=== PATIENT | male | born 1945 | race Caucasian/White ===

== ENCOUNTER 2020-10-26 10:30 | Outpatient (REF) | payer MEDICARE, SELFPAY ==
[2020-10-26 15:50] LABS: Estimated Average Glucose 134 mg/dL; Hemoglobin A1c % 6.3 %
== END 2020-10-26 10:31 | disposition home or self-care (01) ==
LOC: HO.MANLR 10:30
PROVIDERS: PCP Internal Medicine; Visit Provider Internal Medicine
DX: E11.9 Type 2 diabetes mellitus without complications (principal)
CPT/HCPCS: 36415; 83036

== ENCOUNTER 2021-02-28 09:23 | Outpatient (REF) | payer MEDICARE, SELFPAY ==
[2021-02-28 12:13] LABS: Estimated Average Glucose 143 mg/dL; Hemoglobin A1c % 6.6 %
== END 2021-02-28 09:24 | disposition home or self-care (01) ==
LOC: HO.MANLDS 09:23
PROVIDERS: PCP Internal Medicine; Visit Provider Internal Medicine
DX: E11.9 Type 2 diabetes mellitus without complications (principal)
CPT/HCPCS: 36415; 83036

== ENCOUNTER 2021-05-01 10:52 | Outpatient (REF) | payer MEDICARE, SELFPAY ==
[2021-05-01 13:11] LABS: Estimated Average Glucose 117 mg/dL; Hemoglobin A1c % 5.7 %
== END 2021-05-01 10:53 | disposition home or self-care (01) ==
LOC: HO.MANLDS 10:52
PROVIDERS: PCP Internal Medicine; Visit Provider Internal Medicine
DX: E11.9 Type 2 diabetes mellitus without complications (principal)
CPT/HCPCS: 36415; 83036

== ENCOUNTER 2021-09-19 10:37 | Outpatient (REF) | payer MEDICARE, SELFPAY ==
[2021-09-19 14:16] LABS: Estimated Average Glucose 134 mg/dL; Hemoglobin A1c % 6.3 %
[2021-09-19 14:34] LABS: Alanine Aminotransferase 20 U/L (0-40); Albumin Level 4.3 g/dL (3.5-5.0); Alkaline Phosphatase 92 U/L (39-117); Anion Gap 15 (12-20); Aspartate Amino Transferase 20 U/L (5-37); Bilirubin Total 0.6 mg/dL (0.0-1.0); Blood Urea Nitrogen 23 mg/dL (9-16); Calcium 10.1 mg/dL (8.4-10.2); Carbon Dioxide 25 mmol/L (22-29); Chloride 106 mmol/L (96-108); Cholesterol 172 mg/dL; Estimated Glomerular Filt Rate 57; Glucose Fasting 139 mg/dL (60-99); HDL Cholesterol 59 mg/dL; LDL Cholesterol Calculated 90 mg/dl; Potassium 5.1 mmol/L (3.3-5.1); Sodium 141 mmol/L (135-145); Total Protein 7.2 g/dL (6.5-8.0); Triglycerides 115 mg/dL
== END 2021-09-19 10:38 | disposition home or self-care (01) ==
LOC: HO.MANLDS 10:37
PROVIDERS: PCP Internal Medicine; Visit Provider Internal Medicine
DX: E11.9 Type 2 diabetes mellitus without complications (principal)
CPT/HCPCS: 36415; 80053; 80061; 83036

== ENCOUNTER 2021-09-20 09:03 | Outpatient (REF) | payer MEDICARE, SELFPAY ==
[2021-09-20 11:33] LABS: Creatinine Urine 167.37 mg/dL; Microalbum/Creatinine Ratio Ur 3.5 ug/mg cr
== END 2021-09-20 09:04 | disposition home or self-care (01) ==
LOC: HO.MANLNP 09:03
PROVIDERS: PCP Internal Medicine; Visit Provider Internal Medicine
DX: E11.9 Type 2 diabetes mellitus without complications (principal)
CPT/HCPCS: 82043

== ENCOUNTER 2022-04-16 10:22 | Outpatient (REF) | payer MEDICARE, SELFPAY ==
[2022-04-16 13:39] LABS: Estimated Average Glucose 143 mg/dL; Hemoglobin A1c % 6.6 %
[2022-04-16 14:09] LABS: Alanine Aminotransferase 20 U/L (0-40); Albumin Level 4.4 g/dL (3.5-5.0); Alkaline Phosphatase 92 U/L (39-117); Anion Gap 16 (12-20); Aspartate Amino Transferase 17 U/L (5-37); Bilirubin Total 0.7 mg/dL (0.0-1.0); Blood Urea Nitrogen 19 mg/dL (9-16); Calcium 9.7 mg/dL (8.4-10.2); Carbon Dioxide 26 mmol/L (22-29); Chloride 105 mmol/L (96-108); Cholesterol 153 mg/dL; Estimated Glomerular Filt Rate 50; Glucose Random 127 mg/dL (60-115); HDL Cholesterol 50 mg/dL; LDL Cholesterol Calculated 72 mg/dl; Potassium 5.2 mmol/L (3.3-5.1); Sodium 142 mmol/L (135-145); Total Protein 6.9 g/dL (6.5-8.0); Triglycerides 155 mg/dL
== END 2022-04-16 10:23 | disposition home or self-care (01) ==
LOC: HO.MANLDS 10:22
PROVIDERS: Visit Provider Internal Medicine
DX: E11.9 Type 2 diabetes mellitus without complications (principal)
CPT/HCPCS: 36415; 80053; 80061; 83036

== ENCOUNTER 2022-10-29 10:32 | Outpatient (REF) | payer MEDICARE, SELFPAY ==
[2022-10-29 14:41] LABS: Estimated Average Glucose 140 mg/dL; Hemoglobin A1c % 6.5 %
[2022-10-29 15:13] LABS: Alanine Aminotransferase 19 U/L (0-40); Albumin Level 4.2 g/dL (3.5-5.0); Alkaline Phosphatase 84 U/L (39-117); Anion Gap 15 (12-20); Aspartate Amino Transferase 19 U/L (5-37); Bilirubin Total 0.9 mg/dL (0.0-1.0); Blood Urea Nitrogen 15 mg/dL (9-16); Calcium 9.3 mg/dL (8.4-10.2); Carbon Dioxide 26 mmol/L (22-29); Chloride 107 mmol/L (96-108); Cholesterol 140 mg/dL; Estimated Glomerular Filt Rate > 60; Glucose Fasting 103 mg/dL (60-99); HDL Cholesterol 46 mg/dL; LDL Cholesterol Calculated 67 mg/dl; Potassium 4.3 mmol/L (3.3-5.1); Sodium 144 mmol/L (135-145); Total Protein 6.6 g/dL (6.5-8.0); Triglycerides 136 mg/dL
== END 2022-10-29 10:33 | disposition home or self-care (01) ==
LOC: HO.MANLDS 10:32
PROVIDERS: Visit Provider Internal Medicine
DX: E11.9 Type 2 diabetes mellitus without complications (principal)
CPT/HCPCS: 36415; 80053; 80061; 83036

== ENCOUNTER 2023-04-08 09:25 | Outpatient (REF) | payer MEDICARE, SELFPAY ==
[2023-04-08 14:48] LABS: Alanine Aminotransferase 17 U/L (0-40); Albumin Level 4.3 g/dL (3.5-5.0); Alkaline Phosphatase 93 U/L (39-117); Anion Gap 14 (12-20); Aspartate Amino Transferase 17 U/L (5-37); Bilirubin Total 0.7 mg/dL (0.0-1.0); Blood Urea Nitrogen 24 mg/dL (9-16); Carbon Dioxide 27 mmol/L (22-29); Chloride 107 mmol/L (96-108); Cholesterol 163 mg/dL; Estimated Glomerular Filt Rate > 60; Glucose Random 99 mg/dL (60-115); HDL Cholesterol 55 mg/dL; LDL Cholesterol Calculated 88 mg/dl; Potassium 4.6 mmol/L (3.3-5.1); Sodium 143 mmol/L (135-145); Triglycerides 103 mg/dL
[2023-04-08 15:10] LABS: Estimated Average Glucose 137 mg/dL; Hemoglobin A1c % 6.4 %
== END 2023-04-08 09:26 | disposition home or self-care (01) ==
LOC: HO.MANLDS 09:25
PROVIDERS: Visit Provider Internal Medicine
DX: E11.9 Type 2 diabetes mellitus without complications (principal)
CPT/HCPCS: 36415; 80053; 80061; 83036

== ENCOUNTER 2023-07-19 11:05 | Outpatient (REF) | payer MEDICARE, SELFPAY ==
[2023-07-19 14:14] LABS: Alanine Aminotransferase 18 U/L (0-40); Albumin Level 4.5 g/dL (3.5-5.0); Alkaline Phosphatase 107 U/L (39-117); Anion Gap 15 (12-20); Aspartate Amino Transferase 19 U/L (5-37); Bilirubin Total 0.9 mg/dL (0.0-1.0); Blood Urea Nitrogen 22 mg/dL (9-16); Calcium 10.3 mg/dL (8.4-10.2); Carbon Dioxide 22 mmol/L (22-29); Chloride 107 mmol/L (96-108); Cholesterol 177 mg/dL (<200); Estimated Glomerular Filt Rate > 60; Glucose Random 123 mg/dL (60-115); HDL Cholesterol 55 mg/dL (>40); LDL Cholesterol Calculated 89 mg/dL (<100); Potassium 4.1 mmol/L (3.3-5.1); Sodium 140 mmol/L (135-145); Total Protein 7.5 g/dL (6.5-8.0); Triglycerides 165 mg/dL (<150)
[2023-07-19 16:13] LABS: Estimated Average Glucose 151 mg/dL; Hemoglobin A1c % 6.9 % (<6.0)
== END 2023-07-19 11:06 | disposition home or self-care (01) ==
LOC: HO.MANLDS 11:05
PROVIDERS: Visit Provider Internal Medicine
DX: E11.9 Type 2 diabetes mellitus without complications (principal); I10 Essential (primary) hypertension
CPT/HCPCS: 36415; 80053; 80061; 83036

== ENCOUNTER 2023-12-03 14:04 | Outpatient (REF) | payer MEDICARE, SELFPAY ==
[2023-12-03 18:25] LABS: Alanine Aminotransferase 23 U/L (0-40); Albumin Level 4.5 g/dL (3.5-5.0); Alkaline Phosphatase 85 U/L (39-117); Anion Gap 16 (12-20); Aspartate Amino Transferase 24 U/L (5-37); Bilirubin Total 0.8 mg/dL (0.0-1.0); Blood Urea Nitrogen 18 mg/dL (9-16); Calcium 10.2 mg/dL (8.4-10.2); Carbon Dioxide 24 mmol/L (22-29); Chloride 104 mmol/L (96-108); Estimated Glomerular Filt Rate > 60; Glucose Random 85 mg/dL (60-115); Potassium 3.9 mmol/L (3.3-5.1); Sodium 140 mmol/L (135-145); Total Protein 7.6 g/dL (6.5-8.0)
[2023-12-04 05:42] LABS: Estimated Average Glucose 131 mg/dL; Hemoglobin A1c % 6.2 % (<6.0)
== END 2023-12-03 14:05 | disposition home or self-care (01) ==
LOC: HO.MANLDS 14:04
PROVIDERS: Visit Provider Internal Medicine
DX: E11.9 Type 2 diabetes mellitus without complications (principal); I10 Essential (primary) hypertension
CPT/HCPCS: 36415; 80053; 83036

== ENCOUNTER 2024-05-26 11:20 | Outpatient (REF) | payer MEDICARE, SELFPAY ==
[2024-05-26 14:09] LABS: Alanine Aminotransferase 20 U/L (0-40); Albumin Level 4.5 g/dL (3.5-5.0); Alkaline Phosphatase 81 U/L (39-117); Anion Gap 11 (12-20); Aspartate Amino Transferase 17 U/L (5-37); Bilirubin Total 0.7 mg/dL (0.0-1.0); Blood Urea Nitrogen 29 mg/dL (9-16); Calcium 10.1 mg/dL (8.4-10.2); Carbon Dioxide 28 mmol/L (22-29); Chloride 107 mmol/L (96-108); Estimated Glomerular Filt Rate 52; Glucose Random 95 mg/dL (60-115); Potassium 4.1 mmol/L (3.3-5.1); Sodium 142 mmol/L (135-145); Total Protein 7.4 g/dL (6.5-8.0)
[2024-05-26 16:05] LABS: Estimated Average Glucose 140 mg/dL; Hemoglobin A1c % 6.5 % (<6.0); Total Hemoglobin (HGBA1C) 3612.3304 umol/L
== END 2024-05-26 11:21 | disposition home or self-care (01) ==
LOC: HO.MANLDS 11:20
PROVIDERS: Visit Provider Internal Medicine
DX: E11.9 Type 2 diabetes mellitus without complications (principal); I10 Essential (primary) hypertension
CPT/HCPCS: 36415; 80053; 83036

== ENCOUNTER 2024-10-07 14:21 | Outpatient (REF) | payer MEDICARE, SELFPAY ==
--- OUTSIDE RECORDS SUMMARY | 2024-10-07 15:33 | XMS_ITS | Clinical Summary ---
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 Name Role Phone Unavailable Primary Care Provider Unavailabl e Social History Tobacco Use Types Packs/Day Years Used Date Smoking Tobacco: Never Assessed Sex and Gender Information Value Date Recorded Sex Assigned at Not on file Gender Identity Not on file Sexual Orientation Not on file Plan of Treatment Health Maintenance Due Date Last Done Comments DTaP/Tdap/Td Vaccines (1 - Tdap) 02/09/1963 Pneumococcal Vaccines 50+ (1 of 1 - PCV) 02/09/1994 Zoster (Shingles) Vaccine (1 of 2) 02/09/1994 RSV Vaccine 60 years and old er and Patients (1 - 1-dose 75+ series) 02/09/2019 COVID-19 Vaccine (2023-2 5 season) 2024 Hepatitis B Vaccines Aged Out No long er eligible based on patient's age to complete this topic
--- OUTSIDE RECORDS SUMMARY | 2024-10-07 15:33 | XMS_ITS | Continuity of Care Document ---
Author Organization [facility], [facility] Address [address] [place] [address] [place] [address] Assessment Encounter Date Assessment Date Assessment LastModified by Organization Details LastModified Time 10/07/2024 10/07/2024 [address] [place] [id number] (FASHION COORDINATOR) MDM MODERATE MUST MEET 2 OUT OF 3 ELEMENTS: PROBLEMS, DATA OR RISK ELEMENT 1: PROBLEMS ADDRESSED 1 OR MORE CHRONIC ILLNESS WITH EXACERBATION OR 2 OR MORE STABLE CHRONIC ILLNESSES OR 1 UNDIAGNOSED NEW PROBLEM OR 1 ACUTE ILLNESS W/SYMPTOMS OR 1 ACUTE COMPLICATED INJURY ELEMENT 2: DATA MUST MEET 1 OF 3 CATEGORIES CATEGORY 1: REVIEW OF PRIOR EXTERNAL NOTES, REVIEW OF RESULTS, ORDERING OF EACH TEST, ASSESSMENT REQUIRING INDEPENDENT HISTORIAN OR CATEGORY 2: INDEPENDENT INTERPRETATION OF TESTS BY ANOTHER PHYSICIAN OR SPECIALIST OR CATEGORY 3: DISCUSSION OF MGT OR TEST INTERPRETATION W/EXTERNAL PHYSICIAN OR SPECIALIST ELEMENT 3: RISK RISK OF COMPLICATIONS AND/OR MORBIDITY OR MORTALITY OF PATIENT MANAGEMENT PROVIDER MUST THOROUGHLY DOCUMENT EACH ELEMENT THAT IS COVERED The patient had a recent fall Patient presented for follow up of: today. Studies ordered as below. Discussed plan with patient, who expressed understanding. Follow up as noted below. Denies instability, weakness, abnormal gait, or difficulties with movement. The patient wears correct, supportive shoes and is not otherwise severely visually impaired. The patient is full weight bearing and if using the assistance of a cane or walker feels supported and stable with the use of such devices. All medical conditions have been taken into account that may pose a risk for the patient for falls. Home michelle, carpets and/or rugs do not pose a challenge for the patient. The patient has been educated about the use of vitamin D supplementation for bone health and prevention of hypotensive episodes that may increase risk for fall. All question and concerns were answered to the patient's satisfaction. Not available 10/07/2024 14:07:03 Plan of Treatment Reminders Order Date Submit Date Provider Last Modified By Organization Details Last Modified Time Details Appointments FOLLOW UP 15 2024 01:45P M DR HENDERSON Not available Not available Not available Lab iron + TIBC + ferritin , serum 2024 025 [facility], [address] [place] [address], [place], [address], 10/07/2024 14:11:05 Referral None recorded . Procedures None recorded . Surgeries None recorded . Imaging None recorded . Medication Orders None recorded . Patient TargetsNo targets recorded. Patient Instructions Encounter Date Encounter Id Patient Instructions Last Modified By Organization Details Last Modified Time 10/07/2024 [id number] learning about type 2 diabetes Not available 10/07/2024 14:09:48 type 2 diabetes: care instructions Not available 10/07/2024 14:09:48 high blood pressure: care instructions Not available 10/07/2024 14:09:48 learning about high blood pressure Not available 10/07/2024 14:09:48 high cholesterol : care instructions Not available 10/07/2024 14:09:48 Reason for Referral None Reported. Problems Name Problem SNOMED Code Status Onset Date Resolution Date Notes Provider Name and Address Organization Details Recorded Time Type 2 diabetes mellitus 39595899 Active 2017 Hannah cardenas [facility] Internal [facility] 8 11:44:42 Essential hypertens ion 51502244 Active 2017 Hannah cardenas [facility] Internal [facility] 8 11:44:48 Hemochrom atosis 807596077 Active [address] [facility] 8 11:44:59 Hemangiom a of liver 39957908 Active [address] [facility] 8 11:45:22 Iron deficienc y anemia 77754228 Active [address] [facility] 8 11:45:29 Osteoarth ritis of knee 153871089 Active 2017 bilat knee Isidro Henderson, DO [address] [place] [address], [phone], [facility] 9 11:38:33 Gout 72327371 [facility] 11:46:54 Hyperlipi demia 24885990 Active [facility] 8 11:46:58 Near syncope 262043081 Active 2021 Isidro Henderson DO [address] [place] [address], [phone], [facility] 2 15:23:54 Contusion of rib 233757733 Active 2022 Isidro Henderson DO [address] [place] [address], [address], [facility] 3 13:46:27 Osteoarth ritis of left knee joint 901506535723 109 Active 2023 Isidro Henderson DO [address] [place] [address], [address], [facility] 4 15:04:28 Problem Notes None recorded. Procedures Surgical History Date Name Laterality Status Provider Name and Address Organization Details Recorded Time 024 Corticosteroid Injection completed Najma Ayala [facility] 05/22/2024 15:02:57 021 Corticosteroid Injection completed Isidro Henderson DO [address] [place] [address], [address], [facility] 01/23/2021 16:19:13 021 Corticosteroid Injection completed Isidro Henderson DO [address] [place] [address], [phone], [facility] 01/03/2021 16:13:57 019 Corticosteroid Injection completed Isidro Henderson DO [address] [place] [address], [address], [facility] Internal [facility] 05/08/2019 14:50:48 019 Corticosteroid Injection completed Isidro Henderson DO [address] [place], [address], [facility] Internal [facility] 04/06/2019 11:39:50 018 Corticosteroid Injection completed Isidro Henderson DO [address] [place], [address], [facility] Internal [facility] 07/21/2018 16:05:22 018 Corticosteroid Injection completed Isidro Henderson DO [address] [place] [address], [address], [facility] Internal [facility] 04/30/2018 12:44:06 018 Corticosteroid Injection completed Isidro Henderson DO [address] [place] [address], [address], [facility] 04/18/2018 14:33:50 015 Colonoscopy completed Hannah [facility] 12/02/2019 10:17:00 Imaging Results None recorded. Procedure Notes None recorded. Medical Equipment None Reported. Allergies Allergen ID Allergen Name Allergen Category Reaction Reaction Severity Criticality Documentation Date Start Date Code Code System Note Provider Name and Address Organization Details Recorded Time 401 Product containin g angiotens in-conver ting enzyme inhibitor (product) medicatio n cough Not available Not available 11/06/2017 07287 009 SNOMED Hannah Monreal [facility] 8 11:43:42 402 colchicin e medicatio n rash Not available Not available 11/06/2017 2683 RxNorm [facility] 8 11:44:37 Medications Name Sig Start Date Stop Date Status Note LastModified by Organization Details LastModified Time amoxicillin 500 mg capsule TAKE 1 CAPSULE BY MOUTH EVERY 8 HOURS UNTIL FINISHED 11/05 completed Not Available Not Available Not Available atorvastati n 80 mg tablet Take 1 tablet every day by oral route. active Not Available Not Available No t Available lisinopril 20 mg tablet Take 1 tablet every day by oral route. active Not Available Not Available No t Available glipizide 10 mg tablet Take 1 tablet twice a day by oral route. active Not Available Not Available No t Available atenolol 25 mg tablet Take 1 tablet every day by oral route. active Not Available Not Available No t Available aspirin 81 mg tablet,lenny yed release Take 1 tablet every day by oral route. active Not Available Not Available No t Available ketorolac 0.5 % eye drops INSTILL 1 DROP IN RIGHT EYE THREE TIMES A DAY FOR 3 WEEKS FOLLOWING SURGERY RIGHT EYE active Not Available Not Available No t Available prednisolon e acetate 1 % eye drops,suspe nsion INSTILL 1 DROP IN RIGHT EYE THREE TIMES A DAY FOR 3 WEEKS FOLLOWING SUREGRY RIGHT EYE active Not Available Not Available No t Available diltiazem CD 300 mg capsule,ext ended release 24 hr Take 1 capsule every day by oral route. active Not Available Not Available No t Available metformin 1,000 mg tablet Take 1 tablet twice a day by oral route. active Not Available Not Available No t Available omeprazole 20 mg capsule,del ayed release Take 1 capsule every day by oral route. active Not Available Not Available No t Available allopurinol 300 mg tablet Take 1 tablet every day by oral route. active Not Available Not Available No t Available levofloxaci n 500 mg tablet TAKE 1 TABLET BY MOUTH EVERY DAY FOR 2 DAYS. TAKE ON 04/02 AND 04/03 completed Not Available Not Available Not Available pioglitazon e 30 mg tablet Take 1 tablet every day by oral route. active Not Available Not Available No t Available oxycodone 5 mg tablet TAKE 1 TABLET (5 MG TOTAL) BY MOUTH EVERY 6 (SIX) HOURS NEEDED FOR MODERATE PAIN. 11/02 completed Not Available Not Available Not Available Vitamin B1 (Thiamine) 100 mg tablet Take 2 tablets every day by oral route in the morning. active Not Available Not Available No t Available oxycodone 05/16 completed Not Available Not Available Not Available rivaroxaban 20 mg tablet Take 1 tablet every day by oral route. 06/16 completed Not Available Not Available Not Available Vitals Date Recorded Body height Body mass index (BMI) Body weight Heart rate Oxygen saturation Oxygen saturation in Arterial blood by Pulse oximetry Systolic blood pressure Diastolic blood pressure Provider Name and Address Organization Details Last Updated DateTime 5 170.18 cm 37.7 kg/m2 359697. 76 g 70 /min 99 % 99 % 130 mm[Hg] 80 mm[Hg] [facility] 5 13:51:10 Social History Question Answer Notes LastModified by Organizat ion Details LastModified Time Tobacco Smoking Status Former Smoker Not Available [facility] 07/05/2020 03:36:24 What Was The Date Of Your Most Recent Tobacco Screening? 10/07/2024 Information not available 10/07/2024 Do You Or Have You Ever Used Any Other Forms Of Tobacco Or Nicotine? No [email or web address] Information not available 04/15/2023 Sex: Unknown Functional Status None recorded. Mental Status None recorded. Family History Nothing Reported. Medical History No medical history recorded. Immunizations Vaccine Type Date Status Note Provider Nam e and Address Organization Details Recorded Time COVID-19, mRNA, LNP-S, PF, 100 mcg/0.5mL dose or 50 mcg/0.25mL dose 1 completed Isidro Henderson DO [address] [place] [address], [address], [facility] 01/05/2022 14:48:34 COVID-19, mRNA, LNP-S, PF, 100 mcg/0.5mL dose or 50 mcg/0.25mL dose 2 completed Isidro Henderson DO [address] [place] [address], [address], [facility] 01/05/2022 14:48:42 Influenza, split virus, quadrivalent, preservative 8 [facility]/16[facility]2018 14:43:50 [facility]oster live 8 [facility] 06/16/2018 14:44:08 Tdap 2 completed Isidro Henderson DO [address] [place] [address], [address], [facility] 04/20/2022 11:29:04 influenza, unspecified formulation 2 [facility] 07/23/2022 12:03:42 SARS-COV-2 (COVID-19) vaccine, UNSPECIFIED 3 completed [facility] 04/15/2023 14:56:37 SARS-COV-2 (COVID-19) vaccine, UNSPECIFIED 4 [facility] 03/18/2024 11:04:51 Influenza, split virus, quadrivalent, preservative 0 completed Isidro Henderson [address], [address], [facility] Internal [facility] 05/16/2020 16:13:32 COVID-19, mRNA, LNP-S, PF, 100 mcg/0.5mL dose or 50 mcg/0.25mL dose 1 completed Isidro Henderson DO [address] [place] [address], [address], [facility] Internal [facility] 11/02/2020 11:44:38 COVID-19, mRNA, LNP-S, PF, 100 mcg/0.5mL dose or 50 mcg/0.25mL dose 1 completed Isidro Henderson DO [address] [place] [address], [address], [facility] 11/02/2020 11:44:46 Past Encounters Encounter ID Performer Location Encounter Start Date Encounter Closed Date Diagnosis/Indication Diagnosis SNOMED-CT Code Diagnosis ICD10 Code Diagnosis Note [id number] Isidro Henderson [facility] [address] [facility],[place] [address] 10/07/2024 13:43:19 10/07/2024 14:24:49 Essential hypertension 53165329 I10 noted to have stable bp and we will see him again in 3 mo and recheck Hemochromatosis 94576263 6 E83.119 prior level of ferritin is 35 cbc is good iron level good lab is pending cbc nl needs iron level done as well as ferritin Hyperlipidemia 61269348 E78.5 LDL is excellent at 96 on prior lab Type 2 kristal betes mellitus 05904681 E11.9 a1c is now 6.7 was 6.2 was 6.9 and was 6.4 and was 6.5 was 6.6microal b is sl pos very minimalno current complicati onslevel has gone up a bit due to winter and inactivity Health Concerns Section Related Observation LastModified by Organization Detai ls LastModified Time None Recorded Concern Status LastModified by Organization Details LastModified Time None Recorded Payers Encounter Date Sequence Insurance Name Policy Number Policy Lopez Covered Member ID Lopez Member ID Guarantor Name 10/07/2024 1 [facility] (MEDICARE REPLACEMENT/A DVANTAGE - PPO) [id number] Uziel Briceño [id number] Uziel Briceño Notes Date Note Type Note Provider Name a nd Address Organization Details Recorded Time 5 text/html Care Management - DiabetesReported bypatient.Self Care:seeing eye doctor yearly for dilated eye exam; checking feet regularly; normal range of home blood sugars (in the low 100s); no side effects from medications Associated Symptoms:symptoms are usually well controlled; no fatigue; no dizziness; no excessive sweating; no headaches; no confusion; no increased thirst; no increased appetite; no increased urination; no blurred vision; no numbness of feet; no calluses on feet fell at home several days ago states injured his right knee had to crawl into the housestates that knee cap was very sore [facility] just had a DM foot eval too Isidro Henderson, DO [address], [place], [address], [facility] 10/07/2024 14:16:04
--- OUTSIDE RECORDS SUMMARY | 2024-10-07 15:33 | XMS_ITS | Encounter Summary ---
Author Name [facility] Organization [facility] Address [address] [place] [id number] Care Team Providers Care Dross Puller Name Role Phone ARTI BOB Primary Care Provider Unavail able Insurance Providers: All historical and current Section Date Range: From patient's date of to the date document was created. This section includes the names of all active insurance providers for the patient. Insurance Provider Type of Coverage Plan Name Start of Policy Coverage End of Policy Coverage Group Number Member ID Insurance Provider's Telephone Number Policy Lopez's Name Patient's Relationship to Policy Lopez MEDICARE (WNR) MEDICARE (M) PART A Feb 09, 2009 PART A [id number] BELKIS NEGRON PATIENT MEDICARE (WNR) MEDICARE (M) PART A Feb 09, 2009 PART A [id number] [phone] BELKIS NEGRON PATIENT MEDICARE (WNR) MEDICARE (M) PART B Feb 09, 2009 PART B [id number] BELKIS NEGRON PATIENT MEDICARE (WNR) MEDICARE (M) PART B Jan 31, 2009 PART B [id number] [phone] BELKIS NEGRON PATIENT MEDICARE (WNR) MEDICARE (M) PART A Jan 31, 2009 PART A [id number] BELKIS NEGRON PATIENT MEDICARE (WNR) MEDICARE (M) PART B Jan 31, 2009 PART B [id number] BELKIS NEGRON PATIENT [facility] (WNR) MEDICARE ADVANTAGE [facility] (WNR) Sep 02, 2021 [id number] [phone] BELKIS NEGRON PATIENT [facility] (WNR) MEDICARE ADVANTAGE [facility] (WNR) Sep 02, 2021 [id number] [phone] BELKIS NEGRON PATIENT [facility] (WNR) MEDICARE ADVANTAGE [facility] (WNR) Sep 02, 2021 [id number] BELKIS NEGRON PATIENT Selected Encounter This section includes the information on record at [place] for the Encounter. Date/Time Encounter Type Encounter Description Reason Pro vider Source Oct 07, 2024 11:30 AM Outpatient Encounter PODIATRY IHE Encounter Template Text not used by [place] Plan of Treatment: Future Appointments (+ 6 months) and Future Tests (+/- 45 days) The Plan of Treatment section includes future care activities for the patient [facility] This section includes future appointments and future orders which are active, pending or scheduled. Future Appointments This section includes appointments that were scheduled to occur 6 months from the date of the Encounter, up to a maximum of 20 appointments. The data comes from all [place] treatment facilities. Appointment Date/Time Appointment Type Appointme nt Facility Name Feb 25, 2025 11:30 AM [facility]ULATORY - [facility]INE [facility] Mar 01, 2025 11:00 AM AMBULATORY - MEDICINE [facility] Social History: Smoking Status (Most current) and Tobacco Use (All prior to encounter date) This section includes the most current, and the historical, smoking and tobacco- related health factors from the [place] facility where the Encounter took place. Current Smoking Status This section includes the most current smoking, or tobacco-related health factor, from the [place] facility where the Encounter took place. Date/Time Current Smoking Status Kiley kruse Sep 04, 2024 11:00 AM AR-TOBACCO NEVER U SED CIGARETTES [facility] Tobacco Use History This section includes a history of the smoking, or tobacco-related health factors, that were collected on or before the date of the Encounter. The data comes from the [place] facility where the Encounter took place. Date/Time Smoking Status/Tobac co Use Comment Facility Sep 04, 2024 11:00 AM VA-TOBACCO NEVER USED OTHER TYPE [facility] Sep 04, 2024 11:00 AM VA-TOBACCO SCREEN FOLLOW-UP [facility] Sep 04, 2024 11:00 AM VA-TOBACCO USE ADVICE [facility] Sep 04, 2024 11:00 AM VA-TOBACCO USE PALLIATIVE SENIOR NP NO [facility] Sep 04, 2024 11:00 AM VA-TOBACCO USE MED NO [facility] Jun 04, 2023 01:30 PM VA-TOBACCO FORMER USER [facility] [place] [facility] Jun 04, 2023 01:30 PM VA-TOBACCO QUIT 15 YRS OR MORE [facility] Jun 15, 2022 09:15 AM VA-TOBACCO FORMER USER [facility] [place] Jun 15, 2022 09:15 AM VA-TOBACCO QUIT 15 YRS OR MORE [facility] Jun 30, 2021 09:30 AM VA-TOBACCO FORMER USER [facility] [place] [facility] Jun 30, 2021 09:30 AM VA-TOBACCO QUIT 15 YRS OR MORE [facility] [place] Jun 03, 2020 08:30 AM VA-TOBACCO FORMER USER [facility] [place] Jun 03, 2020 08:30 AM VA-TOBACCO QUIT 15 YRS OR MORE [facility] [place] [facility] Feb 23, 2020 09:01 AM VA-TOBACCO FORMER USER [facility] [place] [facility] Feb 23, 2020 09:01 AM VA-TOBACCO QUIT 15 YRS OR MORE [facility] [place] [facility] Oct 28, 2018 01:39 PM VA-TOBACCO FORMER USER [facility] [place] [facility] Oct 28, 2018 01:39 PM VA-TOBACCO QUIT 15 YRS OR MORE [facility] [place] [facility] Jul 10, 2017 10:40 AM QUIT TOBACCO USE > 7 YEARS AGO [facility] [place] [facility] Feb 13, 2016 10:21 AM QUIT TOBACCO USE > 7 YEARS AGO . [facility] Jun 08, 2005 10:50 AM HISTORY OF SMOKING quit in 1973 [facility] Apr 10, 2004 10:43 AM HISTORY OF SMOKING [facility] Dec 04, 2002 11:12 AM HISTORY OF SMOKING [facility] January 09, 2002 10:01 AM QUIT TOBACCO USE > 7 YEARS AGO [facility] Sep 11, 2001 10:41 AM HISTORY OF SMOKING see note this date [facility] Sep 11, 2001 10:41 AM NON-TOBACCO USER see previous note [facility] Advance Directives: All historical and current Section Date Range: From patient's date of to the date document was created. This section includes ALL of a patient's completed or amended [place] Advance and Rescinded Directives. The entries below indicate that a directive exists for the patient, but an actual copy is not included with this document. The data comes from all [place] facilities. Date Advance Directives Provider Source Aug 27, 2012 ADVANCE DIRECTIVE JESS ANDRADE [facility]
--- OUTSIDE RECORDS SUMMARY | 2024-10-07 15:34 | XMS_ITS | Encounter Summary ---
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 Name Role Phone ARTI BOB Primary Care [...] PART A Feb 09, 2009 PART A [id number] [phone] BELKIS NEGRON PATIENT MEDICARE (WNR) MEDICARE (M) PART A Feb 09, 2009 PART A [id number] BELKIS NEGRON PATIENT MEDICARE (WNR) MEDICARE (M) PART B Feb 09, 2009 PART B [id number] [phone] BELKIS NEGRON PATIENT MEDICARE (WNR) MEDICARE (M) PART B Jan 31, 2009 PART B [id number] BELKIS NEGRON PATIENT MEDICARE (WNR) MEDICARE (M) PART A Jan 31, 2009 PART A [id number] BELKIS NEGRON PATIENT MEDICARE (WNR) MEDICARE (M) PART B Jan 31, 2009 PART B [id number] BELKIS NEGRON PATIENT [facility] (WNR) MEDICARE ADVANTAGE [facility] (WNR) Sep 02, 2021 [id number] BELKIS NEGRON PATIENT [facility] (WNR) MEDICARE ADVANTAGE [facility] (WNR) Sep 02, 2021 [id number] BELKIS NEGRON PATIENT [facility] (WNR) MEDICARE [facility] (WNR) Sep 02, 2021 [id number] BELKIS NEGRON PATIENT Selected Encounter This section includes the information on record at [place] for the Encounter. Date/Time Encounter Type Encounter Description Reason Provider Source Feb 26, 2024 11:00 AM OFFICE O/P EST LOW 20 MIN ENDOCRINOLOGY ICD-10-CM 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c multinodular goiter PAZ WEBER Tiny Encounter Template Text not used by [place] Assessments - Encounter Diagnoses This section includes the primary and secondary diagnoses documented for the Encounter. Date/Time Primary/Secondary Diagnosis Diagnosis Name Provider Source Feb 26, 2024 12:35 PM PRIMARY Nontoxic multinodular goiter PAZ WEBER [facility] [place] [facility] Plan of Treatment: Future Appointments (+ 6 months) and Future Tests (+/- 45 days) The Plan of Treatment section includes future care activities for the patient from all [place] treatmentfacilities. This section includes future appointments and future orders which are active, pending or scheduled. Future Appointments This section includes appointments that were scheduled to occur 6 months from the date of the Encounter, up to a maximum of 20 appointments. The data comes from all [place] treatment facilities. Appointment Date/Time Appointment Type Appointme nt Facility Name Mar 03, 2024 01:30 PM AMBULATORY - MEDICINE [place] [facility] [place] [facility] Apr 30, 2024 01:30 PM AMBULATORY [place] MEDICINE [place] [facility] [place] [facility] May 05, 2024 01:00 PM [facility] [place] [facility] Active, Pending, and Scheduled Orders This section includes a listing of several types of active, pending, and scheduled orders, including clinic medications orders, diagnostic test orders, procedure orders and consult orders; where the start date of the order is 45 days before the date of the Encounter or 45 days after the date of theEncounter. The data comes from all [place] treatment facilities. Test Date/Time Test Type Test Details Facility Name Feb 27, 2024 12:00 AM Laboratory - Chemi stry Order BASIC METABOLIC PANEL (non-fasting) BLOOD (SST-SERUM) [facility] Feb 27, 2024 12:00 AM Laboratory - Chemi stry Order IRON & TIBC PANEL BLOOD (SST-SERUM) [facility] Feb 27, 2024 12:00 AM Laboratory - Chemi stry Order FERRITIN BLOOD (SST-SERUM) [facility] Feb 27, 2024 12:00 AM Laboratory - Chemi stry Order CBC BLOOD (LAV-BLOOD) [facility] Lab Results: +/- 30 days of the encounter This section includes the Chemistry and Hematology Lab Results on record with [place] for the patient. Radiology Reports and Pathology Reports are provided separately, in subsequent sections. Lab Results This section contains the Chemistry/Hematology Results that were resulted 30 days before or 30 daysafter the date of the Encounter. Date/Time Source Result Type Result - Unit Interpretation Reference Range Comment Feb 20, 2024 08:43 AM [facility] BASIC METABOLIC PANEL (fasting) Specimen Type: SERUM No comment entered. Ordering Provider: LORENZO BOB Report Released Date/Time: Sep 10, 2023 02:57 PM Reporting Lab: [address] [address] Performing Lab: [address] [address] UREA NITROGEN 17 mg/dL 7-25 GLUCOSE 162 mg/dL H 65-100 SODIUM 140 mmol/L 135-145 POTASSIUM 4.3 mmol/L 3.5-5.0 CHLORIDE 104 mmol/L 100-110 CO2 23 meq/L 20-30 CREATININE, Serum 1.30 mg/dL 0.50-1.40 eGFR(CKD-EPI 2020) 56 mL/min L >60 Feb 20, 2024 08:43 AM [facility] LIVER FUNCTION Specimen Type: SERUM No comment entered. Ordering Provider: LORENZO BOB Report Released Date/Time: Sep 10, 2023 02:57 PM Reporting Lab: [facility] [address] [facility] [address] Performing Lab: [address] [address] PROTEIN,TOTAL 6.7 g/dL 6.0-8.3 ALBUMIN 3.9 g/dL 3.5-5.0 ALKALINE PHOSPHATASE 84 U/L 40-150 AST 16 U/L 5-34 ALT 17 U/L BILIRUBIN, TOTAL 0.8 mg/dL 0.2-1.2 Feb 20, 2024 08:43 AM [facility] IRON & TIBC PANEL Specimen Type: SERUM No comment entered. Ordering Provider: LORENZO BOB Report Released Date/Time: Sep 10, 2023 02:57 PM Reporting Lab: [address] [address] Performing Lab: [address] [address] TIBC 399 ug/dL 204-475 IRON 120 ug/dL 40-160 Transferrin Saturation 30.1 20.0-50.0 Feb 20, 2024 08:43 AM [facility] LIPID PANEL FASTING Specimen Type: SERUM No comment entered. Ordering Provider: LORENZO BOB Report Released Date/Time: Sep 10, 2023 02:57 PM Reporting Lab: [address] [address] Performing Lab: [address] [address] CHOLESTEROL 143 mg/dL TRIGLYCERIDE 142 mg/dL 0-150 LDL calculated 64 mg/dL 0-129 CHOL/HDL 2.8 HDL CHOLESTEROL 51 mg/dL 40-60 Feb 20, 2024 08:43 AM [facility] FERRITIN Specimen Type: SERUM No comment entered. Ordering Provider: LORENZO BOB Report Released Date/Time: Sep 10, 2023 02:57 PM Reporting [facility]: [facility] [address] [facility] [address] Performing [facility]: [facility] [address] [facility] [address] FERRITIN 55 ng/mL 20-300 Feb 20, 2024 08:43 AM [facility] CBC AND DIFF (AUTO) Specimen Type: BLOOD No comment entered. Ordering Provider: LORENZO BOB Report Released Date/Time: Sep 10, 2023 02:57 PM Reporting Lab: [facility] [address] [facility] [address] Performing Lab: [facility] [address] [facility] [address] WBC 5.93 10*3/uL 4.50-11.00 RBC 3.98 10*6/uL L 4.23-5.66 HGB 13.1 g/dL 12.8-17 HCT 38.4 L 39.2-50.4 MCV 96.5 fL 82-99 MCHC 34.1 g/dL 30.8-35.1 PLT 311 10*3/uL 140-360 RDW-CV 13.3 12.0-16.0 MONO, ABS 0.53 10*3/uL 0.30-1.10 MCH 32.9 pg H 26.2-32.6 NEUT % 61.4 43.7-75.8 LYMPH % 25.5 14.0-42.3 MONO % 8.9 5.1-13.7 EOS % 3.4 0.4-6.8 BASO % 0.5 0.1-2.0 NEUT, ABS 3.64 10*3/uL 2.20-7.60 LYMPH, ABS 1.51 10*3/uL 1.00-3.20 EOS, ABS 0.20 10*3/uL 0.03-0.44 BASO, ABS 0.03 10*3/uL 0.01-0.13 IMMATURE GRAN % 0.3 0.0-0.7 IMMATURE GRAN, ABS 0.02 10*3/uL 0.00-0.06 NRBC % 0.0 0.0-0.0 NRBC, ABS 0.00 10*3/uL 0.00-0.00 Vital Signs: All taken on the encounter date This section contains inpatient and outpatient Vital Signs collected on the date of the Encounter. Date/Time Temperature Pulse Blood Pressure Respiratory Rate SP02 Pain Height Weight Body Mass Index Source Feb 26, 2024 12:03 PM 97.4 76 124/76 18 95 0 245.4 39 [place] [facility] [place] [facility] Social History: Smoking Status (Most current) and Tobacco Use (All prior to encounter date) This section includes the most current, and the historical, smoking and tobacco- related health factors from the [place] facility where the Encounter took place. Current Smoking Status This section includes the most current smoking, or tobacco-related health factor, from the [place] facility where the Encounter took place. Date/Time Current Smoking Status Comment [facility] Jun 04, 2023 01:30 PM VA-TOBACCO FORMER USER [facility] Tobacco Use History This section includes a history of the smoking, or tobacco-related health factors, that were collected on or before the date of the Encounter. The data comes from the [place] facility where the Encounter took place. Date/Time Smoking Status/Tobac co Use Comment Facility Jun 04, 2023 01:30 PM VA-TOBACCO QUIT 15 YRS OR MORE [facility] [place] [facility] Jun 15, 2022 09:15 AM VA-TOBACCO FORMER USER [facility] [place] [facility] Jun 15, 2022 09:15 AM VA-TOBACCO QUIT 15 YRS OR MORE [facility] [place] [facility] Jun 30, 2021 09:30 AM VA-TOBACCO FORMER USER [facility] [place] [facility] Jun 30, 2021 09:30 AM VA-TOBACCO QUIT 15 YRS OR MORE [facility] [place] [facility] Jun 03, 2020 08:30 AM VA-TOBACCO FORMER USER [facility] [place] [facility] Jun 03, 2020 08:30 AM VA-TOBACCO QUIT 15 YRS OR MORE [facility] [place] [facility] Feb 23, 2020 09:01 AM VA-TOBACCO FORMER USER [facility] [place] [facility] Feb 23, 2020 09:01 AM VA-TOBACCO QUIT 15 YRS OR MORE [facility] [place] [facility] Oct 28, 2018 01:39 PM VA-TOBACCO FORMER USER [facility] Oct 28, 2018 01:39 PM VA-TOBACCO QUIT 15 YRS OR MORE [facility] Jul 10, 2017 10:40 AM QUIT TOBACCO USE > 7 YEARS AGO [facility] Feb 13, 2016 10:21 AM QUIT TOBACCO USE > 7 YEARS AGO . [facility] Jun 08, 2005 10:50 AM HISTORY OF SMOKING quit in 1972 [facility] Apr 10, 2004 10:43 AM HISTORY OF SMOKING [facility] Dec 04, 2002 11:12 AM HISTORY OF SMOKING [facility] January 09, 2002 10:01 AM QUIT TOBACCO USE > 7 YEARS AGO [facility] Sep 11, 2001 10:41 AM HISTORY OF SMOKING see note this date [facility] Sep 11, 2001 10:41 AM NON-TOBACCO USER see previous note [facility] Advance Directives: All historical and current Section Date Range: From patient's date of to the date document was created. This section includes ALL of a patient's completed or amended [place] Advance and Rescinded Directives. The entries below indicate that a directive exists for the patient, but an actual copy is not included with this document. The data comes from all [place] facilities. Date Advance Directives Provider Source Aug 27, 2012 ADVANCE DIRECTIVE JESS ANDRADE [facility] Radiology Reports: +/- 30 days of the encounter Radiology Reports For cases when an order for radiology services may have been completed prior to the date of the Encounter, the report list includes the Radiology Reports that were completed up to 30 days before dateof the Encounter. For cases when an order for radiology services may have been completed after the date of the Encounter, the report list also includes the Radiology Reports that were completed up to30 days after date of the Encounter. The data comes from all [place] treatment facilities. Date/Time Radiology Report Provider Source Feb 20, 2024 09:51 AM ULTRASOUND NECK (THYROID,HEAD,SOFT TISSUE): ELSA NEGRON [id number] [phone] M Exm Date: FEB 20, 2024@09:51 Req Phys: PAZ WEBER Loc: NHM/ENDOCRINE (Req'g Loc) Img Loc: ULTRASOUND Service: Unknown [facility] , (Case [id number] COMPLETE) ULTRASOUND NECK (THYROID,HEAD,SOF(US Detailed) CPT:10302 Reason for Study: follow multinodular goiter Clinical History: Report Status: Verified Date Reported: FEB 26, 2024 Date Verified: FEB 26, 2024 Carbonizer Tester E-Sig: Report: ULTRASOUND NECK (THYROID,HEAD,SOFT TISSUE) Clinical History: follow multinodular goiter Comparison: Thyroid ultrasound January 31, 2023 Technique: Ultrasound imaging of the thyroid. A total of 23 images are available for review. Findings: Overall thyroid size: Within normal limits. Right thyroid: Homogeneous echotexture. Right thyroid lobe size: 3.4 x 1.6 x 1.9 cm. Discrete right thyroid nodules: Isoechoic solid nodule in the midpole measuring 3 x 3 x 3 mm. Hypoechoic solid nodule at the mid pole measuring 4 x 3 x 3 mm Left thyroid lobe: Heterogeneous echotexture. Left thyroid lobe size: 3.5 x 2.2 x 2.5 cm Discrete left thyroid nodules: Part solid, part cystic isoechoic nodule at the mid pole measuring 3.0 x 1.9 x 1.9 cm (CC x AP x ML) , wider than tall, previously measuring 2.3 x 1.6 x 1.9 cm Isthmus: Unremarkable. Impression: Mild interval increase in size of wider than tall part solid part cystic nodule, isoechoic solid component, in the left thyroid lobe (TIRADS-2). By TIRADS criteria, this is compatible with benign nodule. READING PHYSICIAN: Elsa Monreal MD -[id number] 02/26/2024 9:00 CDT [facility] National Teleradiology Program [phone] (For Medical Practitioner Use Only) Attention Patients / Veterans: If you have questions or concerns about these test results, please contact your ordering provider or primary care team. Primary Diagnostic Code: NO ALERT REQUIRED Primary Interpreting Staff: RADIOLOGY,OUTSIDE SERVICE, Staff Physician / RADIOLOGY,OUTSIDE SERVICE [facility] Encounter Notes: All associated encounter notes This section contains the clinical notes associated to the Encounter. Date/Time Encounter Note(s) Provider Source Feb 23, 2024 04:18 PM PHYSICIAN NOTE: LOCAL TITLE: MD NOTE STANDARD TITLE: PHYSICIAN NOTE DATE OF NOTE: FEB 23, 2024@16:18 ENTRY DATE: FEB 23, 2024@16:18:06 AUTHOR: PAZ WEBER COSIGNER: URGENCY: STATUS: COMPLETED CC: nontoxic multinodular goiter HPI: Doing well. 01/2023 FNA L thyroid nodule. Adequate for interpretaion. Benign findings. Not noting change in the area of the thyroid. No dysphagia or hoarseness. All recent endocrine results were reviewed with the patient. FEB 26, 2024 ULTRASOUND NECK (THYROID,HEAD,SOFT TISSUE) Clinical History: follow multinodular goiter Comparison: Thyroid ultrasound January 31, 2023 Overall thyroid size: Within normal limits. Right thyroid: Homogeneous echotexture. Right thyroid lobe size: 3.4 x 1.6 x 1.9 cm. Discrete right thyroid nodules: Isoechoic solid nodule in the midpole measuring 3 x 3 x 3 mm. Hypoechoic solid nodule at the mid pole measuring 4 x 3 x 3 mm Left thyroid lobe: Heterogeneous echotexture. Left thyroid lobe size: 3.5 x 2.2 x 2.5 cm Discrete left thyroid nodules: Part solid, part cystic isoechoic nodule at the mid pole measuring 3.0 x 1.9 x 1.9 cm (CC x AP x ML) , wider than tall, previously measuring 2.3 x 1.6 x 1.9 cm Isthmus: Unremarkable. Impression: Mild interval increase in size of wider than tall part solid part cystic nodule, isoechoic solid component, in the left thyroid lobe (TIRADS-2). By TIRADS criteria, this is compatible with benign nodule. Active problems - Computerized Problem List is the source for the followin. Non-toxic multinodular goiter 2. History of cholecystectomy 3. Acute deep vein thrombosis of lower limb 4. Long-term current use of anticoagulant 5. Osteoporosis 6. Diabetic nephropathy 7. Diverticulosis 8. Erosive esophagitis 9. Lumbar Radiculopathy 10. Flexible Colonoscopy Proximal to Splenic Flexure 11. Hypertriglyceridemia * 12. Hereditary Hemochromatosis 13. Gout * 14. Cataract, Unspecified 15. Obesity * 16. Benign hypertension (SNOMED CT [id number]) Active Outpatient Medications (including Supplies): Active Outpatient Medications Status ========= 1) ACCU-CHEK GUIDE (GLUCOSE) TEST STRIP USE 1 STRIP TO ACTIVE TEST BLOOD SUGARS TWICE A DAY TWO TIMES A WEEK TO BE USED WITH NEW ACCU-CHEK GUIDE ME METER 2) ALLOPURINOL 300MG TAB TAKE ONE TABLET BY MOUTH EVERY ACTIVE DAY FOR GOUT 3) ATENOLOL 25MG TAB TAKE ONE TABLET BY MOUTH ONCE DAILY ACTIVE FOR BLOOD PRESSURE/HEART 4) ATORVASTATIN CALCIUM 80MG TAB TAKE ONE TABLET BY ACTIVE MOUTH ONCE DAILY FOR CHOLESTEROL IN PLACE OF ROSUVASTATIN. 5) GLIPIZIDE 10MG TAB TAKE ONE TABLET BY MOUTH TWICE ACTIVE DAILY FOR DIABETES 6) LISINOPRIL 20MG TAB TAKE ONE TABLET BY MOUTH DAILY TO ACTIVE CONTROL BLOOD PRESSURE 7) METFORMIN HCL 1000MG TAB TAKE ONE TABLET BY MOUTH ACTIVE TWICE DAILY FOR DIABETES 8) OMEPRAZOLE 20MG EC CAP TAKE ONE CAPSULE BY MOUTH ACTIVE EVERY MORNING 30 MINUTES BEFORE BREAKFAST 9) PIOGLITAZONE HCL 30MG TAB TAKE ONE TABLET BY MOUTH ACTIVE DAILY Active Non-VA Medications Status ========= 1) Non-VA ASPIRIN 81MG EC TAB 81MG BY MOUTH ACTIVE 2) Non-VA OTHER CAP/TAB COD LIVER OIL BY MOUTH ONCE ACTIVE DAILY 11 Total Medications SHx: Lives alone ROS: No cough or fever PE:affect pleasant appropriate speaking easily in full sentences no tremor Phonates EEE well Thyroid irregular mobile no LN A/P: Active problems - Computerized Problem List is the source for the followin. Non-toxic multinodular goiter repeat u/s two years U/S and exam one year Follow up one year Medication Reconciliation: Outpatient: Has the patient been taking medications as documented in the EMLR? YES: The patient has been taking medications as documented in the EMLR. Essential Medication List for Review used to complete this medication reconciliation. INCLUDED IN THIS LIST: Alphabetical list of active outpatient prescriptions dispensed from this VA (local) and dispensed from another VA or DoD facility (remote) as well as inpatient orders (local, pending and active), local clinic medications, locally documented non-VA medications, and local prescriptions that have or been discontinued in the past 90 days. - All changes in medications, including all non-VA/Herbal/OTC medications were entered into CPRS. - If there were any medications the patient should no longer take, they were discontinued. - The patient/caregiver was instructed to update this list, discard old lists, and take this list to the next appointment, whether with a VA or non-VA provider. JLV Link Data on this list may not be complete. Please check JLV. Allergies/ADRs (Tool #5) FACILITY ALLERGY/ADR -------- [facility] NO KNOWN ALLERGIES [facility] [place] [facility] No Known Allergies Med [facility] INCLUDED IN THIS LIST: Alphabetical list of active outpatient prescriptions dispensed from this VA (local) and dispensed from another VA or DoD facility (remote) as well as inpatient orders (local pending and active), local clinic medications, locally documented non-VA medications, and local prescriptions that have or been discontinued in the past 90 days. Non-VA Meds Last Documented On: Jun 30, 2021 NOTE The display of VA prescriptions dispensed from another VA or DoD facility (remote) is limited to active outpatient prescription entries matched to National Drug File at the originating site and may not include some items such as investigational drugs, compounds, etc. NOT INCLUDED IN THIS LIST: Medications self-entered by the patient into personal health records (i.e. [employer]) are NOT included in this list. Non-VA medications documented outside this VA, remote inpatient orders (regardless of status) and remote clinic medications are NOT included in this list. The patient and provider must always discuss medications the patient is taking, regardless of where the medication was dispensed or obtained. -------- OUTPT ALLOPURINOL 300MG TAB (Status = Active) TAKE ONE TABLET BY MOUTH EVERY DAY FOR GOUT Rx# [id number] Last Released: 12/19/23 Qty/Days Supply: Rx Expiration Date: 09/10/24 Refills Remainin Non-VA ASPIRIN 81MG EC TAB TAKE ONE TABLET BY MOUTH Patient wants to buy from Non-VA pharmacy. OUTPT ATENOLOL 25MG TAB (Status = Discontinued) TAKE ONE TABLET BY MOUTH ONCE DAILY FOR BLOOD PRESSURE/HEART Rx# [id number] Last Released: 11/07/23 Qty/Days Supply: Rx Expiration Date: 02/20/24 Refills Remainin Indication: FOR HIGH BLOOD PRESSURE OUTPT ATENOLOL 25MG TAB (Status = Active) TAKE ONE TABLET BY MOUTH ONCE DAILY FOR BLOOD PRESSURE/HEART Rx# [id number] Last Released: 02/13/24 Qty/Days Supply: Rx Expiration Date: 02/11/25 Refills Remainin Indication: FOR HIGH BLOOD PRESSURE OUTPT ATORVASTATIN CALCIUM 80MG TAB (Status = Active) TAKE ONE TABLET BY MOUTH ONCE DAILY FOR CHOLESTEROL IN PLACE OF ROSUVASTATIN. Rx# [id number] Last Released: 02/18/24 Qty/Days Supply: Rx Expiration Date: 06/03/24 Refills Remainin OUTPT CARBOXYMETHYLCELLULOSE NA 0.5% OPH SOLN (Status = ) INSTILL 1 DROP INTO EACH EYE FOUR TIMES A DAY FOR DRY EYE Rx# [id number] Last Released: 08/30/23 Qty/Days Supply: Rx Expiration Date: 02/16/24 Refills Remainin Indication: FOR DRY EYE OUTPT DILTIAZEM (EQV-TIAZAC) 360MG 24HR CAP (Status = Discontinued) TAKE ONE CAPSULE BY MOUTH EVERY DAY FOR BLOOD PRESSURE Rx# [id number] Last Released: 11/21/23 Qty/Days Supply: Rx Expiration Date: 02/20/24 Refills Remainin OUTPT GLIPIZIDE 10MG TAB (Status = Active) TAKE ONE TABLET BY MOUTH TWICE DAILY FOR DIABETES Rx# [id number] Last Released: 01/16/24 Qty/Days Supply: 180 Rx Expiration Date: 06/04/24 Refills Remainin OUTPT LISINOPRIL 20MG TAB (Status = Active) TAKE ONE TABLET BY MOUTH DAILY TO CONTROL BLOOD PRESSURE Rx# [id number] Last Released: 01/16/24 Qty/Days Supply: Rx Expiration Date: 09/10/24 Refills Remainin OUTPT METFORMIN HCL 1000MG TAB (Status = Active) TAKE ONE TABLET BY MOUTH TWICE DAILY FOR DIABETES Rx# [id number] Last Released: 01/16/24 Qty/Days Supply: 180 Rx Expiration Date: 09/10/24 Refills Remainin OUTPT OMEPRAZOLE 20MG EC CAP (Status = Active) TAKE ONE CAPSULE BY MOUTH EVERY MORNING 30 MINUTES BEFORE BREAKFAST Rx# [id number] Last Released: 02/18/24 Qty/Days Supply: Rx Expiration Date: 06/04/24 Refills Remainin Non-VA OTHER CAP/TAB TAKE COD LIVER OIL BY MOUTH ONCE DAILY OUTPT PIOGLITAZONE HCL 30MG TAB (Status = Active) TAKE ONE TABLET BY MOUTH DAILY Rx# [id number] Last Released: 12/05/23 Qty/Days Supply: Rx Expiration Date: 06/04/24 Refills Remainin OUTPT THIAMINE 100MG TAB (Status = ) TAKE ONE TABLET BY MOUTH ONCE DAILY FOR VITAMIN SUPPLEMENTATION Rx# [id number] Last Released: 01/16/24 Qty/Days Supply: Rx Expiration Date: 02/20/24 Refills Remainin -------- SUPPLIES -------- OUTPT ACCU-CHEK GUIDE (GLUCOSE) TEST STRIP (Status = Active) USE 1 STRIP TO TEST BLOOD SUGARS TWICE A DAY TWO TIMES A WEEK TO BE USED WITH NEW ACCU-CHEK GUIDE ME METER Rx# [id number] Last Released: 01/28/24 Qty/Days Supply: 50/180 Rx Expiration Date: 05/17/24 Refills Remainin OUTPT LANCET,SOFTCLIX (Status = ) USE 1 LANCET DIRECTED TWICE A DAY TWO TIMES A WEEK TO TEST BLOOD SUGAR Rx# [id number] Last Released: 05/14/23 Qty/Days Supply: 100/90 Rx Expiration Date: 02/20/24 Refills Remainin (Optional) [facility] Documentation: What matters the most to you? What motivates you to be healthy? (MAP) Response: love for his dog /patrick/ PAZ WEBER MD STAFF PHYSICIAN Signed: 02/26/2024 12:35 PAZ WEBER [facility] [place] [facility]
--- OUTSIDE RECORDS SUMMARY | 2024-10-07 15:34 | XMS_ITS | Data Portability ---
Author Organization [facility], Home Service Address [address] [place] [address] Assessment Encounter Date Assessment Date Assessment LastModified by Organization Details LastModified Time 05/22/2024 05/22/2024 .m [email or web address] Not available 05/04 15:03:16 07/01/2024 07/01/2024 Patient presente d to office today for their Medicare Annual Wellness Visit. Education was provided on healthy nutrition, including a diet rich in fruits and vegetables, minimizing simple carbohydrates, salt, and saturated fats. Encouraged regular cardiovascular exercise such as walking at least 30 minutes daily, 5 times per week. Emphasized preventive health measures and educated pt on fall prevention and community-based lifestyle interventions to help reduce health risks and promote healthy living. 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) MDM MODERATE MUST MEET 2 OUT OF [...] Not available Not available Not available Lab lipid panel, blood 2023 [facility], [address] [place] [address], [id number], 07/01/2024 11:53:46 hemoglob in, gastroin testinal , stool 2023 [facility], [address] [place] [address], [address], 07/01/2024 11:53:46 CBC w/ auto diff 2023 [facility], [address] [place] [address], [id number], 07/01/2024 11:53:46 CMP, serum or plasma 2023 024 [facility], [address] [place] [address], [address], 07/01/2024 11:53:46 iron + TIBC + ferritin , serum 2024 025 [facility], [address] [place] [address], [address], 10/07/2024 14:11:05 Referral None recorded . Procedures None recorded . Surgeries None recorded . Imaging None recorded . Medication Orders None recorded . Patient TargetsNo targets recorded. Patient Instructions Encounter Date Encounter Id Patient Instructions Last Modified By Organization Details Last Modified Time 12/06/2023 [id number] high blood pressure: care instructions Not available 12/06/2023 11:42:00 03/18/2024 [id number] Peripheral Arterial Disease (PAD): Care Instructions Not available 03/18/2024 11:32:36 learning about type 2 diabetes Not available 03/18/2024 11:32:36 type 2 diabetes: care instructions Not available 03/18/2024 11:32:36 high blood pressure: care instructions Not available 03/18/2024 11:32:36 learning about high blood pressure Not available 03/18/2024 11:32:36 07/01/2024 [id number] learning about type 2 diabetes Not available 07/01/2024 11:51:56 type 2 diabetes: care instructions Not available 07/01/2024 11:51:56 high blood pressure: care instructions Not available 07/01/2024 11:51:56 learning about high blood pressure Not available 07/01/2024 11:51:56 advance care planning: care instructions Not available 07/01/2024 11:51:56 Discussed and explained advance directives such as standard forms to the {{patient caregiv er patient and caregiver}}. Face to face discussion lasted for a duration of ___ minutes. Not available 06/19/2024 12:13:27 10/07/2024 [id number] learning about type 2 diabetes Not available 10/07/2024 14:09:48 type 2 diabetes: care instructions Not available 10/07/2024 14:09:48 high blood pressure: care instructions Not available 10/07/2024 14:09:48 learning about high blood pressure Not available 10/07/2024 14:09:48 high cholesterol : care instructions Not available 10/07/2024 14:09:48 Reason for Referral None Reported. Results Created Date Observation Date Name Description Value Unit Range Abnormal Flag Note LastModifiedBy Organization Detail LastModifiedTime 03/18/20 24 02/20/2024 US, head + neck, soft tissu e No observ ation record ed. BARCODE Not Available 2023 12:01:26 Result Notes Documentation Provider Name and Address Organization Details Recorded Time Hba1c (hemoglobin A1c), Blood : A1C, CMP Rasta Ng ronald [facility] 05/27/2024 14:34:27 Problems Name Problem SNOMED Code Status Onset Date Resolution Date Notes Provider Name and Address Organization Details Recorded Time Type 2 diabetes mellitus 36141623 Active 2017 Hannah cardenas [facility] 8 11:44:42 Essential hypertens ion 32883874 Active 2017 Hannah cardenas [facility] 8 11:44:48 Hemochrom atosis 990165244 Active 2017 Hannah cardenas [facility] 8 11:44:59 Hemangiom a of liver 87179180 Active 2017 Hannah cardenas [facility] 8 11:45:22 Iron deficienc y anemia 59928447 Active 2017 Hannah cardenas [facility] 8 11:45:29 Osteoarth ritis of knee 680924112 Active 2017 bilat knee Isidro Henderson, DO [address] [place] [address], [phone], [facility] 9 11:38:33 Gout 69988557 Active 2017 Hannah cardenas [facility] 8 11:46:54 Hyperlipi demia 82072406 Active 2017 Hannah cardenas [facility] 8 11:46:58 Near syncope 700186730 Active 2021 Isidro Henderson, DO [address] [place] [address], [address], [facility] 2 15:23:54 Contusion of rib 339740200 Active 2022 Isidro Henderson DO [address] [place] [address], [address], [facility] 3 13:46:27 Osteoarth ritis of left knee joint 391322509686 109 Active 2023 Isidro Henderson DO [address] [place] [address], [address], [facility] 4 15:04:28 Problem Notes None recorded. Procedures Surgical History Date Name Laterality Status Provider Name and Address Organization Details Recorded Time 024 Corticosteroid Injection completed Najma Ayala [facility] 05/22/2024 15:02:57 021 Corticosteroid Injection completed Isidro Henderson DO [address] [place] [address], [address], [facility] 01/23/2021 16:19:13 021 Corticosteroid Injection completed Isidro Henderson DO [address] [place] [address], [address], [facility] 01/03/2021 16:13:57 019 Corticosteroid Injection completed Isidro Henderson DO [address] [place] [address], [address], [facility] 05/08/2019 14:50:48 019 Corticosteroid Injection completed Isidro Henderson DO [address] [place] [address], [address], [facility] 04/06/2019 11:39:50 018 Corticosteroid Injection completed Isidro Henderson DO [address] [place] [address], [phone], [facility] 07/21/2018 16:05:22 018 Corticosteroid Injection completed Isidro Henderson DO [address] [place] [address], [address], [facility] 04/30/2018 12:44:06 018 Corticosteroid Injection completed Isidro Henderson DO [address] [place], [place] [address], [place], [address], [place] [facility] 04/18/2018 14:33:50 015 Colonoscopy completed Hannah Monreal [facility] 12/02/2019 10:17:00 Imaging Results Imaging Date Name Status LastModified by Organiz ation Details LastModified Time 02/20/2024 US, head + neck, soft tissue completed BARCODE Information not available 03/18/2024 12:01:26 Procedure Notes None recorded. Medical Equipment None Reported. Allergies Allergen ID Allergen Name Allergen Category Reaction Reaction Severity Criticality Documentation Date Start Date Code Code System Note Provider Name and Address Organization Details Recorded Time 401 Product containin g angiotens in-conver ting enzyme inhibitor (product) medicatio n cough Not available Not available 11/06/2017 77162 009 SNOMED Hannah Monreal ronald [facility] 8 11:43:42 402 colchicin e medicatio n rash Not available Not available 11/06/2017 2683 RxNorm Hannah Monreal ronald [facility] 8 11:44:37 Medications Name Sig Start Date [...] and Address Organization Details Last Updated DateTime 4 170.18 cm 39.5 kg/m2 056591. 28 g 77 /min 97 % 97 % 140 mm[Hg] 80 mm[Hg] [facility] 4 11:17:25 Date Recorded Body height Body mass index (BMI) Body weight Heart rate Oxygen saturation Oxygen saturation in Arterial blood by Pulse oximetry Systolic blood pressure Diastolic blood pressure Provider Name and Address Organization Details Last Updated DateTime 4 170.18 cm 39 kg/m2 745866. 5 g 81 /min 98 % 98 % 140 mm[Hg] 82 mm[Hg] [facility] 4 11:03:09 Date Recorded Body height Body mass index (BMI) Body weight Heart rate Oxygen saturation Oxygen saturation in Arterial blood by Pulse oximetry Systolic blood pressure Diastolic blood pressure Provider Name and Address Organization Details Last Updated DateTime 4 170.18 cm 37.9 kg/m2 212116. 35 g 86 /min 97 % 97 % 138 mm[Hg] 86 mm[Hg] Rasta Ng [facility] 4 11:05:47 Date Recorded Body height Body mass index (BMI) Body weight Heart rate Oxygen saturation Oxygen saturation in Arterial blood by Pulse oximetry Systolic blood pressure Diastolic blood pressure Provider Name and Address Organization Details Last Updated DateTime 5 170.18 cm 37.7 kg/m2 797799. 76 g 70 /min 99 % 99 % 130 mm[Hg] 80 mm[Hg] Rasta Ng [facility] 5 13:51:10 Social History Question Answer Notes LastModified by Organizat ion Details LastModified Time Tobacco Smoking Status Former Smoker Not Available [facility] 07/05/2020 03:36:24 What Was The Date Of Your Most Recent Tobacco Screening? 10/07/2024 Information not available 10/07/2024 Do You Or Have You Ever Used Any Other Forms Of Tobacco Or Nicotine? No [email or web address] Information not available 04/15/2023 Sex: Unknown Functional Status None recorded. Mental Status None recorded. Family History Nothing Reported. Medical History No medical history recorded. Immunizations Vaccine Type Date Status Note Provider Nam e and Address Organization Details Recorded Time COVID-19, mRNA, LNP-S, PF, 100 mcg/0.5mL dose or 50 mcg/0.25mL dose 1 completed Isidro Henderson DO [address] [place] [address], [address], [facility] 01/05/2022 14:48:34 COVID-19, mRNA, LNP-S, PF, 100 mcg/0.5mL dose or 50 mcg/0.25mL dose 2 completed Isidro Henderson DO [address] [place] [address], [address], [facility] 01/05/2022 14:48:42 Influenza, split virus, quadrivalent, preservative 8 completed Hannah cardenas, [facility] 06/16/2018 14:43:50 zoster live 8 completed Hannah cardenas, [facility] 06/16/2018 14:44:08 Tdap 2 completed Isidro Henderson DO [address] [place] [address], [address], [facility] 04/20/2022 11:29:04 influenza, unspecified formulation [facility] 12:03:42 SARS-COV-2 (COVID-19) vaccine, UNSPECIFIED 3 [facility] 04[facility]15[facility]23 14:56:37 SARS-COV-2 (COVID-19) vaccine, UNSPECIFIED 4 [facility] 03/18/2024 11:04:51 Influenza, split virus, quadrivalent, preservative 0 completed Isidro Henderson DO [address] [place] [address], [address], [facility] 05/16/2020 16:13:32 COVID-19, mRNA, LNP-S, PF, 100 mcg/0.5mL dose or 50 mcg/0.25mL dose 1 completed Isidro Henderson DO [address] [place] [address], [address], [facility] 11/02/2020 11:44:38 COVID-19, mRNA, LNP-S, PF, 100 mcg/0.5mL dose or 50 mcg/0.25mL dose 1 completed Isidro Henderson DO [address] [place] [address], [address], [facility] 11/02/2020 11:44:46 Past Encounters Encounter ID Performer Location Encounter Start Date Encounter Closed Date Diagnosis/Indication Diagnosis SNOMED-CT Code Diagnosis ICD10 Code Diagnosis Note [id number] Isidro Henderson DO [facility] [address] [place] [address] 01/22/2018 10:46:48 01/22/2018 12:02:38 Type 2 diabetes mellitus 58325244 E11.9 a1c is good and will be following with [facility] no current complicati ons Iron defic iency anemia 75018285 D50.9 will have followup lab with [facility] and then will have colonoscoi py dr marcelo to decide if xarelto is culprit of low iron Essential hypertension 64864018 I10 doing great no change in meds [id number] Isidro Henderson [facility] [address] [facility] [address] [address] 04/18/2018 13:57:19 04/18/2018 14:57:18 Osteoarthritis of knee 677184097 M17.0 cortisone inj well tolerated [id number] Isidro Henderson [facility] [address] [facility],[place] [address] 04/30/2018 12:04:14 04/30/2018 15:58:16 Osteoarthritis of knee 932591816 M17.0 cortisone inj well tolerated [id number] Isidro Henderson [facility] [address] [facility],[place] [address] 06/16/2018 14:17:42 06/16/2018 15:33:04 Type 2 diabetes mellitus 94897487 E11.9 a1c is good and will be following with [facility] no current complicati ons 7.0 is still stable up from 6.9 Essential hypertension 83543088 I10 doing great no change in meds Osteoarthr itis of knee 339755459 M17.0 cortisone inj did ok but took a long time [id number] Isidro Henderson [facility] [address] [facility] [address] [address] 07/21/2018 15:26:00 07/21/2018 16:09:19 Osteoarthritis of knee 206686379 M17.0 cortisone inj did ok but took a long time repeat but if this does not help will have to refer [id number] Isidro Henderson [facility] [address] [facility] [address] [address] 10/01/2018 14:18:33 10/03/2018 08:52:47 Essential hypertension 59246003 I10 doing great no change in meds Type 2 kristal betes mellitus 25771881 E11.9 a1c is good and will be following with [facility] no current complicati ons 7.0 is still stable Osteoarthr itis of knee 714883333 M17.0 cortisone inj did ok but took a long time repeat but if this does not help will have to refer Hyperlipidemia 40560626 E78.5 LDL is excellent at 96 Hemochromatosis 36622897 6 E83.119 ferritin is 35 [id number] Isidro Henderson [facility] [address] [facility] [address] [address] 12/26/2018 10:34:23 12/26/2018 12:00:07 Type 2 diabetes mellitus 42940386 E11.9 a1c is good and will be following with [facility] no current complicati ons 6.6 is still stable Essential hypertension 25385990 I10 no change in meds right now as he is quite distraught and we will ss him again in a couple mo and recheck [id number] Isidro Henderson [facility] [address] [facility] [address] [address] 04/06/2019 10:49:50 04/06/2019 11:46:29 Osteoarthritis of knee 807942481 M17.0 cortisone inj did ok but took a long time to right knee repeat but if this does not help [place] have [place] refer [id number] Isidro Henderson [facility] [address] [facility] [address] [address] 05/08/2019 14:08:59 05/08/2019 14:57:01 Osteoarthritis of knee 461834812 M17.0 cortisone inj to left knee well toerated [id number] Isidro Henderson [facility] [address] [facility] [address] [address] 08/10/2019 11:08:08 08/10/2019 11:31:08 Type 2 diabetes mellitus 20501598 E11.9 a1c is fair and will be following with [facility] no current complicati ons 8.0 is the a1c and is going to have to do better with less treating will not adjust the meds Essential hypertension 42194769 I10 noted to have stable bp and we will see him again in a couple mo and recheck [id number] Isidro Henderson [facility] [address] [facility],[place] [address] 09/09/2019 11:57:12 09/09/2019 12:13:28 Type 2 diabetes mellitus 70711724 E11.[address] now and will be following with [facility] no current complicati ons 6.4 is the a1c and is doing better with less eating will not adjust the meds Essential hypertension 44545132 I10 noted to have stable bp and we will see him again in a couple mo and recheck [id number] Isidro Henderson [facility] [address] [facility],[place] [address] 12/02/2019 09:10:17 12/02/2019 13:36:51 Essential hypertension 48463394 I10 noted to have stable bp and we will see him again in a couple mo and recheck Type 2 kristal betes mellitus 17100860 E11.9 a1c is better now and will be following with [facility] no current complicati ons 6.4 is the a1c just like last time and is doing better with less eating will not adjust the meds Iron defic iency anemia 09879813 D50.[address] marcelo for a colonoscop y to check for source of bleed Osteoarthr itis of knee 996205843 M17.0 cortisone inj to left knee seemed to have helped [id number] Isidro Henderson [facility] [address] [facility],[place] [address] 03/07/2020 11:33:53 03/07/2020 12:19:53 Essential hypertension 74444853 I10 noted to have stable bp and we will see him again in 3 mo and recheck Hemochromatosis 03154849 6 E83.119 ferritin is 35 cbc is good iron level good Type 2 kristal betes mellitus 54218860 E11.9 a1c is better now and will be following with [facility] no current complicati ons 6.4 is the a1c just like last time and is doing better with less eating will not adjust the meds History of polyp of colon 361641809 Z86.010 doesn t want to get colonoscop y even though he has had polyps in th e past told it would be important but he is not happy about it we will try dna test [id number] JOSSELYN FAGAN [facility] [address] [facility] [address] [address] 04/08/2020 14:50:22 04/08/2020 15:47:07 Essential hypertension 77250305 I10 well controlled today on medication Type 2 kristal betes mellitus 88388463 E11.9 sugar has been good per patient Bacteremia caused by Gram-negative bacteria 2503748109 08 A41.50 treated and has abx on discharge Acute cholecystitis 6527 5009 K81.0 resolved had gallbladde r removed Dyspnea at rest 88802286 7 R06.00 SENT TO THE ER FROM OFFICE FOR CONCERN OF PE Atypical chest pain 1025 96337 R07.89 has been having since after surgery, gotten worse per patient [id number] Isidro Henderson DO [facility] [address] [facility] [address] [address] 05/16/2020 14:35:18 05/16/2020 15:22:43 Sepsis caused by Gram negative bacteria 083094364 A41.50 has survived and done well relates that he is still very tired History of cholecystectomy 831806581 Z90.49 and is healing well will be done with vna Administra tion of influenza vaccine 39283749 Z23 [id number] Isidro Henderson DO [facility] [address] [facility] [address] [address] 06/29/2020 11:22:38 06/29/2020 11:54:40 Type 2 diabetes mellitus 58821007 E11.9 a1c is better now and is a little too good at 5.5 no current complicati ons 6.4 is the last time and is doing better with less eating will need to watch his sugar to make sure he doesnt go to low Essential hypertension 28716838 I10 noted to have stable bp and we will see him again in 3 mo and recheck [id number] Isidro Henderson [facility] [address] [facility], [place] [address] 11/02/2020 11:26:25 11/02/2020 13:47:14 Essential hypertension 10335156 I10 noted to have stable bp and we will see him again in 3 mo and recheck Type 2 kristal betes mellitus 52372237 E11.9 a1c is better now and is a little too good at 6.3 which is good he was 5.5 no current complicati ons 6.4 is the last time and is doing better with less eating will need to watch his sugar to make sure he doesnt go to low Iron defic iency anemia 93332448 D50.[address] marcelo for a colonoscop y to check for source of bleed we will rechk lab Osteoarthr itis of knee 044292129 M17.0 cortisone inj to left knee seemed to have helped in the past lately he s ok but we will plan another inj when hes ready [id number] Isidro Henderson [facility] [address] [facility], [place] [address] 01/03/2021 15:29:43 01/03/2021 16:15:42 Osteoarthritis of knee 699149163 M17.0 cortisone inj to left knee seemed to have helped in the past lately he s ok but we will plan another inj when hes ready [id number] Isidro Henderson [facility] [address] [facility], [address] [facility] [place] [address] 01/23/2021 15:55:04 01/23/2021 16:47:42 Osteoarthritis of right knee joint 1596118578 48611 M17.11 jordon inj well tolerated [id number] Isidro Henderson [facility] [address] [facility], [place] [address] 03/01/2021 10:57:56 03/01/2021 11:29:35 Essential hypertension 16891794 I10 noted to have stable bp and we will see him again in 3 mo and recheck Type 2 kristal betes mellitus 79259736 E11.9 a1c is better at 6.6 was 6.7 in december and was at 6.3 which is good he was 5.5 no current complicati ons [id number] Isdiro Henderson [facility] [address] [facility],[place] [address] 06/02/2021 08:28:12 06/02/2021 14:00:45 Type 2 diabetes mellitus 48785354 E11.9 a1c is awesome at 5.7!!!!!!! !!!! better at 6.6 was 6.7 in december and was at 6.3 which is good he was 5.5 no current complicati onsdoing fantastic Osteoarthr itis of knee 212136075 M17.0 cortisone inj to left knee seemed to have helped in the past lately he s ok but we will plan another inj when he's ready Iron defic iency anemia 14469557 D50.[address] marcelo for a colonoscop y to check for source of bleed we will rechk lab Essential hypertension 67504225 I10 noted to have stable bp and we will see him again in 3 mo and recheck [id number] Isidro Henderson [facility] [address] [facility],[address] [place] [address] 09/20/2021 08:10:48 09/22/2021 11:38:30 Essential hypertension 91829970 I10 noted to have stable bp and we will see him again in 3 mo and recheck Type 2 kristal betes mellitus 73980645 E11.9 a1c is pending and in past was awesome at 5.7!!!!!!! !!!! better at 6.6 was 6.7 in december and was at 6.3 which is good he was 5.5his home readings are avg 115 for 90 daysno current complicati onsdoing fantastic Hemochromatosis 19702346 6 E83.119 prior level of ferritin is 35 cbc is good iron level good lab is pending Hyperlipidemia 19371948 E78.5 LDL is excellent at 96 on prior lab Iron defic iency anemia 54757857 D50.[address] marcelo for a colonoscop y to check for source of bleed we will rechk lab is now pending [id number] Isidro Henderson [facility] [address] [facility] [address],[place] [address] 01/05/2022 14:22:54 01/05/2022 15:45:55 Type 2 diabetes mellitus 79460688 E11.9 a1c is pending and in past was up to 6.4 he was at 5.7!!!!!!! !!!! better at 6.6 was 6.7 in december and was at 6.3 which is good he was 5.5his home readings are avg 115 for 90 daysno current complicati onsdoing fantastic Essential hypertension 55349098 I10 noted to have stable bp and we will see him again in 3 mo and recheck Active or passive immunization 504953665 Z23 [facility] to update Near syncope [id number] R 55 no full syncope we will get a monitor done to double check [id number] Isidro Henderson DO [facility] [address] [facility],[place] [address] 04/20/2022 11:24:02 04/20/2022 11:52:51 Essential hypertension [id number] I10 noted to have stable bp and we will see him again in 3 mo and recheck Iron defic iency anemia [id number] D50.9 currently stable Type 2 kristal betes mellitus 99211427 E11.9 a1c is pending and in past was up to6.6 and beforewas 6.4 he was at 5.7!!!!!!! !!!! better at 6.6 was 6.7 in december and was at 6.3 which is good he was 5.5his home readings are avg 115 for 90 daysno current complicati onsdoing fantastic Near syncope [id number] R 55 no full syncope we will get a monitor is normal [id number] Isidro Henderson DO [facility] [address] [facility] [address],[place] [address] 07/23/2022 11:54:50 07/23/2022 12:49:21 Type 2 diabetes mellitus 59269940 E11.9 a1c is 6.6 and beforewas 6.6his home readings are avg 115 for 90 daysno current complicati onsdoing fantastic Hyperlipidemia 12038464 E78.5 LDL is excellent at 96 on prior lab Essential hypertension 40601805 I10 noted to have stable bp and we will see him again in 3 mo and recheck [id number] Isidro Henderson [facility] [address] [facility] [address],[place] [address] 11/05/2022 11:26:32 11/05/2022 15:11:44 Type 2 diabetes mellitus 98585824 E11.9 a1c is now 6.5 was 6.6 and beforewas 6.6his home readings are avg 110 for 90 daysno current complicati onsdoing fantastic carefyul with diet and salt intake Essential hypertension 61549692 I10 noted to have stable bp and we will see him again in 3 mo and recheck Advance care planning 71 0304733 Z71.89 done [id number] Isidro Henderson [facility] [address] [facility] [address],[place] [address] 04/15/2023 14:42:18 04/15/2023 15:23:23 Essential hypertension 10152210 I10 noted to have stable bp and we will see him again in 3 mo and recheck Type 2 kristal betes mellitus 72821225 E11.9 a1c is now 6.4 and was 6.5 was 6.6his home readings are avg 110 for 90 daysno current complicati onsdoing fantastic careful with diet and salt intake [id number] Isidro Henderson [facility] [address] [facility] [address],[place] [address] 07/29/2023 13:27:23 07/29/2023 14:41:04 Essential hypertension 88233284 I10 noted to have stable bp and we will see him again in 3 mo and recheck Hyperlipidemia 26621515 E78.5 LDL is excellent at 96 on prior lab Type 2 kristal betes mellitus 41033768 E11.9 a1c is now 6.9 and was 6.4 and was 6.5 was 6.6his home readings are avg 120 for 90 daysno current complicati onsdoing fantastic careful with diet and salt intake Contusion of rib 7433054 06 S20.20XD doing much better lungs clear minimal palp pain no evid rib fx [id number] Isidro Henderson [facility] [address] [facility],[address] [address] [place] [facility] [place] [address] 12/06/2023 11:11:40 12/06/2023 11:52:07 Essential hypertension 25918488 I10 noted to have stable bp and we will see him again in 3 mo and recheck Hemochromatosis 49976038 6 E83.119 prior level of ferritin is 35 cbc is good iron level good lab is pending Hyperlipidemia 26532050 E78.5 LDL is excellent at 96 on prior lab Type 2 kristal betes mellitus 66543288 E11.9 a1c is now 6.2 qas 6.9 and was 6.4 and was 6.5 was 6.6 no current complicati onsdoing fantastic careful with diet and salt intake [id number] Isidor Henderson [facility] [address] [facility],[address] [place] [facility] [address] 03/18/2024 10:56:57 03/18/2024 12:01:25 Depression screening 967225650 Z13.31 neg 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 a1c is now 6.2 was 6.9 and was 6.4 and was 6.5 was 6.6microal b is negno current complicati onsdoing fantastic careful with diet and salt intake Essential hypertension 05574241 I10 noted to have stable bp and we will see him again in 3 mo and recheck Peripheral vascular disease 395915107 I73.9 [id number] Isidro Henderson [facility] [address] [facility] [address] [place] [address] 05/22/2024 14:41:46 05/22/2024 15:50:09 Osteoarthritis of left knee joint [id number] 65292 M17.12 jordon well tolerated [id number] Isidro Henderson [facility] [address] [facility] [address] 07/01/2024 10:56:32 07/01/2024 15:01:39 Adult health examination 743667384 Z00.01 stable despite his recent fallno major issues Screening for cardiovascular system disease 710746148 Z13.6 Screening for malignant neoplasm of colon 850708322 Z12.11 Contusion of rib 2989621 06 S20.20XD doing much better lungs clear minimal palp pain no evid rib fx Essential hypertension 06539576 I10 noted to have stable bp and we will see him again in 3 mo and recheck Type 2 kristal betes mellitus 82864839 E11.9 a1c is now 6.2 was 6.9 and was 6.4 and was 6.5 was 6.6microal b is negno current complicati onsdoing fantastic careful with diet and salt intake [id number] Isidro Henderson, [facility] [address] [facility],[place] [address] 10/07/2024 13:43:19 10/07/2024 14:24:49 Essential hypertension 16417226 I10 noted to have stable bp and we will see him again in 3 mo and recheck Hemochromatosis 21110824 6 E83.119 prior level of ferritin is 35 cbc is good iron level good lab is pending cbc nl needs iron level done as well as ferritin Hyperlipidemia 30027000 E78.5 LDL is excellent at 96 on prior lab Type 2 kristal betes mellitus 31166003 E11.9 a1c is now 6.7 was 6.2 was 6.9 and was 6.4 and was 6.5 was 6.6microal b is sl pos very minimalno current complicati onslevel has gone up a bit due to winter and inactivity Health Concerns Section Related Observation LastModified by Organization Detai ls LastModified Time None Recorded Concern Status LastModified by Organization Details LastModified Time None Recorded Advance Directives Directive None Recorded Payers Encounter Date Sequence Insurance Name Policy Number Policy Lopez Covered Member ID Lopez Member ID Guarantor Name 12/06/2023 1 [facility] (MEDICARE REPLACEMENT/A DVANTAGE - PPO) [id number] Uziel Briceño [id number] Uziel Briceño 03/18/2024 1 [facility] (MEDICARE REPLACEMENT/A DVANTAGE - PPO) [id number] Uziel Mullen Navarro [id number] Uziel Briceño 05/22/2024 1 [facility] (MEDICARE REPLACEMENT/A DVANTAGE - PPO) [id number] Uziel Paz Briceño [id number] Uziel Mullen Navarro 07/01/2024 1 [facility] (MEDICARE REPLACEMENT/A DVANTAGE - PPO) [id number] Uziel Briceño [id number] Uziel Briceño 10/07/2024 1 [facility] (MEDICARE REPLACEMENT/A DVANTAGE - PPO) [id number] Uziel Briceño [id number] Uziel Briceño Notes Date Note Type Note Provider Name a nd Address Organization Details Recorded Time 4 text/html here for leeanne nd is doing ok overallhas had a vna eval see [email or web address] is 6.2 Isidro Henderson DO [address] [place] [address], [phone], [facility] 12/06/2023 11:42:17 4 text/html here for rechk and is feeling well a1c 6,7 and is doing well with the VALDL is 63 denies any pain other than his arthritisno cp no sobsleep is fair had an US with multi nod goiter and neg bxnext US in 2 years Isidro Henderson DO [address] [place] [address], [place], [address], [facility] 03/18/2024 11:33:09 4 text/html her fo his jordon inj to lwft knee has been very sore and uncomfortable Isidro Henderson DO [address] [place] [address], [phone], [facility] 05/22/2024 15:05:19 4 text/html Medicare Annual Wellness VisitReported bypatient.Diet and Nutrition:healthy diet Fracture Risk:no history of fractures; no recent explained fracture; no sudden unexplained fractures; no previous musculoskeletal injuries Physical Activity:exercises on a regular basis; recent increase in physical activity; good physical condition Depression Risk:never feels sad, empty, or tearful; no loss of interest in activities; no significant changes in weight; no sleep disturbances or insomnia; no agitation; no loss of energy; no feelings of worthlessness or guilt; no thoughts of suicide; no history of depression; no history of mood disorders Orientation:no disorientation to time; no disorientation to date; no disorientation to place Concentration and Memory:no decreased concentrating ability; no memory lapses or loss; does not forget words Speech/Motor difficulties:no speech difficulties; no difficulty expressing formulated concepts; no difficulty with fine manipulative tasks; no difficulty writing/copying; no slowed reaction time; does not knock things over when trying to pick them up Hearing:no loss of hearing Vision:no vision problems Activities of Daily Living:able to bathe with limited or no assistance; able to contol urination and bowels; able to dress with limited or no assistance; able to feed self with limited or no assistance; able to get out of chair or bed with limited or no assistance; able to groom with limited or no assistance; able to toilet with limited or no assistance Instrumental Activities of Daily Living:able to do house work with limited or no assistance; able to grocery shop with limited or no assistance; able to manage medications with limited or no assistance; able to manage money with limited or no assistance; able to prepare meals with limited or no assistance; able to use the phone with limited or no assistance Falls Risk Assessment:no frequent falls while walking; no fall in the past year; no fall since last visit; no dizziness/vertigo Home Safety:no unsafe michelle hazzards; no unsafe stairs; no unsafe gas appliances; working smoke/CO detectors; wears protective head gear for biking/high velocity; use of seatbelts; practicing 'safer sex'; no vision or hearing loss while driving; no fire arms; has hand bars in the bathroom/shower; good lighting in the home had fallen at home injured the right ribs and had a bloody nosebreathing is good no l=cp Isidro Henderson, DO [address] [facility], [place], [address], [facility] 07/01/2024 11:54:40 5 text/html Care Management - DiabetesReported bypatient.Self [...] was very sore better todayreviewed lab from [place] a1c [place] 6.7seeing [place] drs just had a DM foot eval too Isidro Henderson, DO [address] [facility], [place], [address], [facility] 10/07/2024 14:16:04
--- OUTSIDE RECORDS SUMMARY | 2024-10-07 15:34 | XMS_ITS | Encounter Summary ---
Author Name [facility] [place] [facility] [place] Address [address] [place] [address] Care Team Providers Care Pigment Pusher Name Role Phone ARTI TAPIA Primary Care Provider Unavail able Insurance Providers: [...] PART A Feb 09, 2009 PART A [id number] [phone] BELKIS NEGRON PATIENT MEDICARE (WNR) MEDICARE (M) PART A Feb 09, 2009 PART A [id number] BELKIS NEGRON PATIENT MEDICARE (WNR) MEDICARE (M) PART B Feb 09, 2009 PART B [id number] 58A BELKIS NEGRON PATIENT MEDICARE (WNR) MEDICARE (M) PART B Jan 31, 2009 PART B [id number] BELKIS NEGRON PATIENT MEDICARE (WNR) MEDICARE (M) PART A Jan 31, 2009 PART A [id number] [phone] BELKIS NEGRON PATIENT MEDICARE (WNR) MEDICARE (M) PART B Jan 31, 2009 PART B [id number] BELKIS NEGRON PATIENT [facility] (WNR) MEDICARE ADVANTAGE [facility] (WNR) Sep 02, 2021 [id number] BELKIS NEGRON PATIENT [facility] (WNR) MEDICARE ADVANTAGE [facility] (WNR) Sep 02, 2021 [id number] BELKIS NEGRON PATIENT [facility] (WNR) MEDICARE ADVANTAGE [facility] (WNR) Sep 02, 2021 [id number] BELKIS NEGRON PATIENT Selected Encounter This section includes the information on record at [place] for the Encounter. Date/Time Encounter Type Encounter Description Reason Provider Source Mar 03, 2024 01:30 PM OFFICE O/P EST LOW 20 MIN PRIMARY CARE/MEDICINE ICD-10-CM I11.9 Hypertensive heart disease without heart failure LORENZO TAPIA [facility] Encounter Template Text not used by [place] Assessments - Encounter Diagnoses This section includes the primary and secondary diagnoses documented for the Encounter. Date/Time Primary/Secondary Diagnosis Diagnosis Name Provider Source Mar 03, 2024 01:49 PM PRIMARY Hypertensive heart disease without heart failure LORENZO TAPIA [facility] Mar 03, 2024 01:49 PM SECONDARY Age-related osteoporosis w/o current pathological fracture LORENZO TAPIA [facility] Mar 03, 2024 01:49 PM SECONDARY Encounter for immunization MADELYN GRIJALVA [facility] Plan of Treatment: Future Appointments (+ 6 months) and Future Tests (+/- 45 days) The Plan of Treatment section includes future care activities [facility] the [facility] [place] [facility] This section includes future appointments and future orders which are active, pending or scheduled. Future Appointments This section includes appointments that were scheduled to occur 6 months from the date of the Encounter, up to a maximum of 20 appointments. The data comes from all [place] treatment facilities. Appointment Date/Time Appointment Type Appointme nt Facility Name Apr 30, 2024 01:30 PM [facility] May 05, 2024 01:00 PM AMBULATORY - MEDICINE [facility] Active, Pending, and Scheduled Orders This section includes a listing of several types of active, pending, and scheduled orders, including clinic medications orders, diagnostic test orders, procedure orders and consult orders; where the start date of the order is 45 days before the date of the Encounter or 45 days after the date of theEncounter. The data comes from all [place] treatment facilities. Test Date/Time Test Type Test Details Facility Name Feb 27, 2024 12:00 AM Laboratory - Chemi stry Order BASIC METABOLIC PANEL (non-fasting) BLOOD (SST-SERUM) [facility] Feb 27, 2024 12:00 AM Laboratory - Chemi stry Order CBC BLOOD (LAV-BLOOD) [facility] Feb 27, 2024 12:00 AM Laboratory - Chemi stry Order FERRITIN BLOOD (SST-SERUM) [facility] Feb 27, 2024 12:00 AM Laboratory - Chemi stry Order IRON & TIBC PANEL BLOOD (SST-SERUM) [facility] Lab Results: +/- 30 days of the encounter This section includes the Chemistry and Hematology Lab Results on record with [place] for the patient. Radiology Reports and Pathology Reports are provided separately, in subsequent sections. Lab Results This section contains the Chemistry/Hematology Results that were resulted 30 days before or 30 daysafter the date of the Encounter. Date/Time Source Result Type Result - Unit Interpretation Reference Range Comment Feb 20, 2024 08:43 AM [facility] BASIC METABOLIC PANEL (fasting) Specimen Type: SERUM No comment entered. Ordering Provider: LORENZO TAPIA Report Released Date/Time: Sep 10, 2023 02:57 PM Reporting Lab: [address] [address] Performing Lab: [address] [address] UREA NITROGEN 17 mg/dL 7-25 GLUCOSE 162 mg/dL H 65-100 SODIUM 140 mmol/L 135-145 POTASSIUM 4.3 mmol/L 3.5-5.0 CHLORIDE 104 mmol/L 100-110 CO2 23 meq/L 20-30 CREATININE, Serum 1.30 mg/dL 0.50-1.40 eGFR(CKD-EPI 2020) 56 mL/min L >60 Feb 20, 2024 08:43 AM [facility] LIVER FUNCTION Specimen Type: SERUM No comment entered. Ordering Provider: LORENZO TAPIA Report Released Date/Time: Sep 10, 2023 02:57 PM Reporting Lab: [address] [address] Performing Lab: [address] [address] PROTEIN,TOTAL 6.7 g/dL 6.0-8.3 ALBUMIN 3.9 g/dL 3.5-5.0 ALKALINE PHOSPHATASE 84 U/L 40-150 AST 16 U/L 5-34 ALT 17 U/L BILIRUBIN, TOTAL 0.8 mg/dL 0.2-1.2 Feb 20, 2024 08:43 AM [facility] LIPID PANEL FASTING Specimen Type: SERUM No comment entered. Ordering Provider: LORENZO TAPIA Report Released Date/Time: Sep 10, 2023 02:57 PM Reporting Lab: [address] [address] Performing Lab: [address] [address] CHOLESTEROL 143 mg/dL TRIGLYCERIDE 142 mg/dL 0-150 LDL calculated 64 mg/dL 0-129 CHOL/HDL 2.8 HDL CHOLESTEROL 51 mg/dL 40-60 Feb 20, 2024 08:43 AM [facility] IRON & TIBC PANEL Specimen Type: SERUM No comment entered. Ordering Provider: LORENZO TAPIA Report Released Date/Time: Sep 10, 2023 02:57 PM Reporting Lab: [facility] [address] [facility] [address] Performing Lab: [address] [address] TIBC 399 ug/dL 204-475 IRON 120 ug/dL 40-160 Transferrin Saturation 30.1 20.0-50.0 Feb 20, 2024 08:43 AM [facility] FERRITIN Specimen Type: SERUM No comment entered. Ordering Provider: LORENZO TAPIA Report Released Date/Time: Sep 10, 2023 02:57 PM Reporting Lab: [facility] [address] [facility] [address] Performing Lab: [address] [address] FERRITIN 55 ng/mL 20-300 Feb 20, 2024 08:43 AM [facility] CBC AND DIFF (AUTO) Specimen Type: BLOOD No comment entered. Ordering Provider: LORENZO TAPIA Report Released Date/Time: Sep 10, 2023 02:57 PM Reporting Lab: [address] [address] Performing Lab: [address] [address] WBC 5.93 10*3/uL 4.50-11.00 RBC 3.98 10*6/uL [...] Pain Height Weight Body Mass Index Source Mar 03, 2024 01:20 PM 97.4 70 120/66 16 97 3 246 39 [place] [facility] [place] [facility] Immunizations: All administered on the encounter date This section contains immunizations associated to the Encounter. Immunization Series Date Issued Reaction Comments COVID-19 (MODERNA), MRNA, LN P-S, PF, 50 MCG/0.5 ML (AGES 12+ YEARS) 1 Mar 03, 2024 Social History: Smoking Status (Most current) and Tobacco Use (All prior to encounter date) This section includes the most current, and the historical, smoking and tobacco- related health factors from the [place] facility where the Encounter took place. Current Smoking Status This section includes the most current smoking, or tobacco-related health factor, from the [place] facility where the Encounter took place. Date/Time Current Smoking Status Comment [facility] Jun 04, 2023 01:30 PM VA-TOBACCO FORMER USER [place] [facility] [place] [facility] Tobacco Use History This section includes a history of the smoking, or tobacco-related health factors, that were collected on or before the date of the Encounter. The data comes from the [place] facility where the Encounter took place. Date/Time Smoking Status/Tobac co Use Comment Facility Jun 04, 2023 01:30 PM VA-TOBACCO QUIT 15 YRS OR MORE [place] [facility] [place] [facility] Jun 15, 2022 09:15 AM VA-TOBACCO FORMER USER [place] [facility] [place] [facility] Jun 15, 2022 09:15 AM VA-TOBACCO QUIT 15 YRS OR MORE [place] [facility] [place] [facility] Jun 30, 2021 09:30 AM VA-TOBACCO FORMER USER [place] [facility] [place] [facility] Jun 30, 2021 09:30 AM VA-TOBACCO QUIT 15 YRS OR MORE [place] [facility] [place] [facility] Jun 03, 2020 08:30 AM VA-TOBACCO FORMER USER [place] [facility] [place] [facility] Jun 03, 2020 08:30 AM VA-TOBACCO QUIT 15 YRS OR MORE [place] [facility] [place] [facility] Feb 23, 2020 09:01 AM VA-TOBACCO FORMER USER [place] [facility] [place] [facility] Feb 23, 2020 09:01 AM VA-TOBACCO QUIT 15 YRS OR MORE [place] [facility] [place] [facility] Oct 28, 2018 01:39 PM VA-TOBACCO FORMER USER [place] [facility] [place] [facility] Oct 28, 2018 01:39 PM VA-TOBACCO QUIT 15 YRS OR MORE [place] [facility] [place] [facility] Jul 10, 2017 10:40 AM QUIT TOBACCO USE > 7 YEARS AGO [place] [facility] [place] [facility] Feb 13, 2016 10:21 AM QUIT TOBACCO USE > 7 YEARS AGO . [place] [facility] [place] [facility] Jun 08, 2005 10:50 AM HISTORY OF SMOKING quit in 1973 [place] [facility] [place] [facility] Apr 10, 2004 10:43 AM HISTORY OF SMOKING [place] [facility] [place] [facility] Dec 04, 2002 11:12 AM HISTORY OF SMOKING [place] [facility] [place] [facility] January 09, 2002 10:01 AM QUIT TOBACCO USE > 7 YEARS AGO [place] [facility] [place] [facility] Sep 11, 2001 10:41 AM HISTORY OF SMOKING see note this date [place] [facility] [place] [facility] Sep 11, 2001 10:41 AM NON-TOBACCO USER see [facility] Advance Directives: All historical and current Section Date Range: From patient's date of to the date document was created. This section includes ALL of a patient's completed or amended [place] Advance and Rescinded Directives. The entries below indicate that a directive exists for the patient, but an actual copy is not included with this document. The data comes from all [place] facilities. Date Advance Directives Provider Source Aug 27, 2012 ADVANCE DIRECTIVE JESS ANDRADE [place] [facility] Radiology Reports: +/- 30 days of the [...] the Encounter. The data comes from all [place] treatment facilities. Date/Time Radiology Report Provider Source Feb 20, 2024 09:51 AM ULTRASOUND NECK (THYROID,HEAD,SOFT TISSUE): ELSA NEGRON [id number] -[id number] M Exm Date: FEB 20, 2024@09:51 Req Phys: PAZ WEBER Loc: [facility]/ENDOCRINE (Req'g Loc) Img Loc: ULTRASOUND Service: Unknown [place] [facility] , (Case [id number] COMPLETE) ULTRASOUND NECK (THYROID,HEAD,SOF(US Detailed) CPT:15515 Reason for Study: follow multinodular goiter Clinical History: Report Status: Verified Date Reported: FEB 26, 2024 Date Verified: FEB 26, 2024 Pest Control Worker Helper E-Sig: Report: ULTRASOUND NECK (THYROID,HEAD,SOFT TISSUE) Clinical [...] benign nodule. READING PHYSICIAN: Elsa Monreal MD -[id number] 02/26/2024 9:00 CDT [facility] National Teleradiology Program [phone] (For Medical Practitioner Use Only) Attention Patients / Veterans: If you have questions or concerns about these test results, please contact your ordering provider or primary care team. Primary Diagnostic Code: NO ALERT REQUIRED Primary Interpreting Staff: RADIOLOGY,OUTSIDE SERVICE, Staff Physician / RADIOLOGY,OUTSIDE SERVICE [place] [facility] [place] [facility] Encounter Notes: All associated encounter notes This section contains the clinical notes associated to the Encounter. Date/Time Encounter Note(s) Provider Source Mar 03, 2024 01:46 PM PHYSICIAN HAIRSPRING STUDDER NOTE: LOCAL TITLE: PA NOTE STANDARD TITLE: PHYSICIAN HAIRSPRING STUDDER NOTE DATE OF NOTE: MAR 03, 2024@13:46 ENTRY DATE: MAR 03, 2024@13:46:38 AUTHOR: ARTI TAPIA COSIGNER: URGENCY: STATUS: COMPLETED CC/HPI/A/P: 79 year old MALE here in follow-up for; htn, diltiazem renewed, BP at goal on 3 agents. obesity, declines. Shows me pix of his dog rebel whom he loves. Review of systems: Patient reports no changes from [facility], in meds or any admissions. Active problems - Computerized Problem List is the source for the followin. Non-toxic multinodular goiter 2. History of cholecystectomy 3. Acute deep vein thrombosis of lower limb 4. Long-term current use of anticoagulant 5. Osteoporosis 6. Diabetic nephropathy 7. Diverticulosis 8. Erosive esophagitis 9. Lumbar Radiculopathy 10. Flexible Colonoscopy Proximal to Splenic Flexure Normal [facility] colonoscopy, , 5 yr follow up He declined colonoscopy 06/2011 for 5 year follow up, 2016 11. Hypertriglyceridemia * 12. Hereditary Hemochromatosis Phlebotomy q4m at [facility] via DR Mirza. 13. Gout * 14. Cataract, Unspecified 15. Obesity * 16. Benign hypertension (SNOMED CT [id number]) SERVICE CONNECTED % - NONE [facility] and Non VA meds were reconciled with the patient who left with a corrected copy. See medication page for details. Active and Recently Outpatient Medications (excluding Supplies): Active Outpatient Medications Status 1) ACCU-CHEK GUIDE (GLUCOSE) TEST STRIP USE [...] TAKE ONE TABLET BY MOUTH ACTIVE DAILY Pending Outpatient Medications Status 1) DILTIAZEM (EQV-TIAZAC) 360MG 24HR CAP TAKE ONE PENDING CAPSULE BY MOUTH ONCE DAILY Inactive Outpatient Medications Status 1) CARBOXYMETHYLCELLULOSE NA 0.5% OPH SOLN INSTILL 1 DROP INTO EACH EYE FOUR TIMES A DAY FOR DRY EYE 2) THIAMINE 100MG TAB TAKE ONE TABLET BY MOUTH ONCE DAILY FOR VITAMIN SUPPLEMENTATION Active Non-VA Medications Status 1) Non-VA ASPIRIN 81MG EC TAB 81MG BY MOUTH ACTIVE 2) Non-VA OTHER CAP/TAB COD LIVER OIL BY MOUTH ONCE ACTIVE DAILY 14 Total Medications 97.4 F [36.3 C] (03/03/2024 13:20) 70 (03/03/2024 13:20) 16 (03/03/2024 13:20) 120/66 (03/03/2024 13:20) 3 (03/03/2024 13:20) 67 in [170.2 cm] (02/20/2023 11:14) 246 lb [111.58 kg] (03/03/2024 13:20) BMI: 38.6 Neuro: Alert and oriented times three, grossly nonfocal, nasolabial folds intact. Recent labs reviewed with patient today:yes RHS Screen: RHS Screen Environmental Check Upon inquiry, the individual reports that the environment is safe to proceed. Informed Consent to Screen and Document The individual consents to proceed with screening. The individual consents to documentation of responses. PRIMARY SCREEN: In the past 12 months, how often did a current or former intimate partner (e.g., boyfriend, girlfriend, , , sexual partner): 1. Scream or curse at you Never 2. Insult or talk down to you Never 3. Threaten you with harm Never 4. Physically hurt you Never 5. Force or pressure you to have sexual contact against your will, or when you were unable to say no Never ?? The HITS tool (items 1-4 above) is [place] copyright protected by Pipo Lopez MD, and the user has full rights to use it throughout the [place] system. PRIMARY SCREEN RESULT: The Primary Screen is NEGATIVE. The individual answered never to all forms of IPV above (i.e., answered never to all 5 items) The individual accepts education and/or resources: Other: EDUCATION: Other: /es/ Arti Tapia PA-C STAFF PHYSICIAN HAIRSPRING STUDDER Signed: 03/03/2024 13:49 ARTI TAPIA [place] [facility] Mar 03, 2024 01:21 PM PREVENTIVE MEDICINE NURSING NOTE: LOCAL TITLE: CLINICAL REMINDERS/NURSING STANDARD TITLE: PREVENTIVE MEDICINE NURSING NOTE DATE OF NOTE: MAR 03, 2024@13:21 ENTRY DATE: MAR 03, 2024@13:21:42 AUTHOR: KIERSTEN GRIJALVA EXP COSIGNER: URGENCY: STATUS: COMPLETED Suicide Screen: C-SSRS Screening [place] Suicide Severity Rating Scale (C-SSRS) screener 1. Over the past month, have you wished you were or wished you could go to sleep and not wake up? No 2. Over the past month, have you had any actual thoughts of killing yourself? No 3. Over the past month, have you been thinking about how you might do this? Response not required due to responses to other questions. 4. Over the past month, have you had these thoughts and had some intention of acting on them? Response not required due to responses to other questions. 5. Over the past month, have you started to work out or worked out the details of how to kill yourself? Response not required due to responses to other questions. 6. If yes, at any time in the past month did you intend to carry out this plan? Response not required due to responses to other questions. 7. In your lifetime, have you ever done anything, started to do anything, or prepared to do anything to end your life (for example, collected pills, obtained a gun, gave away valuables, went to the roof but didn't jump)? No 8. If YES, was this within the past 3 months? Response not required due to responses to other questions. Depression Screening: Perform PHQ-2 A PHQ-2 screen was performed. The score was 0 which is a negative screen for depression. Over the past two weeks, how often have you been bothered by the following problems? 1. Little interest or pleasure in doing things Not at all 2. Feeling down, depressed, or hopeless Not at all Falls & Incontinence Screen: Falls Screen: During the past 12 months, did the patient report any falls? 4. No falls within the past year. Incontinence Screen: During the past 12 months, has the patient has any characteristics of incontinence (ability, voiding, leakage, etc.)? No incontinence. Alcohol Use Screen (AUDIT-C): Alcohol Screen: SCREEN FOR ALCOHOL (AUDIT-C) An alcohol screening test (AUDIT-C) was negative (score=1). 1. How often did you have a drink containing alcohol in the past year? Consider a drink to be a 12 ounce can or bottle of regular beer, 8 ounces of malt liquor, a 5 ounce glass of table wine, or a 1.5 ounce shot of liquor (like scotch, gin, or vodka). Monthly or less 2. How many drinks containing alcohol did you have on a typical day when you were drinking in the past year? One or two drinks 3. How often did you have six or more drinks on one occasion in the past year? 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 Lot: [id number] Exp Date: Jul 05, 2024 [facility]: [phone] Admin Route/Site: INTRAMUSCULAR/LEFT DELTOID Dosage: 0.5mL Vaccine Information Statement(s): COVID-19 MRNA VACCINE (12+ YRS) VACCINE VIS Jun 20, 2023 (CZECH) Order By: Policy Administered By: Kiersten Grijalva Vaccine administered without complications. /patrick/ KIERSTEN GRIJALVA LPN Signed: 03/03/2024 13:30 LUISA GRIJALVA [place] [facility]
--- OUTSIDE RECORDS SUMMARY | 2024-10-07 15:34 | XMS_ITS | Continuity of Care Document ---
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 It does not include entries that were removed or entered in error. Problem Status Onset Date Problem Type Date of Resolution Comments Source History of cholecystectomy Active 020 Condition [facility] Acute deep vein thrombosis of lower limb Active Condition [facility] Athero, Lizeth Art Extr W/Dave Active Condition [facility] Benign hypertension (SNOMED CT [id number]) Active Condition [facility] Cataract, Unspecified Active Condition [facility] Diabetic nephropathy Active Condition [facility] Diverticulosis Active Condition [facility] Erosive esophagitis Active Condition [facility] Flexible Colonoscopy Proximal to Splenic Flexure Active Condition Mar 08, 2010 Entered By: IVETTE BROWN MD Comment: Normal community colonoscopy, , 5 yr follow upJun 27, 2011 Entered By: IVETTE BROWN MD Comment: He declined colonoscopy 06/2011 for 5 year follow up, 2016 [facility] Gout * (ICD-9-CM 274.9) Active Condition [facility] Hereditary Hemochromatosis Active Condition January 15, 2012 Entered By: LORENZO BOB Comment: Phlebotomy q4m at [facility] via DR Mirza. [facility] Hypertriglyceridemia * (ICD-9-CM 272.1) Active Condition [facility] Long-term current use of anticoagulant Active Condition [facility] Lumbar Radiculopathy (ICD-9-CM 724.4) Active Condition [facility] Non-toxic multinodular goiter Active Condition [facility] Obesity * (ICD-9-CM 278.00) Active Condition [facility] Osteoporosis Active Condition [facility] Diagnosis: ICD-10-CM I11.9 Hypertensive heart disease without heart failure Active Diagnosis [facility] Diagnosis: ICD-10-CM E11.9 Type 2 diabetes mellitus without complications Active Diagnosis [facility] Diagnosis: ICD-10-CM 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c multinodular goiter Active Diagnosis [facility] Diagnosis: ICD-10-CM E11.8 Type 2 diabetes mellitus with unspecified complications Active Diagnosis [facility] Diagnosis: ICD-10-CM Z46.0 Encounter for fit/adjst of spectacles and contact lenses Active Diagnosis [facility] Diagnosis: ICD-10-CM H40.013 Open angle with borderline findings, low risk, bilateral Active Diagnosis [facility] Diagnosis: ICD-10-CM M81.0 Age-related osteoporosis w/o current pathological fracture Active Diagnosis [facility] Diagnosis: ICD-10-CM 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 Medication Details Route Status Patient Instructions Prescription Expires Prescription Number Last Dispense Date Ordering Provider Order Date Order Qty Source ALLOPURINOL 300MG TAB TAKE ONE TABLET BY MOUTH EVERY DAY FOR GOUT ORAL ACTIVE 09/05/2025 [id number] ARTI BOB 2024 90 [facility] ALLOPURINOL 300MG TAB TAKE ONE TABLET BY MOUTH EVERY DAY FOR GOUT ORAL DISCONT INUED 09/10/2024 [id number] ARTI BOB 2023 90 [facility] ASPIRIN 81MG TAB,EC TAKE ONE TABLET BY MOUTH ORAL ACTIVE AYANNA PICHARDO NNE O 2005 [facility] ATENOLOL 25MG TAB TAKE ONE TABLET BY MOUTH ONCE DAILY FOR BLOOD PRESSURE /HEART ORAL SUSPEND ED 09/05/2025 [id number] 5 ARTI BOB 2024 90 [facility] ATENOLOL 25MG TAB TAKE ONE TABLET BY MOUTH ONCE DAILY FOR BLOOD PRESSURE /HEART ORAL DISCONT INUED 02/11/2025 [id number] ARTI BOB 2023 90 [facility] ATENOLOL 25MG TAB TAKE ONE TABLET BY MOUTH ONCE DAILY FOR BLOOD PRESSURE /HEART ORAL DISCONT INUED 02/20/2024 [id number] ARTI BOB 2022 90 [facility] ATORVASTATI N CA 80MG TAB TAKE ONE TABLET BY MOUTH ONCE DAILY FOR CHOLESTE ROL IN PLACE OF [place] ATIN. ORAL ACTIVE 09/05/2025 [id number] 5 ARTI BOB 2024 90 [facility] ATORVASTATI N CA 80MG TAB TAKE ONE TABLET BY MOUTH ONCE DAILY FOR CHOLESTE ROL IN PLACE OF [place] ATIN. ORAL DISCONT INUED 06/03/2024 [id number] ARTI BOB 2022 90 [facility] CARBOXYMETH YLCELLULOSE NA 0.5% SOLN,OPH INSTILL 1 DROP INTO EACH EYE FOUR TIMES A DAY FOR DRY EYE OPHTHA LMIC 02/16/2024 [id number] WHITLOCK,LAC EY J 2022 45 [facility] DILTIAZEM (EQV-TIAZAC AB4) 360MG 24HR CAP TAKE ONE CAPSULE BY MOUTH ONCE DAILY FOR HIGH BLOOD PRESSURE ORAL ACTIVE 09/05/2025 [id number] LISBETHARTI Margarita 2024 90 [facility] DILTIAZEM (EQV-TIAZAC AB4) 360MG 24HR CAP TAKE ONE CAPSULE BY MOUTH ONCE DAILY FOR HIGH BLOOD PRESSURE ORAL DISCONT INUED 03/04/2025 [id number] LISBETHARTI Margarita 2023 90 [facility] DILTIAZEM (EQV-TIAZAC AB4) 360MG 24HR CAP TAKE ONE CAPSULE BY MOUTH EVERY DAY FOR BLOOD PRESSURE ORAL DISCONT INUED BY PROVIDE R 02/20/2024 [id number] 4 LISBETHARTI Margarita 2022 90 [facility] GLIPIZIDE 10MG TAB TAKE ONE TABLET BY MOUTH TWICE DAILY FOR DIABETES ORAL ACTIVE 09/05/2025 [id number] LISBETHARTI Margarita 2024 180 [facility] GLIPIZIDE 10MG TAB TAKE ONE TABLET BY MOUTH TWICE DAILY FOR DIABETES ORAL DISCONT INUED 06/04/2024 [id number] ISABELLESHELBIE ARTI Margarita 2022 180 [facility] KETOROLAC TROMETHAMIN E 0.5% SOLN,OPH INSTILL 1 DROP INTO THE RIGHT EYE THREE TIMES A DAY FOR 3 WEEKS FOLLOWIN G SURGERY OPHTHA LMIC DISCONT INUED BY PROVIDE R 07/16/2024 [id number] SONNY URENA R 2022 5 [facility] KETOROLAC TROMETHAMIN E 0.5% SOLN,OPH INSTILL 1 DROP INTO THE AFFECTED EYE(S) THREE TIMES A DAY FOR 3 WEEKS FOLLOWIN G SURGERY OPHTHA LMIC DISCONT INUED 05/22/2024 [id number] CHRISTOPHER CHRISTIANSON R 2022 5 [facility] LISINOPRIL 20MG TAB TAKE ONE TABLET BY MOUTH DAILY TO CONTROL BLOOD PRESSURE ORAL ACTIVE 09/05/2025 [id number] ARTI BOB 2024 90 [facility] LISINOPRIL 20MG TAB TAKE ONE TABLET BY MOUTH DAILY TO CONTROL BLOOD PRESSURE ORAL DISCONT INUED 09/10/2024 [id number] ARTI BOB 2023 90 [facility] LISINOPRIL 20MG TAB TAKE ONE TABLET BY MOUTH DAILY TO CONTROL BLOOD PRESSURE ORAL DISCONT INUED 08/25/2023 [id number] 3 ARTI BOB 2022 90 [facility] METFORMIN HCL 1000MG TAB TAKE ONE TABLET BY MOUTH TWICE DAILY FOR DIABETES ORAL SUSPEND ED 09/05/2025 [id number] 5 ARTI BOB 2024 180 [facility] METFORMIN HCL 1000MG TAB TAKE ONE TABLET BY MOUTH TWICE DAILY FOR DIABETES ORAL DISCONT INUED 09/10/2024 [id number] ARTI BOB 2023 180 [facility] OMEPRAZOLE 20MG CAP,EC TAKE ONE CAPSULE BY MOUTH EVERY MORNING 30 MINUTES BEFORE BREAKFAS T ORAL SUSPEND ED 09/03/2025 [id number] ARTI BOB 2024 90 [facility] OMEPRAZOLE 20MG CAP,EC TAKE ONE CAPSULE BY MOUTH EVERY MORNING 30 MINUTES BEFORE BREAKFAS T ORAL DISCONT INUED 06/04/2024 [id number] ARTI BOB 2022 90 [facility] OTHER CAP/TAB TAKE COD LIVER OIL BY MOUTH ONCE DAILY ORAL ACTIVE ARTI BOB 2020 [facility] PIOGLITAZON E HCL 30MG TAB TAKE ONE TABLET BY MOUTH DAILY ORAL ACTIVE 09/05/2025 [id number] 5 ARTI BOB 2024 90 [facility] PIOGLITAZON E HCL 30MG TAB TAKE ONE TABLET BY MOUTH DAILY ORAL DISCONT INUED 06/04/2024 [id number] ARTI BOB 2022 90 [facility] PREDNISOLON E ACETATE 1% SUSP,OPH INSTILL 1 DROP INTO EACH EYE THREE TIMES A DAY FOR 2 ADDITION AL WEEKS OPHTHA LMIC 08/15/2023 [id number] SONNY URENA 2022 10 [facility] THIAMINE 100MG TAB TAKE ONE TABLET BY MOUTH ONCE DAILY FOR VITAMIN SUPPLEME NTATION ORAL ACTIVE 05/01/2025 [id number] 4 ARTI BOB 2023 100 [facility] THIAMINE 100MG TAB TAKE ONE TABLET BY MOUTH ONCE DAILY FOR VITAMIN SUPPLEME NTATION ORAL DISCONT INUED 02/20/2024 [id number] 4 ARTI BOB 2022 100 [facility] Immunizations Combined list of available immunizations from the Department of Defense and Veterans Affairs facilities. Immunization Series Date Given Administered By Site Reaction Lot Number CVX Code Drug Channeler Status Comments Source COVID-19 (MODERNA), MRNA, LNP-S, PF, 50 MCG/0.5 ML (AGES 12+ YEARS) 1 2024 MADELYN GRIJALVA E LEFT DELTO ID [id number] 312 complet ed [facility] INFLUENZA, HIGH-DOSE, TRIVALENT, PF 2024 MADELYN GRIJALVA E LEFT DELTO ID [id number] 135 complet ed [facility] COVID-19 (MODERNA), MRNA, LNP-S, PF, 50 MCG/0.5 ML (AGES 12+ YEARS) 1 2023 MADELYN GRIJALVA E LEFT DELTO ID [id number] 312 complet ed [facility] COVID-19 (MODERNA), MRNA, LNP-S, PF, 50 MCG/0.5 ML (AGES 12+ YEARS) 1 2023 MADELYN GRIJALVA E RIGHT DELTO ID [id number] 312 complet ed [facility] INFLUENZA, HIGH-DOSE, QUADRIVALENT 2022 VALENTINEMADELYN LUIS CARLOS E RIGHT DELTO ID [id number] 197 complet ed [facility] COVID-19 (MODERNA), MRNA, LNP-S, BIVALENT, PF, 50 MCG/0.5 ML OR 25MCG/0.25 ML DOSE 2022 FATEMEH OLVERA LEFT DELTO ID [id number] 229 complet ed [facility] COVID-19 (MODERNA), MRNA, LNP-S, BIVALENT BOOSTER, PF, 50 MCG/0.5 ML OR 25MCG/0.25 ML DOSE 1 2021 229 complet ed MOD; [id number]; 3 [facility] INFLUENZA VACCINE, QUADRIVALENT, ADJUVANTED 2021 205 complet ed [facility] TD (ADULT), 5 LF TETANUS TOXOID, PRESERVATIVE FREE, ADSORBED 2021 113 complet ed [facility] COVID-19 (MODERNA), MRNA, LNP-S, PF, 100 MCG/0.5ML DOSE OR 50 MCG/0.25ML DOSE 3 2021 207 complet ed MOD; [id number]; 2 [facility] COVID-19 (MODERNA), MRNA, LNP-S, PF, 100 MCG OR 50 MCG DOSE 3 2020 207 complet ed [facility] INFLUENZA VACCINE, QUADRIVALENT, ADJUVANTED 2020 205 complet ed [facility] COVID-19 (MODERNA), MRNA, LNP-S, PF, 100 MCG/0.5 ML DOSE 2 2020 207 complet ed MOD; [id number]; 1 [facility] COVID-19 (MODERNA), MRNA, LNP-S, PF, 100 MCG/0.5 ML DOSE 1 2020 207 complet ed MOD; [id number]; 1 [facility] HEP B, ADULT 3 2019 43 complet ed [facility] INFLUENZA, UNSPECIFIED FORMULATION 2019 88 complet ed [facility] HEP A-HEP B 2 2019 NONE 104 complet ed #2 [facility] HEP A-HEP B 1 2018 NONE 104 complet ed tolerated well [facility] INFLUENZA, INJECTABLE, QUADRIVALENT, PRESERVATIVE FREE 2018 150 complet ed Site: Right Deltoid [facility] INFLUENZA, SEASONAL, INJECTABLE 2017 141 complet ed Site: Left Deltoid [facility] ZOSTER RECOMBINANT 2 2017 187 complet ed [facility] ZOSTER RECOMBINANT 1 2017 187 complet ed [facility] INFLUENZA, SEASONAL, INJECTABLE 2016 141 complet ed Site: Left Deltoid [facility] FLU,3 YRS (HISTORICAL) 2016 88 complet ed DUN[facility] FLU,3 YRS (HISTORICAL) 2015 88 complet ed Site: Right Deltoid [facility] FLU,3 YRS (HISTORICAL) 2014 88 complet ed Site: Left Deltoid [facility] PNEUMOCOCCAL CONJUGATE PCV 13 2014 133 complet ed [facility] FLU,3 YRS (HISTORICAL) 2013 88 complet ed Site: Left Deltoid [facility] FLU,3 YRS (HISTORICAL) 2012 88 complet ed Site: Left Deltoid [facility] ZOSTER LIVE 2012 121 complet ed [facility] DTAP, UNSPECIFIED FORMULATION 2011 107 complet ed Site: Right Deltoid [facility] FLU,3 YRS (HISTORICAL) 2011 88 complet ed Site: Left Deltoid [facility] FLU,3 YRS (HISTORICAL) 2010 88 complet ed stated [facility] FLU,3 YRS (HISTORICAL) 2010 88 complet ed Site: Left Deltoid [facility] NOVEL INFLUENZA-H1N 1-09, ALL FORMULATIONS 2009 128 complet ed [employer] [facility] PNEUMOCOCCAL, UNSPECIFIED FORMULATION 2009 109 complet ed [facility] FLU,3 YRS (HISTORICAL) 2008 88 complet ed Site: Right Deltoid [facility] FLU,3 YRS (HISTORICAL) 2007 88 complet ed Site: Left Deltoid [facility] FLU,3 YRS (HISTORICAL) 2006 88 complet ed Site: Left Deltoid [facility] FLU,3 YRS (HISTORICAL) 2005 88 complet ed [facility] FLU,3 YRS (HISTORICAL) 2004 JACQUELIN CERDA 88 complet ed [facility] TD(ADULT) UNSPECIFIED FORMULATION 2004 JACQUELIN CERDA 139 complet ed [facility] FLU,3 YRS (HISTORICAL) 2004 YANG GRANGER 88 complet ed [facility] FLU,3 YRS (HISTORICAL) 2002 VINI VARNER 88 complet ed [facility] FLU,3 YRS (HISTORICAL) 2001 MINDI ALMARAZ T 88 complet ed [facility] PNEUMOCOCCAL, UNSPECIFIED FORMULATION 2001 LISA KIMBLE 109 complet ed [facility] Results Combined list of recent chemistry, hematology and other laboratory results from Department of Defense and Veterans Affairs, ranging from 15 months to all on record, depending upon the facility. Order Name Results Value Reference Range Date Interpretation Specimen Comments Source BASIC METABOLIC PANEL (fasting) UREA NITROGEN [MASS/VOLUM E] IN SERUM OR PLASMA 17 mg/dL 7 - 25 08/31 Specimen Type: SERUM No comment entered. Ordering Provider: Lalo BOB Report Released Date/Time: Aug 31, 2024 09:40 AM Reporting Lab: [facility] [place] [facility] [address] [facility] [address] Performing Lab: [facility] [place] [address] [address] [place] [facility] [place] [facility] BASIC METABOLIC PANEL (fasting) GLUCOSE [MASS/VOLUM E] IN SERUM OR PLASMA 164 mg/dL 65 - 100 08/31 H Specimen Type: SERUM No comment entered. Ordering Provider: Lalo BOB Report Released Date/Time: Aug 31, 2024 09:40 AM Reporting Lab: [facility] [place] [facility] [address] [facility] [address] Performing Lab: [place] [facility] [place] [facility] [address] [facility] [address] [place] [facility] [place] [facility] BASIC METABOLIC PANEL (fasting) SODIUM [MOLES/VOLU ME] IN SERUM OR PLASMA 139 mmol/L 135 - 145 08/31 Specimen Type: SERUM No comment entered. Ordering Provider: Lalo BOB Report Released Date/Time: Aug 31, 2024 09:40 AM Reporting Lab: [facility] [place] [facility] [address] [facility] [address] Performing Lab: [place] [facility] [place] [address] [address] [place] [facility] [place] [facility] BASIC METABOLIC PANEL (fasting) POTASSIUM [MOLES/VOLU ME] IN SERUM OR PLASMA 3.9 mmol/L 3.5 - 5.0 08/31 Specimen Type: SERUM No comment entered. Ordering Provider: Lalo BOB Report Released Date/Time: Aug 31, 2024 09:40 AM Reporting [facility] [address] Performing Lab: [facility] [address] [address] [facility] BASIC METABOLIC PANEL (fasting) CHLORIDE [MOLES/VOLU ME] IN SERUM OR PLASMA 105 mmol/L 100 - 110 08/31 Specimen Type: SERUM No comment entered. Ordering Provider: Lalo BOB Report Released Date/Time: Aug 31, 2024 09:40 AM Reporting Lab: [facility] [address] Performing Lab: [facility] [address] [address] [facility] BASIC METABOLIC PANEL (fasting) CARBON DIOXIDE, TOTAL [MOLES/VOLU ME] IN SERUM OR PLASMA 23 meq/L - 08/31 Specimen Type: SERUM No comment entered. Ordering Provider: Lalo BOB Report Released Date/Time: Aug 31, 2024 09:40 AM Reporting Lab: [facility] [address] [address] Performing Lab: [facility] [address] [address] [facility] BASIC METABOLIC PANEL (fasting) CREATININE [MASS/VOLUM E] IN SERUM OR PLASMA 1.06 mg/dL 0.50 - 1.40 08/31 Specimen Type: SERUM No comment entered. Ordering Provider: Lalo BOB Report Released Date/Time: Aug 31, 2024 09:40 AM Reporting Lab: [facility] [place] [place] [address] Performing Lab: [place] [facility] [place] [facility] [address] [address] [facility] [place] [facility] BASIC METABOLIC PANEL (fasting) GLOMERULAR FILTRATION RATE/1.73 SQ M.PREDICTED [VOLUME RATE/AREA] IN SERUM, PLASMA OR BLOOD BY CREATININE- BASED FORMULA (CKD-EPI 2020) 71 mL/min 60 08/31 Specimen Type: SERUM No comment entered. Ordering Provider: Lalo BOB Report Released Date/Time: Aug 31, 2024 09:40 AM Reporting Lab: [place] [facility] [place] [address] [address] Performing Lab: [place] [facility] [place] [address] [address] [place] [facility] [place] [facility] CBC AND DIFF (AUTO) LEUKOCYTES [#/VOLUME] IN BLOOD BY AUTOMATED COUNT 5.38 10*3/u L 4.50 - 11.00 08/31 Specimen Type: BLOOD No comment entered. Ordering Provider: Lalo BOB Report Released Date/Time: Aug 31, 2024 09:40 AM Reporting Lab: [place] [facility] [place] [address] [address] Performing Lab: [place] [facility] [place] [address] [address] [facility] [place] [facility] CBC AND DIFF (AUTO) ERYTHROCYTE S [#/VOLUME] IN BLOOD BY AUTOMATED COUNT 4.09 10*6/u L 4.23 - 5.66 08/31 L Specimen Type: BLOOD No comment entered. Ordering Provider: Lalo BOB Report Released Date/Time: Aug 31, 2024 09:40 AM Reporting Lab: [facility] [place] [address] [address] Performing Lab: [facility] [place] [address] [address] [place] [facility] [place] [facility] CBC AND DIFF (AUTO) HEMOGLOBIN [MASS/VOLUM E] IN BLOOD 13.0 g/dL 12.8 - 17 08/31 Specimen Type: BLOOD No comment entered. Ordering Provider: Lalo BOB Report Released Date/Time: Aug 31, 2024 09:40 AM Reporting Lab: [facility] [place] [facility] [address] [address] Performing Lab: [place] [facility] [place] [facility] [address] [address] [place] [facility] [place] [facility] CBC AND DIFF (AUTO) HEMATOCRIT [VOLUME FRACTION] OF BLOOD BY AUTOMATED COUNT 38.3 39.2 - 50.4 08/31 L Specimen Type: BLOOD No comment entered. Ordering Provider: Lalo BOB Report Released Date/Time: Aug 31, 2024 09:40 AM Reporting Lab: [place] [facility] [place] [address] [address] Performing Lab: [place] [facility] [place] [address] [address] [place] [facility] [place] [facility] CBC AND DIFF (AUTO) MCV [ENTITIC VOLUME] BY AUTOMATED COUNT 93.6 fL 82 - 99 08/31 Specimen Type: BLOOD No comment entered. Ordering Provider: Lalo BOB Report Released Date/Time: Aug 31, 2024 09:40 AM Reporting Lab: [place] [facility] [place] [address] [address] Performing Lab: [place] [facility] [place] [address] [address] [place] [facility] [place] [facility] CBC AND DIFF (AUTO) MCHC [MASS/VOLUM E] BY AUTOMATED COUNT 33.9 g/dL 30.8 - 35.1 08/31 Specimen Type: BLOOD No comment entered. Ordering Provider: Lalo BOB Report Released Date/Time: Aug 31, 2024 09:40 AM Reporting Lab: [place] [facility] [place] [address] [address] Performing Lab: [facility] [place] [facility] [address] [address] [place] [facility] [place] [facility] CBC AND DIFF (AUTO) PLATELETS [#/VOLUME] IN BLOOD BY AUTOMATED COUNT 328 10*3/u L 140 - 360 08/31 Specimen Type: BLOOD No comment entered. Ordering Provider: Lalo BOB Report Released Date/Time: Aug 31, 2024 09:40 AM Reporting Lab: [place] [facility] [place] [facility] [address] [address] Performing Lab: [place] [facility] [place] [facility] [address] [address] [facility] [place] [facility] CBC AND DIFF (AUTO) ERYTHROCYTE DISTRIBUTIO N WIDTH [RATIO] BY AUTOMATED COUNT 13.8 12.0 - 16.0 08/31 Specimen Type: BLOOD No comment entered. Ordering Provider: aLlo BOB Report Released Date/Time: Aug 31, 2024 09:40 AM Reporting Lab: [place] [facility] [place] [facility] [address] [address] Performing Lab: [place] [facility] [place] [facility] [address] [address] [facility] [place] [facility] CBC AND DIFF (AUTO) MONOCYTES [#/VOLUME] IN BLOOD BY AUTOMATED COUNT 0.45 10*3/u L 0.30 - 1.10 08/31 Specimen Type: BLOOD No comment entered. Ordering Provider: Lalo BOB Report Released Date/Time: Aug 31, 2024 09:40 AM Reporting Lab: [facility] [place] [facility] [address] [address] Performing Lab: [place] [facility] [place] [address] [address] [place] [facility] [place] [facility] CBC AND DIFF (AUTO) MCH [ENTITIC MASS] BY AUTOMATED COUNT 31.8 pg 26.2 - 32.6 08/31 Specimen Type: BLOOD No comment entered. Ordering Provider: Lalo BOB Report Released Date/Time: Aug 31, 2024 09:40 AM Reporting Lab: [facility] [place] [facility] [address] [address] Performing Lab: [facility] [place] [facility] [address] [address] [facility] [place] [facility] CBC AND DIFF (AUTO) NEUTROPHILS /100 LEUKOCYTES IN BLOOD BY AUTOMATED COUNT 67.7 43.7 - 75.8 08/31 Specimen Type: BLOOD No comment entered. Ordering Provider: Lalo BOB Report Released Date/Time: Aug 31, 2024 09:40 AM Reporting Lab: [facility] [place] [facility] [address] [facility] [address] Performing Lab: [facility] [place] [facility] [address] [facility] [address] [facility] [place] [facility] CBC AND DIFF (AUTO) LYMPHOCYTES /100 LEUKOCYTES IN BLOOD BY AUTOMATED COUNT 19.0 14.0 - 42.3 08/31 Specimen Type: BLOOD No comment entered. Ordering Provider: Lalo BOB Report Released Date/Time: Aug 31, 2024 09:40 AM Reporting Lab: [facility] [place] [facility] [address] [facility] [address] Performing Lab: [facility] [place] [facility] [address] [facility] [address] [facility] [place] [facility] CBC AND DIFF (AUTO) MONOCYTES/1 00 LEUKOCYTES IN BLOOD BY AUTOMATED COUNT 8.4 5.1 - 13.7 08/31 Specimen Type: BLOOD No comment entered. Ordering Provider: Lalo BOB Report Released Date/Time: Aug 31, 2024 09:40 AM Reporting Lab: [facility] [place] [facility] [address] [address] Performing Lab: [facility] [address] [facility] [address] [facility] CBC AND DIFF (AUTO) EOSINOPHILS /100 LEUKOCYTES IN BLOOD BY AUTOMATED COUNT 3.9 0.4 - 6.8 08/31 Specimen Type: BLOOD No comment entered. Ordering Provider: Lalo BOB Report Released Date/Time: Aug 31, 2024 09:40 AM Reporting Lab: [facility] [address] [facility] [address] Performing Lab: [facility] [address] [facility] [address] [facility] CBC AND DIFF (AUTO) BASOPHILS/1 00 LEUKOCYTES IN BLOOD BY AUTOMATED COUNT 0.6 0.1 - 2.0 08/31 Specimen Type: BLOOD No comment entered. Ordering Provider: Lalo BOB Report Released Date/Time: Aug 31, 2024 09:40 AM Reporting Lab: [facility] [address] [facility] [address] Performing Lab: [facility] [place] [facility] [address] [facility] [address] [facility] CBC AND DIFF (AUTO) NEUTROPHILS [#/VOLUME] IN BLOOD BY AUTOMATED COUNT 3.65 10*3/u L 2.20 - 7.60 08/31 Specimen Type: BLOOD No comment entered. Ordering Provider: Lalo BOB Report Released Date/Time: Aug 31, 2024 09:40 AM Reporting Lab: [facility] [facility] [address] [facility] [address] Performing Lab: [facility] [place] [facility] [address] [facility] [address] [facility] CBC AND DIFF (AUTO) LYMPHOCYTES [#/VOLUME] IN BLOOD BY AUTOMATED COUNT 1.02 10*3/u L 1.00 - 3.20 08/31 Specimen Type: BLOOD No comment entered. Ordering Provider: Lalo BOB Report Released Date/Time: Aug 31, 2024 09:40 AM Reporting Lab: [facility] [place] [facility] [address] [facility] [address] Performing Lab: [facility] [place] [facility] [address] [facility] [address] [place] [facility] [place] [facility] CBC AND DIFF (AUTO) EOSINOPHILS [#/VOLUME] IN BLOOD BY AUTOMATED COUNT 0.21 10*3/u L 0.03 - 0.44 08/31 Specimen Type: BLOOD No comment entered. Ordering Provider: Lalo BOB Report Released Date/Time: Aug 31, 2024 09:40 AM Reporting Lab: [facility] [place] [facility] [address] [facility] [address] Performing Lab: [facility] [place] [facility] [address] [facility] [address] [place] [facility] [place] [facility] CBC AND DIFF (AUTO) BASOPHILS [#/VOLUME] IN BLOOD BY AUTOMATED COUNT 0.03 10*3/u L 0.01 - 0.13 08/31 Specimen Type: BLOOD No comment entered. Ordering Provider: Lalo BOB Report Released Date/Time: Aug 31, 2024 09:40 AM Reporting Lab: [facility] [place] [facility] [address] [facility] [address] Performing Lab: [facility] [place] [address] [address] [place] [facility] [place] [facility] CBC AND DIFF (AUTO) IMMATURE GRANULOCYTE S/100 LEUKOCYTES IN BLOOD BY AUTOMATED COUNT 0.4 0.0 - 0.7 08/31 Specimen Type: BLOOD No comment entered. Ordering Provider: Lalo BOB Report Released Date/Time: Aug 31, 2024 09:40 AM Reporting Lab: [facility] [place] [facility] [address] [facility] [address] Performing Lab: [facility] [address] [address] [facility] CBC AND DIFF (AUTO) IMMATURE GRANULOCYTE S [#/VOLUME] IN BLOOD 0.02 10*3/u L 0.00 - 0.06 08/31 Specimen Type: BLOOD No comment entered. Ordering Provider: VANWAGNER,W ILLIAM F Report Released Date/Time: Aug 31, 2024 09:40 AM Reporting [facility]: [facility] [address] [address] Performing Lab: [facility] [address] [facility] CBC AND DIFF (AUTO) NRBC % 0.0 0.0 - 0.0 08/31 Specimen Type: BLOOD No comment entered. Ordering Provider: Lalo BOB Report Released Date/Time: Aug 31, 2024 09:40 AM Reporting Lab: [facility] [address] [address] Performing Lab: [facility] [address] [address] [place], [place] [address] [facility] CBC AND DIFF (AUTO) NRBC, ABS 0.00 10*3/u L 0.00 - 0.00 08/31 Specimen Type: BLOOD No comment entered. Ordering Provider: Lalo BOB Report Released Date/Time: Aug 31, 2024 09:40 AM Reporting Lab: [facility] [address] [address] Performing Lab: [facility] [address] [address] [facility] HEMOGLOBI N A1C PANEL HEMOGLOBIN A1C/HEMOGLO BIN.TOTAL IN BLOOD BY HPLC 6.7 4.0 - 5.6 08/31 H Specimen Type: BLOOD Comment: Values obtained from A1C measurement s can vary. For atypical A1C assays, a reported value of 7.0 could actually be between 6.72 and 7.28 if measured by a reference method. A reported value of 9.0 could actually be between 8.73 and 9.27. Ref: http://www. ngsp.org/[place] Pdata.asp Ordering Provider: Lalo BOB Report Released Date/Time: Aug 31, 2024 09:40 AM Reporting Lab: [address] [place] [address] Performing Lab: [facility] [place] [facility] [address] [facility] [address] [facility] LIPID PANEL FASTING CHOLESTEROL [MASS/VOLUM E] IN SERUM OR PLASMA 167 mg/dL 08/31 Specimen Type: SERUM No comment entered. Ordering Provider: Lalo BOB Report Released Date/Time: Aug 31, 2024 09:40 AM Reporting Lab: [facility] [place] [facility] [address] [facility] [address] Performing Lab: [facility] [place] [facility] [address] [facility] [address] [facility] LIPID PANEL FASTING TRIGLYCERID E [MASS/VOLUM E] IN SERUM OR PLASMA 127 mg/dL 0 - 150 08/31 Specimen Type: SERUM No comment entered. Ordering Provider: Lalo BOB Report Released Date/Time: Aug 31, 2024 09:40 AM Reporting Lab: [facility] [place] [facility] [address] [facility] [address] Performing Lab: [facility] [place] [facility] [address] [facility] [address] [facility] [facility] LIPID PANEL FASTING CHOLESTEROL IN LDL [MASS/VOLUM E] IN SERUM OR PLASMA BY CALCULATION 85 mg/dL 0 - 129 08/31 Specimen Type: SERUM No comment entered. Ordering Provider: Lalo BOB Report Released Date/Time: Aug 31, 2024 09:40 AM Reporting Lab: [facility] [place] [facility] [address] [facility] [address] Performing Lab: [facility] [place] [facility] [address] [facility] [address] [facility] [place] [facility] LIPID PANEL FASTING CHOLESTEROL .TOTAL/CHOL ESTEROL IN HDL [MASS RATIO] IN SERUM OR PLASMA 2.9 08/31 Specimen Type: SERUM No comment entered. Ordering Provider: Lalo BOB Report Released Date/Time: Aug 31, 2024 09:40 AM Reporting Lab: [facility] [address] [facility] [address] Performing Lab: [facility] [place] [facility] [address] [facility] [address] [facility] [place] LIPID PANEL FASTING CHOLESTEROL IN HDL [MASS/VOLUM E] IN SERUM OR PLASMA 57 mg/dL 40 - 60 08/31 Specimen Type: SERUM No comment entered. Ordering Provider: Lalo BOB Report Released Date/Time: Aug 31, 2024 09:40 AM Reporting Lab: [facility] [place] [facility] [address] [facility] [address] Performing Lab: [facility] [place] [facility] [address] [facility] [address] [facility] MICROALBU MIN CREATININ E RATIO PANEL MICROALBUMI N/CREATININ E [MASS RATIO] IN URINE 12.3 mg/g 0 - 29.9 08/31 Specimen Type: URINE No comment entered. Ordering Provider: Lalo BOB Report Released Date/Time: Aug 31, 2024 09:40 AM Reporting Lab: [facility] [place] [facility] [address] [facility] [address] Performing Lab: [facility] [place] [facility] [address] [facility] [address] [facility] [place] [facility] MICROALBU MIN CREATININ E RATIO PANEL MICROALBUMI N [MASS/VOLUM E] IN URINE 1.3 mg/dL 08/31 Specimen Type: URINE No comment entered. Ordering Provider: Lalo BOB Report Released Date/Time: Aug 31, 2024 09:40 AM Reporting Lab: [facility] [place] [facility] [address] [facility] [address] Performing Lab: [facility] [address] [facility] [address] [facility] [place] [facility] MICROALBU MIN CREATININ E RATIO PANEL CREATININE [MASS/VOLUM E] IN URINE 105.65 mg/dL 08/31 Specimen Type: URINE No comment entered. Ordering Provider: Lalo BOB Report Released Date/Time: Aug 31, 2024 09:40 AM Reporting Lab: [place] [facility] [place] [facility] [address] [facility] [address] Performing Lab: [place] [facility] [address] [facility] [address] [place] [facility] BASIC METABOLIC PANEL (fasting) UREA NITROGEN [MASS/VOLUM E] IN SERUM OR PLASMA 17 mg/dL 7 - 25 02/19 Specimen Type: SERUM No comment entered. Ordering Provider: Lalo BOB Report Released Date/Time: Sep 10, 2023 02:57 PM Reporting Lab: [place] [facility] [address] [facility] [address] Performing Lab: [place] [facility] [facility] [facility] [address] [facility] BASIC METABOLIC PANEL (fasting) GLUCOSE [MASS/VOLUM E] IN SERUM OR PLASMA 162 mg/dL 65 - 100 02/19 H Specimen Type: SERUM No comment entered. Ordering Provider: Lalo BOB Report Released Date/Time: Sep 10, 2023 02:57 PM Reporting Lab: [place] [facility] [address] [facility] [address] Performing Lab: [place] [facility] [address] [facility] [address] [facility] BASIC METABOLIC PANEL (fasting) SODIUM [MOLES/VOLU ME] IN SERUM OR PLASMA 140 mmol/L 135 - 145 02/19 Specimen Type: SERUM No comment entered. Ordering Provider: Lalo BOB Report Released Date/Time: Sep 10, 2023 02:57 PM Reporting Lab: [place] [facility] [address] [facility] [address] Performing Lab: [place] [facility] [facility] [facility] [address] [facility] BASIC METABOLIC PANEL (fasting) POTASSIUM [MOLES/VOLU ME] IN SERUM OR PLASMA 4.3 mmol/L 3.5 - 5.0 02/19 Specimen Type: SERUM No comment entered. Ordering Provider: Lalo BOB Report Released Date/Time: Sep 10, 2023 02:57 PM Reporting Lab: [facility] [address] [facility] [address] Performing Lab: [facility] [address] [facility] [address] [facility] BASIC METABOLIC PANEL (fasting) CHLORIDE [MOLES/VOLU ME] IN SERUM OR PLASMA 104 mmol/L 100 - 110 02/19 Specimen Type: SERUM No comment entered. Ordering Provider: Lalo BOB Report Released Date/Time: Sep 10, 2023 02:57 PM Reporting Lab: [facility] [address] [facility] [address] Performing Lab: [facility] [address] [facility]ITALTRN [facility] BASIC METABOLIC PANEL (fasting) CARBON DIOXIDE, TOTAL [MOLES/VOLU ME] IN SERUM OR PLASMA 23 meq/L 20 - 30 02/19 Specimen Type: SERUM No comment entered. Ordering Provider: Lalo OBB Report Released Date/Time: Sep 10, 2023 02:57 PM Reporting Lab: [facility] [place] [facility] [address] [facility] [address] Performing Lab: [facility] [address] [facility]N [facility] BASIC METABOLIC PANEL (fasting) CREATININE [MASS/VOLUM E] IN SERUM OR PLASMA 1.30 mg/dL 0.50 - 1.40 02/19 Specimen Type: SERUM No comment entered. Ordering Provider: Lalo BOB Report Released Date/Time: Sep 10, 2023 02:57 PM Reporting Lab: [facility] [place] [facility] [address] [facility] [address] Performing Lab: [facility] [place] [facility] [address] [facility] [address] [facility] [place] [facility] BASIC METABOLIC PANEL (fasting) GLOMERULAR FILTRATION RATE/1.73 SQ M.PREDICTED [VOLUME RATE/AREA] IN SERUM, PLASMA OR BLOOD BY CREATININE- BASED FORMULA (CKD-EPI 2020) 56 mL/min 60 02/19 L Specimen Type: SERUM No comment entered. Ordering Provider: Lalo BOB Report Released Date/Time: Sep 10, 2023 02:57 PM Reporting Lab: [facility] [place] [facility] [address] [facility] [address] Performing Lab: [place] [facility] [place] [facility] [address] [facility] [address] [facility] [place] [facility] FERRITIN FERRITIN [MASS/VOLUM E] IN SERUM OR PLASMA 55 ng/mL 20 - 300 02/19 Specimen Type: SERUM No comment entered. Ordering Provider: Lalo BOB Report Released Date/Time: Sep 10, 2023 02:57 PM Reporting Lab: [place] [facility] [place] [facility] [address] [facility] [address] Performing Lab: [facility] [place] [facility] [address] [facility] [address] [facility] [place] [facility] IRON & TIBC PANEL IRON BINDING CAPACITY [MASS/VOLUM E] IN SERUM OR PLASMA 399 ug/dL 204 - 475 02/19 Specimen Type: SERUM No comment entered. Ordering Provider: Lalo BOB Report Released Date/Time: Sep 10, 2023 02:57 PM Reporting Lab: [facility] [place] [facility] [address] [facility] [address] Performing Lab: [facility] [place] [facility] [address] [facility] [address] [facility] [place] [facility] IRON & TIBC PANEL IRON [MASS/VOLUM E] IN SERUM OR PLASMA 120 ug/dL 40 - 160 02/19 Specimen Type: SERUM No comment entered. Ordering Provider: Lalo BOB Report Released Date/Time: Sep 10, 2023 02:57 PM Reporting Lab: [place] [facility] [place] [facility] [address] [facility] [address] Performing Lab: [place] [facility] [place] [facility] [address] [facility] [address] [place] [facility] [place] [facility] IRON & TIBC PANEL IRON/IRON BINDING CAPACITY.TO ANGELA [MASS RATIO] IN SERUM OR PLASMA 30.1 20.0 - 50.0 02/19 Specimen Type: SERUM No comment entered. Ordering Provider: Lalo BOB Report Released Date/Time: Sep 10, 2023 02:57 PM Reporting Lab: [facility] [place] [address] [address] Performing Lab: [facility] [place] [address] [address] [facility] [place] [facility] LIPID PANEL FASTING CHOLESTEROL [MASS/VOLUM E] IN SERUM OR PLASMA 143 mg/dL 02/19 Specimen Type: SERUM No comment entered. Ordering Provider: Lalo BOB Report Released Date/Time: Sep 10, 2023 02:57 PM Reporting Lab: [facility] [place] [facility] [address] [facility] [address] Performing Lab: [place] [facility] [facility] [facility] [address] [facility] [address] [facility] [place] [facility] LIPID PANEL FASTING TRIGLYCERID E [MASS/VOLUM E] IN SERUM OR PLASMA 142 mg/dL 0 - 150 02/19 Specimen Type: SERUM No comment entered. Ordering Provider: Lalo BOB Report Released Date/Time: Sep 10, 2023 02:57 PM Reporting Lab: [facility] [place] [facility] [address] [facility] [address] Performing Lab: [facility] [place] [facility] [address] [facility] [address] [facility] [place] [facility] LIPID PANEL FASTING CHOLESTEROL IN LDL [MASS/VOLUM E] IN SERUM OR PLASMA BY CALCULATION 64 mg/dL 0 - 129 02/19 Specimen Type: SERUM No comment entered. Ordering Provider: Lalo BOB Report Released Date/Time: Sep 10, 2023 02:57 PM Reporting Lab: [place] [facility] [place] [address] [address] Performing Lab: [place] [facility] [place] [address] [address] [place] [facility] [place] [facility] LIPID PANEL FASTING CHOLESTEROL .TOTAL/CHOL ESTEROL IN HDL [MASS RATIO] IN SERUM OR PLASMA 2.8 02/19 Specimen Type: SERUM No comment entered. Ordering Provider: Lalo BOB Report Released Date/Time: Sep 10, 2023 02:57 PM Reporting Lab: [place] [facility] [place] [address] [address] Performing Lab: [place] [facility] [place] [address] [address] [facility] [place] [facility] LIPID PANEL FASTING CHOLESTEROL IN HDL [MASS/VOLUM E] IN SERUM OR PLASMA 51 mg/dL 40 - 60 02/19 Specimen Type: SERUM No comment entered. Ordering Provider: Lalo BOB Report Released Date/Time: Sep 10, 2023 02:57 PM Reporting Lab: [place] [facility] [place] [address] [address] Performing Lab: [place] [facility] [place] [address] [address] [place] [facility] [facility] LIVER FUNCTION PROTEIN [MASS/VOLUM E] IN SERUM OR PLASMA 6.7 g/dL 6.0 - 8.3 02/19 Specimen Type: SERUM No comment entered. Ordering Provider: Lalo BOB Report Released Date/Time: Sep 10, 2023 02:57 PM Reporting Lab: [place] [facility] [place] [address] [address] Performing Lab: [place] [facility] [place] [facility] [address] [facility] [address] [place] [facility] [place] [facility] LIVER FUNCTION ALBUMIN [MASS/VOLUM E] IN SERUM OR PLASMA 3.9 g/dL 3.5 - 5.0 02/19 Specimen Type: SERUM No comment entered. Ordering Provider: Lalo BOB Report Released Date/Time: Sep 10, 2023 02:57 PM Reporting Lab: [facility] [place] [facility] [address] [facility] [address] Performing Lab: [place] [facility] [place] [facility] [address] [facility] [address] [place] [facility] [place] [facility] LIVER FUNCTION ALKALINE PHOSPHATASE [ENZYMATIC ACTIVITY/VO LUME] IN SERUM OR PLASMA 84 U/L 40 - 150 02/19 Specimen Type: SERUM No comment entered. Ordering Provider: Lalo BOB Report Released Date/Time: Sep 10, 2023 02:57 PM Reporting Lab: [facility] [place] [facility] [address] [facility] [address] Performing Lab: [facility] [place] [facility] [address] [facility] [address] [facility] [place] [facility] LIVER FUNCTION ASPARTATE AMINOTRANSF ERASE [ENZYMATIC ACTIVITY/VO LUME] IN SERUM OR PLASMA 16 U/L 5 - 34 02/19 Specimen Type: SERUM No comment entered. Ordering Provider: Lalo BOB Report Released Date/Time: Sep 10, 2023 02:57 PM Reporting Lab: [facility] [place] [facility] [address] [facility] [address] Performing Lab: [place] [facility] [place] [facility] [address] [facility] [address] [place] [facility] [place] [facility] LIVER FUNCTION ALANINE AMINOTRANSF ERASE [ENZYMATIC ACTIVITY/VO LUME] IN SERUM OR PLASMA 17 U/L 02/19 Specimen Type: SERUM No comment entered. Ordering Provider: Lalo BOB Report Released Date/Time: Sep 10, 2023 02:57 PM Reporting Lab: [facility] [place] [facility] [address] [facility] [address] Performing Lab: [facility] [place] [facility] [address] [facility] [address] [facility] LIVER FUNCTION BILIRUBIN.T OTAL [MASS/VOLUM E] IN SERUM OR PLASMA 0.8 mg/dL 0.2 - 1.2 02/19 Specimen Type: SERUM No comment entered. Ordering Provider: Lalo BOB Report Released Date/Time: Sep 10, 2023 02:57 PM Reporting Lab: [facility] [place] [facility] [address] [facility] [address] Performing Lab: [facility] [place] [facility] [address] [facility] [address] [facility] [place] Vital Signs Combined list of inpatient and outpatient Vital Signs from Department of Defense and Veterans Affairs, ranging from 12 months to all on record, depending upon the facility. Vital Sign Value Date Comments Source SYSTOLIC BLOOD PRESSURE 140 09/04/19 25 11:14:45 [facility] DIASTOLIC BLOOD PRESSURE 80 025 11:14:45 [facility] PULSE OXIMETRY 97 09/04/2024 11:14:45 [facility] WEIGHT 244 09/04/2024 11:14:45 [facility] BMI 38kg/m2 09/04/2024 11:14:45 [facility] PAIN 0 09/04/2024 11:14:45 [facility] TEMPERATURE 98.4 09/04/2024 11:14:45 [facility] PULSE 102 09/04/2024 11:14:45 [facility] RESPIRATION 16 09/04/2024 11:14:45 [facility] SYSTOLIC BLOOD PRESSURE 120 03/03/20 24 13:20:19 [facility] DIASTOLIC BLOOD PRESSURE 66 03/03/ 024 13:20:19 [facility] PULSE OXIMETRY 97 03/03/2024 13:20:19 [facility] WEIGHT 246 03/03/2024 13:20:19 [facility] BMI 39kg/m2 03/03/2024 13:20:19 [facility] PAIN 3 03/03/2024 13:20:19 [facility] TEMPERATURE 97.4 03/03/2024 13:20:19 [facility] PULSE 70 03/03/2024 13:20:19 [facility] RESPIRATION 16 03/03/2024 13:20:19 [facility] SYSTOLIC BLOOD PRESSURE 124 02/26/20 12:03:58 [facility] DIASTOLIC BLOOD PRESSURE 76 024 12:03:58 [facility] PULSE OXIMETRY 95 02/26/2024 12:03:58 [facility] WEIGHT 245.4 02/26/2024 12:03:58 [facility] BMI 39kg/m2 02/26/2024 12:03:58 [facility] PAIN 0 02/26/2024 12:03:58 [facility] TEMPERATURE 97.4 02/26/2024 12:03:58 [facility] PULSE 76 02/26/2024 12:03:58 [facility] RESPIRATION 18 02/26/2024 12:03:58 [facility] Encounters Combined list of: 1) Encounters from Department of Veterans Affairs facilities going back up to thelast 18 months. 2) Encounters from the Department of Defense facilities going back up to 280 months. Location Location Details Encounter Type Encounter Number Reason For Visit Attending Provider ADM Date DC Date Status Disposition Source [facility] Outpatient Encounter [id number] 05/03 [facility] Outpatient Encounter [id number] Meredith GOMEZ 05/17 [facility] Outpatient Encounter [id number] Meredith GOMEZ 06/03 [facility] OFFICE O/P EST LOW 20-29 MIN [id number] Diagnos is: ICD-10- CM Z79.01 FPC (curren t) use of anticoa gulants
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< br/> BRAYDON CHAPMAN 06/25 [facility] Outpatient Encounter [id number] 07/24 [facility] Outpatient Encounter [id number] Meredith GOMEZ 07/30 [facility] Outpatient Encounter [id number] Meredith GOMEZ 09/09 [facility] OFFICE O/P EST LOW 20 MIN [id number] Diagnos is: ICD-10- CM 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
TRISTON GONZALEZ 09/27 [facility] CMPTR OPHTH IMG OPTIC NERVE [id number] Diagnos is: ICD-10- CM H40.013 Open angle with borderl ine finding s, low risk, bilater al
TRISTON GONZALEZ 09/27 [facility] INTRM OPH EXAM EST PATIENT [id number] Diagnos is: ICD-10- CM H40.013 Open angle with borderl ine finding s, low risk, bilater al
OSTRISTON BROWN 09/27 [facility] FIT SPECTACLES MONOFOCAL [id number] Diagnos is: ICD-10- CM Z46.0 Encount er for fit/adj st of spectac les and contact lenses< br/> OSTRISTON BROWN 09/27 [facility] OFFICE O/P EST SF 10 MIN [id number] Diagnos is: ICD-10- CM E11.8 Type 2 diabete s mellitu s with unspeci fied complic ations< br/> Paz BENSON 10/22 [facility] Out[facility] Encounter [id number] 11/07 [facility] Out[facility] Encounter [id number] Meredith GOMEZ 12/01 [facility] Out[facility] Encounter [id number] 02/05 [facility] Out[facility] Encounter [id number] Meredith GOMEZ 02/09 [facility] Out[facility] Encounter [id number] Meredith GOMEZ 02/16 [facility] OFFICE O/P EST LOW 20 MIN [id number] Diagnos is: ICD-10- CM 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
ARTI BOB 03/03 [facility] Out[facility] Encounter [id number] Meredith GOMEZ 03/30 [facility] Out[facility] Encounter [id number] Meredith GOMEZ 04/30 [facility] [place] 1 [id number] Diagnos is: ICD-10- CM E11.9 Type 2 diabete s mellitu s without complic ations< br/> RUPAL RIZZO 04/30 [facility] Outpatient Encounter [id number] Meredith GOMEZ 06/01 [facility] Outpatient Encounter [id number] GRIJALVA,CHR ISTOPHER E 07/20 [facility] Outpatient Encounter [id number] GRIJALVA,CHR ISTOPHER E 08/31 [facility] OFFICE O/P EST LOW 20 MIN [id number] Diagnos is: ICD-10- CM I11.9 Hyperte nsive heart disease without heart failure
ARTI BOB 09/04 [facility] Social History Combined list of available smoking, tobacco, and other social history from Department of Defense and Veterans Affairs facilities. Social History Type Response Date Comment Source Tobacco smoking status [place] VA-TOBACCO NEVER USED CIGARETTES 09/04/2024 [facility] History of tobacco use VA-TOBACCO NEVER USED OTHER TYPE 09/04/2024 [facility] [facility] History of tobacco use TX-TOBACCO FORMER USER 06/04/2023 [facility] [place] [facility] History of tobacco use TX-TOBACCO FORMER USER 06/15/2022 [facility] [place] [facility] [place] [facility] History of tobacco use TX-TOBACCO FORMER USER 06/03/2020 [facility] [place] [facility]2020 [place] [facility] [place] [facility]2018 [facility] [place] [facility] History of tobacco use QUIT TOBACCO USE > 7 YEARS AGO 07/10/2017 [facility] [place] [facility] History of tobacco use QUIT TOBACCO USE > 7 YEARS AGO 02/13/2016 . [facility] [place] [facility] History of tobacco use HISTORY OF SMOKING 06/08/2005 quit in 1973 [facility] [place] [facility] History of tobacco use HISTORY OF SMOKING 04/10/2004 [facility] [place] [facility] History of tobacco use HISTORY OF SMOKING 12/04/2002 [facility] [place] [facility] History of tobacco use QUIT TOBACCO USE > 7 YEARS AGO 01/09/2002 [facility] [place] [facility] History of tobacco use HISTORY OF SMOKING 09/11/2001 see note this date [facility] [place] [facility] Plan of Care List of future care activities from Department of Veterans Affairs facilities. Additional future care activities may be listed in the Assessment and Plan section. Date/Time Care Activity Care Activity Detail Facili ty 10/07/2024 AMBULATORY - MEDICINE AMBULATORY - [place]IC[place] [facility] [place] [facility] 02/25/2025 AMBULATORY - MEDICINE AMBULATORY - MEDICI [place] [facility] [place] [facility] 03/01/2025 AMBULATORY - MEDICINE AMBULATORY - MEDICI NE [facility] [facility] Advance Directives List of completed, amended, or rescinded Advance Directives on record at Department of [facility] facilities. An actual copy of the Directive is not included. Date Advance Directive Provider Source 08/27/2012 ADVANCE DIRECTIVE JESS ANDRADE [facility]
--- OUTSIDE RECORDS SUMMARY | 2024-10-07 15:34 | XMS_ITS | Encounter Summary ---
Author Name [facility] [place] Organization [facility] [place] [facility] [place] Address [address] [place] [address] Care Team Providers Care Agricultural Education Teacher Name Role Phone ARTI BOB Primary Care [...] PART A Feb 09, 2009 PART A [id number] BELKIS NEGRON PATIENT MEDICARE (WNR) MEDICARE (M) PART A Feb 09, 2009 PART A [id number] [phone] BELKIS NEGRON PATIENT MEDICARE (WNR) MEDICARE (M) PART B Feb 09, 2009 PART B [id number] [phone] JAMILBELKIS FAYE PATIENT MEDICARE (WNR) MEDICARE (M) PART B Jan 31, 2009 PART B [id number] [phone] BELKIS NEGRON PATIENT MEDICARE (WNR) MEDICARE (M) PART A Jan 31, 2009 PART A [id number] JAMILBELKIS AFYE PATIENT MEDICARE (WNR) MEDICARE (M) PART B Jan 31, 2009 PART B [id number] BELKIS NEGRON PATIENT [facility] (WNR) MEDICARE ADVANTAGE MCR (WNR) Sep 02, 2021 [id number] BELKIS NEGRON PATIENT [facility] (WNR) MEDICARE ADVANTAGE MCR (WNR) Sep 02, 2021 [id number] BELKIS NEGRON PATIENT [facility] (WNR) MEDICARE ADVANTAGE MCR (WNR) Sep 02, 2021 [id number] BELKIS NEGRON PATIENT Selected Encounter This section includes the information on record at [place] for the Encounter. Date/Time Encounter Type Encounter Description Reason Provider Source Apr 30, 2024 01:30 PM COMPRE OPH EXAM EST PT 1/> OPTOMETRY ICD-10-CM E11.9 Type 2 diabetes mellitus without complications MAHESH RIZZO [facility] Encounter Template Text not used by [place] Assessments - Encounter Diagnoses This section includes the primary and secondary diagnoses documented for the Encounter. Date/Time Primary/Secondary Diagnosis Diagnosis Name Provider Source Apr 30, 2024 04:08 PM PRIMARY Type 2 diabetes mellitus without complications MAHESH RIZZO [facility] [place] [facility] Apr 30, 2024 04:08 PM SECONDARY Dry eye syndrome of bilateral lacrimal glands MAHESH RIZZO [facility] [place] [facility] Apr 30, 2024 04:08 PM SECONDARY Hypermetropia, bilateral MAHESH RIZZO [facility] [place] [facility] Apr 30, 2024 04:08 PM SECONDARY Open angle with borderline findings, low risk, bilateral MAHESH RIZZO [place] [facility] [place] [facility] Apr 30, 2024 04:08 PM SECONDARY Presence of intraocular lens FRANKLYN RIZZOAH Jonathan [facility] [place] [facility] Plan of Treatment: Future Appointments (+ 6 months) and Future Tests (+/- 45 days) The Plan of Treatment section includes future care activities for the patient from all [place] treatmentfacilities. This section includes future appointments and future orders which are active, pending or scheduled. Future Appointments This section includes appointments that were scheduled to occur 6 months from the date of the Encounter, up to a maximum of 20 appointments. The data comes from all [place] treatment facilities. Appointment Date/Time Appointment Type Appointme nt Facility Name May 05, 2024 01:00 PM [facility]UL[facility]ORY [facility]IC[facility] [place] [facility] Sep 04, 2024 11:00 AM AMBULATORY - MEDIC[facility] [place] [facility] Oct 07, 2024 11:30 AM AMBULATORY - MEDICINE [place] [facility] [place] [facility] Social History: Smoking Status (Most current) and Tobacco Use (All prior to encounter date) This section includes the most current, and the historical, smoking and tobacco- related health factors from the [place] facility where the Encounter took place. Current Smoking Status This section includes the most current smoking, or tobacco-related health factor, from the [place] facility where the Encounter took place. Date/Time Current Smoking Status Comment Facil it Jun 04, 2023 01:30 PM VA-TOBACCO FORMER USER [facility] [place] [facility] Tobacco Use History This section includes a history of the smoking, or tobacco-related health factors, that were collected on or before the date of the Encounter. The data comes from the [place] facility where the Encounter took place. Date/Time Smoking Status/Tobac co Use Comment Facility Jun 04, 2023 01:30 PM VA-TOBACCO QUIT 15 YRS OR MORE [facility] [place] [facility] Jun 15, 2022 09:15 AM VA-TOBACCO FORMER USER [facility] [place] [facility] Jun 15, 2022 09:15 AM VA-TOBACCO QUIT 15 YRS OR MORE [facility] [place] [facility] Jun 30, 2021 09:30 AM VA-TOBACCO FORMER USER [facility] [place] [facility] Jun 30, 2021 09:30 AM VA-TOBACCO QUIT 15 YRS OR MORE [facility] [place] [facility] Jun 03, 2020 08:30 AM VA-TOBACCO FORMER USER [facility] [place] [facility] Jun 03, 2020 08:30 AM VA-TOBACCO QUIT 15 YRS OR MORE [facility] [place] [facility] Feb 23, 2020 09:01 AM VA-TOBACCO FORMER USER [facility] [place] [facility] Feb 23, 2020 09:01 AM VA-TOBACCO QUIT 15 YRS OR MORE [facility] [place] [facility] Oct 28, 2018 01:39 PM VA-TOBACCO FORMER USER [facility] Oct 28, 2018 01:39 PM VA-TOBACCO QUIT 15 YRS OR MORE [facility] Jul 10, 2017 10:40 AM QUIT TOBACCO USE > 7 YEARS AGO [facility] Feb 13, 2016 10:21 AM QUIT TOBACCO USE > 7 YEARS AGO . [facility] Jun 08, 2005 10:50 AM HISTORY OF SMOKING quit in 1972 [facility] Apr 10, 2004 10:43 AM HISTORY OF SMOKING [facility] Dec 04, 2002 11:12 AM HISTORY OF SMOKING [facility] January 09, 2002 10:01 AM QUIT TOBACCO USE > 7 YEARS AGO [facility] Sep 11, 2001 10:41 AM HISTORY OF SMOKING see note this date [facility] Sep 11, 2001 10:41 AM NON-TOBACCO USER see previous note [facility] Advance Directives: All historical and current Section Date Range: From patient's date of to the date document was created. This section includes ALL of a patient's completed or amended [place] Advance and Rescinded Directives. The entries below indicate that a directive exists for the patient, but an actual copy is not included with this document. The data comes from all [place] facilities. Date Advance Directives Provider Source Aug 27, 2012 ADVANCE DIRECTIVE JESS ANDRADE [facility] Encounter Notes: All associated encounter notes This section contains the clinical notes associated to the Encounter. Date/Time Encounter Note(s) Provider Source Apr 30, 2024 07:55 AM OPTOMETRY NOTE: LOCAL TITLE: OPTOMETRY NOTE STANDARD TITLE: OPTOMETRY NOTE DATE OF NOTE: APR 30, 2024@07:55 ENTRY DATE: APR 30, 2024@07:55:53 AUTHOR: SUMEET BAIG COSIGNER: MAHESH RIZZO URGENCY: STATUS: COMPLETED OPTOMETRY NOTE Has ADDENDA Active problems - Computerized Problem List is [...] Obesity * 16. Benign hypertension (SNOMED CT [id number]) Active Outpatient Medications (including Supplies): Active Outpatient Medications Status 1) ACCU-CHEK [...] FOR CHOLESTEROL IN PLACE OF ROSUVASTATIN. 5) DILTIAZEM (EQV-TIAZAC) 360MG 24HR CAP TAKE ONE ACTIVE (S) CAPSULE BY MOUTH ONCE DAILY FOR HIGH BLOOD PRESSURE 6) GLIPIZIDE 10MG TAB TAKE ONE TABLET BY MOUTH TWICE ACTIVE DAILY FOR DIABETES 7) LISINOPRIL 20MG TAB TAKE ONE TABLET BY MOUTH DAILY TO ACTIVE CONTROL BLOOD PRESSURE 8) METFORMIN HCL 1000MG TAB TAKE ONE TABLET BY MOUTH ACTIVE TWICE DAILY FOR DIABETES 9) OMEPRAZOLE 20MG EC CAP TAKE ONE CAPSULE BY MOUTH ACTIVE EVERY MORNING 30 MINUTES BEFORE BREAKFAST 10) PIOGLITAZONE HCL 30MG TAB TAKE ONE TABLET BY MOUTH ACTIVE (S) DAILY Active Non-VA Medications Status 1) Non-VA ASPIRIN 81MG EC TAB 81MG BY MOUTH ACTIVE 2) Non-VA OTHER CAP/TAB COD LIVER OIL BY MOUTH ONCE ACTIVE DAILY 12 Total Medications Allergies: Patient has answered NKA All medications including those prescribed by outside VA's, community providers, and all OTC meds were reviewed and reconciled with patient to the best of their abilities. This 79 year old MALE is seen today for CEE Chief Complaint: Pt reports no change in vision since last eye exam. Pt is using NVO specs from September appt, states that this pair is alright . No ocular comfort concerns today. Last A1C 6.7 on 09/03/23. Dx of DM was possibly in 1993, pt not sure. Pt checks BS 2x per week. OHx: -Type II DM without ocular complications OU -low risk GLC susp OU -pseudophakia OU -Ref error and presbyopia OU (-) Pain: (-) SHANNON: (-) Diplopia: (-) Flashes: (-) Floaters: (-) Amaurosis Fugax/Tia's: (-) Eye Injury: (x) Eye Surgery: CE/PCIOL Jul 2023 OU (-) TBI FOHx: (+) Glaucoma: sister, mother (-) ARMD/Blindness VITALS (most recent, as listed in the electronic record): B/P: 120/66 (03/03/2024 13:20) Pulse: 70 (03/03/2024 13:20) Temperature: 97.4 F [36.3 C] (03/03/2024 13:20) Weight: 246 lb [111.58 kg] (03/03/2024 13:20) Height: 67 in [170.2 cm] (02/20/2023 11:14) BMI: BMI: 38.6 PERTINENT LABS: HEMOGLOBIN A1C TREND Collection DT Spec HGBA1c 09/03/2023 08:27 BLOOD 6.7 H 05/24/2023 09:36 BLOOD 6.4 H 08/21/2022 09:21 BLOOD 6.7 H 12/25/2021 11:35 BLOOD 6.4 H 09/21/2021 09:54 BLOOD 6.3 H (-) Smoker/Length of Time/PPD: quit in 1972 Current Rx with last BCVA: OD: +0.50 ds 20/20 OS: +0.50-0.76s792 20/20 Add: +2.25 DVA ( )sc ( x )cc phoropter OD: 20/20-1 OS: 20/20 Pupils: PERRL (-)APD EOMs: SAFE OU, (-)Pain/Diplopia CVF (facial, peripheral): FTFC OU Subjective Refraction: OD: +0.25 sph 20/20 OS: +0.50 -0.50 x 180 20/20 Add: +2.25 All the above performed by student, reviewed by attending Anterior segment: Performed by student, repeated by attending Lids: dermatochalasis with MGD OU Conj: white and quiet OU Cornea: arcus OU, temporal surgical scars OU AC: >1:1 T&N and quiet OU Iris: flat and clear OU, (-) NVI OU Lens: PCIOL well-centered and clear OU Tonometry: Brown Performed by student, reviewed by attending OD 12 mmHg OS 12 mmHg Time: 1:45pm Previous IOP (09/27/23): OD: 18 mmHg OS: 18 mmHg Previous Pachymetry: OD: 565um OS: 558um Fundus exam: Dilated: 1:45pm Dilating Drops: 1GTT 1 % Tropicamide OU & 1GTT 2.5% Phenylephrine OU(Pt. ed. on side effects, dilation warning given and verbal consent obtained) Patient advised not to drive if they feel they have any symptoms which could affect their ability to drive safely. Patient advised not to engage in any activities which could put themselves or others at risk if they feel they have any symptoms which could affect their ability to perform those activities safely. Performed by student, repeated by attending Vit: PVD OU C/D: 0.60/0.60 OD, 0.50/0.50 OS Disc: OD: pink and distinct (-) NVD OS: pink and distinct (-) NVD Macula: flat and clear OU PPole: OD: clear (-) NVE/DBH/CWS/URSULA/exudates OS: clear (-) NVE/DBH/CWS/URSULA/exudates Vessels: OD: 2/3 (-)venous beading/tortuosity OS: 2/3 (-)venous beading/tortuosity Periph: flat and intact (-)holes, tears, detachments 360 OU Assessment/Plan: 1. Type II Diabetes without evidence of retinopathy or macular edema OU. - Last A1c 6.7 on 09/03/23 - Pt ed on today's findings and the possible ocular health and visual complications associated with diabetes as well as importance of attending follow up appts - Encouraged pt to monitor blood sugar and continue taking medications as prescribed by their PCP - Pt ed to call immediately if experiencing any sudden changes in vision - Monitor annually 2. Low risk open angle glaucoma suspect OU secondary to moderate cupping OU -IOP is normotensive and stable OU -CCT thicker than average OU -Cupping appears healthy and stable -No pseudoexfoliation or pigment dispersion -Positive family hx of glaucoma in sister -Suspicion for glaucoma remains low at this time -RTC 1 year for CEE with HVF and RNFL OCT 3. 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 Pseudophakia OU -stable OU -monitor at CEE 5. Hyperopia with presbyopia OU -minimal change in refraction today OD, no change OS -Spec Rx updated, pt received NVO specs in September -monitor at E Return to Clinic 1 year or earlier PRN Patient Education: Diabetes: Patient was educated regarding diabetes and related ocular complications including retinopathy and cataract formation as well as other related systemic complications. The importance of good blood sugar control, blood sugar testing as recommended by their PCP and the importance of timely follow upwere all emphasized. Glaucoma: Patient was educated regarding glaucoma/glaucoma suspect as well as the natural history of this diagnosis including prognosis. Stress importance of compliance and persistency with glaucoma medication when prescribed, timely follow up as well as the role of ancillary testing. Exclusion criteria for ancillary testing include significantly reduced acuity, mental status changes affecting the patient's ability to attend to the test or other physical limitations that would prohibit the patient's ability to participate in testing. /patrick/ SUMEET BAIG OPTOMETRY STUDENT Signed: 04/30/2024 15:34 /patrick/ MAHESH RIZZO OD Aircraft Pilot Cosigned: 04/30/2024 16:08 04/30/2024 ADDENDUM STATUS: COMPLETED The optometry strategy intern participated in this exam, I saw this in conjunction with the optometry student. The entrance tests and refraction were performed by the student and reviewed by me. I personally met with the patient, confirmed the history, complaints and the student's findings, and performed slit lamp and fundus evaluation as indicated. I reviewed and agree with the stated findings, assessment and plan. I have added/edited the documentation to reflect my exam findings and changes to the assessment and plan. patient offered and declined printed medication list Medication Reconciliation: Outpatient: Has the patient been [...] JLV. Allergies/ADRs (Tool #5) FACILITY ALLERGY/ADR -------- [facility] NO KNOWN ALLERGIES [facility] No Known Allergies [facility] ([facility] INCLUDED IN THIS LIST: Alphabetical list of active outpatient prescriptions dispensed from this [place] (local) and dispensed from another [place] or DoD facility (remote) as well as [...] the patient into personal health records (i.e. [employer]) are NOT included in this list. Non-VA medications documented outside this [place], remote inpatient orders (regardless of status) and remote clinic medications are NOT included in this list. The patient and provider must always discuss medications the patient is taking, regardless of where the medication was dispensed or obtained. OUTPT ALLOPURINOL 300MG TAB (Status = Active) TAKE ONE TABLET BY MOUTH EVERY DAY FOR GOUT Rx# [id number] Last Released: 12/19/23 Qty/Days Supply: 90 Rx Expiration Date: 09/10/24 Refills Remainin Non-VA ASPIRIN 81MG EC TAB TAKE ONE TABLET BY MOUTH Patient wants to buy from Non-VA pharmacy. OUTPT ATENOLOL 25MG TAB (Status = Discontinued) TAKE ONE TABLET BY MOUTH ONCE DAILY FOR BLOOD PRESSURE/HEART Rx# [id number] Last Released: 11/07/23 Qty/Days Supply: 90 Rx Expiration Date: 02/20/24 Refills Remainin Indication: FOR HIGH BLOOD PRESSURE OUTPT ATENOLOL 25MG TAB (Status = Active) TAKE ONE TABLET BY MOUTH ONCE DAILY FOR BLOOD PRESSURE/HEART Rx# [id number] Last Released: 02/13/24 Qty/Days Supply: 9090 Rx Expiration Date: 02/11/25 Refills Remainin Indication: FOR HIGH BLOOD PRESSURE OUTPT ATORVASTATIN CALCIUM 80MG TAB (Status = Active) TAKE ONE TABLET BY MOUTH ONCE DAILY FOR CHOLESTEROL IN PLACE OF ROSUVASTATIN. Rx# [id number] Last Released: 02/18/24 Qty/Days Supply: 90 Rx Expiration Date: 06/03/24 Refills Remainin OUTPT CARBOXYMETHYLCELLULOSE NA 0.5% OPH SOLN (Status = ) INSTILL 1 DROP INTO EACH EYE FOUR TIMES A DAY FOR DRY EYE Rx# [id number] Last Released: 08/30/23 Qty/Days Supply: 45 Rx Expiration Date: 02/16/24 Refills Remainin Indication: FOR DRY EYE OUTPT DILTIAZEM (EQV-TIAZAC) 360MG 24HR CAP (Status = Discontinued) TAKE ONE CAPSULE BY MOUTH EVERY DAY FOR BLOOD PRESSURE Rx# [id number] Last Released: 11/21/23 Qty/Days Supply: 90 Rx Expiration Date: 02/20/24 Refills Remainin OUTPT DILTIAZEM (EQV-TIAZAC) 360MG 24HR CAP (Status = Active/Suspended) TAKE ONE CAPSULE BY MOUTH ONCE DAILY FOR HIGH BLOOD PRESSURE Rx# [id number] Last Released: 03/06/24 Qty/Days Supply: 90 Rx Expiration Date: 03/04/25 Refills Remainin Indication: FOR HIGH BLOOD PRESSURE OUTPT GLIPIZIDE 10MG TAB (Status = Active) TAKE ONE TABLET BY MOUTH TWICE DAILY FOR DIABETES Rx# [id number] Last Released: 01/16/24 Qty Supply: Rx Expiration Date: 06/04/24 Refills Remainin OUTPT LISINOPRIL 20MG TAB (Status = Active) TAKE ONE TABLET BY MOUTH DAILY TO CONTROL BLOOD PRESSURE Rx# [id number] Last Released: 04/27/24 Qty/Days Supply: Rx Expiration Date: 09/10/24 Refills Remainin OUTPT METFORMIN HCL 1000MG TAB (Status = Active) TAKE ONE TABLET BY MOUTH TWICE DAILY FOR DIABETES Rx# [id number] Last Released: 04/27/24 Qty/ Supply: Rx Expiration Date: 09/10/24 Refills Remainin OUTPT OMEPRAZOLE 20MG EC CAP (Status = Active) TAKE ONE CAPSULE BY MOUTH EVERY MORNING 30 MINUTES BEFORE BREAKFAST Rx# [id number] Last Released: 02/18/24 Qty/ Supply: Rx Expiration Date: 06/04/24 Refills Remainin Non-VA OTHER CAP/TAB TAKE COD LIVER OIL BY MOUTH ONCE DAILY OUTPT PIOGLITAZONE HCL 30MG TAB (Status = Active/Suspended) TAKE ONE TABLET BY MOUTH DAILY Rx# [id number] Last Released: 03/13/24 Qty/Days Supply: Rx Expiration Date: 06/04/24 Refills Remainin OUTPT THIAMINE 100MG TAB (Status = Discontinued) TAKE ONE TABLET BY MOUTH ONCE DAILY FOR VITAMIN SUPPLEMENTATION Rx# [id number] Last Released: 01/16/24 Qty/Days Supply: Rx Expiration Date: 02/20/24 Refills Remainin OUTPT THIAMINE 100MG TAB (Status = Active/Suspended) TAKE ONE TABLET BY MOUTH ONCE DAILY FOR VITAMIN SUPPLEMENTATION Rx# [id number] Last Released: Supply: Rx Expiration Date: 05/01/25 Refills Remainin SUPPLIES OUTPT ACCU-CHEK GUIDE (GLUCOSE) TEST STRIP (Status = Active) USE 1 STRIP TO TEST BLOOD SUGARS TWICE A DAY TWO TIMES A WEEK TO BE USED WITH NEW ACCU-CHEK GUIDE ME METER Rx# [id number] Last Released: 01/28/24 Qty/Days Supply: 50/180 Rx Expiration Date: 05/17/24 Refills Remainin OUTPT LANCET,SOFTCLIX (Status = ) USE 1 LANCET DIRECTED TWICE A DAY TWO TIMES A WEEK TO TEST BLOOD SUGAR Rx# [id number] Last Released: 05/14/23 Qty/Days Supply: 100/90 Rx Expiration Date: 02/20/24 Refills Remainin /patrick/ MAHESH RIZZO OD Aircraft Pilot Signed: 04/30/2024 16:09 SUMEET BAIG [facility]
[2024-10-07 18:40] LABS: Iron 65 mcg/dL (45-160); Percent Iron Saturation 20 % (15-50); Total Iron Binding Capacity 320 mcg/dL (228-428); Unsaturated Iron Binding 255 ug/dL
[2024-10-07 18:57] LABS: Ferritin 76 ng/mL (20-250)
== END 2024-10-07 14:22 | disposition home or self-care (01) ==
LOC: HO.MANLDS 14:21
PROVIDERS: Visit Provider Internal Medicine
DX: E11.9 Type 2 diabetes mellitus without complications (principal)
CPT/HCPCS: 36415; 82728; 83540

== ENCOUNTER 2024-12-02 18:30 | Outpatient (REF) | payer MEDICARE, SELFPAY ==
--- OUTSIDE RECORDS SUMMARY | 2024-12-02 18:33 | XMS_ITS | Continuity of Care Document ---
Author Organization JOCELYN Stanley [facility] Address [address] [place] [address] [place] [address] Assessment No assessment recorded. Plan of Treatment Reminders Order Date Submit Date Provider Last Modified By Organization Details Last Modified Time Details Appointments Hospital F/U 2024 03:00P M JOSSELYN FAGAN Not available Not available Not available MEDICARE ANNUAL WELLNESS 2024 01:30P M DR HENDERSON Not available Not available Not available Lab culture, wound - right hip, incisiona l wound from surgery 2024 025 [facility], [address] [place] [address], [place], [address], 12/02/2024 15:41:10 Referral None recorded. Procedures None recorded. Surgeries None recorded. Imaging None recorded. Medication Orders None recorded. Patient TargetsNo targets recorded. Patient InstructionsNo instructions recorded. Reason for Referral None Reported. Problems Name Problem SNOMED Code Status Onset Date Resolution Date Notes Provider Name and Address Organization Details Recorded Time Type 2 diabetes mellitus 72673346 Active 2017 JOCELYN Winter [facility] 8 11:44:42 Essential hypertens ion 96889269 Active 2017 JOCELYN Winter [facility] 8 11:44:48 Hemochrom atosis 948207230 Active 2017 [facility]enas [place] [facility] 8 11:44:59 Hemangiom a of liver 47435468 Active 2017 JOCELYN Winter [facility] 8 11:45:22 Iron deficienc y anemia 54231253 Active 2017 [facility]enas [facility] 8 11:45:29 Osteoarth ritis of knee 884545608 Active 2017 bilat knee Isidro Henderson DO [address] [place] [address], [address], [facility] 9 11:38:33 Gout 20695546 [facility] 11:46:54 Hyperlipi demia 41031062 Active 2017 [facility] 8 11:46:58 Near syncope 442877570 Active 2021 Isidro Henderson DO [address] [place] [address], [address], [facility] 2 15:23:54 Contusion of rib 250128319 Active 2022 Isidro Henderson DO [address] [place] [address], [address], [facility] 3 13:46:27 Osteoarth ritis of left knee joint 868745643144 109 Active 2023 Isidro Henderson DO [address] [place] [address], [address], [facility] 4 15:04:28 Closed fracture of neck of femur 617136741 Active 2024 JOSSELYN FAGAN [address] [place] [address], [address], [facility] 5 15:29:24 Problem Notes None recorded. Procedures Surgical History Date Name Laterality Status Provider Name and Address Organization Details Recorded Time 025 WOUND CARE completed JOSSELYN FAGAN [address] [place] [address], [phone], [facility] 12/02/2024 15:40:33 024 Corticosteroid Injection completed Najma Ayala [facility] 05/22/2024 15:02:57 021 Corticosteroid Injection completed Isidro Henderson DO [address] [place], [address], [facility] 01/23/2021 16:19:13 021 Corticosteroid Injection completed Isidro NatyIggy HermesDO [address] [place], [address], [facility] 01/03/2021 16:13:57 019 Corticosteroid Injection completed Isidro NatyIggy GiovanniDO nicholas [address] [place] [address], [address], [facility] 05/08/2019 14:50:48 019 Corticosteroid Injection completed Isidro Henderson DO [address] [place] [address], [address], [facility] 04/06/2019 11:39:50 018 Corticosteroid Injection completed Isirdo NatyIggy GiovanniDO nicholas [address] [place] [address], [address], [facility] 07/21/2018 16:05:22 018 Corticosteroid Injection completed Isidro Harry HermesDO [address] [place] [address], [address], [facility] 04/30/2018 12:44:06 018 Corticosteroid Injection completed Isidro NatyIggy HermesDO [address] [place] [address], [address], [facility] 04/18/2018 14:33:50 015 Colonoscopy completed Hannah Monreal [facility] 12/02/2019 10:17:00 Imaging Results None recorded. Procedure Notes None recorded. Medical Equipment None Reported. Allergies Allergen ID Allergen Name Allergen Category Reaction Reaction Severity Criticality Documentation Date Start Date Code Code System Note Provider Name and Address Organization Details Recorded Time 401 Product containin g angiotens in-conver ting enzyme inhibitor (product) medicatio n cough Not available Not available 11/06/2017 72374 009 SNOMED Hannah cardenas [facility] 8 11:43:42 402 colchicin e medicatio n rash Not available Not available 11/06/[address] [facility] 8 11:44:37 Medications Name Sig Start Date [...] FOR 3 WEEKS FOLLOWING SURGERY RIGHT EYE 11/04 completed Not Available Not Available Not Available prednisolon e acetate 1 % eye drops,suspe nsion INSTILL 1 DROP IN RIGHT EYE THREE TIMES A DAY FOR 3 WEEKS FOLLOWING SUREGRY RIGHT EYE 11/04 completed Not Available Not Available Not Available diltiazem CD 300 mg capsule,ext ended [...] completed Not Available Not Available Not Available Fish Oil 1,200 mg (144 mg-216 mg) capsule Take 1 capsule every day by oral route. active Not Available Not Available No t Available Vitals Date Recorded Body height Body mass index (BMI) Body weight Heart rate Oxygen saturation Oxygen saturation in Arterial blood by Pulse oximetry Systolic blood pressure Diastolic blood pressure Provider Name and Address Organization Details Last Updated DateTime 5 170.18 cm 37.7 kg/m2 499612. 76 g 72 /min 98 % 98 % 132 mm[Hg] 78 mm[Hg] Sarah Worthington [facility] 5 15:05:33 Social History Question Answer Notes LastModified by Organizat ion Details LastModified Time Tobacco Smoking Status Former Smoker Not Available [facility] 03:36:24 What Was The Date Of Your Most Recent Tobacco Screening? 10/07/2024 Information not available 10/07/2024 Do You Or Have You Ever Used Any Other Forms Of Tobacco Or Nicotine? No [email or web address] Information not available 04/15/2023 Sex: Unknown Functional Status None recorded. Mental Status None recorded. Family History Nothing Reported. Medical History No medical history recorded. Immunizations Vaccine Type Date Status Note Provider Nam e and Address Organization Details Recorded Time COVID-19, mRNA, LNP-S, PF, 100 mcg/0.5mL dose or 50 mcg/0.25mL dose 1 completed Isidro Henderson DO [address] [place] [address], [address], [facility] 01/05/2022 14:48:34 COVID-19, mRNA, LNP-S, PF, 100 mcg/0.5mL dose or 50 mcg/0.25mL dose 2 completed Isidro Henderson DO [address] [place] [address], [address], [facility] 01/05/2022 14:48:42 Influenza, split virus, quadrivalent, preservative 8 completed Hannah cardenas, [facility] 06/16/2018 14:43:50 zoster live 8 completed Hannah cardenas, [facility] 06/16/2018 14:44:08 Tdap 2 completed Isidro Henderson [address], [address], [facility] 04/20/2022 11:29:04 influenza, unspecified formulation 2 completed Annemarie cardenas, [facility] 07/23/2022 12:03:42 SARS-COV-2 (COVID-19) vaccine, UNSPECIFIED 3 [facility] 04/15/2023 14:56:37 SARS-COV-2 (COVID-19) vaccine, UNSPECIFIED 4 [facility] 03/18/2024 11:04:51 Influenza, split virus, quadrivalent, preservative 0 completed Isidro Henderson DO [address] [place] [address], [address], [facility] 05/16/2020 16:13:32 COVID-19, mRNA, LNP-S, PF, 100 mcg/0.5mL dose or 50 mcg/0.25mL dose 1 completed Isidro Henderson DO [address] [place] [address], [phone], [facility] 11/02/2020 11:44:38 COVID-19, mRNA, LNP-S, PF, 100 mcg/0.5mL dose or 50 mcg/0.25mL dose 1 completed Isidro Henderson DO [address] [place] [address], [address], [facility] 11/02/2020 11:44:46 Past Encounters Encounter ID Performer Location Encounter Start Date Encounter Closed Date Diagnosis/Indication Diagnosis SNOMED-CT Code Diagnosis ICD10 Code Diagnosis Note [id number] JOSSELYN FAGAN Internal [facility] [address],[place] [address] 12/02/2024 14:48:32 12/02/2024 15:45:26 Closed fracture of neck of femur 183495972 S72.024A will set up with wound culturered ressed with new steri strips Type 2 kristal betes mellitus 14633516 E11.9 stable Health Concerns Section Related Observation LastModified by Organization Detai ls LastModified Time None Recorded Concern Status LastModified by Organization Details LastModified Time None Recorded Payers Encounter Date Sequence Insurance Name Policy Number Policy Lopez Covered Member ID Lopez Member ID Guarantor Name 12/02/[address] [facility] (MEDICARE REPLACEMENT/A DVANTAGE - PPO) [id number] Uziel Briceño [id number] Uziel Brcieño Notes Date Note Type Note Provider Name a nd Address Organization Details Recorded Time 12/02/2024 text/html hospital d/c the patient fracture his right hiphairline fracture of the right femoral neckwas repaired without THR, ended up pining it to allow it to heal correct position naturally the patient reports that he is doing okaypain is improvedmild aching has been having PT at home with VNAdoing well according to pt, progress has been excellent the patient does have two incisionstop one is leaking, clear discharge eval reveals small opening, rest of the wound is healed shutdoes report he did notice a popping sensation in that area and soreness after the took out the stapleswound didn't fully close yetold steri strips removed, replaced with new steri strips and redressedcan keep the second lower incision open, steri strips will fall off in time his VNA will be updatedno signs of infection at this timea swab was taken to culture at appt JOSSELYN FAGAN [address], [place], [address], [facility] 12/02/2024 15:41:39
--- OUTSIDE RECORDS SUMMARY | 2024-12-02 18:33 | XMS_ITS | Clinical Summary ---
Author Organization [facility] Address [address] [place] [address] Care Team Providers Care Venue Manager Name Role Phone Unavailable Primary Care Provider [...]
--- OUTSIDE RECORDS SUMMARY | 2024-12-02 18:34 | XMS_ITS | Encounter Summary ---
Author Name [facility] [facility] [place] [facility] Address [address] [place] [address] Care Team Providers Care Desktop Analyst Name Role Phone ARTI BOB Primary Care [...] PART A Feb 09, 2009 PART A [id number] BELKIS NEGRON PATIENT MEDICARE (WNR) MEDICARE (M) PART A Feb 09, 2009 PART A [id number] BELKIS NEGRON PATIENT MEDICARE (WNR) MEDICARE (M) PART A Feb 09, 2009 PART A [id number] [phone] JAMILBELKIS FAYE PATIENT MEDICARE (WNR) MEDICARE (M) PART B Feb 09, 2009 PART B [id number] BELKIS NEGRON PATIENT MEDICARE (WNR) MEDICARE (M) PART B Jan 31, 2009 PART B [id number] [phone] JAMILBELKIS FAYE PATIENT MEDICARE (WNR) MEDICARE (M) PART B Jan 31, 2009 PART B [id number] BELKIS NEGRON PATIENT MEDICARE (WNR) MEDICARE (M) PART A Jan 31, 2009 PART A [id number] BELKIS NEGRON PATIENT MEDICARE (WNR) MEDICARE (M) PART B Jan 31, 2009 PART B [id number] [phone] BELKIS NEGRON PATIENT [facility] (WNR) MEDICARE ADVANTAGE [facility] (WNR) Sep 02, 2021 [id number] [phone] BELKIS NEGRON PATIENT [facility] (WNR) MEDICARE ADVANTAGE [facility] (WNR) Sep 02, 2021 [id number] [id number] BELKIS NEGRON PATIENT [facility] (WNR) MEDICARE ADVANTAGE [facility] (WNR) Sep 02, 2021 [id number] BELKIS NEGRON PATIENT Selected Encounter This section includes the information on record at [place] for the Encounter. Date/Time Encounter Type Encounter Description Reason Provider Source Apr 30, 2024 01:30 PM COMPRE OPH EXAM EST PT 1/> OPTOMETRY ICD-10-CM E11.9 Type 2 diabetes mellitus without complications MAHESH RIZZO [facility] Encounter Template Text not used by VA Assessments - Encounter Diagnoses This section includes the primary and secondary diagnoses documented for the Encounter. Date/Time Primary/Secondary Diagnosis Diagnosis Name Provider Source Apr 30, 2024 04:08 PM PRIMARY Type 2 diabetes mellitus without complications MAHESH RIZZO [facility] [place] [facility] Apr 30, 2024 04:08 PM SECONDARY Dry eye syndrome of bilateral lacrimal glands MAHESH RIZZO [facility] [place] [facility] Apr 30, 2024 04:08 PM SECONDARY Hypermetropia, bilateral MAHESH RIZZO [facility] [place] [facility] Apr 30, 2024 04:08 PM SECONDARY Open angle with borderline findings, low risk, bilateral MAHESH RIZZO [facility] [place] [facility] Apr 30, 2024 04:08 PM SECONDARY Presence of intraocular lens MAHESH RIZZO [facility] [place] [facility] Plan of Treatment: Future Appointments (+ 6 months) and Future Tests (+/- 45 days) The Plan of Treatment section includes future care activities for the patient from [facility] [place] [facility] This section includes future appointments and future orders which are active, pending or scheduled. Future Appointments This section includes appointments that were scheduled to occur 6 months from the date of the Encounter, up to a maximum of 20 appointments. The data comes from all [place] treatment facilities. Appointment Date/Time Appointment Type Appointme nt Facility Name May 05, 2024 01:00 PM AMBULATORY - MEDICINE [place] [facility] [place] [facility] Sep 04, 2024 11:00 AM AMBULATORY - MEDICINE [place] [facility] [place] [facility] Oct 07, 2024 11:30 AM AM[facility]ULATORY - MEDICINE [facility] [place] [facility] Social History: Smoking Status (Most current) and Tobacco Use (All prior to encounter date) This section includes the most current, and the historical, smoking and tobacco- related health factors from the [place] facility where the Encounter took place. Current Smoking Status This section includes the most current smoking, or tobacco-related health factor, from the [place] facility where the Encounter took place. Date/Time Current Smoking Status Comment [facility] it Jun 04, 2023 01:30 PM VA-TOBACCO FORMER USER [place] [facility] Tobacco Use History This section includes a history of the smoking, or tobacco-related health factors, that were collected on or before the date of the Encounter. The data comes from the [place] facility where the Encounter took place. Date/Time Smoking Status/Tobac co Use Comment Facility Jun 04, 2023 01:30 PM VA-TOBACCO QUIT 15 YRS OR MORE [facility] [place] [facility] Jun 15, 2022 09:15 AM VA-TOBACCO FORMER USER [facility] [place] [facility] Jun 15, 2022 09:15 AM VA-TOBACCO QUIT 15 YRS OR MORE [facility] [place] [facility] Jun 30, 2021 09:30 AM VA-TOBACCO FORMER USER [facility] [place] [facility] Jun 30, 2021 09:30 AM VA-TOBACCO QUIT 15 YRS OR MORE [facility] [place] [facility] Jun 03, 2020 08:30 AM VA-TOBACCO FORMER USER [facility] [place] [facility] Jun 03, 2020 08:30 AM VA-TOBACCO QUIT 15 YRS OR MORE [facility] Feb 23, 2020 09:01 AM VA-TOBACCO FORMER USER [facility] Feb 23, 2020 09:01 AM VA-TOBACCO QUIT 15 YRS OR MORE [facility] Oct 28, 2018 01:39 PM VA-TOBACCO [facility] Oct 28, 2018 01:39 PM VA-TOBACCO QUIT 15 YRS OR MORE [facility] Jul 10, 2017 10:40 AM QUIT TOBACCO USE > 7 YEARS AGO [facility] Feb 13, 2016 10:21 AM QUIT TOBACCO USE > 7 YEARS AGO . [facility] Jun 08, 2005 10:50 AM HISTORY OF SMOKING quit in 1972 [facility] Apr 10, 2004 10:43 AM HISTORY OF SMOKING [facility] Dec 04, 2002 11:12 AM HISTORY OF SMOKING [facility] January 09, 2002 10:01 AM QUIT TOBACCO USE > 7 YEARS AGO [facility] Sep 11, 2001 10:41 AM HISTORY OF SMOKING see note this date [facility] Sep 11, 2001 10:41 AM NON-TOBACCO USER see previous note [facility] Advance Directives: All historical and current Section Date Range: From patient's date of to the date document was created. This section includes ALL of a patient's completed or amended [place] Advance and Rescinded Directives. The entries below indicate that a directive exists for the patient, but an actual copy is not included with this document. The data comes from all [place] facilities. Date Advance Directives Provider Source Aug 27, 2012 ADVANCE DIRECTIVE [facility] Encounter Notes: All associated encounter notes This section contains the clinical notes associated to the Encounter. Date/Time Encounter Note(s) Provider Source Apr 30, 2024 07:55 AM OPTOMETRY NOTE: LOCAL TITLE: OPTOMETRY NOTE STANDARD TITLE: OPTOMETRY NOTE DATE OF NOTE: APR 30, 2024@07:55 ENTRY DATE: APR 30, 2024@07:55:53 AUTHOR: SUMEET BAIG EXP COSIGNER: MAHESH RIZZO URGENCY: STATUS: COMPLETED OPTOMETRY [...] Obesity * 16. Benign hypertension (SNOMED CT 83395113) Active Outpatient Medications (including Supplies): Active Outpatient [...] last BCVA: OD: +0.50 ds 20/20 OS: +0.50-0.11l436 20/20 Add: +2.25 DVA ( )sc ( x )cc phoropter OD: 2020-1 OS: 20/20 Pupils: PERRL (-)APD EOMs: SAFE [...] received NVO specs in September -monitor at [facility] Return to Clinic 1 year or earlier [...] Signed: 04/30/2024 15:34 /patrick/ MAHESH RIZZO OD Emanations Analysis Technician Cosigned: 04/30/2024 16:08 04/30/2024 ADDENDUM STATUS: COMPLETED The optometry paralegal internship participated in this exam, I saw this [...] JLV. Allergies/ADRs (Tool #5) FACILITY ALLERGY/ADR -------- [facility] NO KNOWN ALLERGIES [facility] [place] [facility] No Known Allergies Med Recon NoGlossary (Tool #1) INCLUDED IN THIS LIST: Alphabetical list of active outpatient prescriptions dispensed from this [place] (local) and dispensed from another VA or [...] the patient into personal health records (i.e. [employer]) are NOT included in this list. Non-VA medications documented outside this [place], remote inpatient orders (regardless of status) and remote clinic medications are NOT included in this list. The patient and provider must always discuss medications the patient is taking, regardless of where the medication was dispensed or obtained. OUTPT ALLOPURINOL 300MG TAB (Status = Active) TAKE ONE TABLET BY MOUTH EVERY DAY FOR GOUT Rx# [id number] Last Released: 12/19/23 Qty/Days Supply: Rx Expiration Date: 09/10/24 Refills Remainin Non-VA ASPIRIN 81MG EC TAB TAKE ONE TABLET BY MOUTH Patient wants to buy from Non-VA pharmacy. OUTPT ATENOLOL 25MG TAB (Status = Discontinued) TAKE ONE TABLET BY MOUTH ONCE DAILY FOR BLOOD PRESSURE/HEART Rx# [id number] Last Released: 11/07/23 Qty/Days Supply: Rx Expiration Date: 02/20/24 Refills Remainin Indication: FOR HIGH BLOOD PRESSURE OUTPT ATENOLOL 25MG TAB (Status = Active) TAKE ONE TABLET BY MOUTH ONCE DAILY FOR BLOOD PRESSURE/HEART Rx# [id number] Last Released: 02/13/24 Qty/Days Supply: Rx Expiration Date: 02/11/25 Refills Remainin Indication: FOR HIGH BLOOD PRESSURE OUTPT ATORVASTATIN CALCIUM 80MG TAB (Status = Active) TAKE ONE TABLET BY MOUTH ONCE DAILY FOR CHOLESTEROL IN PLACE OF ROSUVASTATIN. Rx# [id number] Last Released: 02/18/24 Qty/Days Supply: Rx Expiration Date: 06/03/24 Refills Remainin OUTPT CARBOXYMETHYLCELLULOSE NA 0.5% OPH SOLN (Status = ) INSTILL 1 DROP INTO EACH EYE FOUR TIMES A DAY FOR DRY EYE Rx# [id number] Last Released: 08/30/23 Qty/Days Supply: Rx Expiration Date: 02/16/24 Refills Remainin Indication: FOR DRY EYE OUTPT DILTIAZEM (EQV-TIAZAC) 360MG 24HR CAP (Status = Discontinued) TAKE ONE CAPSULE BY MOUTH EVERY DAY FOR BLOOD PRESSURE Rx# [id number] Last Released: 11/21/23 Qty/Days Supply: Rx Expiration Date: 02/20/24 Refills Remainin OUTPT DILTIAZEM (EQV-TIAZAC) 360MG 24HR CAP (Status = Active/Suspended) TAKE ONE CAPSULE BY MOUTH ONCE DAILY FOR HIGH BLOOD PRESSURE Rx# [id number] Last Released: 03/06/24 Qty/Days Supply: 90 Rx Expiration Date: 03/04/25 Refills Remainin Indication: FOR HIGH BLOOD PRESSURE OUTPT GLIPIZIDE 10MG TAB (Status = Active) TAKE ONE TABLET BY MOUTH TWICE DAILY FOR DIABETES Rx# [id number] Last Released: 01/16/24 Qty/Days Supply: 180/90 Rx Expiration Date: 06/04/24 Refills Remainin OUTPT LISINOPRIL 20MG TAB (Status = Active) TAKE ONE TABLET BY MOUTH DAILY TO CONTROL BLOOD PRESSURE Rx# [id number] Last Released: 04/27/24 Qty/Days Supply: 90 Rx Expiration Date: 09/10/24 Refills Remainin OUTPT METFORMIN HCL 1000MG TAB (Status = Active) TAKE ONE TABLET BY MOUTH TWICE DAILY FOR DIABETES Rx# [id number] Last Released: 04/27/24 Qty/Days Supply: 180 Rx Expiration Date: 09/10/24 Refills Remainin OUTPT OMEPRAZOLE 20MG EC CAP (Status = Active) TAKE ONE CAPSULE BY MOUTH EVERY MORNING 30 MINUTES BEFORE BREAKFAST Rx# [id number] Last Released: 02/18/24 Qty/Days Supply: 90 Rx Expiration Date: 06/04/24 Refills Remainin Non-VA OTHER CAP/TAB TAKE COD LIVER OIL BY MOUTH ONCE DAILY OUTPT PIOGLITAZONE HCL 30MG TAB (Status = Active/Suspended) TAKE ONE TABLET BY MOUTH DAILY Rx# [id number] Last Released: 03/13/24 Qty/Days Supply: 90 Rx Expiration Date: 06/04/24 Refills Remainin OUTPT THIAMINE 100MG TAB (Status = Discontinued) TAKE ONE TABLET BY MOUTH ONCE DAILY FOR VITAMIN SUPPLEMENTATION Rx# [id number] Last Released: 01/16/24 Qty/Days Supply: 100/90 Rx Expiration Date: 02/20/24 Refills Remainin OUTPT THIAMINE 100MG TAB (Status = Active/Suspended) TAKE ONE TABLET BY MOUTH ONCE DAILY FOR VITAMIN SUPPLEMENTATION Rx# [id number] Last Released: Qty/Days Supply: 100 Rx Expiration Date: 05/01/25 Refills Remainin SUPPLIES OUTPT ACCU-CHEK GUIDE (GLUCOSE) TEST STRIP (Status = Active) USE 1 STRIP TO TEST BLOOD SUGARS TWICE A DAY TWO TIMES A WEEK TO BE USED WITH NEW ACCU-CHEK GUIDE ME METER Rx# [id number] Last Released: 01/28/24 Qty/Days Supply: 50/180 Rx Expiration Date: 05/17/24 Refills Remainin OUTPT LANCET,SOFTCLIX (Status = ) USE 1 LANCET DIRECTED TWICE A DAY TWO TIMES A WEEK TO TEST BLOOD SUGAR Rx# [id number] Last Released: 05/14/23 Qty/Days Supply: 100/90 Rx Expiration Date: 02/20/24 Refills Remainin /patrick/ MAHESH RIZZO OD Emanations Analysis Technician Signed: 04/30/2024 16:09 SUMEET BAIG [facility]
--- OUTSIDE RECORDS SUMMARY | 2024-12-02 18:34 | XMS_ITS | Encounter Summary ---
Author Name [facility] Organization [facility] Address [address] [place] [address] Care Team Providers Care Marine Engineer Cpvec Name Role Phone ARTI BOB Primary Care [...] PART A Feb 09, 2009 PART A [id number] [phone] BELKIS NEGRON PATIENT MEDICARE (WNR) MEDICARE (M) PART A Feb 09, 2009 PART A [id number] BELKIS NEGRON PATIENT MEDICARE (WNR) MEDICARE (M) PART A Feb 09, 2009 PART A [id number] BELKIS NEGRON PATIENT MEDICARE (WNR) MEDICARE (M) PART B Feb 09, 2009 PART B [id number] BELKIS NEGRON PATIENT MEDICARE (WNR) MEDICARE (M) PART B Jan 31, 2009 PART B [id number] JAMILBELKIS FAYE PATIENT MEDICARE (WNR) MEDICARE (M) PART B Jan 31, 2009 PART B [id number] BELKIS NEGRON PATIENT MEDICARE (WNR) MEDICARE (M) PART A Jan 31, 2009 PART A [id number] BELKIS NEGRON PATIENT MEDICARE (WNR) MEDICARE (M) PART B Jan 31, 2009 PART B [id number] BELKIS NEGRON PATIENT [facility] (WNR) MEDICARE ADVANTAGE [facility] (WNR) Sep 02, 2021 [id number] [phone] BELKIS NEGRON PATIENT [facility] (WNR) MEDICARE ADVANTAGE [facility] (WNR) Sep 02, 2021 [id number] BELKIS NEGRON PATIENT [facility] (WNR) MEDICARE ADVANTAGE [facility] (WNR) Sep 02, 2021 [id number] BELKIS NEGRON PATIENT Selected Encounter This section includes the information on record at ME for the Encounter. Date/Time Encounter Type Encounter Description Reason Provider Source Feb 26, 2024 11:00 AM OFFICE O/P EST LOW 20 MIN ENDOCRINOLOGY ICD-10-CM 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c multinodular goiter PAZ WEBER [facility] Encounter Template Text not used by ME Assessments - Encounter Diagnoses This section includes the primary and secondary diagnoses documented for the Encounter. Date/Time Primary/Secondary Diagnosis Diagnosis Name Provider Source Feb 26, 2024 12:35 PM PRIMARY Nontoxic multinodular goiter [facility] Plan of Treatment: Future Appointments (+ 6 months) and Future Tests (+/- 45 days) The Plan of Treatment section includes future care activities for the patient from all ME treatmentfacilities. This section includes future appointments and future orders which are active, pending or scheduled. Future Appointments This section includes appointments that were scheduled to occur 6 months from the date of the Encounter, up to a maximum of 20 appointments. The data comes from all ME treatment facilities. Appointment Date/Time Appointment Type Appointme nt Facility Name Mar 03, 2024 01:30 PM AMBULATORY - MEDICINE [facility] [place] [facility] Apr 30, 2024 01:30 PM AMBULATORY MEDICINE [facility] [place] [facility] May 05, 2024 01:00 PM AMBULATORY - MEDICINE [facility] Active, Pending, and Scheduled Orders This section includes a listing of several types of active, pending, and scheduled orders, including clinic medications orders, diagnostic test orders, procedure orders and consult orders; where the start date of the order is 45 days before the date of the Encounter or 45 days after the date of theEncounter. The data comes from all ME treatment facilities. Test Date/Time Test Type Test Details Facility Name Feb 27, 2024 12:00 AM Laboratory - Chemi stry Order BASIC METABOLIC PANEL (non-fasting) BLOOD (SST-SERUM) [facility] Feb 27, 2024 12:00 AM Laboratory - Chemi stry Order CBC BLOOD (LAV-BLOOD) [facility] Feb 27, 2024 12:00 AM Laboratory - Chemi stry Order IRON & TIBC PANEL BLOOD (SST-SERUM) [facility] Feb 27, 2024 12:00 AM Laboratory - Chemi stry Order FERRITIN BLOOD (SST-SERUM) [facility] Lab Results: +/- 30 days of the encounter This section includes the Chemistry and Hematology Lab Results on record with ME for the patient. Radiology Reports and Pathology Reports are provided separately, in subsequent sections. Lab Results This section contains the Chemistry/Hematology Results that were resulted 30 days before or 30 daysafter the date of the Encounter. Date/Time Source Result Type Result - Unit Interpretation Reference Range Comment Feb 20, 2024 08:43 AM [facility] LIVER FUNCTION Specimen Type: SERUM No comment entered. Ordering Provider: LORENZO BOB Report Released Date/Time: Sep 10, 2023 02:57 PM Reporting Lab: [address] [address] Performing Lab: [address] [address] PROTEIN,TOTAL 6.7 g/dL 6.0-8.3 ALBUMIN 3.9 g/dL 3.5-5.0 ALKALINE PHOSPHATASE 84 U/L 40-150 AST 16 U/L 5-34 ALT 17 U/L BILIRUBIN, TOTAL 0.8 mg/dL 0.2-1.2 Feb 20, 2024 08:43 AM [facility] BASIC METABOLIC PANEL (fasting) Specimen Type: SERUM No comment entered. Ordering Provider: LORENZO BOB Report Released Date/Time: Sep 10, 2023 02:57 PM Reporting Lab: [facility] [address] [address] [address] Performing Lab: [address] [address] UREA NITROGEN 17 mg/dL 7-25 GLUCOSE 162 mg/dL H 65-100 SODIUM 140 mmol/L 135-145 POTASSIUM 4.3 mmol/L 3.5-5.0 CHLORIDE 104 mmol/L 100-110 CO2 23 meq/L 20-30 CREATININE, Serum 1.30 mg/dL 0.50-1.40 eGFR(CKD-EPI 2020) 56 mL/min L >60 Feb 20, 2024 08:43 AM [facility] LIPID PANEL FASTING Specimen Type: SERUM No comment entered. Ordering Provider: LORENZO BOB Report Released Date/Time: Sep 10, 2023 02:57 PM Reporting Lab: [facility] [address] [address] Performing Lab: [address] [address] CHOLESTEROL 143 mg/dL TRIGLYCERIDE 142 mg/dL 0-150 LDL calculated 64 mg/dL 0-129 CHOL/HDL 2.8 HDL CHOLESTEROL 51 mg/dL 40-60 Feb 20, 2024 08:43 AM [facility] IRON & TIBC PANEL Specimen Type: SERUM No comment entered. Ordering Provider: LORENZO BOB Report Released Date/Time: Sep 10, 2023 02:57 PM Reporting Lab: [facility] [address] [facility] [address] Performing Lab: [address] [address] TIBC 399 ug/dL 204-475 IRON 120 ug/dL 40-160 Transferrin Saturation 30.1 20.0-50.0 Feb 20, 2024 08:43 AM [facility] FERRITIN Specimen Type: SERUM No comment entered. Ordering Provider: LORENZO BOB Report Released Date/Time: Sep 10, 2023 02:57 PM Reporting Lab: [address] [address] Performing Lab: [address] [address] FERRITIN 55 ng/mL 20-300 Feb 20, 2024 08:43 AM [facility] CBC AND DIFF (AUTO) Specimen Type: BLOOD No comment entered. Ordering Provider: LORENZO BOB Report Released Date/Time: Sep 10, 2023 02:57 PM Reporting Lab: [address] [address] Performing Lab: [address] [address] WBC 5.93 10*3/uL 4.50-11.00 RBC 3.98 10*6/uL [...] 76 124/76 18 95 0 245.4 39 [place] [facility] [place] [facility] Social History: Smoking Status (Most current) and Tobacco Use (All prior to encounter date) This section includes the most current, and the historical, smoking and tobacco- related health factors from the ME facility where the Encounter took place. Current Smoking Status This section includes the most current smoking, or tobacco-related health factor, from the ME facility where the Encounter took place. Date/Time Current Smoking Status Comment [facility] Jun 04, 2023 01:30 PM VA-TOBACCO FOR[facility] Tobacco Use History This section includes a history of the smoking, or tobacco-related health factors, that were collected on or before the date of the Encounter. The data comes from the ME facility where the Encounter took place. Date/Time Smoking Status/Tobac co Use Comment Facility Jun 04, 2023 01:30 PM VA-TOBACCO QUIT 15 YRS OR MORE [place] [place] [facility] Jun 15, 2022 09:15 AM VA-TOBACCO FORMER USER [place] [place] [facility] Jun 15, 2022 09:15 AM VA-TOBACCO QUIT 15 YRS OR MORE [place] [place] [facility] Jun 30, 2021 09:30 AM VA-TOBACCO FORMER USER [place] [place] [facility] Jun 30, 2021 09:30 AM VA-TOBACCO QUIT 15 YRS OR MORE [place] [place] [facility] Jun 03, 2020 08:30 AM VA-TOBACCO FORMER USER [place] [place] [facility] Jun 03, 2020 08:30 AM VA-TOBACCO QUIT 15 YRS OR MORE [facility] Feb 23, 2020 09:01 AM VA-TOBACCO FORMER USER [facility] Feb 23, 2020 09:01 AM VA-TOBACCO QUIT 15 YRS OR MORE [facility] Oct 28, 2018 01:39 PM [facility]-TOBACCO [facility] Oct 28, 2018 01:39 PM VA-TOBACCO QUIT 15 YRS OR MORE [facility] Jul 10, 2017 10:40 AM QUIT TOBACCO USE > 7 YEARS AGO [facility] Feb 13, 2016 10:21 AM QUIT TOBACCO USE > 7 YEARS AGO . [facility] Jun 08, 2005 10:50 AM HISTORY OF SMOKING quit in 1972 [facility] Apr 10, 2004 10:43 AM HISTORY OF SMOKING [facility] Dec 04, 2002 11:12 AM HISTORY OF SMOKING [facility] January 09, 2002 10:01 AM QUIT TOBACCO USE > 7 YEARS AGO [facility] Sep 11, 2001 10:41 AM HISTORY OF SMOKING see note this date [facility] Sep 11, 2001 10:41 AM NON-TOBACCO USER see previous note [facility] Advance Directives: All historical and current Section Date Range: From patient's date of to the date document was created. This section includes ALL of a patient's completed or amended ME Advance and Rescinded Directives. The entries below indicate that a directive exists for the patient, but an actual copy is not included with this document. The data comes from all ME facilities. Date Advance Directives Provider Source Aug 27, 2012 ADVANCE DIRECTIVE [facility] Radiology Reports: +/- 30 days of the [...] the Encounter. The data comes from all ME treatment facilities. 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 READING PHYSICIAN: Elsa Monreal MD -[id number] 02/26/2024 9:00 CDT [facility] National Teleradiology Program [phone] (For Medical Practitioner Use Only) Attention Patients / Veterans: If you have questions or concerns about these test results, please contact your ordering provider or primary care team. Primary Diagnostic Code: NO ALERT REQUIRED Primary Interpreting Staff: RADIOLOGY,OUTSIDE SERVICE, Staff Physician / RADIOLOGY,OUTSIDE SERVICE [place] [facility] [facility] Encounter Notes: All associated encounter notes [...] Obesity * 16. Benign hypertension (SNOMED CT [id number]) Active Outpatient Medications (including Supplies): Active Outpatient [...] of active outpatient prescriptions dispensed from this ME (local) and dispensed from another ME or [facility] facility (remote) as well as inpatient orders [...] list may not be complete. Please check [employer]. Allergies/ADRs (Tool #5) FACILITY ALLERGY/ADR -------- [facility] NO KNOWN ALLERGIES [place] [facility] [place] [facility] No Known Allergies Med Recon NoGlossary (Tool #1) INCLUDED IN THIS LIST: Alphabetical list of active outpatient prescriptions dispensed from this [facility] (local) and dispensed from another ME or [facility] facility (remote) as well as inpatient orders (local pending and active), local clinic medications, locally documented non-VA medications, and local prescriptions that have or been discontinued in the past 90 days. Non-VA Meds Last Documented On: Jun 30, 2021 NOTE The display of VA prescriptions dispensed from another ME or [facility] facility (remote) is limited to active outpatient prescription entries matched to National Drug File at the originating site and may not include some items such as investigational drugs, compounds, etc. NOT INCLUDED IN THIS LIST: Medications self-entered by the patient into personal health records (i.e. [employer]) are NOT included in this list. Non-VA medications documented outside this ME, remote inpatient orders (regardless of status) and remote clinic medications are NOT included in this list. The patient and provider must always discuss medications the patient is taking, regardless of where the medication was dispensed or obtained. -------- OUTPT ALLOPURINOL 300MG TAB (Status = Active) TAKE ONE TABLET BY MOUTH EVERY DAY FOR GOUT Rx# [id number] Last Released: 12/19/23 Qty/Days Supply: Rx Expiration Date: 09/10/24 Refills Remainin Non-VA ASPIRIN 81MG EC TAB TAKE ONE TABLET BY MOUTH Patient wants to buy from Non-VA pharmacy. OUTPT ATENOLOL 25MG TAB (Status = Discontinued) TAKE ONE TABLET BY MOUTH ONCE DAILY FOR BLOOD PRESSURE/HEART Rx# [id number] Last Released: 11/07/23 Qty/Days Supply: Rx Expiration Date: 02/20/24 Refills Remainin Indication: FOR HIGH BLOOD PRESSURE OUTPT ATENOLOL 25MG TAB (Status = Active) TAKE ONE TABLET BY MOUTH ONCE DAILY FOR BLOOD PRESSURE/HEART Rx# [id number] Last Released: 02/13/24 Qty/Days Supply: Rx Expiration Date: 02/11/25 Refills Remainin Indication: FOR HIGH BLOOD PRESSURE OUTPT ATORVASTATIN CALCIUM 80MG TAB (Status = Active) TAKE ONE TABLET BY MOUTH ONCE DAILY FOR CHOLESTEROL IN PLACE OF ROSUVASTATIN. Rx# [id number] Last Released: 02/18/24 Qty/Days Supply: Rx Expiration Date: 06/03/24 Refills Remainin OUTPT CARBOXYMETHYLCELLULOSE NA 0.5% OPH SOLN (Status = ) INSTILL 1 DROP INTO EACH EYE FOUR TIMES A DAY FOR DRY EYE Rx# [id number] Last Released: 08/30/23 Qty/Days Supply: 45/ Rx Expiration Date: 02/16/24 Refills Remainin Indication: FOR DRY EYE OUTPT DILTIAZEM (EQV-TIAZAC) 360MG 24HR CAP (Status = Discontinued) TAKE ONE CAPSULE BY MOUTH EVERY DAY FOR BLOOD PRESSURE Rx# [id number] Last Released: 11/21/23 Qty/Days Supply: 90/90 Rx Expiration Date: 02/20/24 Refills Remainin OUTPT GLIPIZIDE 10MG TAB (Status = Active) TAKE ONE TABLET BY MOUTH TWICE DAILY FOR DIABETES Rx# [id number] Last Released: 01/16/24 Qty/Days Supply: 180/ Rx Expiration Date: 06/04/24 Refills Remainin OUTPT LISINOPRIL 20MG TAB (Status = Active) TAKE ONE TABLET BY MOUTH DAILY TO CONTROL BLOOD PRESSURE Rx# [id number] Last Released: 01/16/24 Qty/Days Supply: 90 Rx Expiration Date: 09/10/24 Refills Remainin OUTPT METFORMIN HCL 1000MG TAB (Status = Active) TAKE ONE TABLET BY MOUTH TWICE DAILY FOR DIABETES Rx# [id number] Last Released: 01/16/24 Qty/Days Supply: 180/90 Rx Expiration Date: 09/10/24 Refills Remainin OUTPT OMEPRAZOLE 20MG EC CAP (Status = Active) TAKE ONE CAPSULE BY MOUTH EVERY MORNING 30 MINUTES BEFORE BREAKFAST Rx# [id number] Last Released: 02/18/24 Qty/Days Supply: 9090 Rx Expiration Date: 06/04/24 Refills Remainin Non-VA OTHER CAP/TAB TAKE COD LIVER OIL BY MOUTH ONCE DAILY OUTPT PIOGLITAZONE HCL 30MG TAB (Status = Active) TAKE ONE TABLET BY MOUTH DAILY Rx# [id number] Last Released: 12/05/23 Qty/Days Supply: 90/90 Rx Expiration Date: 06/04/24 Refills Remainin OUTPT THIAMINE 100MG TAB (Status = ) TAKE ONE TABLET BY MOUTH ONCE DAILY FOR VITAMIN SUPPLEMENTATION Rx# [id number] Last Released: 01/16/24 Qty/Days Supply: 100/90 Rx Expiration Date: 02/20/24 Refills Remainin -------- SUPPLIES -------- OUTPT ACCU-CHEK GUIDE (GLUCOSE) TEST STRIP (Status = Active) USE 1 STRIP TO TEST BLOOD SUGARS TWICE A DAY TWO TIMES A WEEK TO BE USED WITH NEW ACCU-CHEK GUIDE ME METER Rx# [id number] Last Released: 01/28/24 Qty/Days Supply: 50/180 Rx Expiration Date: 05/17/24 Refills Remainin OUTPT LANCET,SOFTCLIX (Status = ) USE 1 LANCET DIRECTED TWICE A DAY TWO TIMES A WEEK TO TEST BLOOD SUGAR Rx# [id number] Last Released: 05/14/23 Qty/Days Supply: 100/90 Rx Expiration Date: 02/20/24 Refills Remainin (Optional) Whole Health Documentation: What matters the most to you? What motivates you to be healthy? (MAP) Response: love for his dog /patrick/ PAZ WEBER MD STAFF PHYSICIAN Signed: 02/26/2024 12:35 PAZ WEBER [facility] [place] [facility]
--- OUTSIDE RECORDS SUMMARY | 2024-12-02 18:34 | XMS_ITS | Encounter Summary ---
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 Name Role Phone ARTI BOB Primary Care [...] PART A Feb 09, 2009 PART A [id number] BELKIS NEGRON PATIENT MEDICARE (WNR) MEDICARE (M) PART A Feb 09, 2009 PART A [id number] [phone] BELKIS NEGRON PATIENT MEDICARE (WNR) MEDICARE (M) PART A Feb 09, 2009 PART A [id number] BELKIS NEGRON PATIENT MEDICARE (WNR) MEDICARE (M) PART B Feb 09, 2009 PART B [id number] [phone] BELKIS NEGRON PATIENT MEDICARE (WNR) MEDICARE (M) PART B Jan 31, 2009 PART B [id number] JAMILBELKIS FAYE PATIENT MEDICARE (WNR) MEDICARE (M) PART B Jan 31, 2009 PART B [id number] BELKIS NEGRON PATIENT MEDICARE (WNR) MEDICARE (M) PART A Jan 31, 2009 PART A [id number] [phone] BELKIS NEGRON PATIENT MEDICARE (WNR) MEDICARE (M) PART B Jan 31, 2009 PART B [id number] BELKIS NEGRON PATIENT [facility] (WNR) MEDICARE ADVANTAGE [facility] (WNR) Sep 02, 2021 [id number] [phone] BELKIS NEGRON PATIENT [facility] (WNR) MEDICARE ADVANTAGE [facility] (WNR) Sep 02, 2021 [id number] BELKIS NEGRON PATIENT [facility] (WNR) MEDICARE ADVANTAGE [facility] (WNR) Sep 02, 2021 [id number] BELKIS NEGRON PATIENT Selected Encounter This section includes the information on record at [place] for the Encounter. Date/Time Encounter Type Encounter Description Reason Provider Source Oct 07, 2024 11:30 AM OFFICE O/P EST LOW 20 MIN PODIATRY ICD-10-CM L60.3 Nail dystrophy ALIZE SHI [facility] Encounter Template Text not used by [place] Assessments - Encounter Diagnoses This section includes the primary and secondary diagnoses documented for the Encounter. 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 This section includes future appointments and future orders which are active, pending or scheduled. Future Appointments This section includes appointments that were scheduled to occur 6 months from the date of the Encounter, up to a maximum of 20 appointments. The data comes from all [place] treatment facilities. Appointment Date/Time Appointment Type Appointme nt Facility Name Feb 25, 2025 11:30 AM AMBULATORY - MEDICINE [place] [facility] [place] [facility] Mar 01, 2025 11:00 AM AMBULATORY - MEDICINE [place] [facility] [place] [facility] Social History: Smoking Status (Most current) and Tobacco Use (All prior to encounter date) This section includes the most current, and the historical, smoking and tobacco- related health factors from the VA facility where the Encounter took place. Current Smoking Status This section includes the most current smoking, or tobacco-related health factor, from the [place] facility where the Encounter took place. Date/Time Current Smoking Status Comment Facil it Sep 04, 2024 11:00 AM VA-TOBACCO NEVER U SED CIGARETTES [facility] Tobacco Use History This section includes a history of the smoking, or tobacco-related health factors, that were collected on or before the date of the Encounter. The data comes from the [place] facility where the Encounter took place. 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 [facility] [place] [facility] Sep 04, 2024 11:00 AM VA-TOBACCO USE MED NO [facility] [place] [facility] Jun 04, 2023 01:30 PM VA-TOBACCO FORMER USER [facility] [place] [facility] Jun 04, 2023 01:30 PM VA-TOBACCO QUIT 15 YRS OR MORE [facility] [place] [facility] Jun 15, 2022 09:15 AM VA-TOBACCO FORMER USER [facility] [place] [facility] Jun 15, 2022 09:15 AM VA-TOBACCO QUIT 15 YRS OR MORE [facility] [place] [facility] Jun 30, 2021 09:30 AM VA-TOBACCO FORMER USER [facility] [place] [facility] Jun 30, 2021 09:30 AM VA-TOBACCO QUIT 15 YRS OR MORE [facility] [place] [facility] Jun 03, 2020 08:30 AM VA-TOBACCO FORMER USER [place] [facility] [place] [facility] Jun 03, 2020 08:30 AM VA-TOBACCO QUIT 15 YRS OR MORE [facility] [place] [facility] Feb 23, 2020 09:01 AM VA-TOBACCO FORMER USER [facility] [place] [facility] Feb 23, 2020 09:01 AM VA-TOBACCO QUIT 15 YRS OR MORE [facility] [place] [facility] Oct 28, 2018 01:39 PM VA-TOBACCO FORMER USER [facility] [place] [facility] Oct 28, 2018 01:39 PM VA-TOBACCO QUIT 15 YRS OR MORE [facility] [place] [facility] Jul 10, 2017 10:40 AM QUIT TOBACCO USE > 7 YEARS AGO [facility] [place] [facility] Feb 13, 2016 10:21 AM QUIT TOBACCO USE > 7 YEARS AGO . [facility] [place] [facility] Jun 08, 2005 10:50 AM HISTORY OF SMOKING quit in 1972 [place] [facility] [place] [facility] Apr 10, 2004 10:43 AM HISTORY OF SMOKING [facility] [place] [facility] Dec 04, 2002 11:12 AM HISTORY OF SMOKING [facility] [place] [facility] January 09, 2002 10:01 AM QUIT TOBACCO USE > 7 YEARS AGO [facility] [place] [facility] Sep 11, 2001 10:41 AM HISTORY OF SMOKING see note this date [facility] [place] [facility] Sep 11, 2001 10:41 AM NON-TOBACCO USER see previous note [facility] Advance Directives: All historical and current Section Date Range: From patient's date of to the date document was created. This section includes ALL of a patient's completed or amended [place] Advance and Rescinded Directives. The entries below indicate that a directive exists for the patient, but an actual copy is not included with this document. The data comes from all [place] facilities. Date Advance Directives Provider Source Aug 27, 2012 ADVANCE DIRECTIVE JESS ANDRADE [facility] Encounter Notes: All associated encounter notes This section contains the clinical notes associated to the Encounter. Date/Time Encounter Note(s) Provider Source Oct 07, 2024 11:29 AM PODIATRY NOTE: LOCAL TITLE: PODIATRY NOTE STANDARD TITLE: PODIATRY NOTE DATE OF NOTE: OCT 07, 2024@11:29 ENTRY DATE: OCT 07, 2024@11:30 AUTHOR: ALIZE SHI COSIGNER: URGENCY: STATUS: COMPLETED Podiatry High Risk Foot Encounter [facility] provider: Alize Shi DP Date: OCT 07, 2024 ELSA NEGRON [id number] Jan 79 [employer] FROM Apr TO Apr Primary Care:ARTI BOB- dm fooot care -past exams low risk, no significant PVD or neuropathy. Subjective: My toenails are extremely long. Diabetic and or PVD LE History: [x] diabetic [x] anticoagulated in past now only asa [DVT HX] [ ] pvd interventions [ ] neuropathy [ ] meds: [ ] wound active [ ] infection active [ ] wound history yes [ ] amputation hx [ ] deformity [ ] charcot [ ] surgical deformity intervention [x] gout PMH list CPRS: Active problems - Computerized Problem List is [...] Obesity * 16. Benign hypertension (SNOMED CT [id number]) Active Out Patient medications: Active Outpatient Medications (including Supplies): Active Outpatient Medications Status 1) ACCU-CHEK GUIDE (GLUCOSE) TEST STRIP USE 1 STRIP TO TEST ACTIVE BLOOD SUGARS TWICE A DAY TWO TIMES A WEEK TO BE USED WITH NEW ACCU-CHEK GUIDE ME METER 2) ALLOPURINOL 300MG TAB TAKE ONE TABLET BY MOUTH EVERY DAY FOR ACTIVE GOUT 3) ATENOLOL 25MG TAB TAKE ONE TABLET BY MOUTH ONCE DAILY FOR ACTIVE (S) BLOOD PRESSURE/HEART Indication: FOR HIGH BLOOD PRESSURE 4) ATORVASTATIN CALCIUM 80MG TAB TAKE ONE TABLET BY MOUTH ONCE ACTIVE DAILY FOR CHOLESTEROL IN PLACE OF ROSUVASTATIN. 5) DILTIAZEM (EQV-TIAZAC) 360MG 24HR CAP TAKE ONE CAPSULE BY ACTIVE MOUTH ONCE DAILY Indication: FOR HIGH BLOOD PRESSURE 6) GLIPIZIDE 10MG TAB TAKE ONE TABLET BY MOUTH TWICE DAILY FOR ACTIVE DIABETES 7) LISINOPRIL 20MG TAB TAKE ONE TABLET BY MOUTH DAILY TO ACTIVE CONTROL BLOOD PRESSURE 8) METFORMIN HCL 1000MG TAB TAKE ONE TABLET BY MOUTH TWICE ACTIVE (S) DAILY FOR DIABETES 9) OMEPRAZOLE 20MG EC CAP TAKE ONE CAPSULE BY MOUTH EVERY ACTIVE (S) MORNING 30 MINUTES BEFORE BREAKFAST 10) PIOGLITAZONE HCL 30MG TAB TAKE ONE TABLET BY MOUTH DAILY ACTIVE 11) THIAMINE 100MG TAB TAKE ONE TABLET BY MOUTH ONCE DAILY FOR ACTIVE VITAMIN SUPPLEMENTATION Active Non-VA Medications Status 1) Non-VA ASPIRIN 81MG EC TAB 81MG BY MOUTH ACTIVE 2) Non-VA OTHER CAP/TAB COD LIVER OIL BY MOUTH ONCE DAILY ACTIVE 13 Total Medications Imaging reports: Lab Data: CREATININE-EGFR 08/31/24 09:41 1.06 02/20/24 08:43 1.30 No Data Available for EGFR 1 yr HEMOGLOBIN A1C TREND Collection DT Spec HGBA1c 08/31/2024 09:41 BLOOD 6.7 H 09/03/2023 08:27 BLOOD 6.7 H 05/24/2023 09:36 BLOOD 6.4 H 08/21/2022 09:21 BLOOD 6.7 H 12/25/2021 11:35 BLOOD 6.4 H ALBUMIN Collection DT Specimen Test Name Result Units Ref Range 02/20/2024 08:43 SERUM ALBUMIN 3.9 g/dL 3.5 - 5.0 BMI:BMI: 38.3 PE:General: Well-appearing NAD. 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 The patient was educated on the following: DO - Wear panty hose or socks. - Wear comfortable shoes that fit well. - Wear shoes or slippers at all times. - Keep skin soft. Put lotion on top and bottom of feet. - Use only luke warm water when washing your feet. - Look at feet daily for open sores, cuts or color changes. Using a hand held mirror is helpful when looking at the bottom of your feet. - Keep feet dry, especially between the toes. Use powder if needed. - Have feet checked by your doctor or foot doctor regularly. - If you have an open sore, drainage, color changes, increased warmth or pain, notify your doctor promptly. - Cut toenails straight across. *Check with your doctor if you have nerve disease DO NOT - Go barefoot. - Let feet get dry and cracked. - Use hot water when washing your feet. - Wear torn or tight shoes. - Wear tight socks or knee-highs. - Use heating pads, hot water bottles or iodine; they may cause harm. - Use corn medicine or razors. Level of Understanding: Good Consult shoes Follow-up 6 months Recall: Return sooner if any clinical signs of infection such as redness, swelling drainage fever chills nausea , or go to nearest hospital emergency / urgent care for evaluation. -As part of the service the pertinent primary care, specialty care and urgent care notes have been reviewed as well as the patient's medication list, problem list, and current imaging as well as past imaging, laboratory data and other pertinent contributory consults. -All new and discontinued medications have been discussed in detail with the patient and or caregiver, including indications for additions and deletions, as well as possible side effects, interactions as foreseen, and risk of not taking as prescribed If applicable, the patient was advised clearly on application of wound care agents how to apply and when to apply. The patient was able to recitethis information back to the prescriber with good understanding and agreed to the plan of care as indicated above. -Plan of care discuss with the patient and or caregiver, including medical decision making which includes discussion of abnormal lab results, imaging and other diagnostic modalities as well as results of the physical exam and sr risk management consultant opinions and recommendations as sought. Alternatives to surgery or outlined care above as appropriate have also been discussed. -The patient/ caregiver has displayed good understanding of above and with no further questions at this time. Patient is aware of next appointment and agrees to follow-up interval. Patient agrees to seek sooner follow up if any irregular events occur in between such as cardinal signs of infection, increased pain or deformity. -The on this visit was given information Nanoference service and encouraged to enroll if not already having done so. /patrick/ ALIZE SHI DPM PODIATRY ATTENDING Signed: 10/07/2024 16:00 ALIZE SHI [facility]
--- OUTSIDE RECORDS SUMMARY | 2024-12-02 18:34 | XMS_ITS | Continuity of Care Document ---
Author Name [facility] Organization [facility] Care Team Providers Care Clinical Nursing Instructor Name Role Phone [facility] Unavailable Unavailable Problems Combined list of problems from Department of Defense and Veterans Affairs facilities. It does not include entries that were removed or entered in error. Problem Status Onset Date Problem Type Date of Resolution Comments Source Closed fracture of neck of femur Active 025 Condition Nov 12, 2024 Entered By: LORENZO BOB Comment: Right, with ORIF 11/10/2024. [facility] History of cholecystectomy Active 020 Condition [facility] Acute deep vein thrombosis of lower limb Active Condition [facility] Athero, Lizeth Art Extr W/Dave Active Condition [facility] Benign hypertension (SNOMED CT [id number]) Active Condition [facility] [place] [...] By: LORENZO BOB Comment: Phlebotomy q4m at [facility] via DR Mirza. [facility] [place] [...] [facility] Diagnosis: ICD-10-CM L60.3 Nail dystrophy Active Diagnosis [facility] Diagnosis: ICD-10-CM I11.9 Hypertensive [...] [facility] Diagnosis: ICD-10-CM Z79.01 snf (current) use of anticoagulants Active Diagnosis [facility] Medications Combined list of outpatient medications [...] EVERY DAY FOR GOUT ORAL ACTIVE 09/05/2025 [id number] 5 ARTI BOB 2024 90 [facility] ALLOPURINOL 300MG TAB TAKE ONE TABLET BY MOUTH EVERY DAY FOR GOUT ORAL DISCONT INUED 09/10/2024 [id number] ARTI BOB 2023 90 [facility] ASPIRIN 81MG TAB,EC TAKE ONE TABLET BY MOUTH ORAL ACTIVE AYANNA PICHARDO NNTiny O 2005 [facility] ATENOLOL 25MG TAB TAKE ONE TABLET BY MOUTH ONCE DAILY FOR BLOOD PRESSURE /HEART ORAL ACTIVE 09/05/2025 [id number] 5 ARTI BOB 2024 90 [facility] ATENOLOL 25MG TAB TAKE ONE TABLET BY MOUTH ONCE DAILY FOR BLOOD PRESSURE /HEART ORAL DISCONT INUED 02/11/2025 [id number] 4 ARTI BOB 2023 90 [facility] ATENOLOL 25MG TAB TAKE ONE TABLET BY MOUTH ONCE DAILY FOR BLOOD PRESSURE /HEART ORAL DISCONT INUED 02/20/2024 [id number] ARTI BOB 2022 90 [facility] ATORVASTATI N CA 80MG TAB TAKE ONE TABLET BY MOUTH ONCE DAILY FOR CHOLESTE ROL IN PLACE OF [place] ATIN. ORAL ACTIVE 09/05/2025 [id number] 5 ARTI BOB 2024 90 [facility] ATORVASTATI N CA 80MG TAB TAKE ONE TABLET BY MOUTH ONCE DAILY FOR CHOLESTE ROL IN PLACE OF [place] ATIN. ORAL DISCONT INUED 06/03/2024 [id number] ARTI BOB 2022 90 [facility] DILTIAZEM (EQV-TIAZAC AB4) 360MG 24HR CAP TAKE ONE CAPSULE BY MOUTH ONCE DAILY FOR HIGH BLOOD PRESSURE ORAL ACTIVE 09/05/2025 [id number] 5 ARTI BOB 2024 90 [facility] DILTIAZEM (EQV-TIAZAC AB4) 360MG 24HR CAP TAKE ONE CAPSULE BY MOUTH ONCE DAILY FOR HIGH BLOOD PRESSURE ORAL DISCONT INUED 03/04/2025 [id number] ARTI BOB 2023 90 [facility] DILTIAZEM (EQV-TIAZAC AB4) 360MG 24HR CAP TAKE ONE CAPSULE BY MOUTH EVERY DAY FOR BLOOD PRESSURE ORAL DISCONT INUED BY PROVIDE R 02/20/2024 [id number] ARTI BOB 2022 90 [facility] ENOXAPARIN 40MG/0.4ML INJ,SYRINGE ,0.4ML INJECT 1 SYRINGE (40MG) SUBCUTAN EOUSLY ONCE DAILY SUBCUT ANEOUS ACTIVE 12/24/2024 [id number] Meredith TAYLOR 2024 42 [facility] GLIPIZIDE 10MG TAB TAKE ONE TABLET BY MOUTH TWICE DAILY FOR DIABETES ORAL ACTIVE 09/05/2025 [id number] ARTI BOB 2024 180 [facility] GLIPIZIDE 10MG TAB TAKE ONE TABLET BY MOUTH TWICE DAILY FOR DIABETES ORAL DISCONT INUED 06/04/2024 [id number] 4 ARTI BOB 2022 180 [facility] LISINOPRIL 20MG TAB TAKE ONE TABLET BY MOUTH DAILY TO CONTROL BLOOD PRESSURE ORAL ACTIVE 09/05/2025 [id number] 5 ARTI BOB 2024 90 [facility] LISINOPRIL 20MG TAB TAKE ONE TABLET BY MOUTH DAILY TO CONTROL BLOOD PRESSURE ORAL DISCONT INUED 09/10/2024 [id number] ARTI BOB 2023 90 [facility] METFORMIN HCL 1000MG TAB TAKE ONE TABLET BY MOUTH TWICE DAILY FOR DIABETES ORAL ACTIVE 09/05/2025 [id number] 5 ARTI BOB 2024 180 [facility] METFORMIN HCL 1000MG TAB TAKE ONE TABLET BY MOUTH TWICE DAILY FOR DIABETES ORAL DISCONT INUED 09/10/2024 [id number] ARTI BOB 2023 180 [facility] OMEPRAZOLE 20MG CAP,EC TAKE ONE CAPSULE BY MOUTH EVERY MORNING 30 MINUTES BEFORE BREAKFAS T ORAL SUSPEND ED 09/03/2025 [id number] 5 ARTI BOB 2024 90 [facility] OMEPRAZOLE 20MG CAP,EC TAKE ONE CAPSULE BY MOUTH EVERY MORNING 30 MINUTES BEFORE BREAKFAS T ORAL DISCONT INUED 06/04/2024 [id number] ARTI BOB 2022 90 [facility] OTHER CAP/TAB TAKE COD LIVER OIL BY MOUTH ONCE DAILY ORAL ACTIVE ARTI BOB 2020 [facility] PIOGLITAZON E HCL 30MG TAB TAKE ONE TABLET BY MOUTH DAILY ORAL ACTIVE 09/05/2025 [id number] 5 ARTI BOB 2024 90 [facility] PIOGLITAZON E HCL 30MG TAB TAKE ONE TABLET BY MOUTH DAILY ORAL DISCONT INUED 06/04/2024 [id number] ARTI BOB 2022 90 [facility] THIAMINE 100MG TAB TAKE ONE TABLET BY MOUTH ONCE DAILY FOR VITAMIN SUPPLEME NTATION ORAL ACTIVE 05/01/2025 [id number] 4 ARTI BOB 2023 100 [facility] THIAMINE 100MG TAB TAKE ONE TABLET BY MOUTH ONCE DAILY FOR VITAMIN SUPPLEME NTATION ORAL DISCONT INUED 02/20/2024 [id number] 4 ARTI BOB 2022 100 [facility] Immunizations Combined list of available immunizations from the Department of Defense and Veterans Affairs facilities. Immunization Series Date Given Administered By Site Reaction Lot Number CVX Code Drug Hat Checker Status Comments Source COVID-19 (MODERNA), MRNA, LNP-S, PF, 50 MCG/0.5 ML (AGES 12+ YEARS) 1 2024 MADELYN GRIJALVA LEFT DELTO ID [id number] 312 complet ed [facility] INFLUENZA, HIGH-DOSE, TRIVALENT, PF 2024 MADELYN GRIJALVA LEFT DELTO ID [id number] 135 [facility] COVID-19 (MODERNA), MRNA, LNP-S, PF, 50 MCG/0.5 ML (AGES 12+ YEARS) 1 2023 MADELYN GRIJALVA LEFT DELTO ID [id number] 312 complet ed [facility] COVID-19 (MODERNA), MRNA, LNP-S, PF, 50 MCG/0.5 ML (AGES 12+ YEARS) 1 2023 MADELYN GRIJALVA RIGHT DELTO ID [id number] 312 complet ed [facility] INFLUENZA, HIGH-DOSE, QUADRIVALENT 2022 MADELYN GRIJALVA RIGHT DELTO ID [id number] 197 [facility] COVID-19 (MODERNA), MRNA, LNP-S, BIVALENT, PF, 50 MCG/0.5 ML OR 25MCG/0.25 ML DOSE 2022 FATEMEH OLVERA LEFT DELTO ID [id number] 229 complet ed [facility] COVID-19 (MODERNA), MRNA, LNP-S, BIVALENT BOOSTER, PF, 50 MCG/0.5 ML OR 25MCG/0.25 ML DOSE 1 2021 229 complet ed MOD; [id number]; 3 [facility] INFLUENZA VACCINE, QUADRIVALENT, ADJUVANTED 2021 205 complet ed [facility] TD (ADULT), 5 LF TETANUS TOXOID, PRESERVATIVE FREE, ADSORBED 2021 113 complet ed [facility] COVID-19 (MODERNA), MRNA, LNP-S, PF, 100 MCG/0.5ML DOSE OR 50 MCG/0.25ML DOSE 3 2021 207 complet ed MOD; [id number]; 2 [facility] COVID-19 (MODERNA), MRNA, LNP-S, PF, 100 MCG OR 50 MCG DOSE 3 2020 207 complet ed [facility] INFLUENZA VACCINE, QUADRIVALENT, ADJUVANTED 2020 205 complet ed [facility] COVID-19 (MODERNA), MRNA, LNP-S, PF, 100 MCG/0.5 ML DOSE 2 2020 207 complet ed MOD; [id number]; 1 [facility] COVID-19 (MODERNA), MRNA, LNP-S, PF, 100 MCG/0.5 ML DOSE 1 2020 207 complet ed MOD; [id number]; 1 [facility] [...] FLU,3 YRS (HISTORICAL) 2016 88 complet ed [place] FLU,3 YRS (HISTORICAL) 2015 88 complet ed [...] 2001 MINDI ALMARAZ T 88 complet ed [facility] PNEUMOCOCCAL, UNSPECIFIED FORMULATION 2001 LISA KIMBLE 109 complet ed [facility] Results Combined [...] AM Reporting Lab: [facility] [place] [address] [facility] [address] Performing Lab: [facility] [address] [facility] [address] [facility] BASIC METABOLIC PANEL (fasting) GLUCOSE [MASS/VOLUM E] IN SERUM OR PLASMA 164 mg/dL 65 - 100 08/31 H Specimen Type: SERUM No comment entered. Ordering Provider: Lalo BOB Report Released Date/Time: Aug 31, 2024 09:40 AM Reporting Lab: [facility] [address] Performing Lab: [facility] TRN [facility] [address] [facility]N [facility]ITALUSE [facility] BASIC METABOLIC PANEL (fasting) SODIUM [MOLES/VOLU ME] IN SERUM OR PLASMA 139 mmol/L 135 - 145 08/31 Specimen Type: SERUM No comment entered. Ordering Provider: Lalo BOB Report Released Date/Time: Aug 31, 2024 09:40 AM Reporting Lab: [facility]STRN [facility] [address] Performing Lab: [facility] WSTRN [facility] [address] [facility]ITALRUSA [facility]PITALN [facility]ITALUSE [facility] BASIC METABOLIC PANEL (fasting) POTASSIUM [MOLES/VOLU ME] IN SERUM OR PLASMA 3.9 mmol/L 3.5 - 5.0 08/31 Specimen Type: SERUM No comment entered. Ordering Provider: Lalo BOB Report Released Date/Time: Aug 31, 2024 09:40 AM Reporting Lab: [facility]ITAL[facility] WSTRN [facility] [address] [facility] [address] Performing Lab: [facility]ITALRL WSTRN [address] [address] [facility]ITAL[facility]DECAT[facility] CAM[facility]STRN [facility]ITALUSE [facility] BASIC METABOLIC PANEL (fasting) CHLORIDE [MOLES/VOLU ME] IN SERUM OR PLASMA 105 mmol/L 100 - 110 08/31 Specimen Type: SERUM No comment entered. Ordering Provider: Lalo BOB Report Released Date/Time: Aug 31, 2024 09:40 AM Reporting Lab: [facility] [address] [facility] [address] Performing Lab: [facility]ITALRL WSTRN [facility]ITALUSEMASSE[facility] [address] [facility] [address] [facility] WSTRN [facility]ITALUSE [facility] BASIC METABOLIC PANEL (fasting) CARBON DIOXIDE, TOTAL [MOLES/VOLU ME] IN SERUM OR PLASMA 23 meq/L 20 - 30 08/31 Specimen Type: SERUM No comment entered. Ordering Provider: Lalo BOB Report Released Date/Time: Aug 31, 2024 09:40 AM Reporting Lab: [facility] [address] [facility] [address] Performing Lab: [facility]ITALRL WSTRN [facility] [address] [facility] [address] [facility] BASIC METABOLIC PANEL (fasting) CREATININE [MASS/VOLUM E] IN SERUM OR PLASMA 1.06 mg/dL 0.50 - 1.40 08/31 Specimen Type: SERUM No comment entered. Ordering Provider: Lalo BOB Report Released Date/Time: Aug 31, 2024 09:40 AM Reporting Lab: [facility]ITALRL TRN [address] [address] Performing Lab: [facility]ITALRL WSTRN [address] [address] [facility]ITALRL [facility] BASIC METABOLIC PANEL (fasting) GLOMERULAR FILTRATION RATE/1.73 SQ M.PREDICTED [VOLUME RATE/AREA] IN SERUM, PLASMA OR BLOOD BY CREATININE- BASED FORMULA (CKD-EPI 2020) 71 mL/min 60 08/31 Specimen Type: SERUM No comment entered. Ordering Provider: Lalo BOB Report Released Date/Time: Aug 31, 2024 09:40 AM Reporting Lab: [facility]ITALRL W[facility]N [facility] [address] Performing Lab: [facility]ITALRL WSTRN [facility] [address] [facility]ITALRUSA [facility]IV[facility]OSPITALN [facility] CBC AND DIFF (AUTO) LEUKOCYTES [#/VOLUME] IN BLOOD BY AUTOMATED COUNT 5.38 10*3/u L 4.50 - 11.00 08/31 Specimen Type: BLOOD No comment entered. Ordering Provider: Lalo BOB Report Released Date/Time: Aug 31, 2024 09:40 AM Reporting Lab: [facility] [place] [facility] [address] [facility] [address] Performing Lab: [facility] [place] [facility] [address] [facility] [address] [facility] CBC AND DIFF (AUTO) ERYTHROCYTE S [#/VOLUME] IN BLOOD BY AUTOMATED COUNT 4.09 10*6/u L 4.23 - 5.66 08/31 L Specimen Type: BLOOD No comment entered. Ordering Provider: Lalo BOB Report Released Date/Time: Aug 31, 2024 09:40 AM Reporting Lab: [facility] [place] [address] [address] Performing Lab: [facility] [place] [address] [address] [facility] [place] [facility] CBC AND DIFF (AUTO) HEMOGLOBIN [MASS/VOLUM E] IN BLOOD 13.0 g/dL 12.8 - 17 08/31 Specimen Type: BLOOD No comment entered. Ordering Provider: Lalo BOB Report Released Date/Time: Aug 31, 2024 09:40 AM Reporting Lab: [facility] [place] [address] [address] Performing Lab: [facility] [place] [address] [address] [facility] [place] [facility] CBC AND DIFF (AUTO) HEMATOCRIT [VOLUME FRACTION] OF BLOOD BY AUTOMATED COUNT 38.3 39.2 - 50.4 08/31 L Specimen Type: BLOOD No comment entered. Ordering Provider: Lalo BOB Report Released Date/Time: Aug 31, 2024 09:40 AM Reporting Lab: [facility] [place] [address] [address] Performing Lab: [facility] [place] [facility] [address] [facility] [address] [facility] CBC AND DIFF (AUTO) MCV [ENTITIC VOLUME] BY AUTOMATED COUNT 93.6 fL 82 - 99 08/31 Specimen Type: BLOOD No comment entered. Ordering Provider: Lalo BOB Report Released Date/Time: Aug 31, 2024 09:40 AM Reporting Lab: [facility] [place] [facility] [address] [facility] [address] Performing Lab: [facility] [place] [facility] [address] [facility] [address] [facility] CBC AND DIFF (AUTO) MCHC [MASS/VOLUM E] BY AUTOMATED COUNT 33.9 g/dL 30.8 - 35.1 08/31 Specimen Type: BLOOD No comment entered. Ordering Provider: Lalo BOB Report Released Date/Time: Aug 31, 2024 09:40 AM Reporting Lab: [facility] [place] [facility] [address] [facility] [address] Performing Lab: [facility] [place] [facility] [address] [facility] [address] [facility] CBC AND DIFF (AUTO) PLATELETS [#/VOLUME] IN BLOOD BY AUTOMATED COUNT 328 10*3/u L 140 - 360 08/31 Specimen Type: BLOOD No comment entered. Ordering Provider: Lalo BOB Report Released Date/Time: Aug 31, 2024 09:40 AM Reporting Lab: [facility] [place] [facility] [address] [facility] [address] Performing Lab: [facility] [address] [facility] [address] [facility] CBC AND DIFF (AUTO) ERYTHROCYTE DISTRIBUTIO N WIDTH [RATIO] BY AUTOMATED COUNT 13.8 12.0 - 16.0 08/31 Specimen Type: BLOOD No comment entered. Ordering Provider: Lalo BOB Report Released Date/Time: Aug 31, 2024 09:40 AM Reporting Lab: [facility] [address] [facility] [address] Performing Lab: [facility] [address] [facility] [address] [facility] CBC AND DIFF (AUTO) MONOCYTES [#/VOLUME] IN BLOOD BY AUTOMATED COUNT 0.45 10*3/u L 0.30 - 1.10 08/31 Specimen Type: BLOOD No comment entered. Ordering Provider: Lalo BOB Report Released Date/Time: Aug 31, 2024 09:40 AM Reporting Lab: [facility] [place] [facility] [address] [facility] [address] Performing Lab: [facility] [place] [facility] [address] [facility] [address] [facility] CBC AND DIFF (AUTO) MCH [ENTITIC MASS] BY AUTOMATED COUNT 31.8 pg 26.2 - 32.6 08/31 Specimen Type: BLOOD No comment entered. Ordering Provider: Lalo BOB Report Released Date/Time: Aug 31, 2024 09:40 AM Reporting Lab: [facility] [place] [facility] [address] [facility] [address] Performing Lab: [facility] [place] [facility] [address] [facility] [address] [facility] CBC AND DIFF (AUTO) NEUTROPHILS /100 LEUKOCYTES IN BLOOD BY AUTOMATED COUNT 67.7 43.7 - 75.8 08/31 Specimen Type: BLOOD No comment entered. Ordering Provider: Lalo BOB Report Released Date/Time: Aug 31, 2024 09:40 AM Reporting Lab: [facility] [place] [facility] [address] [facility] [address] Performing Lab: [facility] [place] [address] [facility] [address] [facility] CBC AND DIFF (AUTO) LYMPHOCYTES /100 LEUKOCYTES IN BLOOD BY AUTOMATED COUNT 19.0 14.0 - 42.3 08/31 Specimen Type: BLOOD No comment entered. Ordering Provider: Lalo BOB Report Released Date/Time: Aug 31, 2024 09:40 AM Reporting Lab: [facility] [place] [facility] [address] [facility] [address] Performing Lab: [facility] [place] [facility] [address] [facility] [address] [facility] CBC AND DIFF (AUTO) MONOCYTES/1 00 LEUKOCYTES IN BLOOD BY AUTOMATED COUNT 8.4 5.1 - 13.7 08/31 Specimen Type: BLOOD No comment entered. Ordering Provider: Lalo BOB Report Released Date/Time: Aug 31, 2024 09:40 AM Reporting Lab: [facility] [place] [facility] [address] [facility] [address] Performing Lab: [facility] [place] [facility] [address] [facility] [address] [facility] [place] [facility] CBC AND DIFF (AUTO) EOSINOPHILS /100 LEUKOCYTES IN BLOOD BY AUTOMATED COUNT 3.9 0.4 - 6.8 08/31 Specimen Type: BLOOD No comment entered. Ordering Provider: Lalo BOB Report Released Date/Time: Aug 31, 2024 09:40 AM Reporting Lab: [facility] [place] [facility] [address] [facility] [address] Performing Lab: [facility] [place] [facility] [address] [facility] [address] [facility] [place] [facility] CBC AND DIFF (AUTO) BASOPHILS/1 00 LEUKOCYTES IN BLOOD BY AUTOMATED COUNT 0.6 0.1 - 2.0 08/31 Specimen Type: BLOOD No comment entered. Ordering Provider: Lalo BOB Report Released Date/Time: Aug 31, 2024 09:40 AM Reporting Lab: [facility] [place] [facility] [address] [facility] [address] Performing Lab: [facility] [place] [facility] [address] [facility] [address] [facility] [place] [facility] CBC AND DIFF (AUTO) NEUTROPHILS [#/VOLUME] IN BLOOD BY AUTOMATED COUNT 3.65 10*3/u L 2.20 - 7.60 08/31 Specimen Type: BLOOD No comment entered. Ordering Provider: Lalo BOB Report Released Date/Time: Aug 31, 2024 09:40 AM Reporting Lab: [facility] [place] [address] [address] Performing Lab: [facility] [place] [facility] [address] [facility] [address] [facility] CBC AND DIFF (AUTO) LYMPHOCYTES [#/VOLUME] IN BLOOD BY AUTOMATED COUNT 1.02 10*3/u L 1.00 - 3.20 08/31 Specimen Type: BLOOD No comment entered. Ordering Provider: Lalo BOB Report Released Date/Time: Aug 31, 2024 09:40 AM Reporting Lab: [facility] [address] [place] [address] Performing Lab: [facility] [place] [facility] [address] [facility] [address] [facility] [place] [facility] CBC AND DIFF (AUTO) EOSINOPHILS [#/VOLUME] IN BLOOD BY AUTOMATED COUNT 0.21 10*3/u L 0.03 - 0.44 08/31 Specimen Type: BLOOD No comment entered. Ordering Provider: aLlo BOB Report Released Date/Time: Aug 31, 2024 09:40 AM Reporting Lab: [facility] [place] [facility] [address] [facility] [address] Performing Lab: [facility] [place] [address] [address] [facility] CBC AND DIFF (AUTO) BASOPHILS [#/VOLUME] IN BLOOD BY AUTOMATED COUNT 0.03 10*3/u L 0.01 - 0.13 08/31 Specimen Type: BLOOD No comment entered. Ordering Provider: Lalo BOB Report Released Date/Time: Aug 31, 2024 09:40 AM Reporting Lab: [facility] [place] [facility] [address] [facility] [address] Performing Lab: [facility] [place] [facility] [address] [facility] [address] [facility] [place] [facility] CBC AND DIFF (AUTO) IMMATURE GRANULOCYTE S/100 LEUKOCYTES IN BLOOD BY AUTOMATED COUNT 0.4 0.0 - 0.7 08/31 Specimen Type: BLOOD No comment entered. Ordering Provider: Lalo BOB Report Released Date/Time: Aug 31, 2024 09:40 AM Reporting Lab: [facility] [place] [address] [address] Performing Lab: [facility] [place] [address] [address] [facility] [place] [facility] CBC AND DIFF (AUTO) IMMATURE GRANULOCYTE S [#/VOLUME] IN BLOOD 0.02 10*3/u L 0.00 - 0.06 08/31 Specimen Type: BLOOD No comment entered. Ordering Provider: Lalo BOB Report Released Date/Time: Aug 31, 2024 09:40 AM Reporting Lab: [facility] [place] [address] [address] Performing Lab: [facility] [place] [address] [address] [facility] [place] [facility] CBC AND DIFF (AUTO) NRBC % 0.0 0.0 - 0.0 08/31 Specimen Type: BLOOD No comment entered. Ordering Provider: Lalo BOB Report Released Date/Time: Aug 31, 2024 09:40 AM Reporting Lab: [facility] [place] [address] [address] Performing Lab: [facility] [place] [address] [address] [facility] [place] CBC AND DIFF (AUTO) NRBC, ABS 0.00 10*3/u L 0.00 - 0.00 08/31 Specimen Type: BLOOD No comment entered. Ordering Provider: Lalo BOB Report Released Date/Time: Aug 31, 2024 09:40 AM Reporting Lab: [facility] [address] [facility] [address] Performing Lab: [facility] [address] [facility] [address] [facility] HEMOGLOBI N A1C PANEL HEMOGLOBIN A1C/HEMOGLO BIN.TOTAL [...] Aug 31, 2024 09:40 AM Reporting Lab: [facility] [address] [facility] [address] Performing Lab: [facility] [address] [facility] [address] [facility] LIPID PANEL FASTING CHOLESTEROL [MASS/VOLUM E] IN SERUM OR PLASMA 167 mg/dL 08/31 Specimen Type: SERUM No comment entered. Ordering Provider: Lalo BOB Report Released Date/Time: Aug 31, 2024 09:40 AM Reporting Lab: [facility] [address] [facility] [address] Performing Lab: [facility] [address] [facility] [address] [facility] LIPID PANEL FASTING TRIGLYCERID E [MASS/VOLUM E] IN SERUM OR PLASMA 127 mg/dL 0 - 150 08/31 Specimen Type: SERUM No comment entered. Ordering Provider: Lalo BOB Report Released Date/Time: Aug 31, 2024 09:40 AM Reporting Lab[facility] [place] [facility] [address] [facility] [address] Performing Lab: [facility] [place] [facility] [address] [facility] [address] [facility] [place] [facility] LIPID PANEL FASTING CHOLESTEROL IN LDL [MASS/VOLUM E] IN SERUM OR PLASMA BY CALCULATION 85 mg/dL 0 - 129 08/31 Specimen Type: SERUM No comment entered. Ordering Provider: Lalo BOB Report Released Date/Time: Aug 31, 2024 09:40 AM Reporting Lab: [facility] [place] [facility] [address] [facility] [address] Performing Lab: [facility] [place] [facility] [address] [facility] [address] [facility] [place] [facility] LIPID PANEL FASTING CHOLESTEROL .TOTAL/CHOL ESTEROL IN HDL [MASS RATIO] IN SERUM OR PLASMA 2.9 08/31 Specimen Type: SERUM No comment entered. Ordering Provider: Lalo BOB Report Released Date/Time: Aug 31, 2024 09:40 AM Reporting Lab: [facility] [place] [facility] [address] [facility] [address] Performing Lab: [facility] [place] [facility] [address] [facility] [address] [facility] [place] [facility] LIPID PANEL FASTING CHOLESTEROL IN HDL [MASS/VOLUM E] IN SERUM OR PLASMA 57 mg/dL 40 - 60 08/31 Specimen Type: SERUM No comment entered. Ordering Provider: Lalo BOB Report Released Date/Time: Aug 31, 2024 09:40 AM Reporting Lab: [facility] [place] [facility] [address] [facility] [address] Performing Lab: [facility] [place] [facility] [address] [facility] [address] [facility] [place] [facility] MICROALBU MIN CREATININ E RATIO PANEL MICROALBUMI N/CREATININ E [MASS RATIO] IN URINE 12.3 mg/g 0 - 29.9 08/31 Specimen Type: URINE No comment entered. Ordering Provider: Lalo BOB Report Released Date/Time: Aug 31, 2024 09:40 AM Reporting Lab: [facility] [place] [facility] [address] [facility] [address] Performing Lab: [facility] [place] [facility] [address] [facility] [address] [facility] [place] [facility] MICROALBU MIN CREATININ E RATIO PANEL MICROALBUMI N [MASS/VOLUM E] IN URINE 1.3 mg/dL 08/31 Specimen Type: URINE No comment entered. Ordering Provider: Lalo BOB Report Released Date/Time: Aug 31, 2024 09:40 AM Reporting Lab: [facility] [place] [address] [address] Performing Lab: [facility] [place] [facility] [address] [facility] [address] [facility] [place] [facility] MICROALBU MIN CREATININ E RATIO PANEL CREATININE [MASS/VOLUM E] IN URINE 105.65 mg/dL 08/31 Specimen Type: URINE No comment entered. Ordering Provider: Lalo BOB Report Released Date/Time: Aug 31, 2024 09:40 AM Reporting Lab: [facility] [place] [address] [address] Performing Lab: [facility] [place] [facility] [address] [facility] [address] [facility] [place] [facility] BASIC METABOLIC PANEL (fasting) UREA NITROGEN [MASS/VOLUM E] IN SERUM OR PLASMA 17 mg/dL 7 - 25 02/19 Specimen Type: SERUM No comment entered. Ordering Provider: Lalo BOB Report Released Date/Time: Sep 10, 2023 02:57 PM Reporting Lab: [facility] [place] [address] [address] Performing Lab: [facility] [place] [address] [address] [facility] [facility] BASIC METABOLIC PANEL (fasting) GLUCOSE [MASS/VOLUM E] IN SERUM OR PLASMA 162 mg/dL 65 - 100 02/19 H Specimen Type: SERUM No comment entered. Ordering Provider: Lalo BOB Report Released Date/Time: Sep 10, 2023 02:57 PM Reporting Lab: [facility] [place] [address] [address] Performing Lab: [facility] [place] [facility] [address] [facility] [address] [facility] BASIC METABOLIC PANEL (fasting) SODIUM [MOLES/VOLU ME] IN SERUM OR PLASMA 140 mmol/L 135 - 145 02/19 Specimen Type: SERUM No comment entered. Ordering Provider: Lalo BOB Report Released Date/Time: Sep 10, 2023 02:57 PM Reporting Lab: [facility] [place] [facility] [address] [facility] [address] Performing Lab: [facility] [address] [facility] [address] [facility] CAMPUSTRN [facility] BASIC METABOLIC PANEL (fasting) POTASSIUM [MOLES/VOLU ME] IN SERUM OR PLASMA 4.3 mmol/L 3.5 - 5.0 02/19 Specimen Type: SERUM No comment entered. Ordering Provider: Lalo BOB Report Released Date/Time: Sep 10, 2023 02:57 PM Reporting Lab: [facility] [place] [facility] [address] [facility] [address] Performing Lab: [facility] [place] [facility] [address] [facility] [address] [facility] [place] [facility] BASIC METABOLIC PANEL (fasting) CHLORIDE [MOLES/VOLU ME] IN SERUM OR PLASMA 104 mmol/L 100 - 110 02/19 Specimen Type: SERUM No comment entered. Ordering Provider: Lalo BOB Report Released Date/Time: Sep 10, 2023 02:57 PM Reporting Lab: [facility] [place] [facility] [address] [facility] [address] Performing Lab: [facility] [place] [facility] [address] [facility] [address] [facility] [place] [facility] BASIC METABOLIC PANEL (fasting) CARBON DIOXIDE, TOTAL [MOLES/VOLU ME] IN SERUM OR PLASMA 23 meq/L 20 - 30 02/19 Specimen Type: SERUM No comment entered. Ordering Provider: Lalo BOB Report Released Date/Time: Sep 10, 2023 02:57 PM Reporting Lab: [facility] [place] [facility] [address] [facility] [address] Performing Lab: [facility] [address] [facility] [address] [facility]ITALUSE [facility] BASIC METABOLIC PANEL (fasting) CREATININE [MASS/VOLUM E] IN SERUM OR PLASMA 1.30 mg/dL 0.50 - 1.40 02/19 Specimen Type: SERUM No comment entered. Ordering Provider: Lalo BOB Report Released Date/Time: Sep 10, 2023 02:57 PM Reporting Lab: [facility] [address] [address] Performing Lab: [facility] [address] [address] [facility]ITAL[facility] BASIC METABOLIC PANEL (fasting) GLOMERULAR FILTRATION RATE/1.73 SQ M.PREDICTED [VOLUME RATE/AREA] IN SERUM, PLASMA OR BLOOD BY CREATININE- BASED FORMULA (CKD-EPI 2020) 56 mL/min 60 02/19 L Specimen Type: SERUM No comment entered. Ordering Provider: Lalo BOB Report Released Date/Time: Sep 10, 2023 02:57 PM Reporting Lab: [facility] [place] [facility] [address] [facility] [address] Performing Lab: [facility] [address] [facility] [address] [facility] [place] FERRITIN FERRITIN [MASS/VOLUM E] IN SERUM OR PLASMA 55 ng/mL 20 - 300 02/19 Specimen Type: SERUM No comment entered. Ordering Provider: Lalo BOB Report Released Date/Time: Sep 10, 2023 02:57 PM Reporting Lab: [facility] [place] [facility] [address] [facility] [address] Performing Lab: [facility] [place] [facility] [address] [facility] [address] [facility] [place] [facility] IRON & TIBC PANEL IRON BINDING CAPACITY [MASS/VOLUM E] IN SERUM OR PLASMA 399 ug/dL 204 - 475 02/19 Specimen Type: SERUM No comment entered. Ordering Provider: Lalo BOB Report Released Date/Time: Sep 10, 2023 02:57 PM Reporting Lab: [facility] [place] [facility] [address] [facility] [address] Performing Lab: [facility] [place] [place] [facility] [address] [facility] [address] [facility] [place] [facility] IRON & TIBC PANEL IRON [MASS/VOLUM E] IN SERUM OR PLASMA 120 ug/dL 40 - 160 02/19 Specimen Type: SERUM No comment entered. Ordering Provider: Lalo BOB Report Released Date/Time: Sep 10, 2023 02:57 PM Reporting Lab: [facility] [place] [facility] [address] [facility] [address] Performing Lab: [facility] [place] [facility] [address] [facility] [address] [facility] [place] [facility] IRON & TIBC PANEL IRON/IRON BINDING CAPACITY.TO ANGELA [MASS RATIO] IN SERUM OR PLASMA 30.1 20.0 - 50.0 02/19 Specimen Type: SERUM No comment entered. Ordering Provider: Lalo BOB Report Released Date/Time: Sep 10, 2023 02:57 PM Reporting Lab: [facility] [place] [facility] [address] [facility] [address] Performing Lab: [facility] [place] [facility] [address] [facility] [address] [facility] [place] [facility] LIPID PANEL FASTING CHOLESTEROL [MASS/VOLUM E] IN SERUM OR PLASMA 143 mg/dL 02/19 Specimen Type: SERUM No comment entered. Ordering Provider: Lalo BOB Report Released Date/Time: Sep 10, 2023 02:57 PM Reporting Lab: [facility] [place] [facility] [address] [facility] [address] Performing Lab: [facility] [place] [facility] [address] [facility] [address] [facility] [place] [facility] LIPID PANEL FASTING TRIGLYCERID E [MASS/VOLUM E] IN SERUM OR PLASMA 142 mg/dL 0 - 150 02/19 Specimen Type: SERUM No comment entered. Ordering Provider: Lalo BOB Report Released Date/Time: Sep 10, 2023 02:57 PM Reporting Lab: [facility] [place] [address] [address] Performing Lab: [facility] [place] [facility] [address] [facility] [address] [facility] [place] [facility] LIPID PANEL FASTING CHOLESTEROL IN LDL [MASS/VOLUM E] IN SERUM OR PLASMA BY CALCULATION 64 mg/dL 0 - 129 02/19 Specimen Type: SERUM No comment entered. Ordering Provider: Lalo BOB Report Released Date/Time: Sep 10, 2023 02:57 PM Reporting Lab: [facility] [place] [facility] [address] [facility] [address] Performing Lab: [facility] [place] [facility] [address] [facility] [address] [facility] [place] [facility] LIPID PANEL FASTING CHOLESTEROL .TOTAL/CHOL ESTEROL IN HDL [MASS RATIO] IN SERUM OR PLASMA 2.8 02/19 Specimen Type: SERUM No comment entered. Ordering Provider: Lalo BOB Report Released Date/Time: Sep 10, 2023 02:57 PM Reporting Lab: [facility] [place] [facility] [address] [facility] [address] Performing Lab: [facility] [place] [facility] [address] [facility] [address] [facility] [place] LIPID PANEL FASTING CHOLESTEROL IN HDL [MASS/VOLUM E] IN SERUM OR PLASMA 51 mg/dL 40 - 60 02/19 Specimen Type: SERUM No comment entered. Ordering Provider: Lalo BOB Report Released Date/Time: Sep 10, 2023 02:57 PM Reporting Lab: [facility] [place] [facility] [address] [facility] [address] Performing Lab: [facility] [address] [facility] [address] [facility] LIVER FUNCTION PROTEIN [MASS/VOLUM E] IN SERUM OR PLASMA 6.7 g/dL 6.0 - 8.3 02/19 Specimen Type: SERUM No comment entered. Ordering Provider: Lalo BOB Report Released Date/Time: Sep 10, 2023 02:57 PM Reporting Lab: [facility] [place] [facility] [address] [facility] [address] Performing Lab: [facility] [place] [facility] [address] [facility] [address] [facility] LIVER FUNCTION ALBUMIN [MASS/VOLUM E] IN SERUM OR PLASMA 3.9 g/dL 3.5 - 5.0 02/19 Specimen Type: SERUM No comment entered. Ordering Provider: Llao BOB Report Released Date/Time: Sep 10, 2023 02:57 PM Reporting Lab: [facility] [place] [facility] [address] [facility] [address] Performing Lab: [facility] [place] [facility] [address] [facility] [address] [facility] LIVER FUNCTION ALKALINE PHOSPHATASE [ENZYMATIC ACTIVITY/VO LUME] IN SERUM OR PLASMA 84 U/L 40 - 150 02/19 Specimen Type: SERUM No comment entered. Ordering Provider: Lalo BOB Report Released Date/Time: Sep 10, 2023 02:57 PM Reporting Lab: [facility] [place] [facility] [address] [facility] [address] Performing Lab: [facility] [place] [facility] [address] [facility] [address] [facility] [place] [facility] LIVER FUNCTION ASPARTATE AMINOTRANSF ERASE [ENZYMATIC ACTIVITY/VO LUME] IN SERUM OR PLASMA 16 U/L 5 - 34 02/19 Specimen Type: SERUM No comment entered. Ordering Provider: Lalo BOB Report Released Date/Time: Sep 10, 2023 02:57 PM Reporting Lab: [facility] [place] [facility] [address] [facility] [address] Performing Lab: [facility] [place] [facility] [address] [facility] [address] [facility] [place] [facility] LIVER FUNCTION ALANINE AMINOTRANSF ERASE [ENZYMATIC ACTIVITY/VO LUME] IN SERUM OR PLASMA 17 U/L 02/19 Specimen Type: SERUM No comment entered. Ordering Provider: Lalo BOB Report Released Date/Time: Sep 10, 2023 02:57 PM Reporting Lab: [facility] [place] [facility] [address] [facility] [address] Performing Lab: [facility] [place] [facility] [address] [facility] [address] [facility] [place] [facility] LIVER FUNCTION BILIRUBIN.T OTAL [MASS/VOLUM E] IN SERUM OR PLASMA 0.8 mg/dL 0.2 - 1.2 02/19 Specimen Type: SERUM No comment entered. Ordering Provider: Lalo BOB Report Released Date/Time: Sep 10, 2023 02:57 PM Reporting Lab: [facility] [place] [facility] [address] [facility] [address] Performing Lab: [facility] [place] [address] [address] [facility] [place] [facility] Vital Signs Combined list of inpatient [...] 11:14:45 [facility] [place] [facility] BMI 38 kg/m2 09/04/2024 11:14:45 [facility] [place] [facility] PAIN 0 09/04/2024 11:14:45 [facility] [place] [facility] TEMPERATURE 98.4 09/04/2024 11:14:45 [facility] [place] [facility] PULSE 102 09/04/2024 11:14:45 [facility] [place] [facility] RESPIRATION 16 09/04/2024 11:14:45 [facility] [place] [facility] SYSTOLIC BLOOD PRESSURE 120 03/03/20 24 13:20:19 [facility] [place] [facility] DIASTOLIC BLOOD PRESSURE 66 024 13:20:19 [facility] [place] [facility] PULSE OXIMETRY 97 03/03/2024 13:20:19 [facility] [place] [facility] WEIGHT 246 03/03/2024 13:20:19 [facility] [place] [facility] BMI 39 kg/m2 03/03/2024 13:20:19 [facility] [place] [facility] PAIN 3 03/03/2024 13:20:19 [facility] [place] [facility] TEMPERATURE 97.4 03/03/2024 13:20:19 [facility] [place] [facility] PULSE 70 03/03/2024 13:20:19 [facility] [place] [facility] RESPIRATION 16 03/03/2024 13:20:19 [facility] [place] [facility] SYSTOLIC BLOOD PRESSURE 124 02/26/20 24 12:03:58 [facility] [place] [facility] DIASTOLIC BLOOD PRESSURE 76 02/25/ 024 12:03:58 [facility] [place] [facility] PULSE OXIMETRY 95 02/26/2024 12:03:58 [facility] [place] [facility] WEIGHT 245.4 02/26/2024 12:03:58 [facility] [place] [facility] BMI 39 kg/m2 02/26/2024 12:03:58 [facility] [place] [facility] PAIN 0 02/26/2024 12:03:58 [facility] [place] [facility] TEMPERATURE 97.4 02/26/2024 12:03:58 [facility] [place] [facility] PULSE 76 02/26/2024 12:03:58 [facility] [place] [facility] RESPIRATION 18 02/26/2024 12:03:58 [facility] [place] [facility] Encounters Combined list of: 1) Encounters from [facility] facilities going backup to the last 18 months, not all [place] inpatient encounters are included; 2) 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 Location Location Details Encounter Type Encounter Number Reason For Visit Attending Provider ADM Date DC Date Status Disposition Source [facility] [place] [facility] Outpatient Encounter [id number] Meredith GOMEZ 06/03 [facility] [place] [facility] OFFICE O/P EST LOW 20-29 MIN [id number] Diagnos is: ICD-10- CM Z79.01 snf (curren t) use of anticoa Paz Gonzalez 06/04 [facility] [place] OFFICE O/P EST LOW 20-29 MIN [id number] Diagnos is: ICD-10- CM 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 ARTI Mora 06/04 [facility] DIABETIC CUSTOM MOLDED SHOE [id number] Diagnos is: ICD-10- CM E11.8 Type 2 diabete s mellitu s with unspeci fied complic ations BRAYDON CHAPMAN FELIX 06/25 [facility] Out[facility] Encounter [id number] 07/24 [facility] En[facility] [id number] Meredith GOMEZ 07/30 [facility] En[facility] [id number] Meredith GOMEZ 09/09 [facility] [place] [facility] OFFICE O/P EST LOW 20 MIN [id number] Diagnos is: ICD-10- CM 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 ARTI Liz 09/10 [facility] [place] EXTENDED VISUAL FIELD XM [id number] Diagnos is: ICD-10- CM 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 Open angle with borderl ine finding s, low risk, bilater TRISTON Krishna 09/27 [facility] [place] [facility] CMPTR OPHTH IMG OPTIC NERVE [id number] Diagnos is: ICD-10- CM H40.013 Open angle with borderl ine finding s, low risk, bilater al TRISTON GONZALEZ 09/27 [facility] INTRM OPH EXAM EST PATIENT [id number] Diagnos is: ICD-10- CM H40.013 Open angle with borderl ine finding s, low risk, bilater al TRISTON GONZALEZ 09/27 [facility] FIT SPECTACLES MONOFOCAL [id number] Diagnos is: ICD-10- CM Z46.0 Encount er for fit/adj st of spectac les and contact lenses TRISTON GONZALEZ 09/27 [facility] [place] [facility] OFFICE O/P EST SF 10 MIN [id number] Diagnos is: ICD-10- CM E11.8 Type 2 diabete s mellitu s with unspeci fied complic ations Paz BENSON 10/22 [facility] En[facility] [id number] 11/07 [facility] En[facility] [id number] Meredith GOMEZ 12/01 [facility] En[facility] [id number] 02/05 [facility] En[facility] [id number] Meredith GOMEZ 02/09 [facility] En[facility] [id number] Meredith GOMEZ 02/16 [facility] OFFICE O/P EST LOW 20 MIN [id number] Diagnos is: ICD-10- CM 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 KAREN Boogie 02/25 [facility] OFFICE O/P EST LOW 20 MIN [id number] Diagnos is: ICD-10- CM I11.9 Hyperte nsive heart disease without heart failure ARTI BOB 03/03 [facility] Outpatient Encounter [id number] Meredith GOMEZ 03/30 [facility] Out[facility]counter [id number] Meredith GOMEZ 04/30 [facility] COMPRE OPH EXAM EST PT 1/> [id number] Diagnos is: ICD-10- CM E11.9 Type 2 diabete s mellitu s without complic ations RUPAL RIZZO 04/30 [facility] Out[facility] Encounter [id number] Meredith GOMEZ 06/01 [facility] Out[facility]counter [id number] [facility]VA[facility] ISTOPHER E 07/20 [facility] Out[facility]counter [id number] GRIJALVA,[facility] ISTOPHER E 08/31 [facility] OFFICE O/P EST LOW 20 MIN [id number] Diagnos is: ICD-10- CM I11.9 Hyperte nsive heart disease without heart failure LISBETH ARTI Avila 09/04 [facility] OFFICE O/P EST LOW 20 MIN [id number] Diagnos is: ICD-10- CM L60.3 Nail dystrop hy CATHY YE D 10/07 [facility] Out[facility] Encounter [id number] 10/12 [facility] Out[facility]counter [id number] 11/11 [facility] Out[facility]counter [id number] 11/17 [facility] Out[facility] Encounter [id number] JOCELYN GIBSON 11/17 [facility] Out[facility] Encounter [id number] 11/20 [facility] Out[facility]counter [id number] 11/25 [facility] Social History Combined list of available smoking, tobacco, and other social history from [facility] of Defense and [facility] facilities. Social History Type Response Date Comment Source Tobacco smoking status [facility] VA-TOBACCO NEVER USED CIGARETTES 09/04/2024 [facility] History [facility] tobacco use VA-TOBACCO NEVER USED OTHER TYPE 09/04/2024 [facility] History of tobacco use AL-TOBACCO FORMER USER 06/04/2023 [facility] [place] [facility] History [facility] tobacco use AL-TOBACCO FORMER USER 06/15/2022 [facility] [place] [facility] History [facility] tobacco use AL-TOBACCO FORMER [facility] [facility] [place] [facility] History of tobacco use AL-TOBACCO FORMER USER 06/03/2020 [facility] [place] [facility] of [facility]2020 [facility] [place] [facility] History of tobacco use AL-TOBACCO FORMER USER 10/28/2018 [facility] [place] [facility] History of tobacco use QUIT TOBACCO USE > 7 YEARS AGO 07/10/2017 [facility] [place] [facility] History of tobacco use QUIT TOBACCO USE > 7 YEARS AGO 02/13/2016 . [facility] [place] [facility] History of tobacco use HISTORY OF SMOKING 06/08/2005 quit in 1973 [facility] [place] [facility] History of tobacco use HISTORY OF SMOKING 04/10/2004 [facility] [place] [facility] History of tobacco use HISTORY OF SMOKING 12/04/2002 [facility] [place] [facility] History of tobacco use QUIT TOBACCO USE > 7 YEARS AGO 01/09/2002 [facility] [place] [facility] History of tobacco use NON-TOBACCO USER 09/11/2001 [facility] [place] [facility] Plan of Care List of future care activities from [facility] facilities. Additional future care activities may be listed in the Assessment and Plan section. Date/Time Care Activity Care Activity Detail Facili ty 02/25/2025 AMBULATORY - MEDICINE [facility] Advance Directives List of completed, amended, or rescinded Advance Directives on record at [facility] facilities. An actual copy of the Directive is not included. Date Advance Directive Provider Source 08/27/2012 ADVANCE DIRECTIVE JESS ANDRADE [facility]
--- OUTSIDE RECORDS SUMMARY | 2024-12-02 18:34 | XMS_ITS | Encounter Summary ---
Author Name [facility] [facility] Address [address] [place] [address] Care Team Providers Care Helper Shear Operator Name Role Phone ARTI TAPIA Primary Care [...] PART A Feb 09, 2009 PART A [id number] BELKIS NEGRON PATIENT MEDICARE (WNR) MEDICARE (M) PART A Feb 09, 2009 PART A [id number] [phone] BELKIS NEGRON PATIENT MEDICARE (WNR) MEDICARE (M) PART A Feb 09, 2009 PART A [id number] BELKIS NEGRON PATIENT MEDICARE (WNR) MEDICARE (M) PART B Feb 09, 2009 PART B [id number] BELKIS NEGRON PATIENT MEDICARE (WNR) MEDICARE (M) PART B Jan 31, 2009 PART B [id number] JAMILBELKIS FAYE PATIENT MEDICARE (WNR) MEDICARE (M) PART B Jan 31, 2009 PART B [id number] BELKIS NEGRON PATIENT MEDICARE (WNR) MEDICARE (M) PART A Jan 31, 2009 PART A [id number] [phone] BELKIS NEGRON PATIENT MEDICARE (WNR) MEDICARE (M) PART B Jan 31, 2009 PART B [id number] [phone] BELKIS NEGRON PATIENT [facility] (WNR) MEDICARE ADVANTAGE [facility] (WNR) Sep 02, 2021 [id number] [phone] BELKIS NEGRON PATIENT [facility] (WNR) MEDICARE ADVANTAGE [facility] (WNR) Sep 02, 2021 [id number] BELKIS NEGRON PATIENT [facility] (WNR) MEDICARE ADVANTAGE [facility] (WNR) Sep 02, 2021 [id number] BELKIS NEGRON PATIENT Selected Encounter This section includes the information on record at NE for the Encounter. Date/Time Encounter Type Encounter Description Reason Provider Source Mar 03, 2024 01:30 PM OFFICE O/P EST LOW 20 MIN PRIMARY CARE/MEDICINE ICD-10-CM I11.9 Hypertensive heart disease without heart failure LORENZO TAPIA [facility] Encounter Template Text not used by NE Assessments - Encounter Diagnoses This section includes the primary and secondary diagnoses documented for the Encounter. Date/Time Primary/Secondary Diagnosis Diagnosis Name Provider Source Mar 03, 2024 01:49 PM PRIMARY Hypertensive heart disease without heart failure LORENZO TAPIA [facility] Mar 03, 2024 01:49 PM SECONDARY Age-related osteoporosis w/o current pathological fracture LORENZO TAPIA [facility] Mar 03, 2024 01:49 PM SECONDARY Encounter for immunization MADELYN GRIJALVA [facility] Plan of Treatment: Future Appointments (+ 6 months) and Future Tests (+/- 45 days) The Plan of Treatment section includes future care activities for the patient from all [place] treatmentfacilities. This section includes future appointments and future orders which are active, pending or scheduled. Future Appointments This section includes appointments that were scheduled to occur 6 months from the date of the Encounter, up to a maximum of 20 appointments. The data comes from all [facility]. Appointment Date/Time Appointment Type Appointme nt Facility Name Apr 30, 2024 01:30 PM [facility] May 05, 2024 01:00 PM AMBULATORY - MEDICINE [facility] Active, Pending, and Scheduled Orders This section includes a listing of several types of active, pending, and scheduled orders, including clinic medications orders, diagnostic test orders, procedure orders and consult orders; where the start date of the order is 45 days before the date of the Encounter or 45 days after the date of theEncounter. The data comes from all [facility]. Test Date/Time Test Type Test Details Facility Name Feb 27, 2024 12:00 AM Laboratory - Chemi stry Order BASIC METABOLIC PANEL (non-fasting) BLOOD (SST-SERUM) [facility] Feb 27, 2024 12:00 AM Laboratory - Chemi stry Order CBC BLOOD (LAV-BLOOD) [facility] Feb 27, 2024 12:00 AM Laboratory - Chemi stry Order IRON & TIBC PANEL BLOOD (SST-SERUM) [facility] Feb 27, 2024 12:00 AM Laboratory - Chemi stry Order FERRITIN BLOOD (SST-SERUM) [facility] Lab Results: +/- 30 days of the encounter This section includes the Chemistry and Hematology Lab Results on record with NE for the patient. Radiology Reports and Pathology Reports are provided separately, in subsequent sections. Lab Results This section contains the Chemistry/Hematology Results that were resulted 30 days before or 30 daysafter the date of the Encounter. Date/Time Source Result Type Result - Unit Interpretation Reference Range Comment Feb 20, 2024 08:43 AM [facility] LIVER FUNCTION Specimen Type: SERUM No comment entered. Ordering Provider: LORENZO TAPIA Report Released Date/Time: Sep 10, 2023 02:57 PM Reporting Lab: [address] [address] Performing Lab: [address] [address] PROTEIN,TOTAL 6.7 g/dL 6.0-8.3 ALBUMIN 3.9 g/dL 3.5-5.0 ALKALINE PHOSPHATASE 84 U/L 40-150 AST 16 U/L 5-34 ALT 17 U/L BILIRUBIN, TOTAL 0.8 mg/dL 0.2-1.2 Feb 20, 2024 08:43 AM [facility] BASIC METABOLIC PANEL (fasting) Specimen Type: SERUM No comment entered. Ordering Provider: LORENZO TAPIA Report Released Date/Time: Sep 10, 2023 02:57 PM Reporting Lab: [address] [address] Performing Lab: [address] [address] UREA NITROGEN 17 mg/dL 7-25 GLUCOSE 162 mg/dL H 65-100 SODIUM 140 mmol/L 135-145 POTASSIUM 4.3 mmol/L 3.5-5.0 CHLORIDE 104 mmol/L 100-110 CO2 23 meq/L 20-30 CREATININE, Serum 1.30 mg/dL 0.50-1.40 eGFR(CKD-EPI 2020) 56 mL/min L >60 Feb 20, 2024 08:43 AM [facility] LIPID PANEL FASTING Specimen Type: SERUM No comment entered. Ordering Provider: LORENZO TAPIA Report Released Date/Time: Sep 10, 2023 02:57 PM Reporting Lab: [address] [address] Performing Lab: [address] [address] CHOLESTEROL 143 mg/dL TRIGLYCERIDE 142 mg/dL 0-150 LDL calculated 64 mg/dL 0-129 CHOL/HDL 2.8 HDL CHOLESTEROL 51 mg/dL 40-60 Feb 20, 2024 08:43 AM [facility] IRON & TIBC PANEL Specimen Type: SERUM No comment entered. Ordering Provider: LORENZO TAPIA Report Released Date/Time: Sep 10, 2023 02:57 PM Reporting Lab: [address] [address] Performing Lab: [address] [address] TIBC 399 ug/dL 204-475 IRON 120 ug/dL 40-160 Transferrin Saturation 30.1 20.0-50.0 Feb 20, 2024 08:43 AM [facility] FERRITIN Specimen Type: SERUM No comment entered. Ordering Provider: LORENZO TAPIA Report Released Date/Time: Sep 10, 2023 02:57 PM Reporting Lab: [address] [address] Performing Lab: [address] [address] FERRITIN 55 ng/mL 20-300 Feb 20, 2024 08:43 AM [facility] CBC AND DIFF (AUTO) Specimen Type: BLOOD No comment entered. Ordering Provider: LORENZO TAPIA Report Released Date/Time: Sep 10, 2023 02:57 PM Reporting Lab: [address] [address] Performing Lab: [address] [address] WBC 5.93 10*3/uL 4.50-11.00 RBC 3.98 10*6/uL [...] 70 120/66 16 97 3 246 39 [facility] Immunizations: All administered on the encounter date [...] and tobacco- related health factors from the NE facility where the Encounter took place. Current Smoking Status This section includes the most current smoking, or tobacco-related health factor, from the NE facility where the Encounter took place. Date/Time Current Smoking Status Comment [facility] Jun 04, 2023 01:30 PM VA-TOBACCO FORMER USER [facility] Tobacco Use History This section includes a history of the smoking, or tobacco-related health factors, that were collected on or before the date of the Encounter. The data comes from the NE facility where the Encounter took place. Date/Time Smoking Status/Tobac co Use Comment Facility Jun 04, 2023 01:30 PM NE-TOBACCO QUIT 15 YRS OR MORE [facility] Jun 15, 2022 09:15 AM VA-TOBACCO FORMER USER [facility] [place] [facility] Jun 15, 2022 09:15 AM VA-TOBACCO QUIT 15 YRS OR MORE [facility] [place] [facility] Jun 30, 2021 09:30 AM VA-TOBACCO FORMER USER [facility] [place] [facility] Jun 30, 2021 09:30 AM VA-TOBACCO QUIT 15 YRS OR MORE [facility] [place] [facility] Jun 03, 2020 08:30 AM VA-TOBACCO FORMER USER [facility] [place] [facility] Jun 03, 2020 08:30 AM VA-TOBACCO QUIT 15 YRS OR MORE [facility] [place] [facility] Feb 23, 2020 09:01 AM VA-TOBACCO FORMER USER [facility] [place] [facility] Feb 23, 2020 09:01 AM VA-TOBACCO QUIT 15 YRS OR MORE [facility] [place] [facility] Oct 28, 2018 01:39 PM VA-TOBACCO FORMER USER [facility] [place] [facility] Oct 28, 2018 01:39 PM VA-TOBACCO QUIT 15 YRS OR MORE [facility] [place] [facility] Jul 10, 2017 10:40 AM QUIT TOBACCO USE > 7 YEARS AGO [facility] [place] [facility] Feb 13, 2016 10:21 AM QUIT TOBACCO USE > 7 YEARS AGO . [facility] [place] [facility] Jun 08, 2005 10:50 AM HISTORY OF SMOKING quit in 1973 [facility] [place] [facility] Apr 10, 2004 10:43 AM HISTORY OF SMOKING [facility] [place] [facility] Dec 04, 2002 11:12 AM HISTORY OF SMOKING [facility] [place] [facility] January 09, 2002 10:01 AM QUIT TOBACCO USE > 7 YEARS AGO [facility] [place] [facility] Sep 11, 2001 10:41 AM HISTORY OF SMOKING see note this date [facility] [place] [facility] Sep 11, 2001 10:41 AM NON-TOBACCO USER see previous note [facility] [place] [facility] Advance Directives: All historical and current Section Date Range: From patient's date of to the date document was created. This section includes ALL of a patient's completed or amended NE Advance and Rescinded Directives. The entries below indicate that a directive exists for the patient, but an actual copy is not included with this document. The data comes from all NE facilities. Date Advance Directives Provider Source Aug 27, 2012 ADVANCE DIRECTIVE JESS ANDRADE [facility] Radiology Reports: +/- 30 days of [...] the Encounter. The data comes from all [place] treatment facilities. Date/Time Radiology Report Provider Source Feb 20, 2024 09:51 AM ULTRASOUND NECK (THYROID,HEAD,SOFT TISSUE): ELSA NEGRON [id number] -[id number] M Ex Date: FEB 20, 2024@09:51 Req Phys: PAZ WEBER Loc: NHM/ENDOCRINE (Req'g Loc) Img Loc: ULTRASOUND Service: Unknown [facility] , (Case [id number] COMPLETE) ULTRASOUND NECK (THYROID,HEAD,SOF(US Detailed) CPT:15464 Reason for Study: follow multinodular goiter Clinical History: Report Status: Verified Date Reported: FEB 26, 2024 Date Verified: FEB 26, 2024 Academic Affairs Vice President E-Sig: Report: ULTRASOUND NECK (THYROID,HEAD,SOFT TISSUE) Clinical [...] benign nodule. READING PHYSICIAN: Elsa Monreal MD -[id number] 02/26/2024 9:00 CDT [facility] National Teleradiology Program [phone] (For Medical Practitioner Use Only) Attention Patients / Veterans: If you have questions or concerns about these test results, please contact your ordering provider or primary care team. Primary Diagnostic Code: NO ALERT REQUIRED Primary Interpreting Staff: RADIOLOGY,OUTSIDE SERVICE, Staff Physician / RADIOLOGY,OUTSIDE SERVICE [facility] [place] [facility] Encounter Notes: All associated encounter notes This section contains the clinical notes associated to the Encounter. Date/Time Encounter Note(s) Provider Source Mar 03, 2024 01:46 PM PHYSICIAN PLATFORM POWER TECHNICIAN NOTE: LOCAL TITLE: PA NOTE STANDARD TITLE: PHYSICIAN PLATFORM POWER TECHNICIAN NOTE DATE OF NOTE: MAR 03, 2024@13:46 [...] Flexible Colonoscopy Proximal to Splenic Flexure Normal [facility] colonoscopy, , 5 yr follow up He declined colonoscopy 06/2011 for 5 year follow up, 2015 11. Hypertriglyceridemia * 12. Hereditary Hemochromatosis Phlebotomy q4m at [facility] via DR Mirza. 13. Gout * 14. Cataract, Unspecified 15. Obesity * 16. Benign hypertension (SNOMED CT [id number]) SERVICE CONNECTED % - NONE FOUND [facility] [...] full rights to use it throughout the [place] system. PRIMARY SCREEN RESULT: The Primary Screen is NEGATIVE. The individual answered never to all forms of IPV above (i.e., answered never to all 5 items) The individual accepts education and/or resources: Other: EDUCATION: Other: /patrick/ Arti Tapia PA-C STAFF PHYSICIAN PLATFORM POWER TECHNICIAN Signed: 03/03/2024 13:49 ARTI TAPIA [facility] [place] [facility] Mar 03, 2024 01:21 PM PREVENTIVE MEDICINE NURSING NOTE: LOCAL TITLE: CLINICAL REMINDERS/NURSING STANDARD TITLE: PREVENTIVE MEDICINE NURSING NOTE DATE OF NOTE: MAR 03, 2024@13:21 ENTRY DATE: MAR 03, 2024@13:21:42 AUTHOR: KIERSTEN GRIJALVAIGNER: URGENCY: STATUS: COMPLETED Suicide Screen: C-SSRS Screening [place] Suicide Severity Rating Scale (C-SSRS) screener 1. 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 Lot: [id number] Exp Date: Jul 05, 2024 [facility]: [phone] Admin Route/Site: INTRAMUSCULAR/LEFT DELTOID Dosage: 0.5mL Vaccine Information Statement(s): COVID-19 MRNA VACCINE (12+ YRS) VACCINE VIS Jun 20, 2023 ([place]) Order By: Policy Administered By: Kiersten Grijalva Vaccine administered without complications. /patrick/ KIERSTEN GRIJALVA LPN Signed: 03/03/2024 13:30 LU[facility]
--- OUTSIDE RECORDS SUMMARY | 2024-12-02 18:34 | XMS_ITS | Data Portability ---
Author Organization [facility] Home Service Address [address] [place] [address] Assessment Encounter Date Assessment Date Assessment LastModified [...] living. 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) MDM MODERATE MUST MEET 2 OUT OF [...] incisiona l wound from surgery 2024 025 [facility], [address] [place] [address], [id number], 12/02/2024 15:41:10 iron + TIBC + ferritin, serum 2024 025 [facility], [address] [place] [address], [address], 10/08/2024 12:39:01 lipid panel, blood 2023 024 [facility], [address] [place] [address], [address], 07/01/2024 11:53:46 hemoglobi n, gastroint estinal, stool 2023 024 [facility], [address] [place] [address], [address], 07/01/2024 11:53:46 CBC w/ auto diff 2023 024 [facility], [address] [place] [address], [id number], 07/01/2024 11:53:46 CMP, serum or plasma 2023 024 [facility], [address] [place] [address], [id number], 07/01/2024 11:53:46 Referral None recorded. Procedures None recorded. Surgeries None recorded. Imaging None recorded. Medication Orders None recorded. Patient TargetsNo targets recorded. Patient Instructions Encounter Date Encounter Id Patient Instructions Last Modified By Organization Details Last Modified Time 03/18/2024 [id number] Peripheral Arterial Disease (PAD): Care Instructions Not available 03/18/2024 11:32:36 learning about type 2 diabetes Not available 03/18/2024 11:32:36 type 2 diabetes: care instructions Not available 03/18/2024 11:32:36 high blood pressure: care instructions Not available 03/18/2024 11:32:36 learning about high blood pressure Not available 03/18/2024 11:32:36 07/01/2024 [id number] learning about type 2 diabetes Not available [...] ___ minutes. Not available 06/19/2024 12:13:27 10/07/2024 [id number] learning about type 2 diabetes Not available [...] (hemoglobin A1c), Blood : A1C, CMP Rasta cardenas [facility] 05/27/2024 14:34:27 Problems Name Problem SNOMED Code Status Onset Date Resolution Date Notes Provider Name and Address Organization Details Recorded Time Type 2 diabetes mellitus 32715199 Active 2017 Hannah cardenas [facility] 8 11:44:42 Essential hypertens ion 37481891 Active 2017 Hannah cardenas [facility] 8 11:44:48 Hemochrom atosis 714717646 Active 2017 Hannah cardenas [facility] 8 11:44:59 Hemangiom a of liver 34347907 Active 2017 Hannah cardenas [facility] 8 11:45:22 Iron deficienc y anemia 69766755 Active 2017 Hannah cardenas [facility] 8 11:45:29 Osteoarth ritis of knee 611654868 Active 2017 bilat knee Isidro Piero Henderson, DO [address] [facility], [place], [address], [facility] 9 11:38:33 Gout 80294792 Active 2017 Hannah cardenas [facility] 8 11:46:54 Hyperlipi demia 86257804 Active 2017 Hannah cardenas [facility] 8 11:46:58 Near syncope 386784937 Active 2021 Isidro Henderson DO [address] [place] [address], [address], [facility] 2 15:23:54 Contusion of rib 088065734 Active 2022 Isidro Henderson DO [address] [place] [address], [address], [facility] 3 13:46:27 Osteoarth ritis of left knee joint 299576622275 109 Active 2023 Isidro Henderson DO [address] [place] [address], [address], [facility] Internal [facility] 4 15:04:28 Closed fracture of neck of femur 755101284 Active 2024 JOSSELYN FAGAN [address] [place] [address], [address], [facility] 5 15:29:24 Problem Notes None recorded. Procedures Surgical History Date Name Laterality Status Provider Name and Address Organization Details Recorded Time 025 WOUND CARE completed JOSSELYN FAGAN [address] [place] [address], [address], [facility] 12/02/2024 15:40:33 024 Corticosteroid Injection completed Najma Ayala [facility] 05/22/2024 15:02:57 021 Corticosteroid Injection completed Isidro Henderson DO [address] [place] [address], [address], [facility] 01/23/2021 16:19:13 021 Corticosteroid Injection completed Isidro Henderson DO [address] [place] [address], [address], [facility] 01/03/2021 16:13:57 019 Corticosteroid Injection completed Isidro Henderson DO [address] [place] [address], [address], [facility] 05/08/2019 14:50:48 019 Corticosteroid Injection completed Isidro Henderson, DO [address] [place], [address], [facility] 04/06/2019 11:39:50 018 Corticosteroid Injection completed Isidro Henderson DO [address] [place], [address], [facility] 07/21/2018 16:05:22 018 Corticosteroid Injection completed Isidro Henderson, [address] [place], [address], [facility] 04/30/2018 12:44:06 018 Corticosteroid Injection completed Isidro Henderson DO [address] [place] [address], [address], [facility] 04/18/2018 14:33:50 015 Colonoscopy completed Hannah Monreal [facility] 12/02/2019 10:17:00 Imaging Results Imaging Date Name [...] n cough Not available Not available 11/06/2017 [id number] SNOMED Hannah cardenas [facility] 8 11:43:42 402 colchicin e medicatio n rash Not available Not available 11/06/2017 [id number] RxNorm Hannah cardenas [facility] 8 11:44:37 Medications Name Sig Start [...] EVERY DAY FOR 2 DAYS. TAKE ON 8 AND 8/2 11/02 completed Not Available Not Available Not [...] Updated DateTime 4 170.18 cm 39 kg/m2 914605. 5 g 81 /min 98 % 98 % 140 mm[Hg] 82 mm[Hg] Sarah Worthington [facility] 4 11:03:09 Date Recorded Body height Body mass index (BMI) Body weight Heart rate Oxygen saturation Oxygen saturation in Arterial blood by Pulse oximetry Systolic blood pressure Diastolic blood pressure Provider Name and Address Organization Details Last Updated DateTime 4 170.18 cm 37.9 kg/m2 657556. 35 g 86 /min 97 % 97 % 138 mm[Hg] 86 mm[Hg] Rasta Ng [facility] 4 11:05:47 Date Recorded Body height Body mass index (BMI) Body weight Heart rate Oxygen saturation Oxygen saturation in Arterial blood by Pulse oximetry Systolic blood pressure Diastolic blood pressure Provider Name and Address Organization Details Last Updated DateTime 5 170.18 cm 37.7 kg/m2 034723. 76 g 70 /min 99 % 99 % 130 mm[Hg] 80 mm[Hg] Rasta Hernandez [facility] 5 13:51:10 Date Recorded Body height Body mass index (BMI) Body weight Heart rate Oxygen saturation Oxygen saturation in Arterial blood by Pulse oximetry Systolic blood pressure Diastolic blood pressure Provider Name and Address Organization Details Last Updated DateTime 5 170.18 cm 37.7 kg/m2 844117. 76 g 72 /min 98 % 98 % 132 mm[Hg] 78 mm[Hg] Sarah Worthington [facility] 5 15:05:33 Social History Question Answer Notes LastModified by Organizat ion Details LastModified Time Tobacco Smoking Status Former Smoker Not Available [facility] 07/05/2020 03:36:24 What Was The Date Of Your Most Recent Tobacco Screening? 10/07/2024 Information not available 10/07/2024 Do You Or Have You Ever Used Any Other Forms Of Tobacco Or Nicotine? No [email or web address] Information not available 04/15/2023 Sex: Unknown Functional Status None recorded. Mental Status None recorded. Family History Nothing Reported. Medical History No medical history recorded. Immunizations Vaccine Type Date Status Note Provider Nam e and Address Organization Details Recorded Time COVID-19, mRNA, LNP-S, PF, 100 mcg/0.5mL dose or 50 mcg/0.25mL dose 1 completed Isidro Henderson DO [address] [place] [address], [address], [facility] 01/05/2022 14:48:34 COVID-19, mRNA, LNP-S, PF, 100 mcg/0.5mL dose or 50 mcg/0.25mL dose 2 completed Isidro Henderson DO [address] [place] [address], [address], [facility] 01/05/2022 14:48:42 Influenza, split virus, quadrivalent, preservative 8 [facility] 14:43:50 zoster live 8 [facility]/16[facility]2018 14:44:08 Tdap 2 completed Isidro Henderson DO [address] [place] [address], [address], [facility] 04/20/2022 11:29:04 influenza, unspecified formulation 2 [facility]22 12:03:42 SARS-COV-2 (COVID-19) vaccine, UNSPECIFIED 3 completed [facility] 04/15/2023 14:56:37 SARS-COV-2 (COVID-19) vaccine, UNSPECIFIED 4 completed [facility] 03/18/2024 11:04:51 Influenza, split virus, quadrivalent, preservative 0 completed Isidro Henderson DO [address] [place] [address], [address], [facility] 05/16/2020 16:13:32 COVID-19, mRNA, LNP-S, PF, 100 mcg/0.5mL dose or 50 mcg/0.25mL dose 1 completed Isidro AlfonsoIggy Henderson [address] [place] [address], [address], [facility] 11/02/2020 11:44:38 COVID-19, mRNA, LNP-S, PF, 100 mcg/0.5mL dose or 50 mcg/0.25mL dose 1 completed Isidro Piero Henderson DO [address] [place] [address], [address], [facility] 11/02/2020 11:44:46 Past Encounters Encounter ID Performer Location Encounter Start Date Encounter Closed Date Diagnosis/Indication Diagnosis SNOMED-CT Code Diagnosis ICD10 Code Diagnosis Note [id number] Isidro Henderson [address] [address] 01/22/2018 10:46:48 01/22/2018 12:02:38 Type 2 diabetes mellitus 21626657 E11.9 a1c is good and will be following with [facility] no current complicati ons Iron defic iency anemia 62878155 D50.9 will have followup lab with [facility] and then will have colonoscoi py dr marcelo to decide if xarelto is culprit of low iron Essential hypertension 33233936 I10 doing great no change in meds [id number] Isidro Henderson [facility] [address] [address] 04/18/2018 13:57:19 04/18/2018 14:57:18 Osteoarthritis of knee 774418524 M17.0 cortisone inj well tolerated [id number] Isidro Henderson [facility] [address] [address] 04/30/2018 12:04:14 04/30/2018 15:58:16 Osteoarthritis of knee 829817773 M17.0 cortisone inj well tolerated [id number] Isidro Henderson [facility] [address] [facility] [address] [address] 06/16/2018 14:17:42 06/16/2018 15:33:04 Type 2 diabetes mellitus 46215050 E11.9 a1c is good and will be following with [facility] no current complicati ons 7.0 is still stable up from 6.9 Essential hypertension 14303041 I10 doing great no change in meds Osteoarthr itis of knee 947732665 M17.0 cortisone inj did ok but took a long time [id number] Isidro Henderson [facility] [address] [facility] [address] [address] 07/21/2018 15:26:00 07/21/2018 16:09:19 Osteoarthritis of knee 787845105 M17.0 cortisone inj did ok but took a long time repeat but if this does not help will have to refer [id number] Isidro Henderson [facility] [address] [facility] [address] [address] 10/01/2018 14:18:33 10/03/2018 08:52:47 Essential hypertension 32372926 I10 doing great no change in meds Type 2 kristal betes mellitus 55953585 E11.9 a1c is good and will be following with [facility] no current complicati ons 7.0 is still stable Osteoarthr itis of knee 122582883 M17.0 cortisone inj did ok but took a long time repeat but if this does not help will have to refer Hyperlipidemia 32603414 E78.5 LDL is excellent at 96 Hemochromatosis 09770286 6 E83.119 ferritin is 35 [id number] Isidro Henderson [facility] [address] [facility] [address] [address] 12/26/2018 10:34:23 12/26/2018 12:00:07 Type 2 diabetes mellitus 51859843 E11.9 a1c is good and will be following with [facility] no current complicati ons 6.6 is still stable Essential hypertension 90377954 I10 no change in meds right now as he is quite distraught and we will ss him again in a couple mo and recheck [id number] Isidro Henderson, [facility] [address] [facility] [address] [address] 04/06/2019 10:49:50 04/06/2019 11:46:29 Osteoarthritis of knee 200370677 M17.0 cortisone inj did ok but took a long time to right knee repeat but if this does not help will have to refer [id number] Isidro Harry Hermes [facility] [address] [facility] [address] [address] 05/08/2019 14:08:59 05/08/2019 14:57:01 Osteoarthritis of knee 974381257 M17.0 cortisone inj to left knee well toerated [id number] Isidro Harry Hermes [facility] [address] [facility] [address] [address] 08/10/2019 11:08:08 08/10/2019 11:31:08 Type 2 diabetes mellitus 86656867 E11.9 a1c is fair and will be following with [facility] no current complicati ons 8.0 is the a1c and is going to have to do better with less treating will not adjust the meds Essential hypertension 63425470 I10 noted to have stable bp and we will see him again in a couple mo and recheck [id number] Isidro Harry Hermes [facility] [address] [facility] [address] [address] 09/09/2019 11:57:12 09/09/2019 12:13:28 Type 2 diabetes mellitus 02712561 E11.[address] now and will be following with [facility] no current complicati ons 6.4 is the a1c and is doing better with less eating will not adjust the meds Essential hypertension 98652613 I10 noted to have stable bp and we will see him again in a couple mo and recheck [id number] Isidro NatyIggy Hermes [facility] [address] [facility] [address],[place] [address] 12/02/2019 09:10:17 12/02/2019 13:36:51 Essential hypertension 68580164 I10 noted to have stable bp and we will see him again in a couple mo and recheck Type 2 kristal betes mellitus 23090559 E11.9 a1c is better now and will be following with [facility] no current complicati ons 6.4 is the a1c just like last time and is doing better with less eating will not adjust the meds Iron defic iency anemia 06758941 D50.[address] marcelo for a colonoscop y to check for source of bleed Osteoarthr itis of knee 119764803 M17.0 cortisone inj to left knee seemed to have helped [id number] Isidro Henderson DO [facility] Medicine [address] [facility],[place] [address] 03/07/2020 11:33:53 03/07/2020 12:19:53 Essential hypertension 13287644 I10 noted to have stable bp and we will see him again in 3 mo and recheck Hemochromatosis 51298024 6 E83.119 ferritin is 35 cbc is good iron level good Type 2 kristal betes mellitus 12722184 E11.9 a1c is better now and will be following with [facility] no current complicati ons 6.4 is the a1c just like last time and is doing better with less eating will not adjust the meds History of polyp of colon 128074644 Z86.010 doesn t want to get colonoscop y even though he has had polyps in e past told it would be important but he is not happy about it we will try dna test [id number] JOSSELYN FAGAN [facility] Medicine [address] [facility] [address] 04/08/2020 14:50:22 04/08/2020 15:47:07 Essential hypertension 53434052 I10 well controlled today on medication Type 2 kristal betes mellitus 64905862 E11.9 sugar has been good per patient Bacteremia caused by Gram-negative bacteria 8555736742 08 A41.50 treated and has abx on discharge Acute cholecystitis 6527 5009 K81.0 resolved had gallbladde r removed Dyspnea at rest 79991004 7 R06.00 SENT TO THE ER FROM OFFICE FOR CONCERN OF PE Atypical chest pain 1025 75223 R07.89 has been having since after surgery, gotten worse per patient [id number] Isidro Henderson DO [facility] Medicine [address] [facility],[place] [address] 05/16/2020 14:35:18 05/16/2020 15:22:43 Sepsis caused by Gram negative bacteria 741666407 A41.50 has survived and done well relates that he is still very tired History of cholecystectomy 217528207 Z90.49 and is healing well will be done with vna Administra tion of influenza vaccine 26934874 Z23 [id number] Isidro Henderson [facility] [address] [facility] [address] 06/29/2020 11:22:38 06/29/2020 11:54:40 Type 2 diabetes mellitus 58883986 E11.9 a1c is better now and is a little too good at 5.5 no current complicati ons 6.4 is the last time and is doing better with less eating will need to watch his sugar to make sure he doesnt go to low Essential hypertension 36188585 I10 noted to have stable bp and we will see him again in 3 mo and recheck [id number] Isidro Henderson [facility] [address] [facility],[place] [address] 11/02/2020 11:26:25 11/02/2020 13:47:14 Essential hypertension 02277583 I10 noted to have stable bp and we will see him again in 3 mo and recheck Type 2 kristal betes mellitus 35344276 E11.9 a1c is better now and is a little too good at 6.3 which is good he was 5.5 no current complicati ons 6.4 is the last time and is doing better with less eating will need to watch his sugar to make sure he doesnt go to low Iron defic iency anemia 10455688 D50.[address] marcelo for a colonoscop y to check for source of bleed we will rechk lab Osteoarthr itis of knee 213104580 M17.0 cortisone inj to left knee seemed to have helped in the past lately he s ok but we will plan another inj when hes ready [id number] Isidro Henderson [facility] Medicine [address] [facility],[place] [address] 01/03/2021 15:29:43 01/03/2021 16:15:42 Osteoarthritis of knee 462088850 M17.0 cortisone inj to left knee seemed to have helped in the past lately he s ok but we will plan another inj when hes ready [id number] Isidro Henderson DO [facility] Medicine [address] [facility] [address] [place] [address] 01/23/2021 15:55:04 01/23/2021 16:47:42 Osteoarthritis of right knee joint 4871122145 07740 M17.11 jrodon inj well tolerated [id number] Isidro Henderson DO [facility] Medicine [address] [facility] [address] [place] [address] 03/01/2021 10:57:56 03/01/2021 11:29:35 Essential hypertension 65862293 I10 noted to have stable bp and we will see him again in 3 mo and recheck Type 2 kristal betes mellitus 70596364 E11.9 a1c is better at 6.6 was 6.7 in december and was at 6.3 which is good he was 5.5 no current complicati ons [id number] Isidro Hendersno DO [facility] Medicine [address] [facility] [address],[place] [address] 06/02/2021 08:28:12 06/02/2021 14:00:45 Type 2 diabetes mellitus 70974702 E11.9 a1c is awesome at 5.7!!!!!!! !!!! better at 6.6 was 6.7 in december and was at 6.3 which is good he was 5.5 no current complicati onsdoing fantastic Osteoarthr itis of knee 444563724 M17.0 cortisone inj to left knee seemed to have helped in the past lately he s ok but we will plan another inj when he's ready Iron defic iency anemia 05316265 D50.[address] marcelo for a colonoscop y to check for source of bleed we will rechk lab Essential hypertension 34005085 I10 noted to have stable bp and we will see him again in 3 mo and recheck [id number] Isidro Henderson DO [facility] Medicine [address] [facility],[place] [address] 09/20/2021 08:10:48 09/22/2021 11:38:30 Essential hypertension 93888283 I10 noted to have stable bp and we will see him again in 3 mo and recheck Type 2 kristal betes mellitus 90405518 E11.9 a1c is pending and in past was awesome at 5.7!!!!!!! !!!! better at 6.6 was 6.7 in december and was at 6.3 which is good he was 5.5his home readings are avg 115 for 90 daysno current complicati onsdoing fantastic Hemochromatosis 08517790 6 E83.119 prior level of ferritin is 35 cbc is good iron level good lab is pending Hyperlipidemia 05860273 E78.5 LDL is excellent at 96 on prior lab Iron defic iency anemia 05271527 D50.[address] marcelo for a colonoscop y to check for source of bleed we will rechk lab is now pending [id number] Isidro Henderson [facility] Medicine [address] [facility] [address] 01/05/2022 14:22:54 01/05/2022 15:45:55 Type 2 diabetes mellitus 87016151 E11.9 a1c is pending and in past was up to 6.4 he was at 5.7!!!!!!! !!!! better at 6.6 was 6.7 in december and was at 6.3 which is good he was 5.5his home readings are avg 115 for 90 daysno current complicati onsdoing fantastic Essential hypertension 01544170 I10 noted to have stable bp and we will see him again in 3 mo and recheck Active or passive immunization 694312733 Z23 will bring copy from [place] to next visit to update Near syncope 280101678 R 55 no full syncope we will get a monitor done to double check [id number] Isidro Henderson [facility] Medicine [address] [facility],[place] [address] 04/20/2022 11:24:02 04/20/2022 11:52:51 Essential hypertension 72123340 I10 noted to have stable bp and we will see him again in 3 mo and recheck Iron defic iency anemia 30562431 D50.9 currently stable Type 2 kristal betes mellitus 44248593 E11.9 a1c is pending and in past was up to6.6 and beforewas 6.4 he was at 5.7!!!!!!! !!!! better at 6.6 was 6.7 in december and was at 6.3 which is good he was 5.5his home readings are avg 115 for 90 daysno current complicati onsdoing fantastic Near syncope 018721743 R 55 no full syncope we will get a monitor is normal [id number] Isidro Henderson [facility] Medicine [address] [facility], [employer] [facility] [place] [address] 07/23/2022 11:54:50 07/23/2022 12:49:21 Type 2 diabetes mellitus 03050520 E11.9 a1c is 6.6 and beforewas 6.6his home readings are avg 115 for 90 daysno current complicati onsdoing fantastic Hyperlipidemia 84288429 E78.5 LDL is excellent at 96 on prior lab Essential hypertension 66494788 I10 noted to have stable bp and we will see him again in 3 mo and recheck [id number] Isidro Henderson [facility] [address] [facility] [facility],[place] [address] 11/05/2022 11:26:32 11/05/2022 15:11:44 Type 2 diabetes mellitus 39946427 E11.9 a1c is now 6.5 was 6.6 and beforewas 6.6his home readings are avg 110 for 90 daysno current complicati onsdoing fantastic carefyul with diet and salt intake Essential hypertension [id number] I10 noted to have stable bp and we will see him again in 3 mo and recheck Advance care planning 71 0719715 Z71.89 done [id number] Isidro Henderson [facility] Internal Medicine [address] [facility] [address],[place] [address] 04/15/2023 14:42:18 04/15/2023 15:23:23 Essential hypertension [id number] I10 noted to have stable bp and we will see him again in 3 mo and recheck Type 2 kristal betes mellitus 59513545 E11.9 a1c is now 6.4 and was 6.5 was 6.6his home readings are avg 110 for 90 daysno current complicati onsdoing fantastic careful with diet and salt intake [id number] Isidro Henderson [facility] Internal Medicine [address] [facility],[place] [address] 07/29/2023 13:27:23 07/29/2023 14:41:04 Essential hypertension 70291291 I10 noted to have stable bp and we will see him again in 3 mo and recheck Hyperlipidemia 27829486 E78.5 LDL is excellent at 96 on prior lab Type 2 kristal betes mellitus 62901489 E11.9 a1c is now 6.9 and was 6.4 and was 6.5 was 6.6his home readings are avg 120 for 90 daysno current complicati onsdoing fantastic careful with diet and salt intake Contusion of rib 7117550 06 S20.20XD doing much better lungs clear minimal palp pain no evid rib fx [id number] Isidro Henderson [facility] Internal Medicine [address] [facility],[place] [address] 12/06/2023 11:11:40 12/06/2023 11:52:07 Essential hypertension 03419803 I10 noted to have stable bp and we will see him again in 3 mo and recheck Hemochromatosis 83886504 6 E83.119 prior level of ferritin is 35 cbc is good iron level good lab is pending Hyperlipidemia 21640896 E78.5 LDL is excellent at 96 on prior lab Type 2 kristal betes mellitus 63462307 E11.9 a1c is now 6.2 qas 6.9 and was 6.4 and was 6.5 was 6.6 no current complicati onsdoing fantastic careful with diet and salt intake [id number] Isidro Henderson [facility] Internal Medicine [address] [facility] [address] [place] [address] 03/18/2024 10:56:57 03/18/2024 12:01:25 Depression screening 735636183 Z13.31 neg Type 2 kristal betes mellitus 89365110 E11.9 a1c is now 6.2 was 6.9 and was 6.4 and was 6.5 was 6.6microal b is negno current complicati onsdoing fantastic careful with diet and salt intake Essential hypertension 19732468 I10 noted to have stable bp and we will see him again in 3 mo and recheck Peripheral vascular disease 634302013 I73.9 [id number] Isidro Henderson [facility] Internal Medicine [address] [facility] [address],[place] [place] [address] 05/22/2024 14:41:46 05/22/2024 15:50:09 Osteoarthritis of left knee joint [id number] 14369 M17.12 jordon well tolerated [id number] Isidro Henderson [facility] Internal Medicine [address] [facility] [address],[place] it[place] D [employer] [place] [address] 07/01/2024 10:56:32 07/01/2024 15:01:39 Adult health examination 118272420 Z00.01 stable despite his recent fallno major issues Screening for cardiovascular system disease 255238470 Z13.6 Screening for malignant neoplasm of colon 667056538 Z12.11 Contusion of rib 9601674 06 S20.20XD doing much better lungs clear minimal palp pain no evid rib fx Essential hypertension 47528041 I10 noted to have stable bp and we will see him again in 3 mo and recheck Type 2 kristal betes mellitus 47607364 E11.9 a1c is now 6.2 was 6.9 and was 6.4 and was 6.5 was 6.6microal b is negno current complicati onsdoing fantastic careful with diet and salt intake [id number] Isidro Henderson [facility] Internal Medicine [address] [facility] [address],[place] ite D [employer] [facility] [place] [address] 10/07/2024 13:43:19 10/07/2024 14:24:49 Essential hypertension 16919945 I10 noted to have stable bp and we will see him again in 3 mo and recheck Hemochromatosis 62963603 6 E83.119 prior level of ferritin is 35 cbc is good iron level good lab is pending cbc nl needs iron level done as well as ferritin Hyperlipidemia 67922841 E78.5 LDL is excellent at 96 on prior lab 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 [address],[place] [place] [address] 12/02/2024 14:48:32 12/02/2024 15:45:26 Closed fracture of neck of femur 364257735 S72.024A will set up with wound culturered ressed with new steri strips Type 2 kristal betes mellitus 30628790 E11.9 stable Health Concerns Section Related Observation LastModified by Organization Detai ls LastModified Time None Recorded Concern Status LastModified by Organization Details LastModified Time None Recorded Advance Directives Directive None Recorded Payers Encounter Date Sequence Insurance Name Policy Number Policy Lopez Covered Member ID Lopez Member ID Guarantor Name 03/18/2024 1 [facility] (MEDICARE REPLACEMENT/A DVANTAGE - PPO) [id number] Uziel Briceño [id number] Uziel Briceño 05/22/2024 1 [facility] (MEDICARE REPLACEMENT/A DVANTAGE - PPO) [id number] Uziel Briceño [id number] Uziel Briceño 07/01/2024 1 [facility] (MEDICARE REPLACEMENT/A DVANTAGE - PPO) [id number] Uziel Briceño [id number] Uziel Briceño 10/07/2024 1 [facility] (MEDICARE REPLACEMENT/A DVANTAGE - PPO) [id number] Uziel Briceño [id number] Uziel Briceño 12/02/2024 1 [facility] (MEDICARE REPLACEMENT/A DVANTAGE - PPO) [id number] Uziel Briceño [id number] Uziel Briceño Notes Date Note Type Note Provider Name a ri Address Organization Details Recorded Time 4 text/html here for rechk and is feeling well a1c 6,7 and is doing well with the VALDL is 63 denies any pain other than his arthritisno cp no sobsleep is fair had an US with multi nod goiter and neg bxnext US in 2 years Isidro AlfonsoIggy Henderson, DO [address] [place], [address], [facility] Internal Medicine 03/18/2024 11:33:09 4 text/html her fo his jordon inj to lwft knee has been very sore and uncomfortable Isidro NatyIggy Henderson DO [address] [place], [address], [facility] 05/22/2024 15:05:19 4 text/html [...] bloody nosebreathing is good no l=cp Isidro Henderson DO [address] [place], [address], [facility] 07/01/2024 11:54:40 5 text/html [...] was very sore better todayreviewed lab from [place] a1c is 6.7seeing [place] drs just had a DM foot eval too Isidro Henderson DO [address] [facility], [place], [address], [facility] Medicine 10/07/2024 14:16:04 5 text/html hospital d/c the patient fracture his [...] swab was taken to culture at appt ANN MARIE PEREZ, JOSSELYN [address] [place] [address], [place], [address], J[facility] 12/02/2024 15:41:39
== END 2024-12-02 18:31 | disposition home or self-care (01) ==
LOC: HO.LNP 18:30
PROVIDERS: Visit Provider Physician Assistant
DX: S72.024A Nondisplaced fracture of epiphysis (separation) (upper) of right femur, initial encounter for closed fracture (principal)
CPT/HCPCS: 87070; 87077; 87186; 87205

== ENCOUNTER 2024-12-08 10:02 | Outpatient (REF) | payer MEDICARE, SELFPAY ==
--- OUTSIDE RECORDS SUMMARY | 2024-12-08 11:42 | XMS_ITS | Data Portability ---
Author Organization [facility] Home Service Address [address] [place] [address] Assessment Encounter Date Assessment Date Assessment LastModified [...] living. 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 MODERATE MUST MEET 2 OUT OF [...] Organization Details Last Modified Time Details Appointments MEDICARE ANNUAL WELLNESS 2024 01:30P M DR HENDERSON Not available Not available Not available Lab culture, wound - right hip, incisiona l wound from surgery 2024 [id number] [facility], [address] [place] [address], [id number], 12/03/2024 15:54:46 iron + TIBC + ferritin, serum 2024 025 [facility], [address] [place] [address], [id number], 10/08/2024 12:39:01 lipid panel, blood 2023 024 [facility], [address] [place] [address], [id number], 07/01/2024 11:53:46 hemoglobi n, gastroint estinal, stool 2023 024 [facility], [address] [place] [address], [id number], 07/01/2024 11:53:46 CBC w/ auto diff 2023 024 [facility], [address] [place] [address], [id number], 07/01/2024 11:53:46 CMP, serum or plasma 2023 024 [facility], [address] [place] [address], [place], [id number], 07/01/2024 11:53:46 Referral None recorded. Procedures None recorded. Surgeries None recorded. Imaging None recorded. Medication Orders None recorded. Patient TargetsNo targets recorded. Patient Instructions Encounter Date Encounter Id Patient Instructions Last Modified By Organization Details Last Modified Time 03/18/2024 [id number] Peripheral Arterial Disease (PAD): Care Instructions Not available 03/18/2024 11:32:36 learning about type 2 diabetes Not available 03/18/2024 11:32:36 type 2 diabetes: care instructions Not available 03/18/2024 11:32:36 high blood pressure: care instructions Not available 03/18/2024 11:32:36 learning about high blood pressure Not available 03/18/2024 11:32:36 07/01/2024 [id number] learning about type 2 diabetes Not available [...] ___ minutes. Not available 06/19/2024 12:13:27 10/07/2024 [id number] learning about type 2 diabetes Not available [...] (hemoglobin A1c), Blood : A1C, CMP Rasta Hernandez ronald [facility] 05/27/2024 14:34:27 Problems Name Problem SNOMED Code Status Onset Date Resolution Date Notes Provider Name and Address Organization Details Recorded Time Type 2 diabetes mellitus 83280473 Active 2017 Hananh cardenas [facility] 8 11:44:42 Essential hypertens ion 71803732 Active 2017 Hannah cardenas [facility] 8 11:44:48 Hemochrom atosis 357365016 Active 2017 Hannah cardenas [facility] 8 11:44:59 Hemangiom a of liver 34355267 Active 2017 Hannah cardenas [facility] 8 11:45:22 Iron deficienc y anemia 05774671 Active 2017 Hannah cardenas [facility] 8 11:45:29 Osteoarth ritis of knee 289392067 Active 2017 bilat knee Isidro Henderson DO [address] [place] [address], [address], [facility] 9 11:38:33 Gout 36587486 Active 2017 Hannah cardenas [facility] 8 11:46:54 Hyperlipi demia 43118861 Active 2017 Hannah cardenas [facility] 8 11:46:58 Near syncope 123356188 Active 2021 Isidro Henderson DO [address] [place] [address], [address], [facility] 2 15:23:54 Contusion of rib 933496041 Active 2022 Isidro Henderson DO [address] [place] [address], [address], [facility] 3 13:46:27 Osteoarth ritis of left knee joint 238689155803 109 Active 2023 Isidro Henderson DO [address] [place] [address], [address], [facility] 4 15:04:28 Closed fracture of neck of femur 679993832 Active 2024 JOSSELYN FAGAN [address] [place] [address], [address], [facility] 5 15:29:24 Celluliti s 041315250 Active 2024 JOSSELYN FAGAN [address] [place] [address], [address], [facility] 5 14:19:26 Problem Notes None recorded. Procedures Surgical History Date Name Laterality Status Provider Name and Address Organization Details Recorded Time 025 WOUND CARE completed JOSSELYN FAGAN [address] [place] [address], [address], [facility] 12/02/2024 15:40:33 024 Corticosteroid Injection completed Najma Ayala [facility] 05/22/2024 15:02:57 021 Corticosteroid Injection completed Isidro Henderson DO [address] [place] [address], [address], [facility] 01/23/2021 16:19:13 021 Corticosteroid Injection completed Isidro Henderson DO [address] [place] [address], [address], [facility] 01/03/2021 16:13:57 019 Corticosteroid Injection completed Isidro Henderson DO [address] [place] [address], [address], [facility] 05/08/2019 14:50:48 019 Corticosteroid Injection completed Isidro NatyIggy Henderson DO [address] [place], [address], [facility] 04/06/2019 11:39:50 018 Corticosteroid Injection completed Isidro Henderson DO [address] [place], [address], [facility] 07/21/2018 16:05:22 018 Corticosteroid Injection completed Isidro NatyIggy Henderson DO [address] [place], [address], [facility] 04/30/2018 12:44:06 018 Corticosteroid Injection completed Isidro Henderson DO [address] [place], [address], [facility] 04/18/2018 14:33:50 015 Colonoscopy completed Hannah Monreal [facility] 12/02/2019 10:17:00 Imaging Results Imaging Date [...] n cough Not available Not available 11/06/2017 [id number] SNOMED Hannah cardenas [facility] 8 11:43:42 402 colchicin e medicatio n rash Not available Not available 11/06/2017 2683 RxNorm Hannah cardenas [facility] 8 11:44:37 Medications Name Sig Start [...] Not Available Not Available No t Available sulfamethox azole 800 mg-trimetho prim 160 mg tablet Take 1 tablet every 12 hours by oral route for 10 days. 2024 active Not Available Not Available Not Avai lable aspirin 81 mg tablet,lenny yed release Take [...] FOR 2 DAYS. TAKE ON 04/02 AND 82 11/02 completed Not Available Not Available Not [...] Updated DateTime 4 170.18 cm 39 kg/m2 243840. 5 g 81 /min 98 % 98 % 140 mm[Hg] 82 mm[Hg] Sarah Worthington [facility] 4 11:03:09 Date Recorded Body height Body mass index (BMI) Body weight Heart rate Oxygen saturation Oxygen saturation in Arterial blood by Pulse oximetry Systolic blood pressure Diastolic blood pressure Provider Name and Address Organization Details Last Updated DateTime 4 170.18 cm 37.9 kg/m2 605073. 35 g 86 /min 97 % 97 % 138 mm[Hg] 86 mm[Hg] Rasta Ng [facility] 4 11:05:47 Date Recorded Body height Body mass index (BMI) Body weight Heart rate Oxygen saturation Oxygen saturation in Arterial blood by Pulse oximetry Systolic blood pressure Diastolic blood pressure Provider Name and Address Organization Details Last Updated DateTime 5 170.18 cm 37.7 kg/m2 211902. 76 g 70 /min 99 % 99 % 130 mm[Hg] 80 mm[Hg] Rasta Ng [facility] 5 13:51:10 Date Recorded Body height Body mass index (BMI) Body weight Heart rate Oxygen saturation Oxygen saturation in Arterial blood by Pulse oximetry Systolic blood pressure Diastolic blood pressure Provider Name and Address Organization Details Last Updated DateTime 5 170.18 cm 37.7 kg/m2 231719. 76 g 72 /min 98 % 98 % 132 mm[Hg] 78 mm[Hg] Sarah Worthington [facility] 5 15:05:33 Social History Question Answer Notes LastModified by Organizat ion Details LastModified Time Tobacco Smoking Status Former Smoker Not Available [facility] 07/05/2020 03:36:24 What Was The Date Of Your Most Recent Tobacco Screening? 10/07/2024 Information not available 10/07/2024 Do You Or Have You Ever Used Any Other Forms Of Tobacco Or Nicotine? No [email or web address] Information not available 04/15/2023 Sex: Unknown Functional Status None recorded. Mental Status None recorded. Family History Nothing Reported. Medical History No medical history recorded. Immunizations Vaccine Type Date Status Note Provider Nam e and Address Organization Details Recorded Time COVID-19, mRNA, LNP-S, PF, 100 mcg/0.5mL dose or 50 mcg/0.25mL dose 1 completed Isidro Henderson DO [address] [place] [address], [address], [facility] 01/05/2022 14:48:34 COVID-19, mRNA, LNP-S, PF, 100 mcg/0.5mL dose or 50 mcg/0.25mL dose 2 completed Isidro Henderson DO [address] [place] [address], [address] 01/05/2022 14:48:42 Influenza, split virus, quadrivalent, preservative 8 [facility] 06/16/2018 14:43:50 zoster live 8 [facility] 14:44:08 Tdap 2 completed Isidro Henderson DO [address] [place] [address], [address], [facility] 04/20/2022 11:29:04 influenza, unspecified formulation 2 [facility] 12:03:42 SARS-COV-2 (COVID-19) vaccine, UNSPECIFIED 3 completed Sarah cardenas [facility] 04/15/2023 14:56:37 SARS-COV-2 (COVID-19) vaccine, UNSPECIFIED 4 [facility] 03/18/2024 11:04:51 Influenza, split virus, quadrivalent, preservative 0 completed Isidro Henderson DO [address] [place] [address], [address], [facility] 05/16/2020 16:13:32 COVID-19, mRNA, LNP-S, PF, 100 mcg/0.5mL dose or 50 mcg/0.25mL dose 1 completed Isidro Henderson DO [address] [place] [address], [address], [facility] 11/02/2020 11:44:38 COVID-19, mRNA, LNP-S, PF, 100 mcg/0.5mL dose or 50 mcg/0.25mL dose 1 completed Isidro Henderson DO [address] [place] [address], [address], [facility] 11/02/2020 11:44:46 Past Encounters Encounter ID Performer Location Encounter Start Date Encounter Closed Date Diagnosis/Indication Diagnosis SNOMED-CT Code Diagnosis ICD10 Code Diagnosis Note [id number] Isidro Henderson [address],[place] [address] 01/22/2018 10:46:48 01/22/2018 12:02:38 Type 2 diabetes mellitus 33235335 E11.9 a1c is good and will be following with [facility] no current complicati ons Iron defic iency anemia 06278815 D50.9 will have followup lab with [facility] and then will have colonoscoi py dr marcelo to decide if xarelto is culprit of low iron Essential hypertension 16857433 I10 doing great no change in meds [id number] Isidro Henderson [facility] [address], [place] [address] 04/18/2018 13:57:19 04/18/2018 14:57:18 Osteoarthritis of knee 967336562 M17.0 cortisone inj well tolerated [id number] Isidro Henderson [facility] [address] [address] 04/30/2018 12:04:14 04/30/2018 15:58:16 Osteoarthritis of knee 131561962 M17.0 cortisone inj well tolerated [id number] Isidro Henderson [facility] [address],[place] [address] 06/16/2018 14:17:42 06/16/2018 15:33:04 Type 2 diabetes mellitus 54628652 E11.9 a1c is good and will be following with [facility] no current complicati ons 7.0 is still stable up from 6.9 Essential hypertension 27136082 I10 doing great no change in meds Osteoarthr itis of knee 251629064 M17.0 cortisone inj did ok but took a long time [id number] Isidro Henderson [facility] [address] [facility] [address],[place] [address] 07/21/2018 15:26:00 07/21/2018 16:09:19 Osteoarthritis of knee 054452744 M17.0 cortisone inj did ok but took a long time repeat but if this does not help [place] have to refer [id number] Isidro Henderson [facility] [address] [facility] [address],[place] [address] 10/01/2018 14:18:33 10/03/2018 08:52:47 Essential hypertension 32558543 I10 doing great no change in meds Type 2 kristal betes mellitus 22308934 E11.9 a1c is good and will be following with [facility] no current complicati ons 7.0 is still stable Osteoarthr itis of knee 580993694 M17.0 cortisone inj did ok but took a long time repeat but if this does not help will have to refer Hyperlipidemia 62447795 E78.5 LDL is excellent at 96 Hemochromatosis 57464806 6 E83.119 ferritin is 35 [id number] Isidro Henderson [facility] [address],[place] [address] 12/26/2018 10:34:23 12/26/2018 12:00:07 Type 2 diabetes mellitus 62121098 E11.9 a1c is good and will be following with [facility] no current complicati ons 6.6 is still stable Essential hypertension 92035127 I10 no change in meds right now as he is quite distraught and we will ss him again in a couple mo and recheck [id number] Isidro Henderson DO [facility] [address],[place] [address] 04/06/2019 10:49:50 04/06/2019 11:46:29 Osteoarthritis of knee 668719241 M17.0 cortisone inj did ok but took a long time to right knee repeat but if this does not help will have to refer [id number] Isidro Henderson DO [facility] [address],[place] [address] 05/08/2019 14:08:59 05/08/2019 14:57:01 Osteoarthritis of knee 668156164 M17.0 cortisone inj to left knee well toerated [id number] Isidro Henderson [facility] [address],[place] [address] 08/10/2019 11:08:08 08/10/2019 11:31:08 Type 2 diabetes mellitus 59181481 E11.9 a1c is fair and will be following with [facility] no current complicati ons 8.0 is the a1c and is going to have to do better with less treating will not adjust the meds Essential hypertension 07387312 I10 noted to have stable bp and we will see him again in a couple mo and recheck [id number] Isidro Henderson DO [facility] [address],[place] [address] 09/09/2019 11:57:12 09/09/2019 12:13:28 Type 2 diabetes mellitus 89261029 E11.[address] now and will be following with [facility] no current complicati ons 6.4 is the a1c and is doing better with less eating will not adjust the meds Essential hypertension 24952547 I10 noted to have stable bp and we will see him again in a couple mo and recheck [id number] Isidro Henderson DO [facility] [address] [facility] [address],[place] [address] 12/02/2019 09:10:17 12/02/2019 13:36:51 Essential hypertension 82455930 I10 noted to have stable bp and we will see him again in a couple mo and recheck Type 2 kristal betes mellitus 17586854 E11.9 a1c is better now and will be following with [facility] no current complicati ons 6.4 is the a1c just like last time and is doing better with less eating will not adjust the meds Iron defic iency anemia 56816058 D50.[address] marcelo for a colonoscop y to check for source of bleed Osteoarthr itis of knee 323420013 M17.0 cortisone inj to left knee seemed to have helped [id number] Isidro Henderson, [facility] [address] [facility],[place] [address] 03/07/2020 11:33:53 03/07/2020 12:19:53 Essential hypertension 10515871 I10 noted to have stable bp and we will see him again in 3 mo and recheck Hemochromatosis 23179404 6 E83.119 ferritin is 35 cbc is good iron level good Type 2 kristal betes mellitus 78673788 E11.9 a1c is better now and will be following with [facility] no current complicati ons 6.4 is the a1c just like last time and is doing better with less eating will not adjust the meds History of polyp of colon 482893733 Z86.010 doesn t want to get colonoscop y even though he has had polyps in e past told it would be important but he is not happy about it we will try dna test [id number] JOSSELYN FAGAN [facility] [address] [facility] [address] [address] 04/08/2020 14:50:22 04/08/2020 15:47:07 Essential hypertension 36400390 I10 well controlled today on medication Type 2 kristal betes mellitus 93270494 E11.9 sugar has been good per patient Bacteremia caused by Gram-negative bacteria 2611027942 08 A41.50 treated and has abx on discharge Acute cholecystitis 6527 5009 K81.0 resolved had gallbladde r removed Dyspnea at rest 38851959 7 R06.00 SENT TO THE ER FROM OFFICE FOR CONCERN OF PE Atypical chest pain 1025 82125 R07.89 has been having since after surgery, gotten worse per patient [id number] Isidro Henderson [facility] [address] [facility] [place] [address] 05/16/2020 14:35:18 05/16/2020 15:22:43 Sepsis caused by Gram negative bacteria 947931228 A41.50 has survived and done well relates that he is still very tired History of cholecystectomy 756632617 Z90.49 and is healing well will be done with vna Administra tion of influenza vaccine 53239936 Z23 [id number] Isidro Henderson [facility] [address] [facility],[place] [address] 06/29/2020 11:22:38 06/29/2020 11:54:40 Type 2 diabetes mellitus 78760125 E11.9 a1c is better now and is a little too good at 5.5 no current complicati ons 6.4 is the last time and is doing better with less eating will need to watch his sugar to make sure he doesnt go to low Essential hypertension 10220500 I10 noted to have stable bp and we will see him again in 3 mo and recheck [id number] Isidro Henderson [facility] [address] [facility] [place] [address] 11/02/2020 11:26:25 11/02/2020 13:47:14 Essential hypertension 92334217 I10 noted to have stable bp and we will see him again in 3 mo and recheck Type 2 kristal betes mellitus 68135095 E11.9 a1c is better now and is a little too good at 6.3 which is good he was 5.5 no current complicati ons 6.4 is the last time and is doing better with less eating will need to watch his sugar to make sure he doesnt go to low Iron defic iency anemia 80053422 D50.[address] marcelo for a colonoscop y to check for source of bleed we will rechk lab Osteoarthr itis of knee 316780028 M17.0 cortisone inj to left knee seemed to have helped in the past lately he s ok but we will plan another inj when hes ready [id number] Isidro Henderson [facility] [address] [facility] [address] [place] [address] 01/03/2021 15:29:43 01/03/2021 16:15:42 Osteoarthritis of knee 447643843 M17.0 cortisone inj to left knee seemed to have helped in the past lately he s ok but we will plan another inj when hes ready [id number] Isidro Henderson [facility] [address] [facility],[place] [address] 01/23/2021 15:55:04 01/23/2021 16:47:42 Osteoarthritis of right knee joint 1106543098 32639 M17.11 jordon inj well tolerated [id number] Isidro Henderson [facility] [address] [facility],[place] [address] 03/01/2021 10:57:56 03/01/2021 11:29:35 Essential hypertension 56752931 I10 noted to have stable bp and we will see him again in 3 mo and recheck Type 2 kristal betes mellitus 38750662 E11.9 a1c is better at 6.6 was 6.7 in december and was at 6.3 which is good he was 5.5 no current complicati ons [id number] Isidro Henderson [facility] [address] [facility],[place] [address] 06/02/2021 08:28:12 06/02/2021 14:00:45 Type 2 diabetes mellitus 93914539 E11.9 a1c is awesome at 5.7!!!!!!! !!!! better at 6.6 was 6.7 in december and was at 6.3 which is good he was 5.5 no current complicati onsdoing fantastic Osteoarthr itis of knee 398843298 M17.0 cortisone inj to left knee seemed to have helped in the past lately he s ok but we will plan another inj when he's ready Iron defic iency anemia 60657546 D50.[address] marcelo for a colonoscop y to check for source of bleed we will rechk lab Essential hypertension 95921726 I10 noted to have stable bp and we will see him again in 3 mo and recheck [id number] Isidro Henderson, [facility] [address] [facility],[place] [address] 09/20/2021 08:10:48 09/22/2021 11:38:30 Essential hypertension 12304445 I10 noted to have stable bp and we will see him again in 3 mo and recheck Type 2 kristal betes mellitus 38047717 E11.9 a1c is pending and in past was awesome at 5.7!!!!!!! !!!! better at 6.6 was 6.7 in december and was at 6.3 which is good he was 5.5his home readings are avg 115 for 90 daysno current complicati onsdoing fantastic Hemochromatosis 13016164 6 E83.119 prior level of ferritin is 35 cbc is good iron level good lab is pending Hyperlipidemia 91719119 E78.5 LDL is excellent at 96 on prior lab Iron defic iency anemia 43430823 D50.[address] marcelo for a colonoscop y to check for source of bleed we will rechk lab is now pending [id number] [facility] [address] [facility],[place] [address] 01/05/2022 14:22:54 01/05/2022 15:45:55 Type 2 diabetes mellitus 46208088 E11.9 a1c is pending and in past was up to 6.4 he was at 5.7!!!!!!! !!!! better at 6.6 was 6.7 in december and was at 6.3 which is good he was 5.5his home readings are avg 115 for 90 daysno current complicati onsdoing fantastic Essential hypertension 36397854 I10 noted to have stable bp and we will see him again in 3 mo and recheck Active or passive immunization 102793656 Z23 [facility] to update Near syncope 442404320 R 55 no full syncope we will get a monitor done to double check [id number] Isidro Henderson [facility] [address] [facility] [address],[place] [address] 04/20/2022 11:24:02 04/20/2022 11:52:51 Essential hypertension 38330638 I10 noted to have stable bp and we will see him again in 3 mo and recheck Iron defic iency anemia 71871131 D50.9 currently stable Type 2 kristal betes mellitus 99524732 E11.9 a1c is pending and in past was up to6.6 and beforewas 6.4 he was at 5.7!!!!!!! !!!! better at 6.6 was 6.7 in december and was at 6.3 which is good he was 5.5his home readings are avg 115 for 90 daysno current complicati onsdoing fantastic Near syncope 606455464 R 55 no full syncope we will get a monitor is normal [id number] Isidro Henderson [facility] [address] [facility] [address],[place] [address] 07/23/2022 11:54:50 07/23/2022 12:49:21 Type 2 diabetes mellitus 67018530 E11.9 a1c is 6.6 and beforewas 6.6his home readings are avg 115 for 90 daysno current complicati onsdoing fantastic Hyperlipidemia 67405055 E78.5 LDL is excellent at 96 on prior lab Essential hypertension 55459154 I10 noted to have stable bp and we will see him again in 3 mo and recheck [id number] Isidro Henderson [facility] [address] [facility],[place] [address] 11/05/2022 11:26:32 11/05/2022 15:11:44 Type 2 diabetes mellitus 65724724 E11.9 a1c is now 6.5 was 6.6 and beforewas 6.6his home readings are avg 110 for 90 daysno current complicati onsdoing fantastic carefyul with diet and salt intake Essential hypertension [id number] I10 noted to have stable bp and we will see him again in 3 mo and recheck Advance care planning 71 [id number] Z71.89 done [id number] Isidro Harry Hermes [facility] Internal Medicine [address] [facility],[place] [address] 04/15/2023 14:42:18 04/15/2023 15:23:23 Essential hypertension 57121910 I10 noted to have stable bp and we will see him again in 3 mo and recheck Type 2 kristal betes mellitus 91121031 E11.9 a1c is now 6.4 and was 6.5 was 6.6his home readings are avg 110 for 90 daysno current complicati onsdoing fantastic careful with diet and salt intake [id number] Isidro Harry Hermes [facility] Internal Medicine [address] [facility], [facility] [facility] [place] [address] 07/29/2023 13:27:23 07/29/2023 14:41:04 Essential hypertension 41900592 I10 noted to have stable bp and we will see him again in 3 mo and recheck Hyperlipidemia 28225780 E78.5 LDL is excellent at 96 on prior lab Type 2 kristal betes mellitus 58103869 E11.9 a1c is now 6.9 and was 6.4 and was 6.5 was 6.6his home readings are avg 120 for 90 daysno current complicati onsdoing fantastic careful with diet and salt intake Contusion of rib 2056530 06 S20.20XD doing much better lungs clear minimal palp pain no evid rib fx [id number] Isidro Harry Hermes [facility] Internal Medicine [address] [facility], [place] [facility] [place] [address] 12/06/2023 11:11:40 12/06/2023 11:52:07 Essential hypertension 44999541 I10 noted to have stable bp and we will see him again in 3 mo and recheck Hemochromatosis 01351293 6 E83.119 prior level of ferritin is 35 cbc is good iron level good lab is pending Hyperlipidemia 04416640 E78.5 LDL is excellent at 96 on prior lab Type 2 kristal betes mellitus 85793889 E11.9 a1c is now 6.2 qas 6.9 and was 6.4 and was 6.5 was 6.6 no current complicati onsdoing fantastic careful with diet and salt intake [id number] Isidro Henderson [facility] Internal Medicine [address] [facility], [place] [address] 03/18/2024 10:56:57 03/18/2024 12:01:25 Depression screening 135429885 Z13.31 neg Type 2 kristal betes mellitus 50097660 E11.9 a1c is now 6.2 was 6.9 and was 6.4 and was 6.5 was 6.6microal b is negno current complicati onsdoing fantastic careful with diet and salt intake Essential hypertension 72572354 I10 noted to have stable bp and we will see him again in 3 mo and recheck Peripheral vascular disease 853077917 I73.9 [id number] Isidro Henderson [facility] Internal [facility] [address] [facility], [place] [address] 05/22/2024 14:41:46 05/22/2024 15:50:09 Osteoarthritis of left knee joint [id number] 52684 M17.12 jordon well tolerated [id number] Isidro Henderson [facility] [address] [facility] [place] [address] 07/01/2024 10:56:32 07/01/2024 15:01:39 Adult health examination 300185336 Z00.01 stable despite his recent fallno major issues Screening for cardiovascular system disease 576938958 Z13.6 Screening for malignant neoplasm of colon 319760326 Z12.11 Contusion of rib 6899178 06 S20.20XD doing much better lungs clear minimal palp pain no evid rib fx Essential hypertension 73929332 I10 noted to have stable bp and we will see him again in 3 mo and recheck Type 2 kristal betes mellitus 35667178 E11.9 a1c is now 6.2 was 6.9 and was 6.4 and was 6.5 was 6.6microal b is negno current complicati onsdoing fantastic careful with diet and salt intake [id number] Isidro Henderson [facility] Internal Medicine [address] [facility],[place] [address] 10/07/2024 13:43:19 10/07/2024 14:24:49 Essential hypertension 90742251 I10 noted to have stable bp and we will see him again in 3 mo and recheck 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 prior level of ferritin is 35 cbc is good iron level good lab is pending cbc nl needs iron level done as well as ferritin Hyperlipidemia 13179733 E78.5 LDL is excellent at 96 on prior lab 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 a1c is now 6.7 was 6.2 was 6.9 and was 6.4 and was 6.5 was 6.6microal b is sl pos very minimalno current complicati onslevel has gone up a bit due to winter and inactivity [id number] JOSSELYN FAGAN [facility] Internal Medicine [address] [facility],[place] [address] 12/02/2024 14:48:32 12/02/2024 15:45:26 Closed fracture of neck of femur 103186633 S72.024A will set up with wound culturered ressed with new steri strips Type 2 kristal betes mellitus 72275731 E11.9 stable Health Concerns Section Related Observation LastModified by Organization Detai ls LastModified Time None Recorded Concern Status LastModified by Organization Details LastModified Time None Recorded Advance Directives Directive None Recorded Payers Encounter Date Sequence Insurance Name Policy Number Policy Lopez Covered Member ID Lopez Member ID Guarantor Name 03/18/2024 1 [facility] (MEDICARE REPLACEMENT/A DVANTAGE - PPO) [id number] Uziel Briceño [id number] Uziel Briceño 05/22/2024 1 [facility] (MEDICARE REPLACEMENT/A DVANTAGE - PPO) [id number] Uziel Briceño [id number] Uziel Briceño 07/01/2024 1 [facility] (MEDICARE REPLACEMENT/A DVANTAGE - PPO) [id number] Uziel Briceño [id number] Uziel Briceño 10/07/2024 1 [facility] (MEDICARE REPLACEMENT/A DVANTAGE - PPO) [id number] Uziel Briceño [id number] Uziel Mullen Navarro 12/02/2024 1 [facility] (MEDICARE REPLACEMENT/A DVANTAGE - PPO) [id number] Uziel Mullen Navarro [id number] Uziel Mullen Navarro Notes Date Note Type Note Provider Name a nd Address Organization Details Recorded Time 4 text/html here for rechk and is feeling well a1c 6,7 and is doing well with the VALDL is 63 denies any pain other than his arthritisno cp no sobsleep is fair had an US with multi nod goiter and neg bxnext US in 2 years Isidro Henderson DO [address] [place] [address], [address], [facility] 03/18/2024 11:33:09 4 text/html her fo his jordon inj to lwft knee has been very sore and uncomfortable Isidro Henderson DO [address] [place], [address], [facility] 05/22/2024 15:05:19 4 text/html [...] good no l=cp Isidro Henderson DO [address] [place], [address], [facility] 07/01/2024 11:54:40 text/html Care Management - DiabetesReported bypatient.Self Care:seeing [...] was very sore better todayreviewed lab from [place] a1c is 6.7seeing [place] drs just had a DM foot eval too Isidro Henderson DO [address] [place], [address], [facility] 10/07/2024 14:16:04 5 text/html hospital d/c the patient fracture his right hiphairline fracture of the right femoral neckwas repaired without THR, ended up pining it to allow it to heal correct position naturally the patient reports that he is doing okaypain is improvedmild judithing has been having PT at home with [...] culture at appt ANN MARIE PEREZ, JOSSELYN [address] [place] [address], [place], [address], [facility] 12/02/2024 15:41:39
--- OUTSIDE RECORDS SUMMARY | 2024-12-08 11:42 | XMS_ITS | Continuity of Care Document ---
Author Name [facility] Organization [facility] Care Team Providers Care Scullion Chief Name Role Phone [facility] Unavailable Unavailable Problems Combined list of problems [...] Athero, Lizeth Art Extr W/Dave Active Condition [facility] Benign hypertension (SNOMED CT [id number]) Active Condition [facility] [place] [...] By: LORENZO BOB Comment: Phlebotomy q4m at [facility] via DR Mirza. [facility] [place] [...] EVERY DAY FOR GOUT ORAL ACTIVE 09/05/2025 [id number] ARTI BOB 2024 90 [facility] ALLOPURINOL 300MG TAB TAKE ONE TABLET BY MOUTH EVERY DAY FOR GOUT ORAL DISCONT INUED 09/10/2024 [id number] 4 ARTI BOB 2023 90 [facility] [place] ASPIRIN 81MG TAB,EC TAKE ONE TABLET BY MOUTH ORAL ACTIVE AYANNA PICHARDO O 2005 [facility] [place] ATENOLOL 25MG TAB TAKE ONE TABLET BY MOUTH ONCE DAILY FOR BLOOD PRESSURE /HEART ORAL ACTIVE 09/05/2025 [id number] 5 ARTI BOB 2024 90 [facility] ATENOLOL 25MG TAB TAKE ONE TABLET BY MOUTH ONCE DAILY FOR BLOOD PRESSURE /HEART ORAL DISCONT INUED 02/11/2025 [id number] 4 ARTI BOB 2023 90 [facility] ATENOLOL 25MG TAB TAKE ONE TABLET BY MOUTH ONCE DAILY FOR BLOOD PRESSURE /HEART ORAL DISCONT INUED 02/20/2024 [id number] ARTI BOB 2022 90 [facility] [place] ATORVASTATI N CA 80MG TAB TAKE ONE TABLET BY MOUTH ONCE DAILY FOR CHOLESTE ROL IN PLACE OF [place] ATIN. ORAL ACTIVE 09/05/2025 [id number] 5 ARTI BOB 2024 90 [facility] [place] ATORVASTATI N CA 80MG TAB TAKE ONE TABLET BY MOUTH ONCE DAILY FOR CHOLESTE ROL IN PLACE OF [place] ATIN. ORAL DISCONT INUED 06/03/2024 [id number] 4 ARTI BOB 2022 90 [facility] [place] DILTIAZEM (EQV-TIAZAC AB4) 360MG 24HR CAP TAKE ONE CAPSULE BY MOUTH ONCE DAILY FOR HIGH BLOOD PRESSURE ORAL SUSPEND ED 09/05/2025 [id number] 5 ARTI BOB 2024 90 [facility] [place] DILTIAZEM (EQV-TIAZAC AB4) 360MG 24HR CAP TAKE ONE CAPSULE BY MOUTH ONCE DAILY FOR HIGH BLOOD PRESSURE ORAL DISCONT INUED 03/04/2025 [id number] ARTI BOB 2023 90 [facility] [place] [facility] DILTIAZEM (EQV-TIAZAC AB4) 360MG 24HR CAP TAKE ONE CAPSULE BY MOUTH EVERY DAY FOR BLOOD PRESSURE ORAL DISCONT INUED BY COSTA R 02/20/2024 [id number] 4 ARTI BOB 2022 90 [facility] [place] [facility] ENOXAPARIN 40MG/0.4ML INJ,SYRINGE ,0.4ML INJECT 1 SYRINGE (40MG) SUBCUTAN EOUSLY ONCE DAILY SUBCUT ANEOUS ACTIVE 12/24/2024 [id number] Meredith TAYLOR 2024 42 [facility] GLIPIZIDE 10MG TAB TAKE ONE TABLET BY MOUTH TWICE DAILY FOR DIABETES ORAL ACTIVE 09/05/2025 [id number] 5 ARTI BOB 2024 180 [facility] GLIPIZIDE 10MG TAB TAKE ONE TABLET BY MOUTH TWICE DAILY FOR DIABETES ORAL DISCONT INUED 06/04/2024 [id number] 4 ARTI BOB 2022 180 [facility] LISINOPRIL 20MG TAB TAKE ONE TABLET BY MOUTH DAILY TO CONTROL BLOOD PRESSURE ORAL ACTIVE 09/05/2025 [id number] 5 ARTI BOB 2024 90 [facility] [place] LISINOPRIL 20MG TAB TAKE ONE TABLET BY MOUTH DAILY TO CONTROL BLOOD PRESSURE ORAL DISCONT INUED 09/10/2024 [id number] 4 ARTI BOB 2023 90 [facility] METFORMIN HCL 1000MG TAB TAKE ONE TABLET BY MOUTH TWICE DAILY FOR DIABETES ORAL ACTIVE 09/05/2025 [id number] 5 ARTI BOB 2024 180 [facility] [place] METFORMIN HCL 1000MG TAB TAKE ONE TABLET BY MOUTH TWICE DAILY FOR DIABETES ORAL DISCONT INUED 09/10/2024 [id number] 4 ARTI BOB 2023 180 [facility] OMEPRAZOLE 20MG CAP,EC TAKE ONE CAPSULE BY MOUTH EVERY MORNING 30 MINUTES BEFORE BREAKFAS T ORAL SUSPEND ED 09/03/2025 [id number] 5 ARTI BOB 2024 90 [facility] [place] OMEPRAZOLE 20MG CAP,EC TAKE ONE CAPSULE BY MOUTH EVERY MORNING 30 MINUTES BEFORE BREAKFAS T ORAL DISCONT INUED 06/04/2024 [id number] 4 ARTI BOB 2022 90 [facility] [place] OTHER CAP/TAB TAKE COD LIVER OIL BY MOUTH ONCE DAILY ORAL ACTIVE ARTI BOB 2020 [facility] [place] PIOGLITAZON E HCL 30MG TAB TAKE ONE TABLET BY MOUTH DAILY ORAL ACTIVE 09/05/2025 [id number] 5 ARTI BOB 2024 90 [facility] [place] PIOGLITAZON E HCL 30MG TAB TAKE ONE TABLET BY MOUTH DAILY ORAL DISCONT INUED 06/04/2024 [id number] ARTI BOB 2022 90 [facility] THIAMINE 100MG TAB TAKE ONE TABLET BY MOUTH ONCE DAILY FOR VITAMIN SUPPLEME NTATION ORAL SUSPEND ED 05/01/2025 [id number] 5 ARTI BOB 2023 100 [facility] THIAMINE 100MG TAB TAKE ONE TABLET BY MOUTH ONCE DAILY FOR VITAMIN SUPPLEME NTATION ORAL DISCONT INUED 02/20/2024 [id number] 4 ARTI BOB 2022 100 [facility] Immunizations Combined list of available immunizations from the Department of Defense and Veterans Affairs facilities. Immunization Series Date Given Administered By Site Reaction Lot Number CVX Code Drug Director Diversity Status Comments Source COVID-19 (MODERNA), MRNA, LNP-S, PF, 50 MCG/0.5 ML (AGES 12+ YEARS) 1 2024 MADELYN GRIJALVA E LEFT DELTO ID [id number] 312 complet ed [facility] INFLUENZA, HIGH-DOSE, TRIVALENT, PF 2024 MADELYN GRIJALVA E LEFT DELTO ID [id number] 135 complet ed [facility] COVID-19 (MODERNA), MRNA, LNP-S, PF, 50 MCG/0.5 ML (AGES 12+ YEARS) 1 2023 MADELYN GRIJALVA E LEFT DELTO ID [id number] 312 complet ed [facility] COVID-19 (MODERNA), MRNA, LNP-S, PF, 50 MCG/0.5 ML (AGES 12+ YEARS) 1 2023 MADELYN GRIJALVA E RIGHT DELTO ID [id number] 312 complet ed [facility] INFLUENZA, HIGH-DOSE, QUADRIVALENT 2022 MADELYN GRIJALVA RIGHT DELTO ID [id number] 197 complet ed [facility] COVID-19 (MODERNA), MRNA, LNP-S, BIVALENT, PF, 50 MCG/0.5 ML OR 25MCG/0.25 ML DOSE 2022 FATEMEH OLVERA LEFT DELTO ID [id number] 229 complet ed [facility] COVID-19 (MODERNA), MRNA, LNP-S, BIVALENT BOOSTER, PF, 50 MCG/0.5 ML OR 25MCG/0.25 ML DOSE 1 2021 229 complet ed MOD; [id number]; 3 [facility] INFLUENZA VACCINE, QUADRIVALENT, ADJUVANTED 2021 205 complet ed [facility] TD (ADULT), 5 LF TETANUS TOXOID, PRESERVATIVE FREE, ADSORBED 2021 113 complet ed [facility] COVID-19 (MODERNA), MRNA, LNP-S, PF, 100 MCG/0.5ML DOSE OR 50 MCG/0.25ML DOSE 3 2021 207 complet ed MOD; [id number]; 2 [facility] COVID-19 (MODERNA), MRNA, LNP-S, PF, 100 MCG OR 50 MCG DOSE 3 2020 207 complet ed [facility] INFLUENZA VACCINE, QUADRIVALENT, ADJUVANTED 2020 205 complet ed [facility] COVID-19 (MODERNA), MRNA, LNP-S, PF, 100 MCG/0.5 ML DOSE 2 2020 207 complet ed MOD; [id number]; 1 [facility] COVID-19 (MODERNA), MRNA, LNP-S, PF, 100 MCG/0.5 ML DOSE 1 2020 207 complet ed MOD; [id number]; 1 [facility] [...] FLU,3 YRS (HISTORICAL) 2016 88 complet ed [place] FLU,3 YRS (HISTORICAL) 2015 88 complet ed [...] HCS FLU,3 YRS (HISTORICAL) 2004 YANG GRANGER T 88 complet ed [facility] FLU,3 YRS (HISTORICAL) 2002 VINI VARNER M 88 complet ed [facility] FLU,3 YRS (HISTORICAL) 2001 MINDI ALMARAZ IA T 88 complet ed [facility] [...] Aug 31, 2024 09:40 AM Reporting Lab: [facility] [place] [facility] [address] [facility] [address] Performing Lab: [facility] [address] [facility] [address] [facility] BASIC METABOLIC PANEL (fasting) GLUCOSE [MASS/VOLUM E] IN SERUM OR PLASMA 164 mg/dL 65 - 100 08/31 H Specimen Type: SERUM No comment entered. Ordering Provider: Lalo BOB Report Released Date/Time: Aug 31, 2024 09:40 AM Reporting Lab: [facility] [place] [facility] [address] [facility] [address] Performing Lab: [facility] [place] [facility] [address] [facility] [address] [facility] [place] [facility] BASIC METABOLIC PANEL (fasting) SODIUM [MOLES/VOLU ME] IN SERUM OR PLASMA 139 mmol/L 135 - 145 08/31 Specimen Type: SERUM No comment entered. Ordering Provider: Lalo BOB Report Released Date/Time: Aug 31, 2024 09:40 AM Reporting Lab: [facility] [place] [facility] [address] [facility] [address] Performing Lab: [facility] [place] [facility] [address] [facility] [address] [facility] [place] [facility] BASIC METABOLIC PANEL (fasting) POTASSIUM [MOLES/VOLU ME] IN SERUM OR PLASMA 3.9 mmol/L 3.5 - 5.0 08/31 Specimen Type: SERUM No comment entered. Ordering Provider: Lalo BOB Report Released Date/Time: Aug 31, 2024 09:40 AM Reporting Lab: [facility] [place] [facility] [address] [facility] [address] Performing Lab: [facility] [place] [facility] [address] [facility] [address] [facility] [place] [facility] BASIC METABOLIC PANEL (fasting) CHLORIDE [MOLES/VOLU ME] IN SERUM OR PLASMA 105 mmol/L 100 - 110 08/31 Specimen Type: SERUM No comment entered. Ordering Provider: Lalo BOB Report Released Date/Time: Aug 31, 2024 09:40 AM Reporting Lab: [facility] [place] [facility] [address] [facility] [address] Performing Lab: [facility] [place] [facility] [address] [facility] [address] [facility] [facility] BASIC METABOLIC PANEL (fasting) CARBON DIOXIDE, TOTAL [MOLES/VOLU ME] IN SERUM OR PLASMA 23 meq/L 20 - 30 08/31 Specimen Type: SERUM No comment entered. Ordering Provider: Lalo BOB Report Released Date/Time: Aug 31, 2024 09:40 AM Reporting Lab: [facility] [address] [facility] [address] Performing Lab: [facility] [address] [address] [facility] BASIC METABOLIC PANEL (fasting) CREATININE [MASS/VOLUM E] IN SERUM OR PLASMA 1.06 mg/dL 0.50 - 1.40 08/31 Specimen Type: SERUM No comment entered. Ordering Provider: Lalo BOB Report Released Date/Time: Aug 31, 2024 09:40 AM Reporting Lab: [address] [address] Performing Lab: [facility] [address] [facility] BASIC METABOLIC PANEL (fasting) GLOMERULAR FILTRATION RATE/1.73 SQ M.PREDICTED [VOLUME RATE/AREA] IN SERUM, PLASMA OR BLOOD BY CREATININE- BASED FORMULA (CKD-EPI 2020) 71 mL/min 60 08/31 Specimen Type: SERUM No comment entered. Ordering Provider: Lalo BOB Report Released Date/Time: Aug 31, 2024 09:40 AM Reporting Lab: [facility] [address] [address] Performing Lab: [facility] [address] [address] [facility] CBC AND DIFF (AUTO) LEUKOCYTES [#/VOLUME] IN BLOOD BY AUTOMATED COUNT 5.38 10*3/u L 4.50 - 11.00 08/31 Specimen Type: BLOOD No comment entered. Ordering Provider: Lalo BOB Report Released Date/Time: Aug 31, 2024 09:40 AM Reporting Lab: [facility] [address] [place] [address] Performing Lab: [facility] [place] [facility] [address] [facility] [address] [facility] [place] [facility] CBC AND DIFF (AUTO) ERYTHROCYTE S [#/VOLUME] IN BLOOD BY AUTOMATED COUNT 4.09 10*6/u L 4.23 - 5.66 08/31 L Specimen Type: BLOOD No comment entered. Ordering Provider: Lalo BOB Report Released Date/Time: Aug 31, 2024 09:40 AM Reporting Lab: [facility] [place] [facility] [address] [facility] [address] Performing Lab: [facility] [place] [facility] [address] [facility] [address] [facility] [place] [facility] CBC AND DIFF (AUTO) HEMOGLOBIN [MASS/VOLUM E] IN BLOOD 13.0 g/dL 12.8 - 17 08/31 Specimen Type: BLOOD No comment entered. Ordering Provider: Lalo BOB Report Released Date/Time: Aug 31, 2024 09:40 AM Reporting Lab: [facility] [place] [address] [address] Performing Lab: [facility] [place] [facility] [address] [facility] [address] [facility] [place] [facility] CBC AND DIFF (AUTO) HEMATOCRIT [VOLUME FRACTION] OF BLOOD BY AUTOMATED COUNT 38.3 39.2 - 50.4 08/31 L Specimen Type: BLOOD No comment entered. Ordering Provider: Lalo BOB F Report Released Date/Time: Aug 31, 2024 09:40 AM Reporting Lab: [facility] [place] [facility] [address] [facility] [address] Performing Lab: [facility] [place] [facility] [address] [facility] [address] [facility] [place] [facility] CBC AND DIFF (AUTO) MCV [ENTITIC VOLUME] BY AUTOMATED COUNT 93.6 fL 82 - 99 08/31 Specimen Type: BLOOD No comment entered. Ordering Provider: Lalo BOB Report Released Date/Time: Aug 31, 2024 09:40 AM Reporting Lab: [facility] [address] [facility] [address] Performing Lab: [facility] [address] [facility] [address] [facility] CBC AND DIFF (AUTO) MCHC [MASS/VOLUM E] BY AUTOMATED COUNT 33.9 g/dL 30.8 - 35.1 08/31 Specimen Type: BLOOD No comment entered. Ordering Provider: Lalo BOB Report Released Date/Time: Aug 31, 2024 09:40 AM Reporting Lab: [facility] [place] [facility] [address] [facility] [address] Performing Lab: [facility] [place] [facility] [address] [facility] [address] [facility] [place] [facility] CBC AND DIFF (AUTO) PLATELETS [#/VOLUME] IN BLOOD BY AUTOMATED COUNT 328 10*3/u L 140 - 360 08/31 Specimen Type: BLOOD No comment entered. Ordering Provider: Lalo BOB Report Released Date/Time: Aug 31, 2024 09:40 AM Reporting Lab: [facility] [place] [facility] [address] [facility] [address] Performing Lab: [facility] [place] [facility] [address] [facility] [address] [facility] CBC AND DIFF (AUTO) ERYTHROCYTE DISTRIBUTIO N WIDTH [RATIO] BY AUTOMATED COUNT 13.8 12.0 - 16.0 08/31 Specimen Type: BLOOD No comment entered. Ordering Provider: Lalo BOB Report Released Date/Time: Aug 31, 2024 09:40 AM Reporting Lab: [facility] [place] [facility] [address] [facility] [address] Performing Lab: [facility] [place] [facility] [address] [facility] [address] [facility] CBC AND DIFF (AUTO) MONOCYTES [#/VOLUME] IN BLOOD BY AUTOMATED COUNT 0.45 10*3/u L 0.30 - 1.10 08/31 Specimen Type: BLOOD No comment entered. Ordering Provider: Lalo BOB Report Released Date/Time: Aug 31, 2024 09:40 AM Reporting Lab: [facility] [place] [facility] [address] [facility] [address] Performing Lab: [facility] [address] [facility] [address] [facility] CBC AND DIFF (AUTO) MCH [ENTITIC MASS] BY AUTOMATED COUNT 31.8 pg 26.2 - 32.6 08/31 Specimen Type: BLOOD No comment entered. Ordering Provider: Lalo BOB Report Released Date/Time: Aug 31, 2024 09:40 AM Reporting Lab: [facility] [place] [facility] [address] [facility] [address] Performing Lab: [facility] [place] [facility] [address] [facility] [address] [facility] CBC AND DIFF (AUTO) NEUTROPHILS /100 LEUKOCYTES IN BLOOD BY AUTOMATED COUNT 67.7 43.7 - 75.8 08/31 Specimen Type: BLOOD No comment entered. Ordering Provider: Lalo BOB Report Released Date/Time: Aug 31, 2024 09:40 AM Reporting Lab: [facility] [place] [facility] [address] [facility] [address] Performing Lab: [facility] [address] [facility] [address] [facility] CBC AND DIFF (AUTO) LYMPHOCYTES /100 LEUKOCYTES IN BLOOD BY AUTOMATED COUNT 19.0 14.0 - 42.3 08/31 Specimen Type: BLOOD No comment entered. Ordering Provider: Lalo BOB Report Released Date/Time: Aug 31, 2024 09:40 AM Reporting Lab: [facility] [place] [facility] [address] [facility] [address] Performing Lab: [facility] [place] [facility] [address] [facility] [address] [facility] CBC AND DIFF (AUTO) MONOCYTES/1 00 LEUKOCYTES IN BLOOD BY AUTOMATED COUNT 8.4 5.1 - 13.7 08/31 Specimen Type: BLOOD No comment entered. Ordering Provider: Lalo BOB Report Released Date/Time: Aug 31, 2024 09:40 AM Reporting Lab: [facility] [address] [facility] [address] Performing Lab: [facility] [place] [facility] [address] [facility] [address] [facility] [place] [facility] CBC AND DIFF (AUTO) EOSINOPHILS /100 LEUKOCYTES IN BLOOD BY AUTOMATED COUNT 3.9 0.4 - 6.8 08/31 Specimen Type: BLOOD No comment entered. Ordering Provider: Lalo BOB Report Released Date/Time: Aug 31, 2024 09:40 AM Reporting Lab: [facility] [place] [facility] [address] [facility] [address] Performing Lab: [facility] [place] [facility] [address] [facility] [address] [facility] [place] [facility] CBC AND DIFF (AUTO) BASOPHILS/1 00 LEUKOCYTES IN BLOOD BY AUTOMATED COUNT 0.6 0.1 - 2.0 08/31 Specimen Type: BLOOD No comment entered. Ordering Provider: Lalo BOB Report Released Date/Time: Aug 31, 2024 09:40 AM Reporting Lab: [facility] [place] [facility] [address] [facility] [address] Performing Lab: [facility] [place] [facility] [address] [facility] [address] [facility] [place] [facility] CBC AND DIFF (AUTO) NEUTROPHILS [#/VOLUME] IN BLOOD BY AUTOMATED COUNT 3.65 10*3/u L 2.20 - 7.60 08/31 Specimen Type: BLOOD No comment entered. Ordering Provider: Lalo BOB Report Released Date/Time: Aug 31, 2024 09:40 AM Reporting Lab: [facility] [address] [facility] [address] Performing Lab: [facility] [address] [facility] [address] [facility] CBC AND DIFF (AUTO) LYMPHOCYTES [#/VOLUME] IN BLOOD BY AUTOMATED COUNT 1.02 10*3/u L 1.00 - 3.20 08/31 Specimen Type: BLOOD No comment entered. Ordering Provider: Lalo BOB Report Released Date/Time: Aug 31, 2024 09:40 AM Reporting Lab: [facility] [place] [address] [address] Performing Lab: [facility] [place] [address] [address] [facility] [facility] CBC AND DIFF (AUTO) EOSINOPHILS [#/VOLUME] IN BLOOD BY AUTOMATED COUNT 0.21 10*3/u L 0.03 - 0.44 08/31 Specimen Type: BLOOD No comment entered. Ordering Provider: Lalo BOB Report Released Date/Time: Aug 31, 2024 09:40 AM Reporting Lab: [facility] [place] [address] [address] Performing Lab: [facility] [place] [address] [address] [facility] CBC AND DIFF (AUTO) BASOPHILS [#/VOLUME] IN BLOOD BY AUTOMATED COUNT 0.03 10*3/u L 0.01 - 0.13 08/31 Specimen Type: BLOOD No comment entered. Ordering Provider: Lalo BOB Report Released Date/Time: Aug 31, 2024 09:40 AM Reporting Lab: [facility] [place] [address] [address] Performing Lab: [facility] [place] [address] [address] [facility] CBC AND DIFF (AUTO) IMMATURE GRANULOCYTE S/100 LEUKOCYTES IN BLOOD BY AUTOMATED COUNT 0.4 0.0 - 0.7 08/31 Specimen Type: BLOOD No comment entered. Ordering Provider: Lalo BOB Report Released Date/Time: Aug 31, 2024 09:40 AM Reporting Lab: [facility] [place] [facility] [address] [facility] [address] Performing Lab: [facility] [place] [facility] [address] [facility] [address] [facility] CBC AND DIFF (AUTO) IMMATURE GRANULOCYTE S [#/VOLUME] IN BLOOD 0.02 10*3/u L 0.00 - 0.06 08/31 Specimen Type: BLOOD No comment entered. Ordering Provider: Lalo BOB Report Released Date/Time: Aug 31, 2024 09:40 AM Reporting Lab: [facility] [place] [facility] [address] [facility] [address] Performing Lab: [facility] [place] [address] [address] [facility] CBC AND DIFF (AUTO) NRBC % 0.0 0.0 - 0.0 08/31 Specimen Type: BLOOD No comment entered. Ordering Provider: Lalo BOB Report Released Date/Time: Aug 31, 2024 09:40 AM Reporting Lab: [facility] [place] [facility] [address] [facility] [address] Performing Lab: [facility] [place] [address] [address] [facility] CBC AND DIFF (AUTO) NRBC, ABS 0.00 10*3/u L 0.00 - 0.00 08/31 Specimen Type: BLOOD No comment entered. Ordering Provider: Lalo BOB Report Released Date/Time: Aug 31, 2024 09:40 AM Reporting Lab: [facility] [place] [facility] [address] [facility] [facility] [address] Performing Lab[facility] [address] [address] [facility]USN [facility] HEMOGLOBI N A1C PANEL HEMOGLOBIN A1C/HEMOGLO [...] Aug 31, 2024 09:40 AM Reporting Lab: [address] [address] Performing Lab: [address] [address] [facility] LIPID PANEL FASTING CHOLESTEROL [MASS/VOLUM E] IN SERUM OR PLASMA 167 mg/dL 08/31 Specimen Type: SERUM No comment entered. Ordering Provider: Lalo BOB Report Released Date/Time: Aug 31, 2024 09:40 AM Reporting Lab: [address] [address] Performing Lab: [facility] [address] [address] [facility] LIPID PANEL FASTING TRIGLYCERID E [MASS/VOLUM E] IN SERUM OR PLASMA 127 mg/dL 0 - 150 08/31 Specimen Type: SERUM No comment entered. Ordering Provider: Lalo BOB Report Released Date/Time: Aug 31, 2024 09:40 AM Reporting Lab: [address] [address] Performing Lab: [address] [address] [facility] [place] [facility] LIPID PANEL FASTING CHOLESTEROL IN LDL [MASS/VOLUM E] IN SERUM OR PLASMA BY CALCULATION 85 mg/dL 0 - 129 08/31 Specimen Type: SERUM No comment entered. Ordering Provider: Lalo BOB Report Released Date/Time: Aug 31, 2024 09:40 AM Reporting Lab: [facility] [place] [facility] [address] [facility] [facility] [address] Performing Lab: [facility] [place] [facility] [address] [facility] [address] [facility] [place] [facility] LIPID PANEL FASTING CHOLESTEROL .TOTAL/CHOL ESTEROL IN HDL [MASS RATIO] IN SERUM OR PLASMA 2.9 08/31 Specimen Type: SERUM No comment entered. Ordering Provider: Lalo BOB Report Released Date/Time: Aug 31, 2024 09:40 AM Reporting Lab: [facility] [place] [address] [address] Performing Lab: [facility] [place] [address] [address] [facility] LIPID PANEL FASTING CHOLESTEROL IN HDL [MASS/VOLUM E] IN SERUM OR PLASMA 57 mg/dL 40 - 60 08/31 Specimen Type: SERUM No comment entered. Ordering Provider: Lalo BOB Report Released Date/Time: Aug 31, 2024 09:40 AM Reporting Lab: [facility] [place] [facility] [address] [facility] [facility] [address] Performing Lab: [facility] [place] [facility] [address] [facility] [facility] [address] [facility] [place] [facility] MICROALBU MIN CREATININ E RATIO PANEL MICROALBUMI N/CREATININ E [MASS RATIO] IN URINE 12.3 mg/g 0 - 29.9 08/31 Specimen Type: URINE No comment entered. Ordering Provider: Lalo BOB Report Released Date/Time: Aug 31, 2024 09:40 AM Reporting Lab: [facility] [address] [facility] [address] Performing Lab[facility] [place] [facility] [address] [facility] [address] [facility] MICROALBU MIN CREATININ E RATIO PANEL MICROALBUMI N [MASS/VOLUM E] IN URINE 1.3 mg/dL 08/31 Specimen Type: URINE No comment entered. Ordering Provider: Lalo BOB Report Released Date/Time: Aug 31, 2024 09:40 AM Reporting Lab: [facility] [place] [facility] [address] [facility] [address] Performing Lab: [facility] [place] [facility] [address] [facility] [address] [facility] MICROALBU MIN CREATININ E RATIO PANEL CREATININE [MASS/VOLUM E] IN URINE 105.65 mg/dL 08/31 Specimen Type: URINE No comment entered. Ordering Provider: Lalo BOB Report Released Date/Time: Aug 31, 2024 09:40 AM Reporting Lab: [facility] [place] [facility] [address] [facility] [address] Performing Lab: [facility] [place] [facility] [address] [facility] [address] [facility] BASIC METABOLIC PANEL (fasting) UREA NITROGEN [MASS/VOLUM E] IN SERUM OR PLASMA 17 mg/dL 7 - 25 02/19 Specimen Type: SERUM No comment entered. Ordering Provider: Lalo BOB Report Released Date/Time: Sep 10, 2023 02:57 PM Reporting Lab: [facility] [place] [facility] [address] [facility] [address] Performing Lab: [facility] [place] [facility] [address] [facility] [address] [facility] BASIC METABOLIC PANEL (fasting) GLUCOSE [MASS/VOLUM E] IN SERUM OR PLASMA 162 mg/dL 65 - 100 02/19 H Specimen Type: SERUM No comment entered. Ordering Provider: Lalo BOB Report Released Date/Time: Sep 10, 2023 02:57 PM Reporting Lab: [facility] [place] [facility] [address] [facility] [address] Performing Lab: [facility] [place] [facility] [address] [facility] [address] [facility] BASIC METABOLIC PANEL (fasting) SODIUM [MOLES/VOLU ME] IN SERUM OR PLASMA 140 mmol/L 135 - 145 02/19 Specimen Type: SERUM No comment entered. Ordering Provider: Lalo BOB Report Released Date/Time: Sep 10, 2023 02:57 PM Reporting Lab: [facility] [place] [facility] [address] [facility] [address] Performing Lab: [facility] [place] [facility] [address] [facility] [address] [facility] BASIC METABOLIC PANEL (fasting) POTASSIUM [MOLES/VOLU ME] IN SERUM OR PLASMA 4.3 mmol/L 3.5 - 5.0 02/19 Specimen Type: SERUM No comment entered. Ordering Provider: Lalo BOB Report Released Date/Time: Sep 10, 2023 02:57 PM Reporting Lab: [facility] [place] [facility] [address] [facility] [address] Performing Lab: [facility] [place] [facility] [address] [facility] [address] [facility] BASIC METABOLIC PANEL (fasting) CHLORIDE [MOLES/VOLU ME] IN SERUM OR PLASMA 104 mmol/L 100 - 110 02/19 Specimen Type: SERUM No comment entered. Ordering Provider: Lalo BOB Report Released Date/Time: Sep 10, 2023 02:57 PM Reporting Lab: [facility] [place] [facility] [address] [facility] [address] Performing Lab: [facility] [place] [facility] [address] [facility] [address] [facility] BASIC METABOLIC PANEL (fasting) CARBON DIOXIDE, TOTAL [MOLES/VOLU ME] IN SERUM OR PLASMA 23 meq/L 20 - 30 02/19 Specimen Type: SERUM No comment entered. Ordering Provider: Lalo BOB Report Released Date/Time: Sep 10, 2023 02:57 PM Reporting Lab: [facility] [place] [facility] [address] [facility] [address] Performing Lab: [facility] [place] [facility] [address] [facility] [address] [facility] BASIC METABOLIC PANEL (fasting) CREATININE [MASS/VOLUM E] IN SERUM OR PLASMA 1.30 mg/dL 0.50 - 1.40 02/19 Specimen Type: SERUM No comment entered. Ordering Provider: Lalo BOB Report Released Date/Time: Sep 10, 2023 02:57 PM Reporting Lab: [facility] [address] Performing Lab: [facility] [address] [facility] [address] [facility]N [facility] BASIC METABOLIC PANEL (fasting) GLOMERULAR FILTRATION RATE/1.73 SQ M.PREDICTED [VOLUME RATE/AREA] IN SERUM, PLASMA OR BLOOD BY CREATININE- BASED FORMULA (CKD-EPI 2020) 56 mL/min 60 02/19 L Specimen Type: SERUM No comment entered. Ordering Provider: Lalo BOB Report Released Date/Time: Sep 10, 2023 02:57 PM Reporting Lab: [facility] [place] [facility] [address] [facility] [address] Performing Lab: [facility] [place] [address] [address] [facility]N [place] [facility] FERRITIN FERRITIN [MASS/VOLUM E] IN SERUM OR PLASMA 55 ng/mL 20 - 300 02/19 Specimen Type: SERUM No comment entered. Ordering Provider: Lalo BOB Report Released Date/Time: Sep 10, 2023 02:57 PM Reporting Lab: [facility] [address] [facility] [address] Performing Lab: [facility] [place] [facility] [address] [facility] [address] [facility] [place] IRON & TIBC PANEL IRON BINDING CAPACITY [MASS/VOLUM E] IN SERUM OR PLASMA 399 ug/dL 204 - 475 02/19 Specimen Type: SERUM No comment entered. Ordering Provider: Lalo BOB Report Released Date/Time: Sep 10, 2023 02:57 PM Reporting Lab: [facility] [place] [facility] [address] [facility] [address] Performing Lab: [facility] [place] [facility] [address] [facility] [address] [facility] IRON & TIBC PANEL IRON [MASS/VOLUM E] IN SERUM OR PLASMA 120 ug/dL 40 - 160 02/19 Specimen Type: SERUM No comment entered. Ordering Provider: Lalo BOB Report Released Date/Time: Sep 10, 2023 02:57 PM Reporting Lab: [facility] [place] [place] [facility] [address] [facility] [address] Performing Lab: [facility] [place] [facility] [address] [facility] [address] [facility] [place] [facility] IRON & TIBC PANEL IRON/IRON BINDING CAPACITY.TO ANGELA [MASS RATIO] IN SERUM OR PLASMA 30.1 20.0 - 50.0 02/19 Specimen Type: SERUM No comment entered. Ordering Provider: Lalo BOB Report Released Date/Time: Sep 10, 2023 02:57 PM Reporting Lab: [facility] [place] [facility] [address] [facility] [address] Performing Lab: [facility] [place] [facility] [address] [facility] [address] [facility] [place] LIPID PANEL FASTING CHOLESTEROL [MASS/VOLUM E] IN SERUM OR PLASMA 143 mg/dL 02/19 Specimen Type: SERUM No comment entered. Ordering Provider: Lalo BOB Report Released Date/Time: Sep 10, 2023 02:57 PM Reporting Lab: [facility] [place] [facility] [address] [facility] [address] Performing Lab: [facility] [place] [facility] [address] [facility] [address] [facility] LIPID PANEL FASTING TRIGLYCERID E [MASS/VOLUM E] IN SERUM OR PLASMA 142 mg/dL 0 - 150 02/19 Specimen Type: SERUM No comment entered. Ordering Provider: Lalo BOB Report Released Date/Time: Sep 10, 2023 02:57 PM Reporting Lab: [facility] [place] [facility] [address] [facility] [address] Performing Lab: [facility] [place] [facility] [address] [facility] [address] [facility] [place] [facility] LIPID PANEL FASTING CHOLESTEROL IN LDL [MASS/VOLUM E] IN SERUM OR PLASMA BY CALCULATION 64 mg/dL 0 - 129 02/19 Specimen Type: SERUM No comment entered. Ordering Provider: Lalo BOB Report Released Date/Time: Sep 10, 2023 02:57 PM Reporting Lab: [facility] [place] [facility] [address] [facility] [address] Performing Lab: [facility] [place] [facility] [address] [facility] [address] [facility] [place] [facility] LIPID PANEL FASTING CHOLESTEROL .TOTAL/CHOL ESTEROL IN HDL [MASS RATIO] IN SERUM OR PLASMA 2.8 02/19 Specimen Type: SERUM No comment entered. Ordering Provider: Lalo BOB Report Released Date/Time: Sep 10, 2023 02:57 PM Reporting Lab: [facility] [place] [facility] [address] [facility] [address] Performing Lab: [facility] [place] [facility] [address] [facility] [address] [facility] LIPID PANEL FASTING CHOLESTEROL IN HDL [MASS/VOLUM E] IN SERUM OR PLASMA 51 mg/dL 40 - 60 02/19 Specimen Type: SERUM No comment entered. Ordering Provider: Lalo BOB Report Released Date/Time: Sep 10, 2023 02:57 PM Reporting Lab: [facility] [place] [facility] [address] [facility] [address] Performing Lab: [facility] [place] [facility] [address] [facility] [address] [facility] [place] LIVER FUNCTION PROTEIN [MASS/VOLUM E] IN SERUM OR PLASMA 6.7 g/dL 6.0 - 8.3 02/19 Specimen Type: SERUM No comment entered. Ordering Provider: Lalo BOB Report Released Date/Time: Sep 10, 2023 02:57 PM Reporting Lab: [facility] [place] [facility] [address] [facility] [address] Performing Lab: [facility] [place] [address] [address] [facility] [place] [facility] LIVER FUNCTION ALBUMIN [MASS/VOLUM E] IN SERUM OR PLASMA 3.9 g/dL 3.5 - 5.0 02/19 Specimen Type: SERUM No comment entered. Ordering Provider: Lalo BOB Report Released Date/Time: Sep 10, 2023 02:57 PM Reporting Lab: [facility] [place] [facility] [address] [facility] [address] Performing Lab: [facility] [place] [facility] [address] [facility] [address] [facility] LIVER FUNCTION ALKALINE PHOSPHATASE [ENZYMATIC ACTIVITY/VO LUME] IN SERUM OR PLASMA 84 U/L 40 - 150 02/19 Specimen Type: SERUM No comment entered. Ordering Provider: Lalo BOB Report Released Date/Time: Sep 10, 2023 02:57 PM Reporting Lab: [facility] [place] [facility] [address] [facility] [address] Performing Lab: [facility] [place] [facility] [address] [facility] [address] [facility] LIVER FUNCTION ASPARTATE AMINOTRANSF ERASE [ENZYMATIC ACTIVITY/VO LUME] IN SERUM OR PLASMA 16 U/L 5 - 34 02/19 Specimen Type: SERUM No comment entered. Ordering Provider: Lalo BOB Report Released Date/Time: Sep 10, 2023 02:57 PM Reporting Lab: [facility] [place] [facility] [address] [facility] [address] Performing Lab: [facility] [place] [facility] [address] [facility] [address] [facility] [place] [facility] LIVER FUNCTION ALANINE AMINOTRANSF ERASE [ENZYMATIC ACTIVITY/VO LUME] IN SERUM OR PLASMA 17 U/L 02/19 Specimen Type: SERUM No comment entered. Ordering Provider: Lalo BOB Report Released Date/Time: Sep 10, 2023 02:57 PM Reporting Lab: [facility] [place] [facility] [address] [facility] [address] Performing Lab: [facility] [place] [facility] [address] [facility] [address] [facility] [place] [facility] LIVER FUNCTION BILIRUBIN.T OTAL [MASS/VOLUM E] IN SERUM OR PLASMA 0.8 mg/dL 0.2 - 1.2 02/19 Specimen Type: SERUM No comment entered. Ordering Provider: Lalo BOB Report Released Date/Time: Sep 10, 2023 02:57 PM Reporting Lab: [facility] [place] [facility] [address] [facility] [address] Performing Lab: [facility] [place] [address] [address] [facility] [place] [facility] Vital Signs Combined list of inpatient and outpatient Vital Signs from Department of Defense and Veterans Affairs, ranging from 12 months to all on record, depending upon the facility. Vital Sign Value Date Comments Source SYSTOLIC BLOOD PRESSURE 140 09/04/19 25 11:14:45 [facility] [place] [facility] DIASTOLIC BLOOD PRESSURE 80 025 11:14:45 VA [...] to the last 18 months, not all VA inpatient encounters are included; 2) Encounters from the Department of [employer] facilities going backup to 280 months. Location Location Details Encounter Type Encounter Number Reason For Visit Attending Provider ADM Date DC Date Status Disposition Source [facility] DIABETIC CUSTOM MOLDED SHOE [id number] Diagnos is: ICD-10- CM E11.8 Type 2 diabete s mellitu s with unspeci fied complic ations BRAYDON CHAPMAN 06/25 [facility] Encounter [id number] 07/24 [facility] Encounter [id number] Meredith GOMEZ 07/30 [facility] Encounter [id number] Meredith GOMEZ 09/09 [facility] OFFICE O/P EST LOW 20 MIN [id number] Diagnos is: ICD-10- CM 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 goARTI Patel 09/10 [facility] EXTENDED VISUAL FIELD XM [id number] Diagnos is: ICD-10- CM H40.013 Open angle with borderl ine finding s, low risk, bilater al TRISTON GONZALEZ 09/27 [facility] CMPTR OPHTH IMG OPTIC NERVE [id number] Diagnos is: ICD-10- CM H40.013 Open angle with borderl ine finding s, low risk, bilater al TRISTON GONZALEZ 09/27 [facility] INTRM OPH EXAM EST PATIENT [id number] Diagnos is: ICD-10- CM H40.013 Open angle with borderl ine finding s, low risk, bilater al TRISTON GONZALEZ 09/27 [facility] FIT SPECTACLES MONOFOCAL [id number] Diagnos is: ICD-10- CM Z46.0 Encount er for fit/adj st of spectac les and contact lenses TRISTON GONZALEZ 09/27 [facility] OFFICE O/P EST SF 10 MIN [id number] Diagnos is: ICD-10- CM E11.8 Type 2 diabete s mellitu s with unspeci fied complic ations Paz BENSON AVIPaz 10/22 [facility] Outpatient Encounter [id number] 11/07 [facility] En[facility] [id number] Meredith GOMEZ 12/01 [facility] En[facility] [id number] 02/05 [facility] En[facility] [id number] Meredith GOMEZ 02/09 [facility] En[facility] [id number] Meredith GOMEZ 02/16 [facility] OFFICE O/P EST LOW 20 MIN [id number] Diagnos is: ICD-10- CM 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 KAREN Boogie 02/25 [facility] OFFICE O/P EST LOW 20 MIN [id number] Diagnos is: ICD-10- CM I11.9 Hyperte nsive heart disease without heart failure ARTI BOB 03/03 [facility] Out[facility] Encounter [id number] Meredith GOMEZ 03/30 [facility] En[facility] [id number] Meredith GOMEZ 04/30 [facility] COMPRE [place]AM [place] 1/ [id number] Diagnos is: ICD-10- CM E11.9 Type 2 diabete s mellitu s without complic ations RUPAL RIZZO B 04/30 [facility] Out[facility] Encounter [id number] Meredith GOMEZRod Rea 06/01 [facility] En[facility] [id number] [facility] 07/20 [facility] [id number] [facility] ISTOPHER E 08/31 [facility] OFFICE O/P EST LOW 20 MIN [id number] Diagnos is: ICD-10- CM I11.9 Hyperte nsive heart disease without heart failure ARTI BOB 09/04 [facility] OFFICE O/P EST LOW 20 MIN [id number] Diagnos is: ICD-10- CM L60.3 Nail dystrop hy CATHY YE D 10/07 [facility] En[facility] [id number] 10/12 [facility] En[facility] [id number] 11/11 [facility] Encounter [id number] 11/17 [facility] Encounter [id number] JOCELYN GIBSON 11/17 [facility] Outpatient Encounter [id number] 11/20 [facility] Outpatient Encounter [id number] 11/25 [facility] Social History Combined list of available smoking, tobacco, and other social history from Department of Defense and Veterans Affairs facilities. Social History Type Response Date Comment Source [facility] NEVER US[facility] CIGARET[facility] 09/04[facility]2024 [facility] [place] [facility]/04[facility] [place] [facility] History of tobacco use [place]-[facility]BACCO FORMER USER 06/04/2023 [facility] History of tobacco use [place]-TOBACCO FORMER USER 06/15/2022 [facility] History [facility] tobacco use [place]-TOBACCO FORMER USER 06/30/2021 [facility] [place] [facility] History of tobacco use [place]-TOBACCO QUIT 15 YRS OR MORE 06/03/2020 [facility] [place] [facility] History of tobacco use [place]-TOBACCO FORMER USER 02/23/2020 [facility] [place] [facility] History of tobacco use [facility]-TOBACCO FORMER USER 10/28/2018 [facility] History of tobacco use QUIT TOBACCO USE > 7 YEARS AGO 07/10/2017 [facility] History of tobacco use QUIT TOBACCO USE > 7 YEARS AGO 02/13/2016 . [facility] History of tobacco use HISTORY OF SMOKING 06/08/2005 quit in 1973 [facility] [place] [facility] History of tobacco use HISTORY OF SMOKING 04/10/2004 [facility] [facility] History of tobacco use HISTORY OF SMOKING 12/04/2002 [facility] History of tobacco use QUIT TOBACCO USE > 7 YEARS AGO 01/09/2002 [facility] History of tobacco use HISTORY OF SMOKING 09/11/2001 see note this date [facility] Plan of Care List of future care activities from [facility] facilities. Additional future care activities may be listed in the Assessment and Plan section. Date/Time Care Activity Care Activity Detail Facili ty 02/25/2025 AMBULATORY - MEDICINE AMBULATORY - MEDICI [facility] Advance Directives List of completed, amended, or rescinded Advance Directives on record at [facility] facilities. An actual copy of the Directive is not included. Date Advance Directive Provider Source 08/27/2012 ADVANCE DIRECTIVE JESS ANDRADE [facility]
--- OUTSIDE RECORDS SUMMARY | 2024-12-08 11:42 | XMS_ITS | Clinical Summary ---
Author Organization [facility] Address [address] [place] [address] Care Team Providers Care Paste Up Copy Camera Operator Name Role Phone Unavailable Primary Care [...]
[2024-12-08 13:54] LABS: Estimated Average Glucose 120 mg/dL; Hemoglobin A1C 121.1843 umol/L; Hemoglobin A1c % 5.8 % (<6.0); Total Hemoglobin (HGBA1C) 3074.1749 umol/L
== END 2024-12-08 10:03 | disposition home or self-care (01) ==
LOC: HO.MANLDS 10:02
PROVIDERS: Visit Provider Internal Medicine
DX: Z13.89 Encounter for screening for other disorder (principal)
CPT/HCPCS: 36415; 83036

== ENCOUNTER 2025-01-13 13:50 | Outpatient (REF) | payer MEDICARE, SELFPAY ==
--- OUTSIDE RECORDS SUMMARY | 2025-01-13 13:53 | XMS_ITS | Encounter Summary ---
Author Name [place] Address [address] [place] [address] Care Team Providers Care Coal Briquette Machine Operator Name Role Phone ARTI BOB Primary Care [...] PART A Feb 09, 2009 PART A [id number] BELKIS NEGRON PATIENT MEDICARE (WNR) MEDICARE (M) PART A Feb 09, 2009 PART A [id number] [phone] BELKIS NEGRON PATIENT MEDICARE (WNR) MEDICARE (M) PART B Feb 09, 2009 PART B [id number] JAMILBELKIS FAYE PATIENT MEDICARE (WNR) MEDICARE (M) PART A Feb 09, 2009 PART A [id number] BELKIS NEGRON PATIENT MEDICARE (WNR) MEDICARE (M) PART B Jan 31, 2009 PART B [id number] JAMILBELKIS FAYE PATIENT MEDICARE (WNR) MEDICARE (M) PART B Jan 31, 2009 PART B [id number] BELKIS NEGRON PATIENT MEDICARE (WNR) MEDICARE (M) PART A Jan 31, 2009 PART A [id number] [phone] BELKIS NEGRON PATIENT MEDICARE (WNR) MEDICARE (M) PART B Jan 31, 2009 PART B [id number] [phone] BELKIS NEGRON PATIENT [facility] (WNR) MEDICARE ADVANTAGE [facility] (WNR) Sep 02, 2021 [id number] [phone] BELKIS NEGRON PATIENT [facility] (WNR) MEDICARE ADVANTAGE [facility] (WNR) Sep 02, 2021 [id number] [id number] [phone] BELKIS NEGRON PATIENT [facility] (WNR) MEDICARE ADVANTAGE [facility] (WNR) Sep 02, 2021 [id number] [id number] BELKIS NEGRON PATIENT Selected Encounter This section includes the information on record at [place] for the Encounter. Date/Time Encounter Type Encounter Description Reason Provider Source Apr 30, 2024 01:30 PM COMPRE OPH EXAM EST PT 1/> OPTOMETRY ICD-10-CM E11.9 Type 2 diabetes mellitus without complications MAHESH RIZZO [facility] Encounter Template Text not used by VA Assessments - Encounter Diagnoses This section includes the primary and secondary diagnoses documented for the Encounter. Date/Time Primary/Secondary Diagnosis Diagnosis Name Provider Source Apr 30, 2024 04:08 PM PRIMARY Type 2 diabetes mellitus without complications MAHESH RIZZO [place] [facility] [facility] Apr 30, 2024 04:08 PM SECONDARY Dry eye syndrome of bilateral lacrimal glands MA[place]ESH RIZZO [place] [facility] [facility] Apr 30, 2024 04:08 PM SECONDARY Hypermetropia, bilateral MAHESH RIZZO [place] [facility] [facility] Apr 30, 2024 04:08 PM SECONDARY Open angle with borderline findings, low risk, bilateral MAHESH RIZZO [place] [facility] [place] [facility] Apr 30, 2024 04:08 PM SECONDARY Presence of intraocular lens MAHESH RIZZO [place] [facility] [facility] Plan of Treatment: Future Appointments (+ 6 months) and Future Tests (+/- 45 days) The Plan of Treatment section includes future care activities for the patient from all [place] [facility] This section includes future appointments and future orders which are active, pending or scheduled. Future Appointments This section includes appointments that were scheduled to occur 6 months from the date of the Encounter, up to a maximum of 20 appointments. The data comes from all [place] treatment facilities. Appointment Date/Time Appointment Type Appointme nt Facility Name May 05, 2024 01:00 PM AMBULATORY - MEDICINE [place] [facility] [facility] Sep 04, 2024 11:00 AM AMBULATORY - [place]ICINE [place] [facility] [facility] Oct 07, 2024 11:30 AM AMBULATORY - MEDICINE [facility] [place] [facility] Social History: Smoking Status (Most current) and Tobacco Use (All prior to encounter date) This section includes the most current, and the historical, smoking and tobacco- related health factors from the [place] facility where the Encounter took place. Current Smoking Status This section includes the most current smoking, or tobacco-related health factor, from the [place] facility where the Encounter took place. Date/Time Current Smoking Status Comment [facility] it Jun 04, 2023 01:30 PM VA-TOBACCO FORMER USER [place] [facility] Tobacco Use History This section includes a history of the smoking, or tobacco-related health factors, that were collected on or before the date of the Encounter. The data comes from the [place] facility where the Encounter took place. Date/Time Smoking Status/Tobac co Use Comment Facility Jun 04, 2023 01:30 PM VA-TOBACCO QUIT 15 YRS OR MORE [place] [facility] [facility] Jun 15, 2022 09:15 AM VA-TOBACCO FORMER USER [place] [facility] [facility] Jun 15, 2022 09:15 AM VA-TOBACCO QUIT 15 YRS OR MORE [place] [facility] [place] [facility] Jun 30, 2021 09:30 AM VA-TOBACCO FORMER USER [place] [facility] [place] [facility] Jun 30, 2021 09:30 AM VA-TOBACCO QUIT 15 YRS OR MORE [place] [facility] [place] [facility] Jun 03, 2020 08:30 AM VA-TOBACCO FORMER USER [place] [facility] [place] [facility] Jun 03, 2020 08:30 AM VA-TOBACCO QUIT 15 YRS OR MORE [facility] Feb 23, 2020 09:01 AM [facility] Feb 23, 2020 09:01 AM VA-TOBACCO QUIT 15 YRS OR MORE [facility] Oct 28, 2018 01:39 PM VA-TOBACCO [facility] Oct 28, 2018 01:39 PM VA-TOBACCO QUIT 15 YRS OR MORE [facility] Jul 10, 2017 10:40 AM QUIT TOBACCO USE > 7 YEARS AGO [facility] Feb 13, 2016 10:21 AM QUIT TOBACCO USE > 7 YEARS AGO . [facility] Jun 08, 2005 10:50 AM HISTORY OF SMOKING quit in 1972 [facility] Apr 10, 2004 10:43 AM HISTORY OF SMOKING [facility] Dec 04, 2002 11:12 AM HISTORY OF SMOKING [facility] January 09, 2002 10:01 AM QUIT TOBACCO USE > 7 YEARS AGO [facility] Sep 11, 2001 10:41 AM HISTORY OF SMOKING see note this date [facility] Sep 11, 2001 10:41 AM NON-TOBACCO USER see previous note [facility] Advance Directives: All historical and current Section Date Range: From patient's date of to the date document was created. This section includes ALL of a patient's completed or amended [place] Advance and Rescinded Directives. The entries below indicate that a directive exists for the patient, but an actual copy is not included with this document. The data comes from all [place] facilities. Date Advance Directives Provider Source Aug 27, 2012 ADVANCE DIRECTIVE [facility] Encounter Notes: All associated encounter notes This [...] Obesity * 16. Benign hypertension (SNOMED CT [id number]) Active Outpatient Medications (including Supplies): Active Outpatient [...] last BCVA: OD: +0.50 ds 20/20 OS: +[id number] 20/20 Add: +2.25 DVA ( )sc ( [...] Signed: 04/30/2024 15:34 /patrick/ MAHESH RIZZO OD Tie Binder Cosigned: 04/30/2024 16:08 04/30/2024 ADDENDUM STATUS: COMPLETED The optometry internet ecommerce specialist participated in this exam, I saw this [place] in conjunction with the optometry student. The [...] (Tool #5) FACILITY ALLERGY/ADR -------- [facility] NO KNOWN ALLERGIES [place] [facility] [facility] [place] [facility] No Known Allergies Med Recon NoGlossary (Tool #1) INCLUDED IN THIS LIST: Alphabetical list of active outpatient prescriptions dispensed from this [place] (local) and dispensed from another VA or [...] the patient into personal health records (i.e. [email or web address]) are NOT included in this list. Non-VA medications documented outside this [place], remote inpatient orders (regardless of status) and remote clinic medications are NOT included in this list. The patient and provider must always discuss medications the patient is taking, regardless of where the medication was dispensed or obtained. OUTPT ALLOPURINOL 300MG TAB (Status = Active) TAKE ONE TABLET BY MOUTH EVERY DAY FOR GOUT Rx# [id number] Last Released: 12/19/23 Qty/Days Supply: Rx Expiration Date: 09/10/24 Refills Remainin Non-VA ASPIRIN 81MG EC TAB TAKE ONE TABLET BY MOUTH Patient wants to buy from Non-VA pharmacy. OUTPT ATENOLOL 25MG TAB (Status = Discontinued) TAKE ONE TABLET BY MOUTH ONCE DAILY FOR BLOOD PRESSURE/HEART Rx# [id number] Last Released: 11/07/23 Qty/Days Supply: Rx Expiration Date: 02/20/24 Refills Remainin Indication: FOR HIGH BLOOD PRESSURE OUTPT ATENOLOL 25MG TAB (Status = Active) TAKE ONE TABLET BY MOUTH ONCE DAILY FOR BLOOD PRESSURE/HEART Rx# [id number] Last Released: 02/13/24 Qty/Days Supply: Rx Expiration Date: 02/11/25 Refills Remainin Indication: FOR HIGH BLOOD PRESSURE OUTPT ATORVASTATIN CALCIUM 80MG TAB (Status = Active) TAKE ONE TABLET BY MOUTH ONCE DAILY FOR CHOLESTEROL IN PLACE OF ROSUVASTATIN. Rx# [id number] Last Released: 02/18/24 Qty/Days Supply: Rx Expiration Date: 06/03/24 Refills Remainin OUTPT CARBOXYMETHYLCELLULOSE NA 0.5% OPH SOLN (Status = ) INSTILL 1 DROP INTO EACH EYE FOUR TIMES A DAY FOR DRY EYE Rx# [id number] Last Released: 08/30/23 Qty/Days Supply: Rx Expiration Date: 02/16/24 Refills Remainin Indication: FOR DRY EYE OUTPT DILTIAZEM (EQV-TIAZAC) 360MG 24HR CAP (Status = Discontinued) TAKE ONE CAPSULE BY MOUTH EVERY DAY FOR BLOOD PRESSURE Rx# [id number] Last Released: 11/21/23 Qty/Days Supply: Rx Expiration Date: 02/20/24 Refills Remainin OUTPT DILTIAZEM (EQV-TIAZAC) 360MG 24HR CAP (Status = Active/Suspended) TAKE ONE CAPSULE BY MOUTH ONCE DAILY FOR HIGH BLOOD PRESSURE Rx# [id number] Last Released: 03/06/24 Qty/Days Supply: 90 Rx Expiration Date: 03/04/25 Refills Remainin Indication: FOR HIGH BLOOD PRESSURE OUTPT GLIPIZIDE 10MG TAB (Status = Active) TAKE ONE TABLET BY MOUTH TWICE DAILY FOR DIABETES Rx# [id number] Last Released: 01/16/24 Qty/Days Supply: 180/90 Rx Expiration Date: 06/04/24 Refills Remainin OUTPT LISINOPRIL 20MG TAB (Status = Active) TAKE ONE TABLET BY MOUTH DAILY TO CONTROL BLOOD PRESSURE Rx# [id number] Last Released: 04/27/24 Qty/Days Supply: 90 Rx Expiration Date: 09/10/24 Refills Remainin OUTPT METFORMIN HCL 1000MG TAB (Status = Active) TAKE ONE TABLET BY MOUTH TWICE DAILY FOR DIABETES Rx# [id number] Last Released: 04/27/24 Qty/Days Supply: 180 Rx Expiration Date: 09/10/24 Refills Remainin OUTPT OMEPRAZOLE 20MG EC CAP (Status = Active) TAKE ONE CAPSULE BY MOUTH EVERY MORNING 30 MINUTES BEFORE BREAKFAST Rx# [id number] Last Released: 02/18/24 Qty/Days Supply: 90 Rx Expiration Date: 06/04/24 Refills Remainin Non-VA OTHER CAP/TAB TAKE COD LIVER OIL BY MOUTH ONCE DAILY OUTPT PIOGLITAZONE HCL 30MG TAB (Status = Active/Suspended) TAKE ONE TABLET BY MOUTH DAILY Rx# [id number] Last Released: 03/13/24 Qty/Days Supply: 90 Rx Expiration Date: 06/04/24 Refills Remainin OUTPT THIAMINE 100MG TAB (Status = Discontinued) TAKE ONE TABLET BY MOUTH ONCE DAILY FOR VITAMIN SUPPLEMENTATION Rx# [id number] Last Released: 01/16/24 Qty/Days Supply: 100/90 Rx Expiration Date: 02/20/24 Refills Remainin OUTPT THIAMINE 100MG TAB (Status = Active/Suspended) TAKE ONE TABLET BY MOUTH ONCE DAILY FOR VITAMIN SUPPLEMENTATION Rx# [id number] Last Released: Qty/Days Supply: 100 Rx Expiration Date: 05/01/25 Refills Remainin SUPPLIES OUTPT ACCU-CHEK GUIDE (GLUCOSE) TEST STRIP (Status = Active) USE 1 STRIP TO TEST BLOOD SUGARS TWICE A DAY TWO TIMES A WEEK TO BE USED WITH NEW ACCU-CHEK GUIDE ME METER Rx# [id number] Last Released: 01/28/24 Qty/Days Supply: 50/180 Rx Expiration Date: 05/17/24 Refills Remainin OUTPT LANCET,SOFTCLIX (Status = ) USE 1 LANCET DIRECTED TWICE A DAY TWO TIMES A WEEK TO TEST BLOOD SUGAR Rx# [id number] Last Released: 05/14/23 Qty/Days Supply: 100/90 Rx Expiration Date: 02/20/24 Refills Remainin /patrick/ MAHESH RIZZO OD Tie Binder Signed: 04/30/2024 16:09 SUMEET BAIG CNTRMeredith [facility]
--- OUTSIDE RECORDS SUMMARY | 2025-01-13 13:53 | XMS_ITS | Encounter Summary ---
Author Name [facility] [place] Address [address] [place] [address] Care Team Providers Care Puffer Tender Name Role Phone ARTI BOB Primary Care [...] PART A Feb 09, 2009 PART A [id number] BELKIS NEGRON PATIENT MEDICARE (WNR) MEDICARE (M) PART A Feb 09, 2009 PART A [id number] BELKIS NEGRON PATIENT MEDICARE (WNR) MEDICARE (M) PART A Feb 09, 2009 PART A [id number] BELKIS NEGRON PATIENT MEDICARE (WNR) MEDICARE (M) PART B Feb 09, 2009 PART B [id number] [phone] [id number] BELKIS NEGRON PATIENT MEDICARE (WNR) MEDICARE (M) PART B Jan 31, 2009 PART B [id number] JAMILBELKIS FAYE PATIENT MEDICARE (WNR) MEDICARE (M) PART B Jan 31, 2009 PART B [id number] BELKIS NEGRON PATIENT MEDICARE (WNR) MEDICARE (M) PART A Jan 31, 2009 PART A [id number] BELKIS NEGRON PATIENT MEDICARE (WNR) MEDICARE (M) PART B Jan 31, 2009 PART B [id number] [phone] BELKIS NEGRON PATIENT [facility] (WNR) MEDICARE ADVANTAGE [facility] (WNR) Sep 02, 2021 [id number] [phone] BELKIS NEGRON PATIENT [facility] (WNR) MEDICARE ADVANTAGE [facility] (WNR) Sep 02, 2021 [id number] BELKIS NEGRON PATIENT [facility] (WNR) MEDICARE ADVANTAGE [facility] (WNR) Sep 02, 2021 [id number] BELKIS NEGRON PATIENT Selected Encounter This section includes the information on record at [place] for the Encounter. Date/Time Encounter Type Encounter Description Reason Provider Source Oct 07, 2024 11:30 AM OFFICE O/P EST LOW 20 MIN PODIATRY ICD-10-CM L60.3 Nail dystrophy ALIZE SHI [facility] Encounter Template Text not used by [place] Assessments - Encounter Diagnoses This section includes the primary and secondary diagnoses documented for the Encounter. 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 This section includes future appointments and future orders which are active, pending or scheduled. Future Appointments This section includes appointments that were scheduled to occur 6 months from the date of the Encounter, up to a maximum of 20 appointments. The data comes from all [place] treatment facilities. Appointment Date/Time Appointment Type Appointme nt Facility Name Nov 18, 2024 08:00 AM AM[place]ULATORY [place]ICINE [place] [facility] Feb 25, 2025 11:30 AM AM[place]ATORY [place] [facility] Mar 01, 2025 11:00 AM AMBULATORY - MEDICINE [facility] Active, Pending, and Scheduled Orders This section includes a listing of several types of active, pending, and scheduled orders, including clinic medications orders, diagnostic test orders, procedure orders and consult orders; where the start date of the order is 45 days before the date of the Encounter or 45 days after the date of theEncounter. The data comes from all [facility] facilities. Test Date/Time Test Type Test Details Facility Name Nov 12, 2024 04:55 PM Consult Order [facility] NON-SKILLED HOME HEALTH AIDE Cons Unit Technician's Choice [facility] Social History: Smoking Status (Most current) and Tobacco Use (All prior to encounter date) This section includes the most current, and the historical, smoking and tobacco- related health factors from the [place] facility where the Encounter took place. Current Smoking Status This section includes the most current smoking, or tobacco-related health factor, from the [place] facility where the Encounter took place. Date/Time Current Smoking Status Comment [facility] Sep 04, 2024 11:00 AM VA-TOBACCO NEVER U SED CIGARETTES [facility] Tobacco Use History This section includes a history of the smoking, or tobacco-related health factors, that were collected on or before the date of the Encounter. The data comes from the [place] facility where the Encounter took place. Date/Time Smoking Status/Tobac co Use Comment Facility Sep 04, 2024 11:00 AM VA-TOBACCO NEVER USED OTHER TYPE [place] [facility] [facility] Sep 04, 2024 11:00 AM VA-TOBACCO SCREEN FOLLOW-UP [place] [facility] Sep 04, 2024 11:00 AM VA-TOBACCO USE ADVICE [place] [facility] [facility] Sep 04, 2024 11:00 AM VA-TOBACCO USE SOCIAL MEDIA CAMPAIGN MANAGER NO [place] [facility] [facility] Sep 04, 2024 11:00 AM VA-TOBACCO USE MED NO [place] [facility] [facility] Jun 04, 2023 01:30 PM VA-TOBACCO FORMER USER [place] [facility] [place] [facility] Jun 04, 2023 01:30 PM VA-TOBACCO QUIT 15 YRS OR MORE [facility] [place] [facility] Jun 15, 2022 09:15 AM VA-TOBACCO FORMER USER [place] [facility] [place] [facility] Jun 15, 2022 09:15 AM VA-TOBACCO QUIT 15 YRS OR MORE [place] [facility] [place] [facility] Jun 30, 2021 09:30 AM VA-TOBACCO FORMER USER [place] [facility] [place] [facility] Jun 30, 2021 09:30 AM VA-TOBACCO QUIT 15 YRS OR MORE [facility] [facility] Jun 03, 2020 08:30 AM VA-TOBACCO FORMER USER [place] [facility] [place] [facility] Jun 03, 2020 08:30 AM VA-TOBACCO QUIT 15 YRS OR MORE [place] [facility] Feb 23, 2020 09:01 AM VA-TOBACCO FORMER USER [place] [facility] [facility] Feb 23, 2020 09:01 AM VA-TOBACCO QUIT 15 YRS OR MORE [facility] [place] [facility] Oct 28, 2018 01:39 PM VA-TOBACCO FORMER USER [facility] [place] [facility] Oct 28, 2018 01:39 PM VA-TOBACCO QUIT 15 YRS OR MORE [facility] [place] [facility] Jul 10, 2017 10:40 AM QUIT TOBACCO USE > 7 YEARS AGO [facility] [place] [facility] Feb 13, 2016 10:21 AM QUIT TOBACCO USE > 7 YEARS AGO . [place] [facility] [facility] Jun 08, 2005 10:50 AM HISTORY OF SMOKING quit in 1972 [facility] [place] [facility] Apr 10, 2004 10:43 AM HISTORY OF SMOKING [facility] [place] [facility] Dec 04, 2002 11:12 AM HISTORY OF SMOKING [facility] [facility] January 09, 2002 10:01 AM QUIT TOBACCO USE > 7 YEARS AGO [facility] [place] [facility] Sep 11, 2001 10:41 AM HISTORY OF SMOKING see note this date [facility] Sep 11, 2001 10:41 AM NON-TOBACCO USER see previous note [facility] Advance Directives: All historical and current Section Date Range: From patient's date of to the date document was created. This section includes ALL of a patient's completed or amended [place] Advance and Rescinded Directives. The entries below indicate that a directive exists for the patient, but an actual copy is not included with this document. The data comes from all [place] facilities. Date Advance Directives Provider Source Aug 27, 2012 ADVANCE DIRECTIVE DAVIDYANCYNAYEJOE Harper [facility] Encounter Notes: All associated encounter notes This section contains the clinical notes associated to the Encounter. Date/Time Encounter Note(s) Provider Source Oct 07, 2024 11:29 AM PODIATRY NOTE: LOCAL TITLE: PODIATRY NOTE STANDARD TITLE: PODIATRY NOTE DATE OF NOTE: OCT 07, 2024@11:29 ENTRY DATE: OCT 07, 2024@11:30 AUTHOR: ALIZE SHIIGNER: URGENCY: STATUS: COMPLETED Podiatry High Risk Foot Encounter [facility] provider: Alize Shi [facility] Date: OCT 07, 2024 ELSA NEGRON [id number] [place] [address] FROM Apr TO Apr Primary Care:ARTI BOB [facility] care -past exams low risk, no significant [...] Obesity * 16. Benign hypertension (SNOMED CT [id number]) Active Out Patient medications: Active Outpatient Medications [...] reprocessed according to [facility] policy for E Patient had diabetes foot care education at [...] as results of the physical exam and computer consultant opinions and recommendations as sought. Alternatives [...] -The on this visit was given information [employer] service and encouraged to enroll if not already having done so. /patrick/ ALIZE SHI DPM PODIATRY ATTENDING Signed: 10/07/2024 16:00 ALIZE SHI [place] [facility] [facility]
--- OUTSIDE RECORDS SUMMARY | 2025-01-13 13:53 | XMS_ITS | Encounter Summary ---
Author Name [facility] [place] [facility] [place] [facility] [facility] [place] Address [address] [place] [address] Care Team Providers Care Healthcare Financial Analyst Name Role Phone ARTI BOB Primary [...] PART A Feb 09, 2009 PART A [id number] [phone] BELKIS NEGRON PATIENT MEDICARE (WNR) MEDICARE (M) PART A Feb 09, 2009 PART A [id number] [phone] BELKIS NEGRON PATIENT MEDICARE (WNR) MEDICARE (M) PART A Feb 09, 2009 PART A [id number] BELKIS NEGRON PATIENT MEDICARE (WNR) MEDICARE (M) PART B Feb 09, 2009 PART B [id number] BELKIS NEGRON PATIENT MEDICARE (WNR) MEDICARE (M) PART B Jan 31, 2009 PART B [id number] [phone] JAMILBELKIS FAYE PATIENT MEDICARE (WNR) MEDICARE (M) PART B Jan 31, 2009 PART B [id number] BELKIS NEGRON PATIENT MEDICARE (WNR) MEDICARE (M) PART A Jan 31, 2009 PART A [id number] BELKIS NEGRON PATIENT MEDICARE (WNR) MEDICARE (M) PART B Jan 31, 2009 PART B [id number] BELKIS NEGRON PATIENT [facility] (WNR) MEDICARE ADVANTAGE [facility] (WNR) Sep 02, 2021 [id number] [phone] BELKIS NEGRON PATIENT [facility] (WNR) MEDICARE ADVANTAGE [facility] (WNR) Sep 02, 2021 [id number] BELKIS NEGRON PATIENT [facility] (WNR) MEDICARE ADVANTAGE [facility] (WNR) Sep 02, 2021 [id number] BELKIS NEGRON PATIENT Selected Encounter This section includes the information on record at [place] for the Encounter. Date/Time Encounter Type Encounter Description Reason Provider Source Feb 26, 2024 11:00 AM OFFICE O/P EST LOW 20 MIN ENDOCRINOLOGY ICD-10-CM 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c multinodular goiter PAZ WEBER [facility] Encounter Template Text not used by [place] Assessments - Encounter Diagnoses This section includes the primary and secondary diagnoses documented for the Encounter. Date/Time Primary/Secondary Diagnosis Diagnosis Name Provider Source Feb 26, 2024 12:35 PM PRIMARY Nontoxic multinodular goiter [facility] Plan of Treatment: Future Appointments (+ 6 months) and Future Tests (+/- 45 days) The Plan of Treatment section includes future care activities for the patient from all [place] treatmentfacilities. This section includes future appointments and future orders which are active, pending or scheduled. Future Appointments This section includes appointments that were scheduled to occur 6 months from the date of the Encounter, up to a maximum of 20 appointments. The data comes from all [place] treatment facilities. Appointment Date/Time Appointment Type Appointme nt Facility Name Mar 03, 2024 01:30 PM AMBULATORY - MEDICINE [facility] [place] [facility] Apr 30, 2024 01:30 PM AMBULATORY MEDICINE [facility] [place] [facility] May 05, 2024 01:00 PM AMBULATORY - MEDICINE [facility] Active, Pending, and Scheduled Orders This section includes a listing of several types of active, pending, and scheduled orders, including clinic medications orders, diagnostic test orders, procedure orders and consult orders; where the start date of the order is 45 days before the date of the Encounter or 45 days after the date of theEncounter. The data comes from all [place] treatment facilities. Test Date/Time Test Type Test Details Facility Name Feb 27, 2024 12:00 AM Laboratory - Chemi stry Order BASIC METABOLIC PANEL (non-fasting) BLOOD (SST-SERUM) [facility] Feb 27, 2024 12:00 AM Laboratory - Chemi stry Order CBC BLOOD (LAV-BLOOD) [facility] Feb 27, 2024 12:00 AM Laboratory - Chemi stry Order IRON & TIBC PANEL BLOOD (SST-SERUM) [facility] Feb 27, 2024 12:00 AM Laboratory - Chemi stry Order FERRITIN BLOOD (SST-SERUM) [facility] Lab Results: +/- 30 days of the encounter This section includes the Chemistry and Hematology Lab Results on record with [place] for the patient. Radiology Reports and Pathology Reports are provided separately, in subsequent sections. Lab Results This section contains the Chemistry/Hematology Results that were resulted 30 days before or 30 daysafter the date of the Encounter. Date/Time Source Result Type Result - Unit Interpretation Reference Range Specimen Type Comment Feb 20, 2024 08:43 AM [facility] LIVER FUNCTION SERUM Specimen Type: SERUM No comment entered. Ordering Provider: JON BOB Report Released Date/Time: Sep 10, 2023 02:57 PM Reporting Lab: [address] [address] Performing Lab: [address] [address] PROTEIN,TOTAL 6.7 g/dL 6.0-8.3 ALBUMIN 3.9 g/dL 3.5-5.0 ALKALINE PHOSPHATASE 84 U/L 40-150 AST 16 U/L 5-34 ALT 17 U/L BILIRUBIN, TOTAL 0.8 mg/dL 0.2-1.2 Feb 20, 2024 08:43 AM [facility] BASIC METABOLIC PANEL (fasting) SERUM Specime n Type: SERUM No comment entered. Ordering Provider: ARTI BOB Report Released Date/Time: Sep 10, 2023 02:57 PM Reporting Lab: [facility] [address] [facility] [address] Performing Lab: [facility] [address] [facility] [address] UREA NITROGEN 17 mg/dL 7-25 GLUCOSE 162 mg/dL H 65-100 SODIUM 140 mmol/L 135-145 POTASSIUM 4.3 mmol/L 3.5-5.0 CHLORIDE 104 mmol/L 100-110 CO2 23 meq/L 20-30 CREATININE, Serum 1.30 mg/dL 0.50-1.40 eGFR(CKD-EPI 2020) 56 mL/min L >60 Feb 20, 2024 08:43 AM [facility] LIPID PANEL FASTING SERUM Specimen Type: SERU M No comment entered. Ordering Provider: ARTI BOB Report Released Date/Time: Sep 10, 2023 02:57 PM Reporting Lab: [facility] [address] [facility] [address] Performing Lab: [address] [address] CHOLESTEROL 143 mg/dL TRIGLYCERIDE 142 mg/dL 0-150 LDL calculated 64 mg/dL 0-129 CHOL/HDL 2.8 HDL CHOLESTEROL 51 mg/dL 40-60 Feb 20, 2024 08:43 AM [facility] IRON & TIBC PANEL SERUM Specimen Type: SERUM No comment entered. Ordering Provider: ARTI BOB Report Released Date/Time: Sep 10, 2023 02:57 PM Reporting Lab: [facility] [address] [facility] [address] Performing Lab: [address] [address] TIBC 399 ug/dL 204-475 IRON 120 ug/dL 40-160 Transferrin Saturation 30.1 20.0-50.0 Feb 20, 2024 08:43 AM [facility] FERRITIN SERUM Specimen Type: SERUM No comment entered. Ordering Provider: ARTI BOB Report Released Date/Time: Sep 10, 2023 02:57 PM Reporting Lab: [address] [address] Performing Lab: [address] [address] FERRITIN 55 ng/mL 20-300 Feb 20, 2024 08:43 AM [facility] CBC AND DIFF (AUTO) BLOOD Specimen Type: BLOO D No comment entered. Ordering Provider: ARTI BOB Report Released Date/Time: Sep 10, 2023 02:57 PM Reporting Lab: [address] [address] Performing Lab: [facility] [address] [facility] [address] WBC 5.93 10*3/uL 4.50-11.00 RBC 3.98 10*6/uL [...] 0.3 0.0-0.7 IMMATURE GRAN, ABS 0.02 10*3/uL 0.00-0.0 6 NRBC % 0.0 0.0-0.0 NRBC, ABS 0.00 10*3/uL 0.00-0.00 Vital Signs: All taken on the encounter date This section contains inpatient and outpatient Vital Signs collected on the date of the Encounter. Date/Time Temperature Pulse Blood Pressure Respiratory Rate SP02 Pain Height Weight Body Mass Index Source Feb 26, 2024 12:03 PM 97.4 76 124/76 18 95 0 245.4 39 [place] [facility] [place] [facility] Social History: Smoking Status (Most current) and Tobacco Use (All prior to encounter date) This section includes the most current, and the historical, smoking and tobacco- related health factors from the [place] facility where the Encounter took place. Current Smoking Status This section includes the most current smoking, or tobacco-related health factor, from the [place] facility where the Encounter took place. Date/Time Current Smoking Status Comment [facility] Jun 04, 2023 01:30 PM VA-TOBACCO FORMER USER [place] [facility] Tobacco Use History This section includes a history of the smoking, or tobacco-related health factors, that were collected on or before the date of the Encounter. The data comes from the [place] facility where the Encounter took place. Date/Time Smoking Status/Tobac co Use Comment Facility Jun 04, 2023 01:30 PM VA-TOBACCO QUIT 15 YRS OR MORE [place] [facility] Jun 15, 2022 09:15 AM VA-TOBACCO FORMER USER [place] [facility] Jun 15, 2022 09:15 AM VA-TOBACCO QUIT 15 YRS OR MORE [facility] [place] [facility] Jun 30, 2021 09:30 AM VA-TOBACCO FORMER USER [facility] [place] [facility] Jun 30, 2021 09:30 AM VA-TOBACCO QUIT 15 YRS OR MORE [place] [facility] Jun 03, 2020 08:30 AM VA-TOBACCO FORMER [facility]ER [facility] Jun 03, 2020 08:30 AM VA-TOBACCO QUIT 15 YRS OR MORE [facility] Feb 23, 2020 09:01 AM [facility]BACCO [facility] Feb 23, 2020 09:01 AM VA-TOBACCO QUIT 15 YRS OR MORE [facility] Oct 28, 2018 01:39 PM VA-TOBACCO [facility] Oct 28, 2018 01:39 PM VA-TOBACCO QUIT 15 YRS OR MORE [facility] Jul 10, 2017 10:40 AM QUIT TOBACCO USE > 7 YEARS AGO [facility] Feb 13, 2016 10:21 AM QUIT TOBACCO USE > 7 YEARS AGO . [facility] Jun 08, 2005 10:50 AM HISTORY OF SMOKING quit in 1972 [facility] Apr 10, 2004 10:43 AM HISTORY OF SMOKING [facility] Dec 04, 2002 11:12 AM [facility]MO[facility] January 09, 2002 10:01 AM QUIT TOBACCO USE > 7 YEARS AGO [facility] Sep 11, 2001 10:41 AM HISTORY OF SMOKING see note this date [facility] Sep 11, 2001 10:41 AM NON-TOBACCO USER see previous note [facility] Advance Directives: All historical and current Section Date Range: From patient's date of to the date document was created. This section includes ALL of a patient's completed or amended [place] Advance and Rescinded Directives. The entries below indicate that a directive exists for the patient, but an actual copy is not included with this document. The data comes from all [place] facilities. Date Advance Directives Provider Source Aug 27, 2012 ADVANCE DIRECTIVE [facility]ADE [facility] Radiology Reports: +/- 30 days of [...] the Encounter. The data comes from all [place] treatment facilities. Date/Time Radiology Report Provider Source Feb 20, 2024 09:51 AM ULTRASOUND NECK (THYROID,HEAD,SOFT TISSUE): ELSA NEGRON [id number] -[id number] M Ex Date: FEB 20, 2024@09:51 Req Phys: PAZ WEBER Loc: NHM/ENDOCRINE (Req'g Loc) Img Loc: ULTRASOUND Service: [facility] , (Case [id number] COMPLETE) ULTRASOUND NECK (THYROID,HEAD,SOF(US Detailed) CPT:95484 Reason for Study: follow multinodular goiter Clinical History: Report Status: Verified Date Reported: FEB 26, 2024 Date Verified: FEB 26, 2024 [employer] E-Sig: Report: ULTRASOUND NECK (THYROID,HEAD,SOFT TISSUE) Clinical [...] benign nodule. READING PHYSICIAN: Elsa Monreal MD -[id number] 02/26/2024 9:00 CDT [facility] National Teleradiology Program [phone] (For Medical Practitioner Use Only) Attention Patients / Veterans: If you have questions or concerns about these test results, please contact your ordering provider or primary care team. Primary Diagnostic Code: NO ALERT REQUIRED Primary Interpreting Staff: RADIOLOGY,OUTSIDE SERVICE, Staff Physician / RADIOLOGY,OUTSIDE SERVICE [place] [facility] [facility] Encounter Notes: All associated encounter notes [...] Obesity * 16. Benign hypertension (SNOMED CT 27007893) Active Outpatient Medications (including Supplies): Active Outpatient [...] of active outpatient prescriptions dispensed from this [place] (local) and dispensed from another [place] or [facility] facility (remote) as well as inpatient orders [...] list may not be complete. Please check [employer]. Allergies/ADRs (Tool #5) FACILITY ALLERGY/ADR -------- [facility] NO KNOWN ALLERGIES [place] [facility] [facility] No Known Allergies Med Recon NoGlossary (Tool #1) INCLUDED IN THIS LIST: Alphabetical list of active outpatient prescriptions dispensed from this [facility] (local) and dispensed from another [place] or [facility] facility (remote) as well as inpatient orders (local pending and active), local clinic medications, locally documented non-VA medications, and local prescriptions that have or been discontinued in the past 90 days. Non-VA Meds Last Documented On: Jun 30, 2021 NOTE The display of VA prescriptions dispensed from another [place] or [facility] facility (remote) is limited to active outpatient prescription entries matched to National Drug File at the originating site and may not include some items such as investigational drugs, compounds, etc. NOT INCLUDED IN THIS LIST: Medications self-entered by the patient into personal health records (i.e. [employer]) are NOT included in this list. Non-VA medications documented outside this [place], remote inpatient orders (regardless of status) and remote clinic medications are NOT included in this list. The patient and provider must always discuss medications the patient is taking, regardless of where the medication was dispensed or obtained. -------- OUTPT ALLOPURINOL 300MG TAB (Status = Active) TAKE ONE TABLET BY MOUTH EVERY DAY FOR GOUT Rx# [id number] Last Released: 12/19/23 Qty/Days Supply: Rx Expiration Date: 09/10/24 Refills Remainin Non-VA ASPIRIN 81MG EC TAB TAKE ONE TABLET BY MOUTH Patient wants to buy from Non-VA pharmacy. OUTPT ATENOLOL 25MG TAB (Status = Discontinued) TAKE ONE TABLET BY MOUTH ONCE DAILY FOR BLOOD PRESSURE/HEART Rx# [id number] Last Released: 11/07/23 Qty/Days Supply: Rx Expiration Date: 02/20/24 Refills Remainin Indication: FOR HIGH BLOOD PRESSURE OUTPT ATENOLOL 25MG TAB (Status = Active) TAKE ONE TABLET BY MOUTH ONCE DAILY FOR BLOOD PRESSURE/HEART Rx# [id number] Last Released: 02/13/24 Qty/Days Supply: Rx Expiration Date: 02/11/25 Refills Remainin Indication: FOR HIGH BLOOD PRESSURE OUTPT ATORVASTATIN CALCIUM 80MG TAB (Status = Active) TAKE ONE TABLET BY MOUTH ONCE DAILY FOR CHOLESTEROL IN PLACE OF ROSUVASTATIN. Rx# [id number] Last Released: 02/18/24 Qty/Days Supply: Rx Expiration Date: 06/03/24 Refills Remainin OUTPT CARBOXYMETHYLCELLULOSE NA 0.5% OPH SOLN (Status = ) INSTILL 1 DROP INTO EACH EYE FOUR TIMES A DAY FOR DRY EYE Rx# [id number] Last Released: 08/30/23 Qty/Days Supply: 45/ Rx Expiration Date: 02/16/24 Refills Remainin Indication: FOR DRY EYE OUTPT DILTIAZEM (EQV-TIAZAC) 360MG 24HR CAP (Status = Discontinued) TAKE ONE CAPSULE BY MOUTH EVERY DAY FOR BLOOD PRESSURE Rx# [id number] Last Released: 11/21/23 Qty/Days Supply: 90/90 Rx Expiration Date: 02/20/24 Refills Remainin OUTPT GLIPIZIDE 10MG TAB (Status = Active) TAKE ONE TABLET BY MOUTH TWICE DAILY FOR DIABETES Rx# [id number] Last Released: 01/16/24 Qty/Days Supply: 180/90 Rx Expiration Date: 06/04/24 Refills Remainin OUTPT LISINOPRIL 20MG TAB (Status = Active) TAKE ONE TABLET BY MOUTH DAILY TO CONTROL BLOOD PRESSURE Rx# [id number] Last Released: 01/16/24 Qty/Days Supply: 90 Rx Expiration Date: 09/10/24 Refills Remainin OUTPT METFORMIN HCL 1000MG TAB (Status = Active) TAKE ONE TABLET BY MOUTH TWICE DAILY FOR DIABETES Rx# [id number] Last Released: 01/16/24 Qty/Days Supply: 180/90 Rx Expiration Date: 09/10/24 Refills Remainin OUTPT OMEPRAZOLE 20MG EC CAP (Status = Active) TAKE ONE CAPSULE BY MOUTH EVERY MORNING 30 MINUTES BEFORE BREAKFAST Rx# [id number] Last Released: 02/18/24 Qty/Days Supply: 90/90 Rx Expiration Date: 06/04/24 Refills Remainin Non-VA OTHER CAP/TAB TAKE COD LIVER OIL BY MOUTH ONCE DAILY OUTPT PIOGLITAZONE HCL 30MG TAB (Status = Active) TAKE ONE TABLET BY MOUTH DAILY Rx# [id number] Last Released: 12/05/23 Qty/Days Supply: 90/90 Rx Expiration Date: 06/04/24 Refills Remainin OUTPT THIAMINE 100MG TAB (Status = ) TAKE ONE TABLET BY MOUTH ONCE DAILY FOR VITAMIN SUPPLEMENTATION Rx# [id number] Last Released: 01/16/24 Qty/Days Supply: 100/90 Rx Expiration Date: 02/20/24 Refills Remainin -------- SUPPLIES -------- OUTPT ACCU-CHEK GUIDE (GLUCOSE) TEST STRIP (Status = Active) USE 1 STRIP TO TEST BLOOD SUGARS TWICE A DAY TWO TIMES A WEEK TO BE USED WITH NEW ACCU-CHEK GUIDE ME METER Rx# [id number] Last Released: 01/28/24 Qty/Days Supply: 50/180 Rx Expiration Date: 05/17/24 Refills Remainin OUTPT LANCET,SOFTCLIX (Status = ) USE 1 LANCET DIRECTED TWICE A DAY TWO TIMES A WEEK TO TEST BLOOD SUGAR Rx# [id number] Last Released: 05/14/23 Qty/Days Supply: 100/90 Rx Expiration Date: 02/20/24 Refills Remainin (Optional) Whole Health Documentation: What matters the most to you? What motivates you to be healthy? (MAP) Response: love for his dog /patrick/ PAZ WEBER MD STAFF PHYSICIAN Signed: 02/26/2024 12:35 PAZ WEBER [facility] [place] [facility]
--- OUTSIDE RECORDS SUMMARY | 2025-01-13 13:53 | XMS_ITS | Data Portability ---
Author Organization [facility], Home Service Address [address] [place] [address] Assessment Encounter Date Assessment Date Assessment LastModified [...] living. 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) MDM MODERATE MUST MEET 2 OUT OF [...] incisiona l wound from surgery 2024 025 [facility], [address] [place] [address], [id number], 12/03/2024 15:54:46 iron + TIBC + ferritin, serum 2024 025 [facility], [address] [place] [address], [address], 10/08/2024 12:39:01 lipid panel, blood 2023 024 [facility], [address] [place] [address], [address], 07/01/2024 11:53:46 hemoglobi n, gastroint estinal, stool 2023 024 [facility], [address] [place] [address], [id number], 07/01/2024 11:53:46 CBC w/ auto diff 2023 024 [facility], [address] [place] [address], [address], 07/01/2024 11:53:46 CMP, serum or plasma 2023 024 [facility], [address] [facility], [place], [address], 07/01/2024 11:53:46 Referral None recorded. Procedures None recorded. Surgeries None recorded. Imaging None recorded. Medication Orders None recorded. Patient TargetsNo targets recorded. Patient Instructions Encounter Date Encounter Id Patient Instructions Last Modified By Organization Details Last Modified Time 07/01/2024 [id number] learning about type 2 diabetes Not available [...] ___ minutes. Not available 06/19/2024 12:13:27 10/07/2024 [id number] learning about type 2 diabetes Not available [...] Abnormal Flag Note LastModifiedBy Organization Detail LastModifiedTime Result Notes Documentation Provider Name and Address Organization Details Recorded Time Hba1c (hemoglobin A1c), Blood : A1C, CMP JOCELYN [facility] 05/27/2024 14:34:27 Problems Name Problem SNOMED Code Status Onset Date Resolution Date Notes Provider Name and Address Organization Details Recorded Time Type 2 diabetes mellitus 05756805 [facility] 2017 [facility] 11:44:42 Essential hypertens ion 04272984 Active 2017 [facility] 11:44:48 Hemochrom atosis 915267346 Active 2017 [facility] 8 11:44:59 Hemangiom a of liver 47386289 Active 2017 [facility] 8 11:45:22 Iron deficienc y anemia 79919732 Active 2017 [facility] 8 11:45:29 Osteoarth ritis of knee 068229260 Active 2017 bilat knee Isidro Henderson, DO [address] [place] [address], [phone], [facility] 9 11:38:33 Gout 95571421 Active 2017 [facility] 8 11:46:54 Hyperlipi demia 54594651 Active 2017 [facility] 8 11:46:58 Near syncope 582297794 Active 2021 Isidro Henderson, DO [address] [place] [address], [address], [facility] Internal [facility] 2 15:23:54 Contusion of rib 202616271 Active 2022 Isidro Henderson, DO [address] [place] [address], [address], [place] [facility] 3 13:46:27 Osteoarth ritis of left knee joint 615872854010 109 Active 2023 Isidro Henderson, DO [address] [place] [address], [address], [facility] Internal [facility] 4 15:04:28 Closed fracture of neck of femur 514161960 Active 2024 JOSSELYN FAGAN [address] [place] [address], [phone], [facility] 15:29:24 Celluliti s 802645315 Active 2024 JOSSELYN FAGAN [address] [place] [address], [address], [facility] 14:19:26 Hypomagne semia 061419605 Active 2024 Isidro Henderson, [address] [place] [address], [address], [facility] 13:47:09 Problem Notes None recorded. Procedures Surgical History Date Name Laterality Status Provider Name and Address Organization Details Recorded Time 025 WOUND CARE completed JOSSELYN FAGAN [address] [place] [address], [phone], [facility] 12/02/2024 15:40:33 024 Corticosteroid Injection completed Najma Ayala [facility] 05/22/2024 15:02:57 021 Corticosteroid Injection completed Isidro Henderson DO [address] [place] [address], [address], [facility] 01/23/2021 16:19:13 021 Corticosteroid Injection completed Isidro Henderson DO [address] [place] [address], [address], [facility] 01/03/2021 16:13:57 019 Corticosteroid Injection completed Isidro Henderson DO [address] [place] [address], [address], [facility] 05/08/2019 14:50:48 019 Corticosteroid Injection completed Isidro Henderson DO [address] [place] [address], [address], [facility] 04/06/2019 11:39:50 018 Corticosteroid Injection completed Isidro Henderson DO [address] [place] [address], [address], [facility] 07/21/2018 16:05:22 018 Corticosteroid Injection completed Isidro Henderson [address] [place], [address], [facility] 04/30/2018 12:44:06 018 Corticosteroid Injection completed Isidro HendersonDO [address] [place], [address], [facility] 04/18/2018 14:33:50 015 Colonoscopy completed Hannah Ranken [facility] 12/02/2019 10:17:00 Imaging Results None recorded. Procedure Notes None recorded. Medical Equipment None Reported. Allergies Allergen ID Allergen Name Allergen Category Reaction Reaction Severity Criticality Documentation Date Start Date Code Code System Note Provider Name and Address Organization Details Recorded Time 401 Product containin g angiotens in-conver ting enzyme inhibitor (product) medicatio n cough Not available Not available 11/06/2017 00409 009 SNOMED [facility] 8 11:43:42 402 colchicin e medicatio n rash Not available Not available 11/06/2017 2683 RxNorm [facility] 8 11:44:37 Medications Name Sig Start Date [...] azole 800 mg-trimetho prim 160 mg tablet TAKE 1 TABLET BY MOUTH EVERY 12 HOURS FOR 10 DAYS active Not Available Not Available No t [...] tablet twice a day by oral route. 01/13 completed Not Available Not Available Not Available omeprazole 20 mg capsule,del ayed release [...] Updated DateTime 4 170.18 cm 37.9 kg/m2 545616. 35 g 86 /min 97 % 97 % 138 mm[Hg] 86 mm[Hg] Rasta Matt [facility] 4 11:05:47 Date Recorded Body height Body mass index (BMI) Body weight Heart rate Oxygen saturation Oxygen saturation in Arterial blood by Pulse oximetry Systolic blood pressure Diastolic blood pressure Provider Name and Address Organization Details Last Updated DateTime 5 170.18 cm 37.7 kg/m2 116921. 76 g 70 /min 99 % 99 % 130 mm[Hg] 80 mm[Hg] Rasta Ng [facility] 5 13:51:10 Date Recorded Body height Body mass index (BMI) Body weight Heart rate Oxygen saturation Oxygen saturation in Arterial blood by Pulse oximetry Systolic blood pressure Diastolic blood pressure Provider Name and Address Organization Details Last Updated DateTime 5 170.18 cm 37.7 kg/m2 661669. 76 g 72 /min 98 % 98 % 132 mm[Hg] 78 mm[Hg] Sarah Worthington [facility] 5 15:05:33 Date Recorded Body height Body mass index (BMI) Body weight Heart rate Oxygen saturation Oxygen saturation in Arterial blood by Pulse oximetry Systolic blood pressure Diastolic blood pressure Provider Name and Address Organization Details Last Updated DateTime 5 170.18 cm 37.7 kg/m2 806997. 76 g 92 /min 98 % 98 % 140 mm[Hg] 76 mm[Hg] Sarah Worthington [facility] 5 13:29:28 Social History Question Answer Notes LastModified by Organizat ion Details LastModified Time Tobacco Smoking Status Former Smoker Not Available [facility] 07/05/2020 03:36:24 What Was The Date Of Your Most Recent Tobacco Screening? 01/13/2025 [email or web address] Information not available 01/13/2025 Sex: Unknown Functional Status Question Answer Note LastModified by Organization D etails LastModified Time Do you or have you ever used any other forms of tobacco or nicotine? No [email or web address] Information not available 04/15/2023 Mental Status None recorded. Family History Nothing Reported. Medical History No medical history recorded. Immunizations Vaccine Type Date Status Note Provider Nam e and Address Organization Details Recorded Time COVID-19, mRNA, LNP-S, PF, 100 mcg/0.5mL dose or 50 mcg/0.25mL dose 1 completed Isidro Henderson DO [address] [place] [address], [address], [facility] 01/05/2022 14:48:34 COVID-19, mRNA, LNP-S, PF, 100 mcg/0.5mL dose or 50 mcg/0.25mL dose 2 completed Isidro Henderson DO [address] [place] [address], [address], [facility] 01/05/2022 14:48:42 Influenza, split virus, quadrivalent, preservative 8 completed [facility] 06/16/2018 14:43:50 zoster live 8 completed [facility] 06/16/2018 14:44:08 Tdap 2 completed Isidro Henderson DO [address] [place] [address], [address], [facility] 04/20/2022 11:29:04 influenza, unspecified formulation 2 completed [facility] 07/23/2022 12:03:42 SARS-COV-2 (COVID-19) vaccine, UNSPECIFIED 3 completed [facility] 04/15/2023 14:56:37 SARS-COV-2 (COVID-19) vaccine, UNSPECIFIED 4 completed [facility] 03/18/2024 11:04:51 Influenza, split virus, quadrivalent, preservative 0 completed Isidro Henderson DO [address] [place] [address], [address], [facility] 05/16/2020 16:13:32 COVID-19, mRNA, LNP-S, PF, 100 mcg/0.5mL dose or 50 mcg/0.25mL dose 1 completed Isidro Henderson DO [address] [place] [address], [address], [facility] 11/02/2020 11:44:38 COVID-19, mRNA, LNP-S, PF, 100 mcg/0.5mL dose or 50 mcg/0.25mL dose 1 completed Isidro Henderson DO [address] [facility] [place], [place], [address], [facility] 11/02/2020 11:44:46 Past Encounters Encounter ID Performer Location Encounter Start Date Encounter Closed Date Diagnosis/Indication Diagnosis SNOMED-CT Code Diagnosis ICD10 Code Diagnosis Note [id number] Isidro Henderson DO [facility] [address] [facility],[place] [address] 01/22/2018 10:46:48 01/22/2018 12:02:38 Type 2 diabetes mellitus 92435595 E11.9 a1c is good and will be following with [facility] no current complicati ons Iron defic iency anemia 00437250 D50.9 will have followup lab with [facility] and then will have colonoscoi py dr marcelo to decide if xarelto is culprit of low iron Essential hypertension 49275858 I10 doing great no change in meds [id number] Isidro Henderson DO [facility] [address] [facility],[place] [address] 04/18/2018 13:57:19 04/18/2018 14:57:18 Osteoarthritis of knee 009211249 M17.0 cortisone inj well tolerated [id number] Isidro Henderson DO [facility] [address] [facility], [place] [address] 04/30/2018 12:04:14 04/30/2018 15:58:16 Osteoarthritis of knee 400156541 M17.0 cortisone inj well tolerated [id number] Isidro Henderson [facility] [address] [facility] [place] [address] 06/16/2018 14:17:42 06/16/2018 15:33:04 Type 2 diabetes mellitus 33895693 E11.9 a1c is good and will be following with [facility] no current complicati ons 7.0 is still stable up from 6.9 Essential hypertension 76577866 I10 doing great no change in meds Osteoarthr itis of knee 609804242 M17.0 cortisone inj did ok but took a long time [id number] Isidro Henderson [facility] Medicine [address] [facility] [address],[place] [address] 07/21/2018 15:26:00 07/21/2018 16:09:19 Osteoarthritis of knee 898139520 M17.0 cortisone inj did ok but took a long time repeat but if this does not help will have to refer [id number] Isidro Henderson [facility] [address] [facility] [address],[place] [address] 10/01/2018 14:18:33 10/03/2018 08:52:47 Essential hypertension 10617403 I10 doing great no change in meds Type 2 kristal betes mellitus 12172002 E11.9 a1c is good and will be following with [facility] no current complicati ons 7.0 is still stable Osteoarthr itis of knee 807728353 M17.0 cortisone inj did ok but took a long time repeat but if this does not help will have to refer Hyperlipidemia 87530196 E78.5 LDL is excellent at 96 Hemochromatosis 67823806 6 E83.119 ferritin is 35 [id number] Isidro Henderson [facility] Medicine [address] [facility] [address],[place] [address] 12/26/2018 10:34:23 12/26/2018 12:00:07 Type 2 diabetes mellitus 26477417 E11.9 a1c is good and will be following [facility] no current complicati ons 6.6 is still stable Essential hypertension 15101153 I10 no change in meds right now as he is quite distraught and we will ss him again in a couple mo and recheck [id number] Isidro Henderson [facility] Medicine [address] [facility] [address],[place] [address] 04/06/2019 10:49:50 04/06/2019 11:46:29 Osteoarthritis of knee 278180639 M17.0 cortisone inj did ok but took a long time to right knee repeat but if this does not help will have to refer [id number] Isidro AlfonsoIggy Henderson [facility] Medicine [address] [facility],[place] [address] [address] 05/08/2019 14:08:59 05/08/2019 14:57:01 Osteoarthritis of knee 488860429 M17.0 cortisone inj to left knee well toerated [id number] Isidro AlfonsoIggy Henderson [facility] [address] [facility],[place] [address] 08/10/2019 11:08:08 08/10/2019 11:31:08 Type 2 diabetes mellitus 80115999 E11.9 a1c is fair and will be following [facility] no current complicati ons 8.0 is the a1c and is going to have to do better with less treating will not adjust the meds Essential hypertension 32121085 I10 noted to have stable bp and we will see him again in a couple mo and recheck [id number] Isidro Henderson [facility] [address] [facility] [address],[place] [address] 09/09/2019 11:57:12 09/09/2019 12:13:28 Type 2 diabetes mellitus 53368898 E11.[address] now and will be following with [facility] no current complicati ons 6.4 is the a1c and is doing better with less eating will not adjust the meds Essential hypertension 10474944 I10 noted to have stable bp and we will see him again in a couple mo and recheck [id number] Isidro Henderson [facility] [address] [facility] [address] [place],[place] [address] 12/02/2019 09:10:17 12/02/2019 13:36:51 Essential hypertension 72210706 I10 noted to have stable bp and we will see him again in a couple mo and recheck Type 2 kristal betes mellitus 12616699 E11.9 a1c is better now and will be following with [facility] no current complicati ons 6.4 is the a1c just like last time and is doing better with less eating will not adjust the meds Iron defic iency anemia 56923113 D50.[address] marcelo for a colonoscop y to check for source of bleed Osteoarthr itis of knee 631903614 M17.0 cortisone inj to left knee seemed to have helped [id number] Isidro Henderson [facility] [address] [facility] [address] [place],[place] [address] 03/07/2020 11:33:53 03/07/2020 12:19:53 Essential hypertension 09432614 I10 noted to have stable bp and we will see him again in 3 mo and recheck Hemochromatosis 44124631 6 E83.119 ferritin is 35 cbc is good iron level good Type 2 kristal betes mellitus 29513745 E11.9 a1c is better now and will be following [facility] no current complicati ons 6.4 is the a1c just like last time and is doing better with less eating will not adjust the meds History of polyp of colon 108638897 Z86.010 doesn t want to get colonoscop y even though he has had polyps in e past told it would be important but he is not happy about it we will try dna test [id number] Isidro Henderson DO [facility] Internal Medicine [address] [facility],[place] [address] 04/08/2020 14:50:22 04/08/2020 15:47:07 Essential hypertension 10669401 I10 well controlled today on medication Type 2 kristal betes mellitus 00277866 E11.9 sugar has been good per patient Bacteremia caused by Gram-negative bacteria 6932011858 08 A41.50 treated and has abx on discharge Acute cholecystitis 6527 5009 K81.0 resolved had gallbladde r removed Dyspnea at rest 18747485 7 R06.00 SENT TO THE ER FROM OFFICE FOR CONCERN OF PE Atypical chest pain 1025 10235 R07.89 has been having since after surgery, gotten worse per patient [id number] Isidro Henderson [facility] [address] [facility] [address] [place],[place] [address] 05/16/2020 14:35:18 05/16/2020 15:22:43 Sepsis caused by Gram negative bacteria 977298299 A41.50 has survived and done well relates that he is still very tired History of cholecystectomy 069875228 Z90.49 and is healing well will be done with vna Administra tion of influenza vaccine 66264672 Z23 [id number] Isidro NatyIggy Henderson DO [facility] Internal Medicine [address] [facility],[place], [place] 7 06/29/2020 11:22:38 06/29/2020 11:54:40 Type 2 diabetes mellitus 72441050 E11.9 a1c is better now and is a little too good at 5.5 no current complicati ons 6.4 is the last time and is doing better with less eating will need to watch his sugar to make sure he doesnt go to low Essential hypertension 02436131 I10 noted to have stable bp and we will see him again in 3 mo and recheck [id number] Isidro Harry [employer]es [facility] [address] [facility], [employer] [facility] [place] 7 11/02/2020 11:26:25 11/02/2020 13:47:14 Essential hypertension 17345611 I10 noted to have stable bp and we will see him again in 3 mo and recheck Type 2 kristal betes mellitus 72975265 E11.9 a1c is better now and is a little too good at 6.3 which is good he was 5.5 no current complicati ons 6.4 is the last time and is doing better with less eating will need to watch his sugar to make sure he doesnt go to low Iron defic iency anemia 84176531 D50.[address] marcelo for a colonoscop y to check for source of bleed we will rechk lab Osteoarthr itis of knee 223170136 M17.0 cortisone inj to left knee seemed to have helped in the past lately he s ok but we will plan another inj when hes ready [id number] Isidro Henderson DO [facility] Medicine [address] [facility] [address] [place],[place] 7 01/03/2021 15:29:43 01/03/2021 16:15:42 Osteoarthritis of knee 311669416 M17.0 cortisone inj to left knee seemed to have helped in the past lately he s ok but we will plan another inj when hes ready [id number] Isidro Henderson [facility] [address] [facility] [address],[place] [address] 01/23/2021 15:55:04 01/23/2021 16:47:42 Osteoarthritis of right knee joint 6611665556 61601 M17.11 jordon inj well tolerated [id number] Isidro [employer] [facility] [address] [facility] [address] [place],[place] [address] 03/01/2021 10:57:56 03/01/2021 11:29:35 Essential hypertension 05309747 I10 noted to have stable bp and we will see him again in 3 mo and recheck Type 2 kristal betes mellitus 48318039 E11.9 a1c is better at 6.6 was 6.7 in december and was at 6.3 which is good he was 5.5 no current complicati ons [id number] [facility] [address] [facility],[place] [address] 06/02/2021 08:28:12 06/02/2021 14:00:45 Type 2 diabetes mellitus 74602535 E11.9 a1c is awesome at 5.7!!!!!!! !!!! better at 6.6 was 6.7 in december and was at 6.3 which is good he was 5.5 no current complicati onsdoing fantastic Osteoarthr itis of knee 413071944 M17.0 cortisone inj to left knee seemed to have helped in the past lately he s ok but we will plan another inj when he's ready Iron defic iency anemia 73119551 D50.[address] marcelo for a colonoscop y to check for source of bleed we will rechk lab Essential hypertension 06644602 I10 noted to have stable bp and we will see him again in 3 mo and recheck [id number] Isidro Henderson [facility] Medicine [address] [facility] [address],[place] [address] 09/20/2021 08:10:48 09/22/2021 11:38:30 Essential hypertension 88985359 I10 noted to have stable bp and we will see him again in 3 mo and recheck Type 2 kristal betes mellitus 89910635 E11.9 a1c is pending and in past was awesome at 5.7!!!!!!! !!!! better at 6.6 was 6.7 in december and was at 6.3 which is good he was 5.5his home readings are avg 115 for 90 daysno current complicati onsdoing fantastic Hemochromatosis 15977472 6 E83.119 prior level of ferritin is 35 cbc is good iron level good lab is pending Hyperlipidemia 37334695 E78.5 LDL is excellent at 96 on prior lab Iron defic iency anemia 71098453 D50.[address] marcelo for a colonoscop y to check for source of bleed we will rechk lab is now pending [id number] Isidro Henderson [facility] Medicine [address] [facility],[place] [address] 01/05/2022 14:22:54 01/05/2022 15:45:55 Type 2 diabetes mellitus 97793479 E11.9 a1c is pending and in past was up to 6.4 he was at 5.7!!!!!!! !!!! better at 6.6 was 6.7 in december and was at 6.3 which is good he was 5.5his home readings are avg 115 for 90 daysno current complicati onsdoing fantastic Essential hypertension 86191337 I10 noted to have stable bp and we will see him again in 3 mo and recheck Active or passive immunization 948943278 Z23 will bring copy from [place] to next visit to update Near syncope 335448184 R 55 no full syncope we will get a monitor done to double check [id number] Isidro Henderson [facility] Medicine [address] [facility],[place] [address] 04/20/2022 11:24:02 04/20/2022 11:52:51 Essential hypertension 09494501 I10 noted to have stable bp and we will see him again in 3 mo and recheck Iron defic iency anemia 48978327 D50.9 currently stable Type 2 kristal betes mellitus 50093673 E11.9 a1c is pending and in past was up to6.6 and beforewas 6.4 he was at 5.7!!!!!!! !!!! better at 6.6 was 6.7 in december and was at 6.3 which is good he was 5.5his home readings are avg 115 for 90 daysno current complicati onsdoing fantastic Near syncope 715699594 R 55 no full syncope we will get a monitor is normal [id number] Isidro Henderson [facility] Internal Medicine [address] [facility],[place] [place] [address] 07/23/2022 11:54:50 07/23/2022 12:49:21 Type 2 diabetes mellitus 99302899 E11.9 a1c is 6.6 and beforewas 6.6his home readings are avg 115 for 90 daysno current complicati onsdoing fantastic Hyperlipidemia 19041980 E78.5 LDL is excellent at 96 on prior lab Essential hypertension 11934473 I10 noted to have stable bp and we will see him again in 3 mo and recheck [id number] Isidro Henderson [facility] Internal Medicine [address] [facility],[place] [address] [address] [facility] [place] [place] [address] 11/05/2022 11:26:32 11/05/2022 15:11:44 Type 2 diabetes mellitus 81479232 E11.9 a1c is now 6.5 was 6.6 and beforewas 6.6his home readings are avg 110 for 90 daysno current complicati onsdoing fantastic carefyul with diet and salt intake Essential hypertension 58931232 I10 noted to have stable bp and we will see him again in 3 mo and recheck Advance care planning 71 6712574 Z71.89 done [id number] Isidro Henderson [facility] Internal Medicine [address] [facility],[place] [facility] [place] [place] [address] 04/15/2023 14:42:18 04/15/2023 15:23:23 Essential hypertension 92562003 I10 noted to have stable bp and we will see him again in 3 mo and recheck Type 2 kristal betes mellitus 36312800 E11.9 a1c is now 6.4 and was 6.5 was 6.6his home readings are avg 110 for 90 daysno current complicati onsdoing fantastic careful with diet and salt intake [id number] Isidro Henderson [facility] Internal Medicine [address] [facility], [place] [address] 07/29/2023 13:27:23 07/29/2023 14:41:04 Essential hypertension 35564071 I10 noted to have stable bp and we will see him again in 3 mo and recheck Hyperlipidemia 08833033 E78.5 LDL is excellent at 96 on prior lab Type 2 kristal betes mellitus 75138395 E11.9 a1c is now 6.9 and was 6.4 and was 6.5 was 6.6his home readings are avg 120 for 90 daysno current complicati onsdoing fantastic careful with diet and salt intake Contusion of rib 0435606 06 S20.20XD doing much better lungs clear minimal palp pain no evid rib fx [id number] Isidro Henderson [facility] Internal Medicine [address] [facility] [place] [address] 12/06/2023 11:11:40 12/06/2023 11:52:07 Essential hypertension 65286310 I10 noted to have stable bp and we will see him again in 3 mo and recheck Hemochromatosis 23541416 6 E83.119 prior level of ferritin is 35 cbc is good iron level good lab is pending Hyperlipidemia 51751344 E78.5 LDL is excellent at 96 on prior lab Type 2 kristal betes mellitus 97907315 E11.9 a1c is now 6.2 qas 6.9 and was 6.4 and was 6.5 was 6.6 no current complicati onsdoing fantastic careful with diet and salt intake [id number] Isidro Henderson [facility] Internal Medicine [address] [facility], [place] [address] 03/18/2024 10:56:57 03/18/2024 12:01:25 Depression screening 643951438 Z13.31 neg Type 2 kristal betes mellitus 48601889 E11.9 a1c is now 6.2 was 6.9 and was 6.4 and was 6.5 was 6.6microal b is negno current complicati onsdoing fantastic careful with diet and salt intake Essential hypertension 95676009 I10 noted to have stable bp and we will see him again in 3 mo and recheck Peripheral vascular disease 869192880 I73.9 [id number] Isidro Davilanicholas, [facility] Internal Medicine [address] [facility] [place] [address] [address] 05/22/2024 14:41:46 05/22/2024 15:50:09 Osteoarthritis of left knee joint [id number] 92487 M17.12 jordon well tolerated [id number] Isidro Davilanicholas [facility] Internal Medicine [address] 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 prior level of ferritin is 35 cbc is good iron level good lab is pending cbc nl needs iron level done as well as ferritin Hyperlipidemia 19123228 E78.5 LDL is excellent at 96 on prior lab Type 2 kristal betes mellitus 60308269 E11.9 a1c is now 6.7 was 6.2 was 6.9 and was 6.4 and was 6.5 was 6.6microal b is sl pos very minimalno current complicati onslevel has gone up a bit due to winter and inactivity [id number] DO Lizeth Sharif Internal Medicine [address] [facility],[place] [address] 12/02/2024 14:48:32 12/02/2024 15:45:26 Closed fracture of neck of femur 380396626 S72.024A will set up with wound culturered ressed with new steri strips Type 2 kristal betes mellitus 90814667 E11.9 stable Health Concerns Section Related Observation LastModified by Organization Detai ls LastModified Time None Recorded Concern Status LastModified by Organization Details LastModified Time None Recorded Advance Directives Directive None Recorded Payers Encounter Date Sequence Insurance Name Policy Number Policy Lopez Covered Member ID Lopez Member ID Guarantor Name 05/22/2024 1 [facility] (MEDICARE REPLACEMENT/A DVANTAGE - PPO) [id number] Uziel Briceño [id number] Uziel Briceño 07/01/2024 1 [facility] (MEDICARE REPLACEMENT/A DVANTAGE - PPO) [id number] Uziel Briceño [id number] Uziel Briceño 10/07/2024 1 [facility] (MEDICARE REPLACEMENT/A DVANTAGE - PPO) [id number] Uziel Briceño [id number] Uziel Briceño 12/02/2024 1 [facility] (MEDICARE REPLACEMENT/A DVANTAGE - PPO) [id number] Uziel Briceño [id number] Uziel Briceño Notes Date Note Type Note Provider Name a nd Address Organization Details Recorded Time 4 text/html her fo his jordon inj to lwft knee has been very sore and uncomfortable Isidro Henderson DO [address] [facility], [place], [place], [address], [facility] Internal Medicine 05/22/2024 15:05:19 4 text/html Medicare [...] good no l=cp Isidro Henderson, DO [address] [facility], [place], [place], [address], [facility] Internal Medicine 07/01/2024 11:54:40 5 text/html Care [...] foot eval too Isidro Henderson DO [address] [place], [address], [facility] Internal Medicine 10/07/2024 14:16:04 5 text/html hospital [...] to culture at appt JOSSELYN FAGAN [address] [facility], [place], [place], [address], [facility] Internal Medicine 12/02/2024 15:41:39
--- OUTSIDE RECORDS SUMMARY | 2025-01-13 13:53 | XMS_ITS | Continuity of Care Document ---
Author Name [facility] Organization [facility] Care Team Providers Care Boiler Operator Name Role Phone [facility] Unavailable Unavailable Problems Combined list of problems [...] Athero, Lizeth Art Extr W/Dave Active Condition [facility] Benign hypertension (SNOMED CT [id number]) Active Condition [facility] [place] [...] By: LORENZO BOB Comment: Phlebotomy q4m at [facility] via DR Mirza. [facility] [...] EVERY DAY FOR GOUT ORAL ACTIVE 09/05/2025 [id number] ARTI BOB 2024 90 [facility] ALLOPURINOL 300MG TAB TAKE ONE TABLET BY MOUTH EVERY DAY FOR GOUT ORAL DISCONT INUED 09/10/2024 [id number] ARTI BOB 2023 90 [facility] ASPIRIN 81MG TAB,EC TAKE ONE TABLET BY MOUTH ORAL ACTIVE AYANNA PICHARDO O 2005 [facility] ATENOLOL 25MG TAB TAKE ONE TABLET BY MOUTH ONCE DAILY FOR BLOOD PRESSURE /HEART ORAL ACTIVE 09/05/2025 [id number] ARTI BOB 2024 90 [facility] ATENOLOL 25MG TAB TAKE ONE TABLET BY MOUTH ONCE DAILY FOR BLOOD PRESSURE /HEART ORAL DISCONT INUED 02/11/2025 [id number] ARTI BOB 2023 90 [facility] ATENOLOL 25MG TAB TAKE ONE TABLET BY MOUTH ONCE DAILY FOR BLOOD PRESSURE /HEART ORAL DISCONT INUED 02/20/2024 [id number] ARTI BOB 2022 90 [facility] [place] ATORVASTATI N CA 80MG TAB TAKE ONE TABLET BY MOUTH ONCE DAILY FOR CHOLESTE ROL IN PLACE OF [place] AT[place]. ORAL ACTIVE 09/05/2025 [id number] 5 ARTI BOB 2024 90 [facility] [place] [facility] [facility] ATORVASTATI N CA 80MG TAB TAKE ONE TABLET BY MOUTH ONCE DAILY FOR CHOLESTE ROL IN PLACE OF [place] AT[place]. ORAL DISCONT INUED 06/03/2024 [id number] ARTI BOB 2022 90 [facility] [place] DILTIAZEM (EQV-TIAZAC AB4) 360MG 24HR CAP TAKE ONE CAPSULE BY MOUTH ONCE DAILY FOR HIGH BLOOD PRESSURE ORAL ACTIVE 09/05/2025 [id number] 5 ARTI BOB 2024 90 [facility] DILTIAZEM (EQV-TIAZAC AB4) 360MG 24HR CAP TAKE ONE CAPSULE BY MOUTH ONCE DAILY FOR HIGH BLOOD PRESSURE ORAL DISCONT INUED 03/04/2025 [id number] ARTI BOB 2023 90 [facility] [place] [facility] DILTIAZEM (EQV-TIAZAC AB4) 360MG 24HR CAP TAKE ONE CAPSULE BY MOUTH EVERY DAY FOR BLOOD PRESSURE ORAL DISCONT INUED BY COSTA R 02/20/2024 [id number] 4 ARTI OBB 2022 90 [facility] [place] [facility] [facility] ENOXAPARIN 40MG/0.4ML INJ,SYRINGE ,0.4ML INJECT 1 SYRINGE (40MG) SUBCUTAN EOUSLY ONCE DAILY SUBCUT ANEOUS 12/24/2024 [id number] Meredith TAYLOR MEKA 2024 [facility] GLIPIZIDE 10MG TAB TAKE ONE TABLET BY MOUTH TWICE DAILY FOR DIABETES ORAL ACTIVE 09/05/2025 [id number] ARTI BOB 2024 180 [facility] GLIPIZIDE 10MG TAB TAKE ONE TABLET BY MOUTH TWICE DAILY FOR DIABETES ORAL DISCONT INUED 06/04/2024 [id number] ARTI BOB 2022 180 [facility] LISINOPRIL 20MG TAB TAKE ONE TABLET BY MOUTH DAILY TO CONTROL BLOOD PRESSURE ORAL ACTIVE 09/05/2025 [id number] ARTI BOB 2024 90 [facility] [place] [facility] [facility] LISINOPRIL 20MG TAB TAKE ONE TABLET BY MOUTH DAILY TO CONTROL BLOOD PRESSURE ORAL DISCONT INUED 09/10/2024 [id number] ARTI BOB 2023 90 [facility] MAGNESIUM OXIDE 400MG TAB TAKE ONE TABLET BY MOUTH ONCE DAILY ORAL ACTIVE 02/01/2025 [id number] Shlomo GONIESHA Monico 2024 7 [facility] [place] [facility] METFORMIN HCL 1000MG TAB TAKE ONE TABLET BY MOUTH TWICE DAILY FOR DIABETES ORAL ACTIVE 09/05/2025 [id number] 5 ARTI BOB 2024 180 [facility] [place] METFORMIN HCL 1000MG TAB TAKE ONE TABLET BY MOUTH TWICE DAILY FOR DIABETES ORAL DISCONT INUED 09/10/2024 [id number] ARTI BOB 2023 180 [facility] OMEPRAZOLE 20MG CAP,EC TAKE ONE CAPSULE BY MOUTH EVERY MORNING 30 MINUTES BEFORE BREAKFAS T ORAL SUSPEND ED 09/03/2025 [id number] 5 ARTI BOB 2024 90 [facility] OMEPRAZOLE 20MG CAP,EC TAKE ONE CAPSULE BY MOUTH EVERY MORNING 30 MINUTES BEFORE BREAKFAS T ORAL DISCONT INUED 06/04/2024 [id number] 4 ARTI BOB 2022 90 [facility] OTHER CAP/TAB TAKE COD LIVER OIL BY MOUTH ONCE DAILY ORAL ACTIVE ARTI BOB 2020 [facility] [place] PIOGLITAZON E HCL 30MG TAB TAKE ONE TABLET BY MOUTH DAILY ORAL ACTIVE 09/05/2025 [id number] 5 ARTI BOB 2024 90 [facility] [place] PIOGLITAZON E HCL 30MG TAB TAKE ONE TABLET BY MOUTH DAILY ORAL DISCONT INUED 06/04/2024 [id number] ARTI BOB 2022 90 [facility] THIAMINE 100MG TAB TAKE ONE TABLET BY MOUTH ONCE DAILY FOR VITAMIN SUPPLEME NTATION ORAL ACTIVE 05/01/2025 [id number] 5 ARTI BOB 2023 100 [facility] THIAMINE 100MG TAB TAKE ONE TABLET BY MOUTH ONCE DAILY FOR VITAMIN SUPPLEME NTATION ORAL DISCONT INUED 02/20/2024 [id number] ARTI BOB 2022 100 [facility] Immunizations Combined list of available immunizations from the Department of Defense and [facility] facilities. Immunization Series Date Given Administered By Site Reaction Lot Number CVX Code Drug Gas Treater Status Comments Source COVID-19 (MODERNA), MRNA, LNP-S, PF, 50 MCG/0.5 ML (AGES 12+ YEARS) 1 2024 MADELYN GRIJALVA LEFT DELTO ID [id number] 312 complet ed [facility]MIN[facility] AT [facility] INFLUENZA, HIGH-DOSE, TRIVALENT, PF 2024 MADELYN GRIJALVA LEFT DELTO ID [id number] 135 complet ed Booster for Series, [facility] AT [facility] COVID-19 (MODERNA), MRNA, LNP-S, PF, 50 MCG/0.5 ML (AGES 12+ YEARS) 1 2023 MADELYN GRIJALVA LEFT DELTO ID [id number] 312 complet ed ADMINISTE [facility] AT [facility] COVID-19 (MODERNA), MRNA, LNP-S, PF, 50 MCG/0.5 ML (AGES 12+ YEARS) 1 2023 MADELYN GRIJALVA RIGHT DELTO ID [id number] 312 complet ed ADMINISTE [facility] AT [facility] INFLUENZA, HIGH-DOSE, QUADRIVALENT 2022 MADELYN GRIJALVA RIGHT DELTO ID [id number] 197 complet ed Booster for Series, ADMINISTE [facility] AT [facility] COVID-19 (MODERNA), MRNA, LNP-S, BIVALENT, PF, 50 MCG/0.5 ML OR 25MCG/0.25 ML DOSE 2022 OLVERA,FATEMEH P LEFT DELTO ID [id number] 229 complet ed [facility] [place] [facility] [place], [facility] COVID-19 (MODERNA), MRNA, LNP-S, BIVALENT BOOSTER, PF, 50 MCG/0.5 ML OR 25MCG/0.25 ML DOSE 1 2021 229 complet ed MOD; [id number]; 3 [facility] INFLUENZA VACCINE, QUADRIVALENT, ADJUVANTED 2021 205 complet ed [facility] TD (ADULT), 5 LF TETANUS TOXOID, PRESERVATIVE FREE, ADSORBED 2021 113 complet ed [facility] COVID-19 (MODERNA), MRNA, LNP-S, PF, 100 MCG/0.5ML DOSE OR 50 MCG/0.25ML DOSE 3 2021 207 complet ed MOD; [id number]; 2 [facility] COVID-19 (MODERNA), MRNA, LNP-S, PF, 100 MCG OR 50 MCG DOSE 3 2020 207 complet ed [facility] INFLUENZA VACCINE, QUADRIVALENT, ADJUVANTED 2020 205 complet ed [facility] COVID-19 (MODERNA), MRNA, LNP-S, PF, 100 MCG/0.5 ML DOSE 2 2020 207 complet ed MOD; [id number]; 1 [facility] COVID-19 (MODERNA), MRNA, LNP-S, PF, 100 MCG/0.5 ML DOSE 1 2020 207 complet ed MOD; [id number]; 1 [facility] [...] FLU,3 YRS (HISTORICAL) 2016 88 complet ed [place] FLU,3 YRS (HISTORICAL) 2015 88 complet ed [...] AM Reporting Lab: [facility] [place] [address] [address] Performing Lab: [facility] [place] [facility] [address] [facility] [address] [facility] BASIC METABOLIC PANEL (fasting) GLUCOSE [MASS/VOLUM E] IN SERUM OR PLASMA 164 mg/dL 65 - 100 08/31 H Specimen Type: SERUM No comment entered. Ordering Provider: Lalo BOB Report Released Date/Time: Aug 31, 2024 09:40 AM Reporting Lab: [facility] [place] [facility] [address] [facility] [address] Performing Lab: [facility] [address] [facility] [address] [facility] BASIC METABOLIC PANEL (fasting) SODIUM [MOLES/VOLU ME] IN SERUM OR PLASMA 139 mmol/L 135 - 145 08/31 Specimen Type: SERUM No comment entered. Ordering Provider: Llao BOB Report Released Date/Time: Aug 31, 2024 09:40 AM Reporting Lab: [facility] [address] [address] Performing Lab: [facility] [address] [facility] [address] [facility] BASIC METABOLIC PANEL (fasting) POTASSIUM [MOLES/VOLU ME] IN SERUM OR PLASMA 3.9 mmol/L 3.5 - 5.0 08/31 Specimen Type: SERUM No comment entered. Ordering Provider: Lalo BOB Report Released Date/Time: Aug 31, 2024 09:40 AM Reporting Lab: [facility] [place] [facility] [address] [facility] [address] Performing Lab: [facility] [address] [address] [facility] BASIC METABOLIC PANEL (fasting) CHLORIDE [MOLES/VOLU ME] IN SERUM OR PLASMA 105 mmol/L 100 - 110 08/31 Specimen Type: SERUM No comment entered. Ordering Provider: Lalo BOB Report Released Date/Time: Aug 31, 2024 09:40 AM Reporting Lab: [facility] [place] [facility] [address] [facility] [address] Performing Lab: [facility] [place] [facility] [address] [facility] [address] [facility] [place] [facility] BASIC METABOLIC PANEL (fasting) CARBON DIOXIDE, TOTAL [MOLES/VOLU ME] IN SERUM OR PLASMA 23 meq/L - 08/31 Specimen Type: SERUM No comment entered. Ordering Provider: Lalo BOB Report Released Date/Time: Aug 31, 2024 09:40 AM Reporting Lab: [facility] [place] [facility] [address] [facility] [address] Performing Lab: [facility] [place] [address] [address] [facility] BASIC METABOLIC PANEL (fasting) CREATININE [MASS/VOLUM E] IN SERUM OR PLASMA 1.06 mg/dL 0.50 - 1.40 08/31 Specimen Type: SERUM No comment entered. Ordering Provider: Lalo BOB Report Released Date/Time: Aug 31, 2024 09:40 AM Reporting Lab: [facility] [place] [facility] [address] [facility] [address] Performing Lab: [facility] [place] [address] [address] [facility] [place] [facility] BASIC METABOLIC PANEL (fasting) GLOMERULAR FILTRATION RATE/1.73 SQ M.PREDICTED [VOLUME RATE/AREA] IN SERUM, PLASMA OR BLOOD BY CREATININE- BASED FORMULA (CKD-EPI 2020) 71 mL/min 60 08/31 Specimen Type: SERUM No comment entered. Ordering Provider: Lalo BOB Report Released Date/Time: Aug 31, 2024 09:40 AM Reporting Lab: [facility] [place] [address] [address] Performing Lab: [facility] [place] [address] [address] [facility] CBC AND DIFF (AUTO) LEUKOCYTES [#/VOLUME] IN BLOOD BY AUTOMATED COUNT 5.38 10*3/u L 4.50 - 11.00 08/31 Specimen Type: BLOOD No comment entered. Ordering Provider: Lalo BOB Report Released Date/Time: Aug 31, 2024 09:40 AM Reporting Lab: [facility] [place] [facility] [address] [facility] [address] Performing Lab: [facility] [place] [facility] [address] [facility] [facility] [address] [facility] CBC AND DIFF (AUTO) ERYTHROCYTE S [#/VOLUME] IN BLOOD BY AUTOMATED COUNT 4.09 10*6/u L 4.23 - 5.66 08/31 L Specimen Type: BLOOD No comment entered. Ordering Provider: Lalo BOB Report Released Date/Time: Aug 31, 2024 09:40 AM Reporting Lab: [facility] [place] [facility] [address] [facility] [address] Performing Lab: [facility] [place] [facility] [address] [address] [facility] [place] [facility] CBC AND DIFF (AUTO) HEMOGLOBIN [MASS/VOLUM E] IN BLOOD 13.0 g/dL 12.8 - 17 08/31 Specimen Type: BLOOD No comment entered. Ordering Provider: Lalo BOB Report Released Date/Time: Aug 31, 2024 09:40 AM Reporting Lab: [facility] [place] [facility] [address] [facility] [address] Performing Lab: [facility] [place] [address] [address] [facility] [facility] CBC AND DIFF (AUTO) HEMATOCRIT [VOLUME FRACTION] OF BLOOD BY AUTOMATED COUNT 38.3 39.2 - 50.4 08/31 L Specimen Type: BLOOD No comment entered. Ordering Provider: Lalo BOB Report Released Date/Time: Aug 31, 2024 09:40 AM Reporting Lab: [facility] [place] [facility] [address] [facility] [address] Performing Lab: [facility] [place] [facility] [address] [facility] [address] [facility] [place] [facility] CBC AND DIFF (AUTO) MCV [ENTITIC VOLUME] BY AUTOMATED COUNT 93.6 fL 82 - 99 08/31 Specimen Type: BLOOD No comment entered. Ordering Provider: Lalo BOB Report Released Date/Time: Aug 31, 2024 09:40 AM Reporting Lab: [facility] [place] [facility] [address] [facility] [address] Performing Lab: [facility] [place] [facility] [address] [facility] [address] [facility] [place] [facility] CBC AND DIFF (AUTO) MCHC [MASS/VOLUM E] BY AUTOMATED COUNT 33.9 g/dL 30.8 - 35.1 08/31 Specimen Type: BLOOD No comment entered. Ordering Provider: Lalo BOB Report Released Date/Time: Aug 31, 2024 09:40 AM Reporting Lab: [facility] [place] [facility] [address] [facility] [address] Performing Lab: [facility] [place] [facility] [address] [facility] [address] [facility] [place] [facility] CBC AND DIFF (AUTO) PLATELETS [#/VOLUME] IN BLOOD BY AUTOMATED COUNT 328 10*3/u L 140 - 360 08/31 Specimen Type: BLOOD No comment entered. Ordering Provider: Lalo BOB Report Released Date/Time: Aug 31, 2024 09:40 AM Reporting Lab: [facility] [place] [facility] [address] [facility] [facility] [address] Performing Lab: [facility] [place] [facility] [address] [facility] [address] [facility] [place] [facility] CBC AND DIFF (AUTO) ERYTHROCYTE DISTRIBUTIO N WIDTH [RATIO] BY AUTOMATED COUNT 13.8 12.0 - 16.0 08/31 Specimen Type: BLOOD No comment entered. Ordering Provider: Lalo BOB Report Released Date/Time: Aug 31, 2024 09:40 AM Reporting Lab: [facility] [place] [facility] [address] [facility] [address] Performing Lab: [facility] [place] [facility] [address] [facility] [address] [facility] [place] [facility] CBC AND DIFF (AUTO) MONOCYTES [#/VOLUME] IN BLOOD BY AUTOMATED COUNT 0.45 10*3/u L 0.30 - 1.10 08/31 Specimen Type: BLOOD No comment entered. Ordering Provider: Lalo BOB Report Released Date/Time: Aug 31, 2024 09:40 AM Reporting Lab: [facility] [place] [address] [address] Performing Lab: [facility] [place] [facility] [address] [facility] [address] [facility] [place] [facility] CBC AND DIFF (AUTO) MCH [ENTITIC MASS] BY AUTOMATED COUNT 31.8 pg 26.2 - 32.6 08/31 Specimen Type: BLOOD No comment entered. Ordering Provider: Lalo BOB Report Released Date/Time: Aug 31, 2024 09:40 AM Reporting Lab: [facility] [place] [address] [address] Performing Lab: [facility] [place] [facility] [address] [facility] [facility] [address] [facility] [place] [facility] CBC AND DIFF (AUTO) NEUTROPHILS /100 LEUKOCYTES IN BLOOD BY AUTOMATED COUNT 67.7 43.7 - 75.8 08/31 Specimen Type: BLOOD No comment entered. Ordering Provider: Lalo BOB Report Released Date/Time: Aug 31, 2024 09:40 AM Reporting Lab: [facility] [place] [address] [address] Performing Lab: [facility] [place] [address] [address] [facility] CBC AND DIFF (AUTO) LYMPHOCYTES /100 LEUKOCYTES IN BLOOD BY AUTOMATED COUNT 19.0 14.0 - 42.3 08/31 Specimen Type: BLOOD No comment entered. Ordering Provider: Lalo BOB Report Released Date/Time: Aug 31, 2024 09:40 AM Reporting Lab: [facility] [place] [facility] [address] [facility] [address] Performing Lab: [facility] [place] [facility] [address] [facility] [address] [facility] [place] CBC AND DIFF (AUTO) MONOCYTES/1 00 LEUKOCYTES IN BLOOD BY AUTOMATED COUNT 8.4 5.1 - 13.7 08/31 Specimen Type: BLOOD No comment entered. Ordering Provider: Lalo BOB Report Released Date/Time: Aug 31, 2024 09:40 AM Reporting Lab: [facility] [place] [facility] [address] [facility] [address] Performing Lab: [facility] [place] [facility] [address] [facility] [address] [facility] [place] CBC AND DIFF (AUTO) EOSINOPHILS /100 LEUKOCYTES IN BLOOD BY AUTOMATED COUNT 3.9 0.4 - 6.8 08/31 Specimen Type: BLOOD No comment entered. Ordering Provider: Lalo BOB Report Released Date/Time: Aug 31, 2024 09:40 AM Reporting Lab: [facility] [place] [facility] [address] [facility] [address] Performing Lab: [facility] [place] [facility] [address] [facility] [address] [facility] [place] CBC AND DIFF (AUTO) BASOPHILS/1 00 LEUKOCYTES IN BLOOD BY AUTOMATED COUNT 0.6 0.1 - 2.0 08/31 Specimen Type: BLOOD No comment entered. Ordering Provider: Lalo BOB Report Released Date/Time: Aug 31, 2024 09:40 AM Reporting Lab: [facility] [place] [facility] [address] [facility] [address] Performing Lab: [facility] [place] [facility] [address] [facility] [address] [facility] [place] [facility] CBC AND DIFF (AUTO) NEUTROPHILS [#/VOLUME] IN BLOOD BY AUTOMATED COUNT 3.65 10*3/u L 2.20 - 7.60 08/31 Specimen Type: BLOOD No comment entered. Ordering Provider: Lalo BOB Report Released Date/Time: Aug 31, 2024 09:40 AM Reporting Lab: [facility] [place] [facility] [address] [facility] [address] Performing Lab: [facility] [place] [address] [address] [facility] [place] [facility] CBC AND DIFF (AUTO) LYMPHOCYTES [#/VOLUME] IN BLOOD BY AUTOMATED COUNT 1.02 10*3/u L 1.00 - 3.20 08/31 Specimen Type: BLOOD No comment entered. Ordering Provider: Lalo BOB Report Released Date/Time: Aug 31, 2024 09:40 AM Reporting Lab: [facility] [place] [address] [address] Performing Lab: [facility] [place] [address] [address] [facility] [place] [facility] CBC AND DIFF (AUTO) EOSINOPHILS [#/VOLUME] IN BLOOD BY AUTOMATED COUNT 0.21 10*3/u L 0.03 - 0.44 08/31 Specimen Type: BLOOD No comment entered. Ordering Provider: Lalo BOB Report Released Date/Time: Aug 31, 2024 09:40 AM Reporting Lab: [facility] [place] [address] [address] Performing Lab: [facility] [place] [address] [address] [facility] [place] [facility] CBC AND DIFF (AUTO) BASOPHILS [#/VOLUME] IN BLOOD BY AUTOMATED COUNT 0.03 10*3/u L 0.01 - 0.13 12/30 /2024 Specimen Type: BLOOD No comment entered. Ordering Provider: Lalo BOB Report Released Date/Time: Aug 31, 2024 09:40 AM Reporting Lab: [facility] [place] [facility] [address] [facility] [address] Performing Lab: [facility] [place] [address] [address] [facility] [place] [facility] CBC AND DIFF (AUTO) IMMATURE GRANULOCYTE S/100 LEUKOCYTES IN BLOOD BY AUTOMATED COUNT 0.4 0.0 - 0.7 08/31 Specimen Type: BLOOD No comment entered. Ordering Provider: Lalo BOB Report Released Date/Time: Aug 31, 2024 09:40 AM Reporting Lab: [facility] [place] [address] [address] Performing Lab: [facility] [place] [address] [address] [facility] [place] [facility] CBC AND DIFF (AUTO) IMMATURE GRANULOCYTE S [#/VOLUME] IN BLOOD 0.02 10*3/u L 0.00 - 0.06 08/31 Specimen Type: BLOOD No comment entered. Ordering Provider: Lalo BOB Report Released Date/Time: Aug 31, 2024 09:40 AM Reporting Lab: [facility] [place] [address] [address] Performing Lab: [facility] [place] [address] [address] [facility] [place] [facility] CBC AND DIFF (AUTO) NRBC % 0.0 0.0 - 0.0 08/31 Specimen Type: BLOOD No comment entered. Ordering Provider: Lalo BOB Report Released Date/Time: Aug 31, 2024 09:40 AM Reporting Lab: [facility] [place] [address] [address] Performing Lab: [place] [facility] [address] [address] [facility] CBC AND DIFF (AUTO) NRBC, ABS 0.00 10*3/u L 0.00 - 0.00 08/31 Specimen Type: BLOOD No comment entered. Ordering Provider: Lalo BOB Report Released Date/Time: Aug 31, 2024 09:40 AM Reporting [facility]: [facility] [address] [address] Performing Lab: [facility] [address] [address] [facility] HEMOGLOBI N A1C PANEL HEMOGLOBIN A1C/HEMOGLO BIN.TOTAL [...] Aug 31, 2024 09:40 AM Reporting Lab: [facility] [address] [address] Performing Lab: [address] [address] [facility] LIPID PANEL FASTING CHOLESTEROL [MASS/VOLUM E] IN SERUM OR PLASMA 167 mg/dL 08/31 Specimen Type: SERUM No comment entered. Ordering Provider: Lalo BOB Report Released Date/Time: Aug 31, 2024 09:40 AM Reporting [facility]: [facility] [address] [address] Performing Lab: [facility] [address] [address] [facility] LIPID PANEL FASTING TRIGLYCERID E [MASS/VOLUM E] IN SERUM OR PLASMA 127 mg/dL 0 - 150 08/31 Specimen Type: SERUM No comment entered. Ordering Provider: Lalo BOB Report Released Date/Time: Aug 31, 2024 09:40 AM Reporting Lab: [facility] [place] [facility] [address] [facility] [address] Performing Lab: [facility] [place] [facility] [address] [facility] [address] [facility] [place] [facility] LIPID PANEL FASTING CHOLESTEROL IN LDL [MASS/VOLUM E] IN SERUM OR PLASMA BY CALCULATION 85 mg/dL 0 - 129 08/31 Specimen Type: SERUM No comment entered. Ordering Provider: Lalo BOB Report Released Date/Time: Aug 31, 2024 09:40 AM Reporting Lab: [facility] [place] [facility] [address] [facility] [address] Performing Lab: [place] [facility] [place] [facility] [address] [facility] [address] [facility] LIPID PANEL FASTING CHOLESTEROL .TOTAL/CHOL ESTEROL IN HDL [MASS RATIO] IN SERUM OR PLASMA 2.9 08/31 Specimen Type: SERUM No comment entered. Ordering Provider: Lalo BOB Report Released Date/Time: Aug 31, 2024 09:40 AM Reporting Lab: [place] [facility] [place] [facility] [address] [facility] [address] Performing Lab: [facility] [place] [facility] [address] [facility] [address] [facility] [place] [facility] LIPID PANEL FASTING CHOLESTEROL IN HDL [MASS/VOLUM E] IN SERUM OR PLASMA 57 mg/dL 40 - 60 08/31 Specimen Type: SERUM No comment entered. Ordering Provider: Lalo BOB Report Released Date/Time: Aug 31, 2024 09:40 AM Reporting Lab: [facility] [place] [facility] [address] [facility] [address] Performing Lab: [facility] [place] [facility] [address] [facility] [address] [facility] [place] [facility] MICROALBU MIN CREATININ E RATIO PANEL MICROALBUMI N/CREATININ E [MASS RATIO] IN URINE 12.3 mg/g 0 - 29.9 08/31 Specimen Type: URINE No comment entered. Ordering Provider: Lalo BOB Report Released Date/Time: Aug 31, 2024 09:40 AM Reporting Lab: [facility] [place] [facility] [address] [facility] [address] Performing Lab: [facility] [place] [facility] [address] [facility] [facility] [address] [facility] [place] [facility] MICROALBU MIN CREATININ E RATIO PANEL MICROALBUMI N [MASS/VOLUM E] IN URINE 1.3 mg/dL 08/31 Specimen Type: URINE No comment entered. Ordering Provider: Lalo BOB Report Released Date/Time: Aug 31, 2024 09:40 AM Reporting Lab: [facility] [place] [facility] [address] [address] Performing Lab: [facility] [place] [facility] [address] [facility] [address] [facility] [place] [facility] MICROALBU MIN CREATININ E RATIO PANEL CREATININE [MASS/VOLUM E] IN URINE 105.65 mg/dL 08/31 Specimen Type: URINE No comment entered. Ordering Provider: Lalo BOB Report Released Date/Time: Aug 31, 2024 09:40 AM Reporting Lab: [facility] [place] [facility] [address] [facility] [address] Performing Lab: [facility] [place] [facility] [address] [facility] [address] [facility] [place] [facility] BASIC METABOLIC PANEL (fasting) UREA NITROGEN [MASS/VOLUM E] IN SERUM OR PLASMA 17 mg/dL 7 - 25 02/19 Specimen Type: SERUM No comment entered. Ordering Provider: Lalo BOB Report Released Date/Time: Sep 10, 2023 02:57 PM Reporting Lab: [facility] [place] [facility] [address] [facility] [address] Per[facility]: [facility] [place] [facility] [address] [address] [facility] [place] [facility] BASIC METABOLIC PANEL (fasting) GLUCOSE [MASS/VOLUM E] IN SERUM OR PLASMA 162 mg/dL 65 - 100 02/19 H Specimen Type: SERUM No comment entered. Ordering Provider: Lalo BOB Report Released Date/Time: Sep 10, 2023 02:57 PM Reporting Lab: [facility] [address] [address] Performing Lab: [facility] [address] [facility] [address] [facility] BASIC METABOLIC PANEL (fasting) SODIUM [MOLES/VOLU ME] IN SERUM OR PLASMA 140 mmol/L 135 - 145 02/19 Specimen Type: SERUM No comment entered. Ordering Provider: Lalo BOB Report Released Date/Time: Sep 10, 2023 02:57 PM Reporting Lab: [facility]N [facility] [address] [facility] [address] Performing Lab: [facility] [address] [facility] [address] [facility] BASIC METABOLIC PANEL (fasting) POTASSIUM [MOLES/VOLU ME] IN SERUM OR PLASMA 4.3 mmol/L 3.5 - 5.0 02/19 Specimen Type: SERUM No comment entered. Ordering Provider: Lalo BOB Report Released Date/Time: Sep 10, 2023 02:57 PM Reporting Lab: [facility] [place] [facility] [address] [facility] [address] Performing Lab: [facility] [address] [address] [facility]ENTERTRN [facility]ITAL[facility] BASIC METABOLIC PANEL (fasting) CHLORIDE [MOLES/VOLU ME] IN SERUM OR PLASMA 104 mmol/L 100 - 110 02/19 Specimen Type: SERUM No comment entered. Ordering Provider: Lalo BOB Report Released Date/Time: Sep 10, 2023 02:57 PM Reporting Lab: [facility] [place] [facility] [address] [facility] [address] Performing Lab: [facility] [address] [facility] [address] [facility] BASIC METABOLIC PANEL (fasting) CARBON DIOXIDE, TOTAL [MOLES/VOLU ME] IN SERUM OR PLASMA 23 meq/L 20 - 30 02/19 Specimen Type: SERUM No comment entered. Ordering Provider: Lalo BOB Report Released Date/Time: Sep 10, 2023 02:57 PM Reporting Lab: [facility] [place] [address] [address] Performing Lab: [facility] [address] [facility] BASIC METABOLIC PANEL (fasting) CREATININE [MASS/VOLUM E] IN SERUM OR PLASMA 1.30 mg/dL 0.50 - 1.40 02/19 Specimen Type: SERUM No comment entered. Ordering Provider: Lalo BOB Report Released Date/Time: Sep 10, 2023 02:57 PM Reporting Lab: [facility] [place] [address] Performing Lab: [facility] [address] [address] [facility] [place] [facility] BASIC METABOLIC PANEL (fasting) GLOMERULAR FILTRATION RATE/1.73 SQ M.PREDICTED [VOLUME RATE/AREA] IN SERUM, PLASMA OR BLOOD BY CREATININE- BASED FORMULA (CKD-EPI 2020) 56 mL/min 60 02/19 L Specimen Type: SERUM No comment entered. Ordering Provider: Lalo BOB Report Released Date/Time: Sep 10, 2023 02:57 PM Reporting Lab: [facility] [place] [address] Performing Lab: [facility] [place] [facility] [address] [facility] [address] [facility] [place] [facility] FERRITIN FERRITIN [MASS/VOLUM E] IN SERUM OR PLASMA 55 ng/mL 20 - 300 02/19 Specimen Type: SERUM No comment entered. Ordering Provider: Lalo BOB Report Released Date/Time: Sep 10, 2023 02:57 PM Reporting Lab: [facility] [place] [facility] [address] [facility] [address] Performing Lab: [facility] [place] [facility] [address] [facility] [facility] [address] [facility] [place] [facility] IRON & TIBC PANEL IRON BINDING CAPACITY [MASS/VOLUM E] IN SERUM OR PLASMA 399 ug/dL 204 - 475 02/19 Specimen Type: SERUM No comment entered. Ordering Provider: Lalo BOB Report Released Date/Time: Sep 10, 2023 02:57 PM Reporting Lab: [facility] [place] [facility] [address] [facility] [address] Performing Lab: [facility] [place] [facility] [address] [facility] [facility] [address] [facility] [place] [facility] IRON & TIBC PANEL IRON [MASS/VOLUM E] IN SERUM OR PLASMA 120 ug/dL 40 - 160 02/19 Specimen Type: SERUM No comment entered. Ordering Provider: Lalo BOB Report Released Date/Time: Sep 10, 2023 02:57 PM Reporting Lab: [facility] [place] [facility] [address] [facility] [address] Performing Lab: [facility] [place] [facility] [address] [facility] [facility] [address] [facility] [place] [facility] IRON & TIBC PANEL IRON/IRON BINDING CAPACITY.TO ANGELA [MASS RATIO] IN SERUM OR PLASMA 30.1 20.0 - 50.0 02/19 Specimen Type: SERUM No comment entered. Ordering Provider: Lalo BOB Report Released Date/Time: Sep 10, 2023 02:57 PM Reporting Lab: [facility] [place] [facility] [address] [facility] [address] Performing Lab: [facility] [place] [facility] [address] [facility] [facility] [address] [facility] [place] [facility] LIPID PANEL FASTING CHOLESTEROL [MASS/VOLUM E] IN SERUM OR PLASMA 143 mg/dL 02/19 Specimen Type: SERUM No comment entered. Ordering Provider: Lalo BOB Report Released Date/Time: Sep 10, 2023 02:57 PM Reporting Lab: [facility] [place] [facility] [address] [facility] [address] Performing Lab: [facility] [place] [facility] [address] [facility] [facility] [address] [facility] [place] [facility] LIPID PANEL FASTING TRIGLYCERID E [MASS/VOLUM E] IN SERUM OR PLASMA 142 mg/dL 0 - 150 02/19 Specimen Type: SERUM No comment entered. Ordering Provider: Lalo BOB Report Released Date/Time: Sep 10, 2023 02:57 PM Reporting Lab: [facility] [place] [facility] [address] [facility] [address] Performing Lab: [facility] [place] [facility] [address] [facility] [address] [facility] LIPID PANEL FASTING CHOLESTEROL IN LDL [MASS/VOLUM E] IN SERUM OR PLASMA BY CALCULATION 64 mg/dL 0 - 129 02/19 Specimen Type: SERUM No comment entered. Ordering Provider: Lalo BOB Report Released Date/Time: Sep 10, 2023 02:57 PM Reporting Lab: [facility] [place] [facility] [address] [facility] [facility] [address] Performing Lab: [facility] [place] [facility] [address] [facility] [address] [facility] [place] [facility] LIPID PANEL FASTING CHOLESTEROL .TOTAL/CHOL ESTEROL IN HDL [MASS RATIO] IN SERUM OR PLASMA 2.8 02/19 Specimen Type: SERUM No comment entered. Ordering Provider: Lalo BOB Report Released Date/Time: Sep 10, 2023 02:57 PM Reporting Lab: [facility] [place] [facility] [address] [facility] [facility] [address] Performing Lab: [facility] [place] [facility] [address] [facility] [address] [facility] [place] [facility] LIPID PANEL FASTING CHOLESTEROL IN HDL [MASS/VOLUM E] IN SERUM OR PLASMA 51 mg/dL 40 - 60 02/19 Specimen Type: SERUM No comment entered. Ordering Provider: Lalo BOB Report Released Date/Time: Sep 10, 2023 02:57 PM Reporting Lab: [facility] [place] [facility] [address] [facility] [address] Performing Lab: [facility] [place] [facility] [address] [facility] [facility] [address] [facility] [place] [facility] LIVER FUNCTION PROTEIN [MASS/VOLUM E] IN SERUM OR PLASMA 6.7 g/dL 6.0 - 8.3 02/19 Specimen Type: SERUM No comment entered. Ordering Provider: Lalo BOB Report Released Date/Time: Sep 10, 2023 02:57 PM Reporting Lab: [facility] [place] [facility] [address] [facility] [facility] [address] Performing Lab: [facility] [place] [facility] [address] [facility] [address] [facility] [place] [facility] LIVER FUNCTION ALBUMIN [MASS/VOLUM E] IN SERUM OR PLASMA 3.9 g/dL 3.5 - 5.0 02/19 Specimen Type: SERUM No comment entered. Ordering Provider: Lalo BOB Report Released Date/Time: Sep 10, 2023 02:57 PM Reporting Lab: [facility] [place] [facility] [address] [facility] [facility] [address] Performing Lab: [facility] [place] [facility] [address] [facility] [facility] [address] [facility] [place] [facility] LIVER FUNCTION ALKALINE PHOSPHATASE [ENZYMATIC ACTIVITY/VO LUME] IN SERUM OR PLASMA 84 U/L 40 - 150 02/19 Specimen Type: SERUM No comment entered. Ordering Provider: Lalo BOB Report Released Date/Time: Sep 10, 2023 02:57 PM Reporting Lab: [facility] [place] [facility] [address] [facility] [address] Performing Lab: [facility] [place] [facility] [address] [facility] [facility] [address] [facility] [facility] LIVER FUNCTION ASPARTATE AMINOTRANSF ERASE [ENZYMATIC ACTIVITY/VO LUME] IN SERUM OR PLASMA 16 U/L 5 - 34 02/19 Specimen Type: SERUM No comment entered. Ordering Provider: Lalo BOB Report Released Date/Time: Sep 10, 2023 02:57 PM Reporting Lab: [facility] [place] [facility] [address] [facility] [address] Performing Lab: [facility] [place] [facility] [address] [facility] [facility] [address] [facility] [place] [facility] LIVER FUNCTION ALANINE AMINOTRANSF ERASE [ENZYMATIC ACTIVITY/VO LUME] IN SERUM OR PLASMA 17 U/L 02/19 Specimen Type: SERUM No comment entered. Ordering Provider: Lalo BOB Report Released Date/Time: Sep 10, 2023 02:57 PM Reporting Lab: [facility] [place] [address] [address] Performing Lab: [facility] [place] [facility] [address] [facility] [address] [facility] [place] [facility] LIVER FUNCTION BILIRUBIN.T OTAL [MASS/VOLUM E] IN SERUM OR PLASMA 0.8 mg/dL 0.2 - 1.2 02/19 Specimen Type: SERUM No comment entered. Ordering Provider: Lalo BOB Report Released Date/Time: Sep 10, 2023 02:57 PM Reporting Lab: [facility] [place] [address] [address] Performing Lab: [facility] [place] [facility] [address] [facility] [address] [facility] Vital Sign[facility] Combined list of inpatient and [...] Source [facility] En[facility] [id number] 07/24 [facility] Encounter [id number] Meredith GOMEZ 07/30 [facility] En[facility] [id number] Meredith GOMEZ 09/09 [facility] OFFICE O/P EST LOW 20 MIN [id number] Diagnos is: ICD-10- CM 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 goARTI Patel 09/10 [facility] EXTENDED VISUAL FIELD XM [id number] Diagnos is: ICD-10- CM H40.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 Open angle with borderl ine finding s, low risk, bilater al TRISTON GONZALEZ 09/27 [facility] [place] [facility] CMPTR OPHTH IMG OPTIC NERVE [id number] Diagnos is: ICD-10- CM H40.013 Open angle with borderl ine finding s, low risk, bilater TRISTON Krishna 09/27 [facility] [place] [facility] [place] INTRM OPH EXAM EST PATIENT [id number] Diagnos is: ICD-10- CM H40.013 Open angle with borderl ine finding s, low risk, bilater TRISTON Krishna 09/27 [facility] [place] [facility] [place] [facility] FIT SPECTACLES MONOFOCAL [id number] Diagnos is: ICD-10- CM Z46.0 Encount er for fit/adj st of spectac les and contact lenses TRISTON GONZALEZ 09/27 [facility] [place] [facility] [place] [facility] OFFICE O/P EST SF 10 MIN [id number] Diagnos is: ICD-10- CM E11.8 Type 2 diabete s mellitu s with unspeci fied complic ations Paz BENSON 10/22 [facility] Outpatient Encounter [id number] 11/07 [facility] Encounter [id number] Meredith GOMEZ 12/01 [facility] Encounter [id number] 02/05 [facility] Encounter [id number] Meredith GOMEZ 02/09 [facility] Encounter [id number] Meredith GOMEZ 02/16 [facility] OFFICE O/P EST LOW 20 MIN [id number] Diagnos is: ICD-10- CM 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 c multino KAREN Gutierrez 02/25 [facility] OFFICE O/P EST LOW 20 MIN [id number] Diagnos is: ICD-10- CM I11.9 Hyperte nsive heart disease without heart failure ARTI BOB 03/03 [facility] En[facility] [id number] Meredith GOMEZ 03/30 [facility] Out[facility] Encounter [id number] Meredith GOMEZ 04/30 [facility] COMPRE OPH EXAM EST PT 1/ [id number] Diagnos is: ICD-10- CM E11.9 Type 2 diabete s mellitu s without complic ations RUPAL RIZZO Ching Castillo 04/30 [facility] Encounter [id number] Meredith GOMEZ 06/01 [facility] Out[facility] Encounter [id number] [facility] 07/20 [facility] Out[facility] Encounter [id number] GRI[facility]ALVA[facility] 08/31 [facility] OFFICE O/P EST LOW 20 MIN [id number] Diagnos is: ICD-10- CM I11.9 Hyperte nsive heart disease without heart failure ARTI BOB 09/04 [facility] OFFICE O/P EST LOW 20 MIN [id number] Diagnos is: ICD-10- CM L60.3 Nail dystrop hy CATHY YE D 10/07 [facility] En[facility] [id number] 10/12 [facility] Encounter [id number] 11/11 [facility] Encounter [id number] 11/17 [facility] Out[facility] Encounter [id number] JOCELYN GIBSON 11/17 [facility] Encounter [id number] 11/20 [facility] Encounter [id number] 11/25 [facility] Encounter [id number] 12/01 [facility] Encounter [id number] 12/28 [facility] [place] [place] Social History Combined list of available smoking, tobacco, and other social history from Department of Defense and Veterans Affairs facilities. Social History Type Response Date Comment Source Tobacco smoking status [facility] VA-TOBACCO NEVER USED CIGARETTES 09/04/2024 [facility] History of tobacco use VA-TOBACCO NEVER USED OTHER TYPE 09/04/2024 [facility] History of tobacco use VA-TOBACCO FORMER USER 06/04/2023 [facility] History of tobacco use VA-TOBACCO FORMER USER 06/15/2022 [facility] History of tobacco use VA-TOBACCO FORMER USER 06/30/2021 [facility] History of tobacco use VA-TOBACCO FORMER USER 06/03/2020 [facility] History of tobacco use VA-TOBACCO QUIT 15 YRS OR MORE 02/23/2020 [facility] History of tobacco use VA-TOBACCO FORMER USER 10/28/2018 [facility] History of tobacco use QUIT TOBACCO USE > 7 YEARS AGO 07/10/2017 [facility] History of tobacco use QUIT TOBACCO USE > 7 YEARS AGO 02/13/2016 . [facility] History of tobacco use HISTORY OF SMOKING 06/08/2005 quit in 1973 [facility] History of tobacco use HISTORY OF SMOKING 04/10/2004 [facility] History of tobacco use HISTORY OF SMOKING 12/04/2002 [facility] History of tobacco use QUIT TOBACCO USE > 7 YEARS AGO 01/09/2002 [facility] History of tobacco use NON-TOBACCO USER 09/11/2001 see previous note [facility] Plan of Care List of future care activities from [facility] facilities. Additional future care activities may be listed in the Assessment and Plan section. Date/Time Care Activity Care Activity Detail Facili ty 02/25/2025 AMBULATORY - MEDICINE AMBULATORY - MEDICI [facility] Advance Directives List of completed, amended, or rescinded Advance Directives on record at [facility] facilities. An actual copy of the Directive is not included. Date Advance Directive Provider Source 08/27/2012 ADVANCE DIRECTIVE JESS ANDRADE [facility]
--- OUTSIDE RECORDS SUMMARY | 2025-01-13 13:53 | XMS_ITS | Clinical Summary ---
Author Organization [facility] Address [address] [place] [address] Care Team Providers Care Energy Broker Name Role Phone Unavailable Primary Care Provider Unavailabl e Social History Tobacco Use Types Packs/Day Years Used Date Smoking Tobacco: Never Assessed Sex and Gender Information Value Date Recorded Sex Assigned at Not on file Legal Sex Male 1:39 PM EDT Gender Identity Not on file Sexual Orientation [...]
--- OUTSIDE RECORDS SUMMARY | 2025-01-13 13:54 | XMS_ITS | Encounter Summary ---
Author Name [facility] [place] [facility] [place] [facility] [place] [facility] [place] Address [address] [place] [address] Care Team Providers Care Crib Attendant Name Role Phone ATRI TAPIA Primary Care Provider Unavail able Insurance [...] PART A Feb 09, 2009 PART A [id number] BELKIS NEGRON PATIENT MEDICARE (WNR) MEDICARE (M) PART A Feb 09, 2009 PART A [id number] BELKIS NEGRON PATIENT MEDICARE (WNR) MEDICARE (M) PART B Feb 09, 2009 PART B [id number] BELKIS NEGRON PATIENT MEDICARE (WNR) MEDICARE (M) PART A Feb 09, 2009 PART A [id number] BELKIS NEGRON PATIENT MEDICARE (WNR) MEDICARE (M) PART B Jan 31, 2009 PART B [id number] [phone] BELKIS NEGRON PATIENT MEDICARE (WNR) MEDICARE (M) PART B Jan 31, 2009 PART B [id number] BELKIS NEGRON PATIENT MEDICARE (WNR) MEDICARE (M) PART A Jan 31, 2009 PART A [id number] [phone] BELKIS NEGRON PATIENT MEDICARE (WNR) MEDICARE (M) PART B Jan 31, 2009 PART B [id number] [phone] BELKIS NEGRON PATIENT [facility] (WNR) MEDICARE ADVANTAGE [facility] (WNR) Sep 02, 2021 [id number] [phone] BELKIS NEGRON PATIENT [facility] (WNR) MEDICARE ADVANTAGE [facility] (WNR) Sep 02, 2021 [id number] [phone] BELKIS NEGRON PATIENT [facility] (WNR) MEDICARE ADVANTAGE [facility] (WNR) Sep 02, 2021 [id number] BELKIS NEGRON PATIENT Selected Encounter This section includes the information on record at [place] for the Encounter. Date/Time Encounter Type Encounter Description Reason Provider Source Mar 03, 2024 01:30 PM OFFICE O/P EST LOW 20 MIN PRIMARY CARE/MEDICINE ICD-10-CM I11.9 Hypertensive heart disease without heart failure LORENZO TAPIA [facility] Encounter Template Text not used by [place] Assessments - Encounter Diagnoses This section includes the primary and secondary diagnoses documented for the Encounter. Date/Time Primary/Secondary Diagnosis Diagnosis Name Provider Source Mar 03, 2024 01:49 PM PRIMARY Hypertensive heart disease without heart failure LORENZO TAPIA [facility] Mar 03, 2024 01:49 PM SECONDARY Age-related osteoporosis w/o current pathological fracture LORENZO TAPIA [facility] Mar 03, 2024 01:49 PM SECONDARY Encounter for immunization MADELYN GRIJALVA [facility] Plan of Treatment: Future Appointments (+ 6 months) and Future Tests (+/- 45 days) The Plan of Treatment section includes future care activities for the patient from all [place] treatmentfacilities. This section includes future appointments and future orders which are active, pending or scheduled. Future Appointments This section includes appointments that were scheduled to occur 6 months from the date of the Encounter, up to a maximum of 20 appointments. The data comes from all [facility]. Appointment Date/Time Appointment Type Appointme nt Facility Name Apr 30, 2024 01:30 PM AMBULATORY - MEDICINE [facility] May 05, 2024 01:00 PM AMBULATORY - MEDICINE [facility] Active, Pending, and Scheduled Orders This section includes a listing of several types of active, pending, and scheduled orders, including clinic medications orders, diagnostic test orders, procedure orders and consult orders; where the start date of the order is 45 days before the date of the Encounter or 45 days after the date of theEncounter. The data comes from all [facility]. Test Date/Time Test Type Test Details Facility Name Feb 27, 2024 12:00 AM Laboratory - Chemi stry Order BASIC METABOLIC PANEL (non-fasting) BLOOD (SST-SERUM) [facility] Feb 27, 2024 12:00 AM Laboratory - Chemi stry Order CBC BLOOD (LAV-BLOOD) [facility] Feb 27, 2024 12:00 AM Laboratory - Chemi stry Order FERRITIN BLOOD (SST-SERUM) [facility] Feb 27, 2024 12:00 AM Laboratory - Chemi stry Order IRON & TIBC PANEL BLOOD (SST-SERUM) [facility] Lab Results: +/- 30 days of the encounter This section includes the Chemistry and Hematology Lab Results on record with [place] for the patient. Radiology Reports and Pathology Reports are provided separately, in subsequent sections. Lab Results This section contains the Chemistry/Hematology Results that were resulted 30 days before or 30 daysafter the date of the Encounter. Date/Time Source Result Type Result - Unit Interpretation Reference Range Specimen Type Comment Feb 20, 2024 08:43 AM [facility] LIVER FUNCTION SERUM Specimen Type: SERUM No comment entered. Ordering Provider: JON TAPIA Report Released Date/Time: Sep 10, 2023 02:57 PM Reporting Lab: [address] [address] Performing Lab: [facility] [address] [facility] [address] PROTEIN,TOTAL 6.7 g/dL 6.0-8.3 ALBUMIN 3.9 g/dL 3.5-5.0 ALKALINE PHOSPHATASE 84 U/L 40-150 AST 16 U/L 5-34 ALT 17 U/L BILIRUBIN, TOTAL 0.8 mg/dL 0.2-1.2 Feb 20, 2024 08:43 AM [facility] BASIC METABOLIC PANEL (fasting) SERUM Specime n Type: SERUM No comment entered. Ordering Provider: ARTI TAPIA Report Released Date/Time: Sep 10, 2023 02:57 PM Reporting Lab: [address] [address] Performing Lab: [address] [address] UREA NITROGEN 17 mg/dL 7-25 GLUCOSE 162 mg/dL H 65-100 SODIUM 140 mmol/L 135-145 POTASSIUM 4.3 mmol/L 3.5-5.0 CHLORIDE 104 mmol/L 100-110 CO2 23 meq/L 20-30 CREATININE, Serum 1.30 mg/dL 0.50-1.40 eGFR(CKD-EPI 2020) 56 mL/min L >60 Feb 20, 2024 08:43 AM [facility] LIPID PANEL FASTING SERUM Specimen Type: SERU M No comment entered. Ordering Provider: ARTI TAPIA Report Released Date/Time: Sep 10, 2023 02:57 PM Reporting Lab: [address] [address] Performing Lab: [address] [address] CHOLESTEROL 143 mg/dL TRIGLYCERIDE 142 mg/dL 0-150 LDL calculated 64 mg/dL 0-129 CHOL/HDL 2.8 HDL CHOLESTEROL 51 mg/dL 40-60 Feb 20, 2024 08:43 AM [facility] IRON & TIBC PANEL SERUM Specimen Type: SERUM No comment entered. Ordering Provider: ARTI TAPIA Report Released Date/Time: Sep 10, 2023 02:57 PM Reporting Lab: [address] [address] Performing Lab: [address] [address] TIBC 399 ug/dL 204-475 IRON 120 ug/dL 40-160 Transferrin Saturation 30.1 20.0-50.0 Feb 20, 2024 08:43 AM [facility] FERRITIN SERUM Specimen Type: SERUM No comment entered. Ordering Provider: ARTI TAPIA Report Released Date/Time: Sep 10, 2023 02:57 PM Reporting Lab: [address] [address] Performing Lab: [address] [address] FERRITIN 55 ng/mL 20-300 Feb 20, 2024 08:43 AM [facility] CBC AND DIFF (AUTO) BLOOD Specimen Type: BLOO D No comment entered. Ordering Provider: ARTI TAPIA Report Released Date/Time: Sep 10, 2023 02:57 PM Reporting Lab: [address] [address] Performing Lab: [address] [address] WBC 5.93 10*3/uL 4.50-11.00 RBC 3.98 10*6/uL [...] 70 120/66 16 97 3 246 39 [facility] Immunizations: All administered on the encounter date This section contains immunizations associated to the Encounter. Immunization Series Date Issued Administered By Site Reaction Lot Number CVX Code Drug Hourly Sign Language Interpreter Comment(s) Source COVID-19 (MODERNA), MRNA, LNP-S, PF, 50 MCG/0.5 ML (AGES 12+ YEARS) 1 Mar 03, 2024 MAEDLYN GRIJALVA E LEFT DELTO ID [id number] [employer] ADMINISTERE D AT [place], [facility] Social History: Smoking Status (Most current) and Tobacco Use (All prior to encounter date) This section includes the most current, and the historical, smoking and tobacco- related health factors from the [place] facility where the Encounter took place. Current Smoking Status This section includes the most current smoking, or tobacco-related health factor, from the [place] facility where the Encounter took place. Date/Time Current Smoking Status Comment Facil ity Jun 04, 2023 01:30 PM VA-TOBACCO FORMER USER [facility] [employer] Tobacco Use History This section includes a history of the smoking, or tobacco-related health factors, that were collected on or before the date of the Encounter. The data comes from the [place] facility where the Encounter took place. Date/Time Smoking Status/Tobac co Use Comment Facility Jun 04, 2023 01:30 PM VA-TOBACCO QUIT 15 YRS OR MORE [facility] [place] [facility] Jun 15, 2022 09:15 AM VA-TOBACCO FORMER USER [facility] [place] Jun 15, 2022 09:15 AM VA-TOBACCO QUIT 15 YRS OR MORE [facility] [place] Jun 30, 2021 09:30 AM VA-TOBACCO FORMER USER [facility] [place] Jun 30, 2021 09:30 AM VA-TOBACCO QUIT 15 YRS OR MORE [facility] [place] [facility] Jun 03, 2020 08:30 AM VA-TOBACCO FORMER USER [facility] [place] [facility] Jun 03, 2020 08:30 AM VA-TOBACCO QUIT 15 YRS OR MORE [place] [facility] [place] [facility] Feb 23, 2020 09:01 AM VA-TOBACCO FORMER USER [facility] [place] [facility] Feb 23, 2020 09:01 AM VA-TOBACCO QUIT 15 YRS OR MORE [place] [facility] [place] [facility] Oct 28, 2018 01:39 PM VA-TOBACCO FORMER USER [facility] [place] [facility] Oct 28, 2018 01:39 PM VA-TOBACCO QUIT 15 YRS OR MORE [facility] [place] [facility] Jul 10, 2017 10:40 AM QUIT TOBACCO USE > 7 YEARS AGO [facility] [place] Feb 13, 2016 10:21 AM QUIT TOBACCO USE > 7 YEARS AGO . [facility] [place] Jun 08, 2005 10:50 AM HISTORY OF SMOKING quit in 1973 [facility] [place] [facility] Apr 10, 2004 10:43 AM HISTORY OF SMOKING [facility] [place] Dec 04, 2002 11:12 AM HISTORY OF SMOKING [facility] [place] [facility] January 09, 2002 10:01 AM QUIT TOBACCO USE > 7 YEARS AGO [facility] [place] [facility] Sep 11, 2001 10:41 AM HISTORY OF SMOKING see note this date [facility] [place] [facility] Sep 11, 2001 10:41 AM NON-TOBACCO USER see previous note [facility] Advance Directives: All historical and current Section Date Range: From patient's date of to the date document was created. This section includes ALL of a patient's completed or amended [place] Advance and Rescinded Directives. The entries below indicate that a directive exists for the patient, but an actual copy is not included with this document. The data comes from all [place] facilities. Date Advance Directives Provider Source Aug 27, 2012 ADVANCE DIRECTIVE JESS ANDRADE [facility] Radiology Reports: +/- 30 days of [...] the Encounter. The data comes from all [place] treatment facilities. Date/Time Radiology Report Provider Source Feb 20, 2024 09:51 AM ULTRASOUND NECK (THYROID,HEAD,SOFT TISSUE): ELSA NEGRON [id number] -[id number] M Ex Date: FEB 20, 2024@09:51 Req Phys: PAZ WEBER Loc: NHM/ENDOCRINE (Req'g Loc) Img Loc: ULTRASOUND Service: Unknown [facility] , (Case [id number] COMPLETE) ULTRASOUND NECK (THYROID,HEAD,SOF(US Detailed) CPT:23838 Reason for Study: follow multinodular goiter Clinical History: Report Status: Verified Date Reported: FEB 26, 2024 Date Verified: FEB 26, 2024 Wellness Instructor E-Sig: Report: ULTRASOUND NECK (THYROID,HEAD,SOFT TISSUE) Clinical [...] benign nodule. READING PHYSICIAN: Elsa Monreal MD -[id number] 02/26/2024 9:00 CDT [facility] National Teleradiology Program [phone] (For Medical Practitioner Use Only) Attention Patients / Veterans: If you have questions or concerns about these test results, please contact your ordering provider or primary care team. Primary Diagnostic Code: NO ALERT REQUIRED Primary Interpreting Staff: RADIOLOGY,OUTSIDE SERVICE, Staff Physician / RADIOLOGY,OUTSIDE SERVICE [facility] Encounter Notes: All associated encounter notes This section contains the clinical notes associated to the Encounter. Date/Time Encounter Note(s) Provider Source Mar 03, 2024 01:46 PM PHYSICIAN PEARL STRINGER NOTE: LOCAL TITLE: JOSSELYN NOTE STANDARD TITLE: PHYSICIAN PEARL STRINGER NOTE DATE OF NOTE: MAR 03, 2024@13:46 [...] Flexible Colonoscopy Proximal to Splenic Flexure Normal community colonoscopy, , 5 yr follow up He declined colonoscopy 06/2011 for 5 year follow up, 2015 11. Hypertriglyceridemia * 12. Hereditary Hemochromatosis Phlebotomy q4m at [facility] via DR Mirza. 13. Gout * 14. Cataract, Unspecified 15. Obesity * 16. Benign hypertension (SNOMED CT [id number]) SERVICE CONNECTED % - NONE FOUND VA [...] full rights to use it throughout the [place] system. PRIMARY SCREEN RESULT: The Primary Screen is NEGATIVE. The individual answered never to all forms of IPV above (i.e., answered never to all 5 items) The individual accepts education and/or resources: Other: EDUCATION: Other: /patrick/ Arti Tapia PA-C STAFF PHYSICIAN PEARL STRINGER Signed: 03/03/2024 13:49 ARTI TAPIA [place] [facility] [place] [facility] Mar 03, 2024 01:21 PM PREVENTIVE MEDICINE NURSING NOTE: LOCAL TITLE: CLINICAL REMINDERS/NURSING STANDARD TITLE: PREVENTIVE MEDICINE NURSING NOTE DATE OF NOTE: MAR 03, 2024@13:21 ENTRY DATE: MAR 03, 2024@13:21:42 AUTHOR: KIERSTEN GRIJALVAIGNER: URGENCY: STATUS: COMPLETED Suicide Screen: C-SSRS Screening [place] Suicide Severity Rating Scale (C-SSRS) screener 1. [...] Mar 03, 2024 13:29 Series: Series 1 Hourly Sign Language Interpreter: MODERNA [employer]. Lot: [id number] Exp Date: Jul 05, 2024 [facility]: [id number] Admin Route/Site: INTRAMUSCULAR/LEFT DELTOID Dosage: 0.5mL Vaccine Information Statement(s): COVID-19 MRNA VACCINE (12+ YRS) VACCINE VIS Jun 20, 2023 ([place]) Order By: Policy Administered By: Kiersten Grijalva Vaccine administered without complications. /patrick/ KIERSTEN GRIJALVA LPN Signed: 03/03/2024 13:30 LUISA GRIJALVA [facility]
[2025-01-13 18:50] LABS: Alanine Aminotransferase 18 U/L (0-40); Albumin Level 4.3 g/dL (3.5-5.0); Alkaline Phosphatase 107 U/L (39-117); Anion Gap 17 (12-20); Aspartate Amino Transferase 28 U/L (5-37); Bilirubin Total 0.5 mg/dL (0.0-1.0); Blood Urea Nitrogen 15 mg/dL (9-16); Calcium 9.7 mg/dL (8.4-10.2); Carbon Dioxide 22 mmol/L (22-29); Chloride 106 mmol/L (96-108); Estimated Glomerular Filt Rate 57; Glucose Random 63 mg/dL (60-115); Potassium 4.4 mmol/L (3.3-5.1); Sodium 141 mmol/L (135-145)
== END 2025-01-13 13:51 | disposition home or self-care (01) ==
LOC: HO.MANLDS 13:50
PROVIDERS: Visit Provider Internal Medicine
DX: Z00.00 Encounter for general adult medical examination without abnormal findings (principal); E83.42 Hypomagnesemia
CPT/HCPCS: 36415; 80053; 83735

== ENCOUNTER 2025-03-02 08:58 | Outpatient (REF) | payer MEDICARE, SELFPAY ==
--- OUTSIDE RECORDS SUMMARY | 2025-03-02 09:23 | XMS_ITS | Data Portability ---
Author Organization [facility] Telehealth Patient Home Address [address] [place] [address] Assessment Encounter Date Assessment Date Assessment LastModified [...] living. 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 Not available 10/07/2024 14:07:03 01/13/2025 01/13/2025 Patient presente d to office today for [...] risks and promote healthy living. Not available 01/13/2025 13:42:43 Plan of Treatment Reminders Order Date Submit Date Provider Last Modified By Organization Details Last Modified Time Details Appointments FOLLOW UP 15 2024 11:00A M DR HENDERSON Not available Not available Not available Lab hemoglobi n A1c, QN, blood 2024 025 [facility], [address] [place] [address], [id number], 01/13/2025 13:58:54 CMP, serum or plasma 2024 025 [facility], [address] [place] [address], [address], 01/14/2025 12:47:41 magnesium , serum or plasma 2024 025 [facility], [address] [place] [address], [address], 01/13/2025 13:58:54 hemoglobi n, gastroint estinal, stool 2024 025 [facility], [address] [place] [address], [address], 01/13/2025 13:58:54 CBC w/ auto diff 2024 025 [facility], [address] [place] [address], [address], 01/13/2025 13:58:54 CMP, serum or plasma 2024 025 [facility], [address] [place] [address], [address], 01/13/2025 13:58:54 culture, wound - right hip, incisiona l wound from surgery 2024 025 [facility], [address] [place] [address], [address], 12/03/2024 15:54:46 iron + TIBC + ferritin, serum 2024 025 [facility], [address] [place] [address], [address], 10/08/2024 12:39:01 lipid panel, blood 2023 024 [facility], [address] [place] [address], [address], 07/01/2024 11:53:46 hemoglobi n, gastroint estinal, stool 2023 024 [facility], [address] [place] [address], [address], 07/01/2024 11:53:46 CBC w/ auto diff 2023 024 [facility], [address] [place] [address], [address], 07/01/2024 11:53:46 CMP, serum or plasma 2023 024 [facility], [address] [place] [address], [place], [address], 07/01/2024 11:53:46 Referral None recorded. Procedures None recorded. Surgeries None recorded. Imaging None recorded. Medication Orders None recorded. Patient TargetsNo targets recorded. Patient Instructions Encounter Date Encounter Id Patient Instructions Last Modified By Organization Details Last Modified Time 07/01/2024 [id number] learning about type 2 diabetes Not available 07/01/2024 11:51:56 type 2 diabetes: care instructions Not available 07/01/2024 11:51:56 high blood pressure: care instructions Not available 07/01/2024 11:51:56 learning about high blood pressure Not available 07/01/2024 11:51:56 advance care planning: care instructions Not available 07/01/2024 11:51:56 Discussed and explained advance directives such as standard forms to the . Face to face discussion lasted for a duration of ___ minutes. Not available 06/19/2024 12:13:27 10/07/2024 [id number] learning about type 2 diabetes Not available 10/07/2024 14:09:48 type 2 diabetes: care instructions Not available 10/07/2024 14:09:48 high blood pressure: care instructions Not available 10/07/2024 14:09:48 learning about high blood pressure Not available 10/07/2024 14:09:48 high cholesterol : care instructions Not available 10/07/2024 14:09:48 01/13/2025 [id number] advance care planning: care instructions Not available 01/13/2025 13:47:58 Discussed and explained advance directives such as standard forms to the . Face to face discussion lasted for a duration of ___ minutes. [email or web address] Not available 01/12/2025 15:53:43 Reason for Referral None Reported. Results Created Date Observation Date Name Description Value Unit Range Abnormal Flag Note LastModifiedBy Organization Detail LastModifiedTime Result Notes Documentation Provider Name and Address Organization Details Recorded Time Hba1c (hemoglobin A1c), Blood : A1C, CMP [facility]/20[facility] 14:34:27 Problems Name Problem SNOMED Code Status Onset Date Resolution Date Notes Provider Name and Address Organization Details Recorded Time Type 2 diabetes mellitus 18003655 Active 2017 [facility] 8 11:44:42 Essential hypertens ion 73856243 Active 2017 [facility] 8 11:44:48 Hemochrom atosis 208862037 Active 2017 [facility] 8 11:44:59 Hemangiom a of liver 14516035 Active 2017 [facility] 8 11:45:22 Iron deficienc y anemia 86239530 Active 2017 [facility] 8 11:45:29 Osteoarth ritis of knee 684551660 Active 2017 bilat knee Isidro Henderson, DO [address] [place] [address], [address], [facility] 9 11:38:33 Gout 53755020 Active 2017 [facility] 8 11:46:54 Hyperlipi demia 85757833 Active 2017 [facility] 8 11:46:58 Near syncope 793211316 Active 2021 Isidro Henderson, DO [address] [place] [address], [address], [place] [facility] 2 15:23:54 Contusion of rib 776455342 Active 2022 Isidro Henderson DO [address] [place] [address], [address], [facility] 3 13:46:27 Osteoarth ritis of left knee joint 666040556580 109 Active 2023 Isidro Henderson, [address] [place] [address], [address], [facility] 4 15:04:28 Closed fracture of neck of femur 273059548 Active 2024 JOSSELYN FAGAN [address] [place] [address], [address], [facility] 5 15:29:24 Celluliti s 765273654 Active 2024 JOSSELYN FAGAN [address] [place] [address], [address], [facility] 5 14:19:26 Hypomagne semia 470635053 Active 2024 Isidro Henderson DO [address] [place] [address], [address], [facility] 13:47:09 Problem Notes None recorded. Procedures Surgical History Date Name Laterality Status Provider Name and Address Organization Details Recorded Time 025 WOUND CARE completed JOSSELYN FAGAN [address] [place] [address], [address], [facility] 12/02/2024 15:40:33 024 Corticosteroid Injection completed Namja Ayala [facility] 05/22/2024 15:02:57 021 Corticosteroid Injection completed Isidro Henderson DO [address] [place] [address], [address], [facility] 01/23/2021 16:19:13 021 Corticosteroid Injection completed Isidro Henderson DO [address] [place] [address], [address], [facility] 01/03/2021 16:13:57 019 Corticosteroid Injection completed Isidro Henderson DO [address] [place] [address], [address], [facility] 05/08/2019 14:50:48 019 Corticosteroid Injection completed Isidro Henderson DO [address] [place], [address], [facility] 04/06/2019 11:39:50 018 Corticosteroid Injection completed Isidro Henderson DO [address] [place], [address], [facility] 07/21/2018 16:05:22 018 Corticosteroid Injection completed Isidro Henderson DO [address] [place], [address], [facility] 04/30/2018 12:44:06 018 Corticosteroid Injection completed Isidro Henderson DO [address] [place], [address], [facility] 04/18/2018 14:33:50 015 Colonoscopy completed Hannah Monreal [facility] 12/02/2019 10:17:00 Imaging Results None recorded. Procedure Notes None recorded. Medical Equipment None Reported. Allergies Allergen ID Allergen Name Allergen Category Reaction Reaction Severity Criticality Documentation Date Start Date Code Code System Note Provider Name and Address Organization Details Recorded Time 401 Product containin g angiotens in-conver ting enzyme inhibitor (product) medicatio n cough Not available Not available 11/06/2017 29568 009 SNOMED [facility] 8 11:43:42 402 colchicin e medicatio n rash Not available Not available 11/06/2017 2683 RxNorm [facility] 8 11:44:37 Medications Name Sig Start Date [...] FOR 2 DAYS. TAKE ON 04/02 AND 811/02 completed Not Available Not Available Not Available [...] Updated DateTime 5 170.18 cm 37.7 kg/m2 515921. 76 g 70 /min 99 % 99 % 130 mm[Hg] 80 mm[Hg] Rasta Ng [facility] 5 13:51:10 Date Recorded Body height Body mass index (BMI) Body weight Heart rate Oxygen saturation Oxygen saturation in Arterial blood by Pulse oximetry Systolic blood pressure Diastolic blood pressure Provider Name and Address Organization Details Last Updated DateTime 5 170.18 cm 37.7 kg/m2 532171. 76 g 72 /min 98 % 98 % 132 mm[Hg] 78 mm[Hg] Sarah Worthington [facility] 5 15:05:33 Date Recorded Body height Body mass index (BMI) Body weight Heart rate Oxygen saturation Oxygen saturation in Arterial blood by Pulse oximetry Systolic blood pressure Diastolic blood pressure Provider Name and Address Organization Details Last Updated DateTime 5 170.18 cm 37.7 kg/m2 875896. 76 g 92 /min 98 % 98 % 140 mm[Hg] 76 mm[Hg] Sarah Worthington [facility] 5 13:29:28 Date Recorded Body height Body mass index (BMI) Body weight Heart rate Oxygen saturation Oxygen saturation in Arterial blood by Pulse oximetry Systolic blood pressure Diastolic blood pressure Provider Name and Address Organization Details Last Updated DateTime 4 170.18 cm 37.9 kg/m2 543473. 35 g 86 /min 97 % 97 % 138 mm[Hg] 86 mm[Hg] Rasta Ng [facility] 4 11:05:47 Social History Question Answer Notes LastModified by Organizat ion Details LastModified Time Tobacco Smoking Status Former Smoker Not Available [employer] 07/05/2020 03:36:24 What Was The Date Of Your Most Recent Tobacco Screening? 01/13/2025 Information not available 01/13/2025 Sex: Unknown Functional Status Question Answer Note LastModified by Organization D etails LastModified Time Do you or have you ever used any other forms of tobacco or nicotine? No [email or web address] Information not available 04/15/2023 Mental Status None recorded. Family History Nothing Reported. Medical History No medical history recorded. Immunizations Vaccine Type Date Status Note Provider Nam e and Address Organization Details Recorded Time COVID-19, mRNA, LNP-S, PF, 100 mcg/0.5mL dose or 50 mcg/0.25mL dose 1 completed Isidro Henderson DO [address] [place] [address], [address], [facility] 01/05/2022 14:48:34 COVID-19, mRNA, LNP-S, PF, 100 mcg/0.5mL dose or 50 mcg/0.25mL dose 2 completed Isidro Henderson DO [address] [place] [address], [address], [facility] 01/05/2022 14:48:42 Influenza, split virus, quadrivalent, preservative 8 completed [facility] 06/16/2018 14:43:50 zoster live 8 completed [facility] 06/16/2018 14:44:08 Tdap 2 completed Isidro Henderson DO [address] [place] [address], [address], [facility] 04/20/2022 11:29:04 influenza, unspecified formulation 2 completed [facility] 07/23/2022 12:03:42 SARS-COV-2 (COVID-19) vaccine, UNSPECIFIED 3 completed [facility] 04/15/2023 14:56:37 SARS-COV-2 (COVID-19) vaccine, UNSPECIFIED 4 completed [facility] 03/18/2024 11:04:51 Influenza, split virus, quadrivalent, preservative 0 completed Isidro Henderson DO [address] [place] [address], [address], [facility] 05/16/2020 16:13:32 COVID-19, mRNA, LNP-S, PF, 100 mcg/0.5mL dose or 50 mcg/0.25mL dose 1 completed Isidro Harry Giovanninicholas [address] [place] [address], [address], [facility] 11/02/2020 11:44:38 COVID-19, mRNA, LNP-S, PF, 100 mcg/0.5mL dose or 50 mcg/0.25mL dose 1 completed Isidro Harry HermesDO [address] [place] [address], [address], [facility] 11/02/2020 11:44:46 Past Encounters Encounter ID Performer Location Encounter Start Date Encounter Closed Date Diagnosis/Indication Diagnosis SNOMED-CT Code Diagnosis ICD10 Code Diagnosis Note [id number] Isidro Henderson [address] [place] [address] 01/22/2018 10:46:48 01/22/2018 12:02:38 Type 2 diabetes mellitus 93986137 E11.9 a1c is good and will be following with [facility] no current complicati ons Iron defic iency anemia 28893000 D50.9 will have followup lab with [facility] and then will have colonoscoi py dr marcelo to decide if xarelto is culprit of low iron Essential hypertension 07746195 I10 doing great no change in meds [id number] Isidro Henderson [facility] [address] [place], [place] [address] [address] 04/18/2018 13:57:19 04/18/2018 14:57:18 Osteoarthritis of knee 948938342 M17.0 cortisone inj well tolerated [id number] Isidro Henderson [facility] [address] [place] [address] 04/30/2018 12:04:14 04/30/2018 15:58:16 Osteoarthritis of knee 460724395 M17.0 cortisone inj well tolerated [id number] Isidro Henderson [facility] [address],[place] [address] 06/16/2018 14:17:42 06/16/2018 15:33:04 Type 2 diabetes mellitus 02930587 E11.9 a1c is good and will be following with [facility] no current complicati ons 7.0 is still stable up from 6.9 Essential hypertension 32510485 I10 doing great no change in meds Osteoarthr itis of knee 960084174 M17.0 cortisone inj did ok but took a long time [id number] Isidro Henderson [facility] [address] [facility] [address],[place] [address] 07/21/2018 15:26:00 07/21/2018 16:09:19 Osteoarthritis of knee 388219432 M17.0 cortisone inj did ok but took a long time repeat but if this does not help will have to refer [id number] Isidro Henderson [facility] [address] [facility] [address],[place] [address] 10/01/2018 14:18:33 10/03/2018 08:52:47 Essential hypertension 66732221 I10 doing great no change in meds Type 2 kristal betes mellitus 61652155 E11.9 a1c is good and will be following with [facility] no current complicati ons 7.0 is still stable Osteoarthr itis of knee 113562200 M17.0 cortisone inj did ok but took a long time repeat but if this does not help will have to refer Hyperlipidemia 95912368 E78.5 LDL is excellent at 96 Hemochromatosis 15440476 6 E83.119 ferritin is 35 [id number] Isidro Henderson [facility] [address] [facility] [address],[place] [address] 12/26/2018 10:34:23 12/26/2018 12:00:07 Type 2 diabetes mellitus 09526849 E11.9 a1c is good and will be following with [facility] no current complicati ons 6.6 is still stable Essential hypertension 33903330 I10 no change in meds right now as he is quite distraught and we will ss him again in a couple mo and recheck [id number] Isidro Henderson [facility] [address] [facility] [address],[place] [address] 04/06/2019 10:49:50 04/06/2019 11:46:29 Osteoarthritis of knee 683431996 M17.0 cortisone inj did ok but took a long time to right knee repeat but if this does not help will have to refer [id number] Isidro AlfonsoIggy Henderson [facility] [address] [facility] [address],[place] [address] 05/08/2019 14:08:59 05/08/2019 14:57:01 Osteoarthritis of knee 204050601 M17.0 cortisone inj to left knee well toerated [id number] Isidro Harry Hermes [facility] [address] [facility] [address],[place] [address] 08/10/2019 11:08:08 08/10/2019 11:31:08 Type 2 diabetes mellitus 65170544 E11.9 a1c is fair and will be following with [facility] no current complicati ons 8.0 is the a1c and is going to have to do better with less treating will not adjust the meds Essential hypertension 38469655 I10 noted to have stable bp and we will see him again in a couple mo and recheck [id number] Isidro Henderson [facility] [address] [facility],[place] [address] 09/09/2019 11:57:12 09/09/2019 12:13:28 Type 2 diabetes mellitus 28491339 E11.[address] now and will be following with [facility] no current complicati ons 6.4 is the a1c and is doing better with less eating will not adjust the meds Essential hypertension 81500911 I10 noted to have stable bp and we will see him again in a couple mo and recheck [id number] Isidro Henderson [facility] [address] [facility],[place] [address] 12/02/2019 09:10:17 12/02/2019 13:36:51 Essential hypertension 12791183 I10 noted to have stable bp and we will see him again in a couple mo and recheck Type 2 kristal betes mellitus 73308042 E11.9 a1c is better now and will be following with [facility] no current complicati ons 6.4 is the a1c just like last time and is doing better with less eating will not adjust the meds Iron defic iency anemia 87997946 D50.[address] marcelo for a colonoscop y to check for source of bleed Osteoarthr itis of knee 848114009 M17.0 cortisone inj to left knee seemed to have helped [id number] Isidro Henderson [facility] [address] [facility],[place] [address] 03/07/2020 11:33:53 03/07/2020 12:19:53 Essential hypertension 04713001 I10 noted to have stable bp and we will see him again in 3 mo and recheck Hemochromatosis 08515190 6 E83.119 ferritin is 35 cbc is good iron level good Type 2 kristal betes mellitus 80106925 E11.9 a1c is better now and will be following with [facility] no current complicati ons 6.4 is the a1c just like last time and is doing better with less eating will not adjust the meds History of polyp of colon 448426300 Z86.010 doesn t want to get colonoscop y even though he has had polyps in e past told it would be important but he is not happy about it we will try dna test [id number] Isidro Henderson [facility] [address] [facility],[place] [address] 04/08/2020 14:50:22 04/08/2020 15:47:07 Essential hypertension 36691903 I10 well controlled today on medication Type 2 kristal betes mellitus 36103629 E11.9 sugar has been good per patient Bacteremia caused by Gram-negative bacteria 5439583865 08 A41.50 treated and has abx on discharge Acute cholecystitis 6527 5009 K81.0 resolved had gallbladde r removed Dyspnea at rest 43544385 7 R06.00 SENT TO THE ER FROM OFFICE FOR CONCERN OF PE Atypical chest pain 1025 30880 R07.89 has been having since after surgery, gotten worse per patient [id number] Isidro Henderson [facility] [address] [facility] [address],[place] [address] 05/16/2020 14:35:18 05/16/2020 15:22:43 Sepsis caused by Gram negative bacteria 492395223 A41.50 has survived and done well relates that he is still very tired History of cholecystectomy 403291018 Z90.49 and is healing well will be done with vna Administra tion of influenza vaccine 88848376 Z23 [id number] Isidro Henderson [facility] [address] [facility], [place] [address] 06/29/2020 11:22:38 06/29/2020 11:54:40 Type 2 diabetes mellitus 35886913 E11.9 a1c is better now and is a little too good at 5.5 no current complicati ons 6.4 is the last time and is doing better with less eating will need to watch his sugar to make sure he doesnt go to low Essential hypertension 13147803 I10 noted to have stable bp and we will see him again in 3 mo and recheck [id number] Isidro Henderson [facility] [address] [facility],[place] [address] 11/02/2020 11:26:25 11/02/2020 13:47:14 Essential hypertension 09754081 I10 noted to have stable bp and we will see him again in 3 mo and recheck Type 2 kristal betes mellitus 20397544 E11.9 a1c is better now and is a little too good at 6.3 which is good he was 5.5 no current complicati ons 6.4 is the last time and is doing better with less eating will need to watch his sugar to make sure he doesnt go to low Iron defic iency anemia 46938783 D50.[address] marcelo for a colonoscop y to check for source of bleed we will rechk lab Osteoarthr itis of knee 049459994 M17.0 cortisone inj to left knee seemed to have helped in the past lately he s ok but we will plan another inj when hes ready [id number] Isidro Henderson [facility] [address] [facility],[place] [address] 01/03/2021 15:29:43 01/03/2021 16:15:42 Osteoarthritis of knee 399020851 M17.0 cortisone inj to left knee seemed to have helped in the past lately he s ok but we will plan another inj when hes ready [id number] Isidro Henderson [facility] [address] [facility],[place] [address] 01/23/2021 15:55:04 01/23/2021 16:47:42 Osteoarthritis of right knee joint 5982303484 49097 M17.11 jordon inj well tolerated [id number] Isidro NatyIggy Henderson [facility] [address] [facility],[place] [address] 03/01/2021 10:57:56 03/01/2021 11:29:35 Essential hypertension 06875786 I10 noted to have stable bp and we will see him again in 3 mo and recheck Type 2 kristal betes mellitus 11070080 E11.9 a1c is better at 6.6 was 6.7 in december and was at 6.3 which is good he was 5.5 no current complicati ons [id number] [facility] [address] [facility],[place] [address] 06/02/2021 08:28:12 06/02/2021 14:00:45 Type 2 diabetes mellitus 76431988 E11.9 a1c is awesome at 5.7!!!!!!! !!!! better at 6.6 was 6.7 in december and was at 6.3 which is good he was 5.5 no current complicati onsdoing fantastic Osteoarthr itis of knee 003697492 M17.0 cortisone inj to left knee seemed to have helped in the past lately he s ok but we will plan another inj when he's ready Iron defic iency anemia 16888801 D50.[address] marcelo for a colonoscop y to check for source of bleed we will rechk lab Essential hypertension 85440546 I10 noted to have stable bp and we will see him again in 3 mo and recheck [id number] Isidro Henderson [facility] [address] [facility],[place] [address] 09/20/2021 08:10:48 09/22/2021 11:38:30 Essential hypertension 05287518 I10 noted to have stable bp and we will see him again in 3 mo and recheck Type 2 kristal betes mellitus 54236997 E11.9 a1c is pending and in past was awesome at 5.7!!!!!!! !!!! better at 6.6 was 6.7 in december and was at 6.3 which is good he was 5.5his home readings are avg 115 for 90 daysno current complicati onsdoing fantastic Hemochromatosis 96350457 6 E83.119 prior level of ferritin is 35 cbc is good iron level good lab is pending Hyperlipidemia 28834639 E78.5 LDL is excellent at 96 on prior lab Iron defic iency anemia 02177609 D50.[address] marcelo for a colonoscop y to check for source of bleed we will rechk lab is now pending [id number] Isidro Henderson [facility] Internal [facility] [address],[place] [address] 01/05/2022 14:22:54 01/05/2022 15:45:55 Type 2 diabetes mellitus 35651697 E11.9 a1c is pending and in past was up to 6.4 he was at 5.7!!!!!!! !!!! better at 6.6 was 6.7 in december and was at 6.3 which is good he was 5.5his home readings are avg 115 for 90 daysno current complicati onsdoing fantastic Essential hypertension 00903903 I10 noted to have stable bp and we will see him again in 3 mo and recheck Active or passive immunization 707420114 Z23 [place] [facility] to update Near syncope [id number] R 55 no full syncope we will get a monitor done to double check [id number] Isidro Henderson [facility] Internal Medicine [address],[place] [address] 04/20/2022 11:24:02 04/20/2022 11:52:51 Essential hypertension 07400586 I10 noted to have stable bp and we will see him again in 3 mo and recheck Iron defic iency anemia 04008342 D50.9 currently stable Type 2 kristal betes mellitus 23163207 E11.9 a1c is pending and in past was up to6.6 and beforewas 6.4 he was at 5.7!!!!!!! !!!! better at 6.6 was 6.7 in december and was at 6.3 which is good he was 5.5his home readings are avg 115 for 90 daysno current complicati onsdoing fantastic Near syncope 807381064 R 55 no full syncope we will get a monitor is normal [id number] Isidro Henderson [facility] Internal Medicine [address],[facility] [address] 07/23/2022 11:54:50 07/23/2022 12:49:21 Type 2 diabetes mellitus 32340101 E11.9 a1c is 6.6 and beforewas 6.6his home readings are avg 115 for 90 daysno current complicati onsdoing fantastic Hyperlipidemia 71037224 E78.5 LDL is excellent at 96 on prior lab Essential hypertension 93015185 I10 noted to have stable bp and we will see him again in 3 mo and recheck [id number] Isidro Henderson [facility] Internal Medicine [address], [address] [facility] [place] [address] 11/05/2022 11:26:32 11/05/2022 15:11:44 Type 2 diabetes mellitus 85149463 E11.9 a1c is now 6.5 was 6.6 and beforewas 6.6his home readings are avg 110 for 90 daysno current complicati onsdoing fantastic carefyul with diet and salt intake Essential hypertension 33075858 I10 noted to have stable bp and we will see him again in 3 mo and recheck Advance care planning 71 4699482 Z71.89 done [id number] Isidro Henderson [facility] Internal Medicine [address], [address] [place] [facility] [address] 04/15/2023 14:42:18 04/15/2023 15:23:23 Essential hypertension 88919723 I10 noted to have stable bp and we will see him again in 3 mo and recheck Type 2 kristal betes mellitus 69150478 E11.9 a1c is now 6.4 and was 6.5 was 6.6his home readings are avg 110 for 90 daysno current complicati onsdoing fantastic careful with diet and salt intake [id number] Isidro Henderson [facility] Internal Medicine [address] [facility] [address] 07/29/2023 13:27:23 07/29/2023 14:41:04 Essential hypertension 94735658 I10 noted to have stable bp and we will see him again in 3 mo and recheck Hyperlipidemia 58449043 E78.5 LDL is excellent at 96 on prior lab Type 2 kristal betes mellitus 32012575 E11.9 a1c is now 6.9 and was 6.4 and was 6.5 was 6.6his home readings are avg 120 for 90 daysno current complicati onsdoing fantastic careful with diet and salt intake Contusion of rib 2306422 06 S20.20XD doing much better lungs clear minimal palp pain no evid rib fx [id number] Isidro Henderson [facility] Internal Medicine [address] [place] [facility] [address] 12/06/2023 11:11:40 12/06/2023 11:52:07 Essential hypertension 97779030 I10 noted to have stable bp and we will see him again in 3 mo and recheck 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 prior level of ferritin is 35 cbc is good iron level good lab is pending Hyperlipidemia 88972115 E78.5 LDL is excellent at 96 on prior lab 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 a1c is now 6.2 qas 6.9 and was 6.4 and was 6.5 was 6.6 no current complicati onsdoing fantastic careful with diet and salt intake [id number] Isidro Henderson [facility] Internal Medicine [address],[place] [address] 03/18/2024 10:56:57 03/18/2024 12:01:25 Depression screening 294074922 Z13.31 neg Type 2 kristal betes mellitus 01849576 E11.9 a1c is now 6.2 was 6.9 and was 6.4 and was 6.5 was 6.6microal b is negno current complicati onsdoing fantastic careful with diet and salt intake Essential hypertension 94089644 I10 noted to have stable bp and we will see him again in 3 mo and recheck Peripheral vascular disease 522786825 I73.9 [id number] Isidro Henderson [facility] Internal Medicine [address] [facility] [address] [facility] [address] 05/22/2024 14:41:46 05/22/2024 15:50:09 Osteoarthritis of left knee joint 8280718684 44253 M17.12 jordon well tolerated [id number] Isidro Henderson [facility] Internal Medicine [address],[place] [address] 07/01/2024 10:56:32 07/01/2024 15:01:39 Adult health examination 653667045 Z00.01 stable despite his recent fallno major issues Screening for cardiovascular system disease 583681571 Z13.6 Screening for malignant neoplasm of colon 980085258 Z12.11 Contusion of rib 8607047 06 S20.20XD doing much better lungs clear minimal palp pain no evid rib fx Essential hypertension 53445884 I10 noted to have stable bp and we will see him again in 3 mo and recheck Type 2 kristal betes mellitus 88158810 E11.9 a1c is now 6.2 was 6.9 and was 6.4 and was 6.5 was 6.6microal b is negno current complicati onsdoing fantastic careful with diet and salt intake [id number] Isidro Henderson [facility] Internal Medicine [address] [facility] [address],[place] [address] 10/07/2024 13:43:19 10/07/2024 14:24:49 Essential hypertension 98189859 I10 noted to have stable bp and we will see him again in 3 mo and recheck Hemochromatosis 19997127 6 E83.119 prior level of ferritin is 35 cbc is good iron level good lab is pending cbc nl needs iron level done as well as ferritin Hyperlipidemia 31878488 E78.5 LDL is excellent at 96 on prior lab Type 2 kristal betes mellitus 00526723 E11.9 a1c is now 6.7 was 6.2 was 6.9 and was 6.4 and was 6.5 was 6.6microal b is sl pos very minimalno current complicati onslevel has gone up a bit due to winter and inactivity [id number] Isidro Henderson [facility] Internal Medicine [address] [facility] [address] 12/02/2024 14:48:32 12/02/2024 15:45:26 Closed fracture of neck of femur 967263886 S72.024A will set up with wound culturered ressed with new steri strips Type 2 kristal betes mellitus 02291300 E11.9 stable [id number] Isidro Henderson [facility] Internal Medicine [address],[place] [address] 01/13/2025 13:23:01 01/13/2025 14:15:26 Essential hypertension 07935690 I10 noted to have stable bp and we will see him again in 3 mo and recheck Type 2 kristal betes mellitus 87189424 E11.9 a1c is now 5.8 he is NOT eating well and skipping mealslong detailed discussion 6.7 was 6.2 was 6.9 and was 6.4 and was 6.5 was 6.6microal b is sl pos very minimalno current complicati onslevel has gone up a bit due to winter and inactivity Depression screening 171 467934 Z13.31 neg Hyperlipidemia 70785019 E78.5 LDL is excellent at 96 on prior lab Screening for cardiovascular system disease 032029180 Z13.6 hy Screening for malignant neoplasm of colon 741719979 Z12.11 Preventive procedure 169 796509 Z00.00 stable despite his recent fallno major issues Hypomagnesemia 230240058 E83.42 stable despite his recent fallno major issues Health Concerns Section Related Observation LastModified by Organization Detai ls LastModified Time None Recorded Concern Status LastModified by Organization Details LastModified Time None Recorded Advance Directives Directive None Recorded Payers Insurance Date Sequence Insurance Name Policy Number Policy Lopez Covered Member ID Lopez Member ID Guarantor Name 05/22/2024 2 [place]: [employer] Uziel Briceño [id number] Uziel Briceño 01/10/2025 1 [facility] (MEDICARE REPLACEMENT/A DVANTAGE - PPO) [id number] Uziel Briceño [id number] Uziel Briceño 05/22/2024 1 [facility] [id number] Uziel Briceño [id number] Uziel Briceño Notes Date Note Type Note Provider Name and Address Organization Details Recorded Time 05/22/20 24 text/htm l her fo his jordon inj to lwft knee has been very sore and uncomfortable Isidro Henderson, [address], [place], [address], [facility] 05/22/2024 15:05:19 07/01/20 24 text/htm l Medicare Annual Wellness VisitReported bypatient.Diet and Nutrition:healthy [...] is good no l=cp Isidro Henderson DO [address] [place] [address], [address], [facility] 07/01/2024 11:54:40 10/07/19 25 text/htm l Care Management - DiabetesReported bypatient.Self Care:seeing eye [...] was very sore better [place]reviewed lab from [place] a1c is 6.7seeing [place] dr[place] just had a DM foot eval too Isidro Henderson DO [address] [place], [address], [facility] Internal Medicine 10/07/2024 14:16:04 12/03/19 25 text/htm l hospital d/c the patient fracture his right [...] [facility] MARIE PEREZ, JOSSELYN [address] [place] [address], [address], [facility] Internal Medicine 12/02/2024 15:41:39 01/14/20 25 text/htm l Care Management - DiabetesReported bypatient.Self Care:seeing eye [...] no numbness of feet; no calluses on feetCare Management - HyperlipidemiaReported bypatient.Control:usually well controlled; improving; at goal Complications:no coronary artery disease; no heart attack; no cardiovascular disease; no pancreatitis; no strokeCare Management - HypertensionReported bypatient.Self Care:not under emotional stress Severity:symptoms are improving; does not interfere with daily activities Associated Symptoms:no dizziness; no lightheadedness; no chest pain; no shortness of breath; no palpitations; no edema; no calf muscle cramps; no blurred vision; no confusion; no headaches; no fatigue Isidro Henderson DO [address] [place], [address], [facility] Internal Medicine 01/13/2025 14:08:35
--- OUTSIDE RECORDS SUMMARY | 2025-03-02 09:23 | XMS_ITS | Clinical Summary ---
Author Organization [facility] Address [address] [place] [address] Care Team Providers Care Firer Marine Name Role Phone Unavailable Primary Care Provider [...]
[2025-03-02 14:13] LABS: Hemoglobin A1C 156.2195 umol/L; Total Hemoglobin (HGBA1C) 3228.7620 umol/L
[2025-03-02 14:44] LABS: Alanine Aminotransferase 13 U/L (0-40); Albumin Level 4.1 g/dL (3.5-5.0); Alkaline Phosphatase 89 U/L (39-117); Anion Gap 15 (12-20); Aspartate Amino Transferase 20 U/L (5-37); Blood Urea Nitrogen 42 mg/dL (9-16); Calcium 9.5 mg/dL (8.4-10.2); Carbon Dioxide 22 mmol/L (22-29); Chloride 108 mmol/L (96-108); Cholesterol 152 mg/dL (<200); Estimated Glomerular Filt Rate 37; HDL Cholesterol 50 mg/dL (>40); Magnesium 1.8 mg/dL (1.6-2.6); Potassium 4.5 mmol/L (3.3-5.1); Sodium 140 mmol/L (135-145); Total Protein 6.4 g/dL (6.5-8.0); Triglycerides 139 mg/dL (<150)
== END 2025-03-02 08:59 | disposition home or self-care (01) ==
LOC: HO.MANLDS 08:58
PROVIDERS: Visit Provider Internal Medicine
DX: E83.42 Hypomagnesemia (principal); Z13.1 Encounter for screening for diabetes mellitus
CPT/HCPCS: 36415; 80053; 80061; 83036; 83735

== ENCOUNTER 2025-06-15 09:15 | Outpatient (REF) | payer MEDICARE, SELFPAY ==
--- OUTSIDE RECORDS SUMMARY | 2025-06-15 10:02 | XMS_ITS | Encounter Summary ---
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 Phone Unknown, Unknown Primary Care Provider Isidro Dodge DO Primary Care Provider [phone] Isidro Mirza DO Primary Care Provider [phone] Encounter Details Date Type Department Care Team (Latest Contact Info) Description 04/30/2018 Transcribe Orders [facility] [address] [place] [address] Cristhian Florence MD [address] [address] [email or web address] Anemia, unspecified type (Primary Dx) Social History Tobacco Use Types Packs/Day Years Used Date Smoking Tobacco: Never Assessed Sex and Gender Information Value Date Recorded Sex Assigned at Male 03/28/2020 6:39 AM EDT Legal Sex Male 10:10 PM EDT Gender Identity Not on file Sexual Orientation Not on file documented as of this encounter Plan of Treatment Not on file documented as of this encounter Results * Ferritin (04/30/2018 2:30 PM EDT) FERRITIN 49 30 - 400 ug/L [facility] Blood 04/30/2018 2:30 PM EDT 04/30/2018 2:36 PM EDT us Cristhian Florence MD LAB BLOOD ORDERABLES Final R esult [address] [address] * Iron and iron binding capacity (04/30/2018 2:30 PM EDT) IRON 135 45 - 160 ug/dL [facility] IRON BINDING CAPACITY 387 228 - 428 ug/dL [facility] TRANSFERRIN SATURAT. 35 20 - 55 % [facility] Blood 04/30/2018 2:30 PM EDT 04/30/2018 2:36 PM EDT Cristhian Florence MD LAB BLOOD ORDERABLES Final R esult [address] [address] * C-Reactive Protein (04/30/2018 2:30 PM EDT) C REACTIVE PROTEIN 3.1 0.0 - 4.0 mg/L [facility] Blood 04/30/2018 2:30 PM EDT 04/30/2018 2:36 PM EDT Cristhian Florence MD LAB BLOOD ORDERABLES Final R esult [address] [address] * (ABNORMAL) Comprehensive metabolic panel (04/30/2018 2:30 PM EDT) SODIUM 141 133 - 146 mmol/L [facility] POTASSIUM 4.1 3.3 - 5.1 mmol/L [facility] CHLORIDE 99 96 - 108 mmol/L [facility] CO2 22 21 - 35 mmol/L [facility] BUN 19 6 - 19 mg/dL [facility] CREATININE 1.20 0.5 - 1.5 mg/dL [facility] GLUCOSE 248(H) 70 - 99 mg/dL [facility] ALBUMIN 4.4 3.9 - 4.8 g/dL [facility] TOTAL PROTEIN 7.6 6.5 - 8.0 g/dL [facility] CALCIUM 10.5(H) 8.4 - 10.3 mg/dL [facility] ALKALINE PHOSPHATASE 81 39 - 117 U/L [facility] TOTAL BILIRUBIN 0.6 0.0 - 1.2 mg/dL [facility] AST 17 0 - 37 U/L [facility] ALT 19 0 - 40 U/L [facility] GLOBULIN 3.2 1 - 4.8 g/dL [facility] EGFR 59(L) >59 mL/min/1.7 3m2 [facility] Comment:If patient is black, multiply result by 1.159. Estimated glomerular filtration rate calculated using the CKD-EPI equation. ANION GAP 24(H) 10 - 20 mmol/L [facility] Blood 04/30/2018 2:30 PM EDT 04/30/2018 2:36 PM EDT us Cristhian Florence MD LAB BLOOD ORDERABLES Final R esult [facility] [address] [place] [address] * (ABNORMAL) CBC and differential (04/30/2018 2:30 PM EDT) WBC 8.40 3.40 - 11.20 K/uL [facility] RBC 4.23(L) 4.50 - 5.50 M/uL [facility] HGB 14.0 13.0 - 17.0 g/dL [facility] HCT 41.6 40.0 - 51.0 % [facility] PLT 279 130 - 400 K/uL [facility] MCV 98.3(H) 79.0 - 98.0 fL [facility] MCH 33.1 27.0 - 34.8 pg [facility] MCHC 33.7 31.5 - 36.0 g/dL [facility] RDW 13.2 10.8 - 14.6 % [facility] MPV 11.4 9.4 - 12.4 fl [facility] NRBC 0.00 /100 WBCs [facility] ABSOLUTE NRBC 0.00 K/uL [facility] DIFF METHOD Auto [facility] NEUTS 83.6(H) 45.30 - 77.70 % [facility] LYMPHS 11.1(L) 12.30 - 39.70 % [facility] MONOS 3.6(L) 4.10 - 12.80 % [facility] EOS 0.8 0 - 7.2 % [facility] BASOS 0.4 0 - 2.80 % [facility] Granulocytes, immature (%) 0.5 0.0 - 0.9 % [facility] ABSOLUTE NEUTS 7.03 1.40 - 7.70 K/uL [facility] ABSOLUTE LYMPHS 0.93 0.60 - 3.20 K/uL [facility] ABSOLUTE MONOS 0.30 0.11 - 0.59 K/uL [facility] ABSOLUTE EOS 0.07 0.01 - 0.50 K/uL [facility] ABSOLUTE BASOS 0.03 0.00 - 0.08 K/uL [facility] Granulocytes, immature 0.04 0.00 - 0.05 K/uL [facility] Blood 04/30/2018 2:30 PM EDT 04/30/2018 2:36 PM EDT us Cristhian Florence MD LAB BLOOD ORDERABLES Final R esult Performing Organization Address City/State/[facility] Co de Phone Number [facility] [address] [place] [address] documented in this encounter Visit Diagnoses Diagnosis Anemia, unspecified type- Primary documented in this encounter Additional Health Concerns Infection Onset Date Last Indicated Resolved Time CoV-Risk Comment:COVID negative 04/0804/08/2020 04/08/2020 04/11/2020 9: 46 AM EDT documented as of this encounter 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 It is not the complete legal health record.[facility]
--- OUTSIDE RECORDS SUMMARY | 2025-06-15 10:02 | XMS_ITS | Encounter Summary ---
Author Organization [facility] Address [address] [facility] [address] [place] [address] Phone Care Team Providers [employer] Name Role Phone Unknown, Unknown Primary Care Provider Isidro Dodge DO Primary Care Provider [phone] Isidro Mirza DO Primary Care Provider [phone] Encounter Details Date Type Department Care Team (Latest Contact Info) Description 06/16/2018 Transcribe Orders [facility] [address] [place] [address] Cristhian Florence MD [address] [address] [email or web address] Anemia, unspecified type (Primary Dx) Social History [...] documented as of this encounter Results * (ABNORMAL) Liver fibrosis test (06/16/2018 10:31 AM EDT) Cow Milk Conv Class 0.[address] [facility] DPT OF LAB MED AND PAT+ Neuron Specific Enolase (NOTE) [facility] DPT OF LAB MED AND PAT+ Comment:RESULT: F0-F1 Interleukin [address] no [address] [facility] DPT OF LAB MED AND PAT+ Comment: (NOTE) FibroTest estimates liver fibrosis FibroTest Score Stage Interpretation 0.00-0.21 F0 no fibrosis 0.21-0.27 F0-F1 no fibrosis 0.27-0.31 F1 minimal fibrosis 0.31-0.48 F1-F2 minimal fibrosis 0.48-0.58 F2 moderate fibrosis 0.58-0.72 F3 advanced fibrosis 0.72-0.74 F3-F4 advanced fibrosis 0.74-1.00 F4 severe fibrosis (Cirrhosis) ActiTest Score 0.[address] [facility] DPT OF LAB MED AND PAT+ ANCA JOANNA at 1:20 dilution A[address] [facility] DPT OF LAB MED AND PAT+ ActiTest Interpretation no activity [facility] DPT OF LAB MED AND PAT+ Comment: (NOTE) ActiTest estimates necroinflammatory activity ActiTest Score Grade Interpretation 0.00-0.17 A0 no activity 0.17-0.29 A0-A1 no activity 0.29-0.36 A1 minimal activity 0.36-0.52 A1-A2 minimal activity 0.52-0.60 A2 significant activity 0.60-0.62 A2-A3 significant activity 0.62-1.00 A3 severe activity FibroTest-ActiTest Comment SEE NOTE [facility] DPT OF LAB MED AND PAT+ Comment: (NOTE) The reliability of results is dependent on compliance with the preanalytical and analytical conditions recommended by [employer]. The tests have to be deferred for: acute hemolysis, acute hepatitis, acute inflammation, extra hepatic cholestasis. The advice of a specialist should be sought for interpretation in chronic hemolysis and Gilbert's syndrome. The test interpretation is not validated in liver transplant patients. Isolated extreme values of one of the components should lead to caution in interpreting the results. In case of discordance between a biopsy result and a test, it is recommended to seek advice of a specialist. The causes of these discordances could be due to a flaw of the test or to a flaw in the biopsy: i.e. a liver biopsy has a 33% variability rate for one fibrosis stage. FibroTest is interpretable for chronic hepatitis B and C, alcoholic and non alcoholic steatosis. ActiTest is interpretable for chronic hepatitis B and C. ADDITIONAL INFORMATION This test was developed and its performance characteristics determined by [facility] in a manner consistent with CLIA requirements. This test has not been cleared or approved by the U.S. Food and Drug Administration. [employer] Serial Number [id number] [facility] DPT OF LAB MED AND PAT+ Apolipoprotein A1, S 155 >=120 mg/dL [facility] DPT OF LAB MED AND PAT+ Jbwwb-4-Ntxzhcaqkorpl, S 174 100 - 280 mg/dL [facility] DPT OF LAB MED AND PAT+ Haptoglobin, S 205(H) 30 - 200 mg/dL [facility] DPT OF LAB MED AND PAT+ Alanine Aminotransferase (ALT), S 23 7 - 55 U/L [facility] DPT OF LAB MED AND PAT+ Gamma Glutamyltransferase (GGT), S 26 8 - 61 U/L [facility] DPT OF LAB MED AND PAT+ Bilirubin, Total, S 0.5 <=1.2 mg/dL [facility] DPT OF LAB MED AND PAT+ Blood 06/16/2018 10:3 1 AM EDT 06/16/2018 10:38 AM EDT us Cristhian Florence MD LAB BLOOD ORDERABLES Final R esult [facility] DPT OF LAB MED AND PAT+ [address] [place] [address] * (ABNORMAL) Comprehensive metabolic panel (06/16/2018 10:31 AM EDT) SODIUM 144 133 - 146 mmol/L [facility] POTASSIUM 5.0 3.3 - 5.1 mmol/L [facility] CHLORIDE 101 96 - 108 mmol/L [facility] CO2 24 21 - 35 mmol/L [facility] BUN 19 6 - 19 mg/dL [facility] CREATININE 1.10 0.5 - 1.5 mg/dL [facility] GLUCOSE 149(H) 70 - 99 mg/dL [facility] ALBUMIN 4.5 3.9 - 4.8 g/dL [facility] TOTAL PROTEIN 7.2 6.5 - 8.0 g/dL [facility] CALCIUM 10.0 8.4 - 10.3 mg/dL [facility] ALKALINE PHOSPHATASE 90 39 - 117 U/L [facility] TOTAL BILIRUBIN 0.5 0.0 - 1.2 mg/dL [facility] AST 19 0 - 37 U/L [facility] ALT 22 0 - 40 U/L [facility] GLOBULIN 2.7 1 - 4.8 g/dL [facility] EGFR 66 >59 mL/min/1.7 3m2 [facility] Comment:If patient is black, multiply result by 1.159. Estimated glomerular filtration rate calculated using the CKD-EPI equation. ANION GAP 24(H) 10 - 20 mmol/L [facility] Blood 06/16/2018 10:3 1 AM EDT 06/16/2018 10:38 AM EDT us Cristhian Florence MD LAB BLOOD ORDERABLES Final R esult [address] [address] * AFP (non-maternal specimens) (06/16/2018 10:31 AM EDT) AFP (NON-MATERNAL) 1.9 0.8 - 7.5 ng/mL [facility] Blood 06/16/2018 10:3 1 AM EDT 06/16/2018 10:38 AM EDT us Cristhian Florence MD LAB BLOOD ORDERABLES Final R esult [address] [address] documented in this encounter Visit Diagnoses Diagnosis Anemia, unspecified type- Primary documented in this encounter Additional Health Concerns Infection Onset Date Last Indicated Resolved Time CoV-Risk Comment:COVID negative 04/0804/08/2020 04/08/2020 04/11/2020 9: 46 AM EDT documented as of this encounter Care Teams [employer] Relationship Specialty Start Date End Date Unknown, Unknown, MD PCP - General 04/30/18 03/27/20 Isidro Mirza DO mary PCP - General Internal Medicine 03/28/20 11/08/24 Isidro Mirza DO [address] [place] [id number] mary PCP - General Internal Medicine 11/09/24 documented as of this encounter Additional Source Comments The information contained in this document represents components of the legal health record. It is not the complete legal health record.[facility]
--- OUTSIDE RECORDS SUMMARY | 2025-06-15 10:02 | XMS_ITS | Clinical Summary ---
Author Organization [facility] Address [address] [facility] [address] [place] [address] Phone Care Team Providers Care Sign Painter Name Role Phone Isidro Mirza DO Primary Care Provider [phone] Allergies Active Allergy Reactions Criticality Noted Date Comments Meng Inhibitors 03/28/2020 Colchicine Rash Low 03/28/2020 Sulfamethoxazole-Trimethoprim 2024 Medications aspirin 81 MG EC tablet Take 81 mg by mouth daily. Active allopurinol (ZYLOPRIM) 300 MG tablet Take 300 mg by mouth daily. Active dilTIAZem (CARDIZEM CD) 300 MG 24 hr capsule Take 300 mg by mouth daily. Active glipiZIDE (GLUCOTROL) 10 MG tablet Take 10 mg by mouth 2 (two) times a day before meals. Active lisinopril (PRINIVIL,ZESTRIL ) 20 MG tablet Take 20 mg by mouth daily. Active metFORMIN (GLUCOPHAGE) 1000 MG tablet Take 1,000 mg by mouth 2 (two) times a day with meals. Active omeprazole (PRILOSEC) 20 mg TbEC Take 20 mg by mouth daily before breakfast. Active pioglitazone (ACTOS) 30 MG tablet Take 30 mg by mouth daily. Active thiamine (VITAMIN B-1) 100 MG tablet Take 200 mg by mouth daily. Active cod liver oil Cap Take 1 capsule by mouth daily. Active atorvastatin (LIPITOR) 80 MG tablet Take 80 mg by mouth daily. Active enoxaparin (LOVENOX) 40 mg/0.4 mL Syrg subcutaneous syringe Inject 0.4 mL (40 mg total) under the skin daily. 16.8 mL Active acetaminophen (TYLENOL) 500 MG tablet Take 1,000 mg by mouth every 8 (eight) hours as needed for pain (specific location in comments) (R hip). Active ID-sulfamethoxazo le/trimethoprim DS ([id number]) 800/160 mg tablet Take 1 tablet by mouth every 12 (twelve) hours. Active omega 7-psa-bwt-fish oil (FISH OIL) 1,200 (144-216) mg Cap Take 1 capsule every day by oral route. Active atenolol (TENORMIN) 25 MG tablet Take 25 mg by mouth daily. Active magnesium 250 mg Tab Take by mouth. Active Active Problems Problem Noted Date Diagnosed Date Femoral neck fracture 11/09/2024 Assessment & Plan (11/11/2024 12:05 PM EDT): Presented to the ED with hip pain after fall 1 week prior to this admission. Initial x-ray and CT negative for fracture but MRI demonstrated a nondisplaced intertrochanteric right femoral neck fracture. --Orthopedics consulted. OR 11/10 -- Pain mild, hoping to go directly home not to rehab, will see how he does with PT Assessment & Plan (11/10/2024 8:31 AM EDT): Presented to the ED with hip pain after fall 1 week prior to this admission. Initial x-ray and CT negative for fracture but MRI demonstrated a nondisplaced intertrochanteric right femoral neck fracture. --Orthopedics has been consulted. N.p.o. in anticipation of surgery today --Bedrest pending surgery, as needed morphine Assessment & Plan (11/09/2024 11:46 PM EDT): -Patient reports a mechanical fall 1 week ago with progressive difficulty ambulating and increased pain with weightbearing -X-ray right hip showed no fracture, CT right hip showed no fracture, follow-up with MRI showed nondisplaced intertrochanteric right femoral neck fracture with bone marrow edema and soft tissue edema -N.p.o. after midnight, plan for surgery tomorrow morning -Follow-up Ortho consult -prn morphine for pain management Ascending cholangitis 03/29/2020 Osteoarthritis Hypertension Assessment & Plan (11/11/2024 12:05 PM EDT): BP well-controlled. On multiple antihypertensives at home. Blood pressure mildly low. Up -- continue diltiazem, hold lisinopril atenolol, Assessment & Plan (11/10/2024 8:31 AM EDT): BP well-controlled. On multiple antihypertensives at home. -- continue atenolol, diltiazem, lisinopril with holding parameters Assessment & Plan (11/09/2024 11:46 PM EDT): -Blood pressure is currently well-controlled, continue atenolol, diltiazem, lisinopril with holding parameters Assessment & Plan (03/31/2020 2:51 PM EDT): -no further hypotension for >24hrs -restart diltiazem first, if bp continues to be elevated will restart lisinopril Diabetes mellitus Assessment & Plan (11/11/2024 12:05 PM EDT): --Holding p.o. medications including metformin, pioglitazone, glipizide -- POC elevated, start Lantus --check hemoglobin A1c Assessment & Plan (11/10/2024 8:31 AM EDT): POC hovering in the low to mid 100s, last hemoglobin A1c was 6.5 --Holding p.o. medications including metformin, pioglitazone, glipizide --Will monitor POC with sliding scale NPO. Following surgery, may need to add basal insulin --Last hemoglobin A1c 6.5 Assessment & Plan (11/09/2024 11:46 PM EDT): -Hold oral medications including metformin, pioglitazone, glipizide -Monitor point of care, cover with insulin sliding scale as needed -He is n.p.o. tonight but may need to be started on basal insulin tomorrow -Last hemoglobin A1c 6.5 Assessment & Plan (03/31/2020 2:54 PM EDT): -On glipizide, Actos, metformin at home -P.o. meds held while hospitalized and patient has been switched to basal insulin -He was hypoglycemic on 03/29 but since then has been hyperglycemic, will increase Lantus -Monitor point of care, cover with insulin sliding scale as needed Anemia Assessment & Plan (03/31/2020 2:58 PM EDT): -Closely monitor CBC as patient lost blood during surgery -Today H&H is fairly stable Colon polyps Overview (03/28/2020): Dr Florence Hyperlipidemia Assessment & Plan (03/31/2020 2:57 PM EDT): -Statin on hold for elevated LFTs GERD (gastroesophageal reflux disease) Assessment & Plan (03/28/2020 12:09 PM EDT): Patient is on omeprazole as an outpatient, pantoprazole substituted per hospital formulary. Bacteremia due to Gram-negative bacteria Assessment & Plan (03/31/2020 2:48 PM EDT): -Patient's blood cultures positive for Klebsiella -Initially treated with IV Zosyn then once sensitivities available switched to IV Rocephin -If patient is ready for discharge we will switch to oral antibiotics however plan is to complete a total of 7 days which will end on April 03 Resolved Problems Problem Noted Date Diagnosed Date Resolved Date LAUREN (acute kidney injury) 03/31/2020 Assessment & Plan (03/31/2020 2:52 PM EDT): -resolved Acute cholecystitis due to biliary calculus 03/28/2020 04/01/2020 Assessment & Plan (03/31/2020 2:47 PM EDT): -Status post open cholecystectomy 03/29 -Surgery following -LFTs trending down -Leukocytosis trending up however this may be reactive -Continue IV antibiotics Encounters Date Type Department Care Team Description 03/31/2025 11:41 AM EDT - 03/31/2025 11:59 PM EDT Hospital Encounter [facility] [address] [place] [address] Isidro Martino PA-C Discharge Disposition: Home or Self Care 03/31/2025 11:40 AM EDT Office Visit [facility] [address] [place] [address] Isidro Martino PA-C S/P ORIF (open reduction internal fixation) fracture (Primary Dx); Fracture, hip from Last 3 Months Immunizations Immunization Administration Dates Next Due Pneumococcal conjugate PCV13 03/28/2020(Deferred : Patient Refused) Family History Medical History Relation Comments Heart attack Father Dementia Mother Relation Status Comments Father Mother Sister Alive 4 sisters Social History Tobacco Use Types Packs/Day Years Used Date Smoking Tobacco: Former Cigarettes Q uit: 1973 Smokeless Tobacco: Never Alcohol Use Standard Drinks/Week Comments Yes 0 (1 standard drink = 0.6 oz pure alcohol) several drinks per week, wine or beer Home Health Assessment: Transportation Answer Date Recorded Lack of Transportation (Medical) No 01/01/2025 Lack of Transportation (Non-Medical) No 01/01/2025 Patient Unable or Declines to Respond No 01/01/2025 Education Answer Date Recorded Are you interested in more education? Not on yoli e 12/28/2022 Are you concerned about learning? Not on file 12/28/2022 No 12/28/2022 No 12/28/2022 Food Answer Date Recorded Within the past 6 months we worried whether our food would run out before we got money to buy more. Never True 01/02/2025 Within the past 6 months the food we bought just didn't last and we didn't have enough money to get more. Never True Residential Stability Answer Date Recor ded What is your housing situation today? I have gorge sing 01/02/2025 How many times have you move d in the past 12 months? Zero (I did not move) 01/02/2025 Paying for Meds Answer Date Recorded Do you have trouble paying for medicines? No 01/02/2025 Paying Utility Bills Answer Date Record ed Do you have trouble paying your heating or elect ricity bill? No 01/02/2025 Transportation Answer Date Recorded Has the lack of transportati on kept you from medical appointments or from getting medications? No 01/02/2025 Digital Access Answer Date Recorded No 01/02/2025 Yes 01/02/2025 Do you have reliable internet access at home? Ye s 01/02/2025 Do you have a device (e.g., phone, tablet, computer) with a working camera? Yes 01/02/2025 Intimate Partner Violence Answer Date R ecorded Are you denied basic needs s uch as food, clothing, or medical care? No 01/02/2025 In the past 12 months have y ou been in a relationship with a person who hurts, threatens, or tries to control you? No 01/02/2025 Are you denied basic needs s uch as food, clothing, or medical care? No 01/02/2025 In the past 12 months have y ou been in a relationship with a person who hurts, threatens, or tries to control you? No 01/02/2025 Sex and Gender Information Value Date Recorded Sex Assigned at Male 03/28/2020 6:39 AM EDT Legal Sex Male 10:10 PM EDT Gender Identity Not on file Sexual Orientation Not on file Occupation Industry Job Start Date Job End Date Worked in [employer], now retired Not on file Not on file Not on file Last Filed Vital Signs Vital Sign Reading Time Taken Comments Blood Pressure 106/68 01/02/2025 9:23 PM EDT Pulse 79 01/02/2025 9:23 PM EDT Temperature 36.1 C (97 F) 01/02/2025 9:23 PM EDT Respiratory Rate 16 01/02/2025 9:23 PM EDT Oxygen Saturation 99% 01/02/2025 9:23 PM EDT Inhaled Oxygen Concentration - - Weight 110.5 kg (243 lb 9.7 oz) 11/12/2024 6:00 AM EDT Height 170.2 cm (5' 7.01 ) 11/09/2024 1 1:45 PM EDT Body Mass Index 38.15 11/09/2024 11:45 PM EDT Plan of Treatment Health Maintenance Due Date Last Done Comments DEPRESSION SCREENING 1957 PNEUMOCOCCAL VACCINES (50+ years) (2 of 2 - PPSV23) 04/04/2015 02/07/2015 INFLUENZA VACCINE (#1) 2025 , 06/04/2023, 06/15/2022, Additional history exists DIABETIC EYE EXAM 04/30/2025 04/30/2024 COVID-19 VACCINE ( season) 2025 09/04/2024, 03/03/2024, 09/10/2023, Additional history exists HEMOGLOBIN A1C 05/15/2025 11/12/2024, 07/20/2022 BLOOD PRESSURE 07/04/2025 01/01/2025 CREATININE LEVEL 01/02/2026 01/02/2025, , 11/11/2024, Additional history exists POTASSIUM LEVEL 01/02/2026 01/02/2025, 10/31, 11/11/2024, Additional history exists Adult Td,Tdap Booster 02/13/2032 02/12/2022, 005 ZOSTER VACCINES Completed 06/02/2018, 05/0 03/2018, 02/24/2013 HEPATITIS A VACCINES Aged Out 10/01/2019, 09/01/20 19 No longer eligible based on patient's age to complete this topic RSV VACCINE Completed 03/01/2025 HIB VACCINES Aged Out No longer eligi ble based on patient's age to complete this topic MENINGOCOCCAL VACCINES (ACWY) Aged Out No longer eligible based on patient's age to complete this topic MENINGOCOCCAL VACCINES (B) Aged Out N o longer eligible based on patient's age to complete this topic Medical Devices Implanted Type Area Inspector Rubber Stamp Die Device Identifier Shelf Expiration Date Model / Serial / Lot Nail Femoral [id number] Short 125deg Tfn Advanced Ti Neck Cannulated - [id number] Implanted:Qty: 1 on 11/10/2024 by Jamil Burns DO at [facility] Right: Hip [employer] 03/01/2033 [id number] S / / [id number] Screw Bone 10.4e031od Fenestrated [employer] Tfn Advanced - [id number] Implanted:Qty: 1 on 11/10/2024 by Jamil Burns DO at [facility] Right: Hip [employer] 09/01/2034 [id number] S / / [id number] Screw Bone 5x44mm Locking Im Nail - [id number] Implanted:Qty: 1 on 11/10/2024 by Jamil Burns DO at [facility] Right: Hip DE[employer] 08/01/2034 [id number] S / / [id number] Procedures Procedure Name Priority Date/Time Associated Diagnosis Comments XR HIP 1 VW RIGHT Routine 03/31/2025 12: 44 PM EDT Fracture, hip S/P ORIF (open reduction internal fixation) fracture BASIC METABOLIC PANEL STAT 01/02/2025 3:42 PM EDT HEMOGLOBIN A1C Routine 11/12/2024 4:48 AM EDT from Last 3 Months or Most Recently Relevant to Health Maintenance Results * XR HIP 1 VW RIGHT (03/31/2025 12:44 PM EDT) Narrative SYSTEMGENERATED, DOCUMENTATION - 03/31/2025 12:44 PM EDT This image report has been auto-finalized and has not been read by a Radiologist. Interpretation has been included in the provider encounter note for this date of service. Isidro Martino PA-C IMG XR PELVIS Final Resul t * (ABNORMAL) Basic metabolic panel (01/02/2025 3:42 PM EDT) SODIUM 137 133 - 146 mmol/L [facility] CHLORIDE 105 96 - 108 mmol/L [facility] POTASSIUM 4.1 3.3 - 5.1 mmol/L [facility] Comment:Specimen slightly he molyzed, result may be falsely elevated. CO2 17(L) 21 - 35 mmol/L [facility] BUN 20(H) 6 - 19 mg/dL [facility] CREATININE 1.20 0.5 - 1.5 mg/dL [facility] GLUCOSE 208(H) 70 - 99 mg/dL [facility] CALCIUM 9.5 8.4 - 10.3 mg/dL [facility] EGFR 61 >59 mL/min/1.7 3m2 [facility] Comment:Estimated glomerular filtration rate calculated using the CKD-EPI refit equation. ANION GAP 19 10 - 20 mmol/L [facility] Blood 01/02/2025 3:42 PM EDT 01/02/2025 3:44 PM EDT us Mariana Sandoval MD LAB BLOOD ORDERABLES Clara l Result [address] [address] * (ABNORMAL) Hemoglobin A1c (11/12/2024 4:48 AM EDT) HEMOGLOBIN A1C 6.2(H) 4.3 - 5.8 % [facility] Blood 11/12/2024 4:48 AM EDT 11/12/2024 4:55 AM EDT us Mariama Valladares MD LAB BLOOD ORDERABLES Final Re sult Performing Organization Address [facility]/ZIP Co de Phone Number [address] [address] from Last 3 Months or Most Recently Relevant to Health Maintenance Insurance [place] [id number] [facility] Member Subscriber Plan / Payer (Ef fective 2015-Present) Name:Uziel Briceño Relation to Subscriber:Self Name:Uziel Briceño Payer ID:[id number] (NAIC) Group ID:Not on file Type:Indemnity Address: [facility] [employer] [id number] MEDICARE REPLACEMENT MEDICARE PART A & B [facility] Member Subscriber Plan / Payer (Ef fective 2015-Present) Name:Uziel Briceño Relation to Subscriber:Self Name:Navarro Uziel Payer ID:[id number] (NAIC) Group ID:Not on file Type:Indemnity Address: [facility] [employer] [id number] MEDICARE REPLACEMENT MEDICARE PART A & B [facility] MEDICARE REPLACEMENT MEDICARE PART A & B [facility] MEDICARE REPLACEMENT MEDICARE PART A & B [facility] Member Subscriber Plan / Payer (Ef fective 2015-Present) Name:Uziel Briceño Relation to Subscriber:Self Name:Uziel Briceño Payer ID:[id number] (NAIC) Group ID:Not on file Type:Indemnity Address: [facility] [employer] [id number] [place] [id number] [facility] MEDICARE REPLACEMENT MEDICARE PART A & B [facility] Member Subscriber Plan / Payer (Ef fective 2015-Present) Name:Uziel Briceño Relation to Subscriber:Self Name:Uziel Briceño Payer ID:[id number] (NAIC) Group ID:Not on file Type:Indemnity Address: [facility] [employer] [id number] MEDICARE REPLACEMENT MEDICARE PART A & B [facility] [place] [address] MEDICARE REPLACEMENT MEDICARE PART A & B [facility] MEDICARE REPLACEMENT MEDICARE PART A & B [facility] MEDICARE REPLACEMENT Advance Directives For more information, please contact: [phone] (9AM - 5PM [facility], Saturday-Saturday) Documents on File Type Date Recorded Patient Panel Laminator Expl anation Healthcare Proxy 04/04/2020 9:09 AM * Full Code (Latest Code Status on File) Date Activated Date Inactivated Comments 11/09/2024 11:34 PM Question Answer Comments Code Status Confirmed With: Patient * Full Code (Confirmed) Date Activated Date Inactivated Comments 03/29/2020 5:58 PM 11/09/2024 11:34 PM Question Answer Comments Code Status Confirmed With: Patient * Full Code (Confirmed) Date Activated Date Inactivated Comments 03/28/2020 1:48 PM 03/29/2020 5:58 PM Question Answer Comments Code Status Confirmed With: Patient Healthcare Agents on File Name Relationship Healthcare Agent [facility] p Communication Estelle Phillipsdarryn Sister .Primary Health Care Agent (Proxy form on file) Care Teams Sign Painter Relationship Specialty Start Date End Date Isidro Mirza DO [address] [place] [phone] mary PCP - General Internal Medicine 11/09/24 Additional Source Comments The information contained in this document represents components of the legal health record. It is not the complete legal health record.[facility]
--- OUTSIDE RECORDS SUMMARY | 2025-06-15 10:02 | XMS_ITS | Encounter Summary ---
Author Organization [facility] Address [address] [facility] [address] [place] [address] Phone Care Team Providers Care Platform Stapler Name Role Phone Isidro Mirza DO Primary Care Provider Isidro Mirza DO Primary Care Provider [phone] Encounter Details Date Type Department Care Team (Late st Contact Info) Description 04/08/2020 Procedure Pass [facility], Ct Scan - [facility] [address] [place] [address] Social History Tobacco Use Types Packs/Day Years Used Date Smoking Tobacco: Former Cigarettes Q uit: 1973 Smokeless Tobacco: Never Alcohol Use Standard Drinks/Week Comments Yes 0 (1 standard drink = 0.6 oz pure alcohol) several drinks per week, wine or beer Sex and Gender Information Value Date Recorded Sex Assigned at Male 03/28/2020 6:39 AM EDT Legal Sex Male 10:10 PM EDT Gender Identity Not on file Sexual Orientation Not on file Occupation Industry Job Start Date Job End Date 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, 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 Not on file Not on file Not on file documented as of this encounter Plan of Treatment Not on file documented as of this encounter Visit Diagnoses Not on filedocumented in this encounter Additional Health Concerns Infection Onset Date Last Indicated Resolved Time CoV-Risk Comment:COVID negative 04/0804/08/2020 04/08/2020 04/11/2020 9: 46 AM EDT documented as of this encounter Care Teams Platform Stapler Relationship Specialty Start Date End Date Isidro Mirza DO PCP - General Internal Medicine 03/28/20 11/08/24 Isidro Mirza DO [address] [place] [address] mary PCP - General Internal Medicine 11/09/24 documented as of this encounter Additional Source Comments The information contained in this document represents components of the legal health record. It is not the complete legal health record.[facility]
--- OUTSIDE RECORDS SUMMARY | 2025-06-15 10:02 | XMS_ITS | Clinical Summary ---
Author Organization [facility] Address [address] [place] [address] Care Team Providers Care Medicaid Nurse Name Role Phone Unavailable Primary Care Provider Unavailabl e Social History Tobacco Use Types Packs/Day Years Used Date Smoking Tobacco: Never Assessed Sex and Gender Information Value Date Recorded Sex Assigned at Not on file Legal Sex Male 1:39 PM EDT Gender Identity Not on file Sexual Orientation Not on file Plan of Treatment Health Maintenance Due Date Last Done Comments Advance Care Planning 1944 DTaP/Tdap/Td Vaccines (1 - Tdap) 02/09/1963 Pneumococcal Vaccines 50+ (1 of 1 - PCV) 02/09/1994 Zoster (Shingles) Vaccine (1 of 2) 02/09/1994 RSV Vaccine 60 years and old er and Patients (1 - 1-dose 75+ series) 02/09/2019 COVID-19 Vaccine (2023-2 5 season) 2025 Hepatitis B Vaccines Aged Out No long er eligible based on patient's age to complete this topic
--- OUTSIDE RECORDS SUMMARY | 2025-06-15 10:02 | XMS_ITS | Encounter Summary ---
Author Organization [facility] Address [address] [facility] [address] [place] [address] Phone Care Team Providers Care Data Modeler Name Role Phone Isidro Mirza DO Primary Care Provider [phone] Isidro Mirza DO Primary Care Provider [phone] Encounter Details Date Type Department Care Team (Late st Contact Info) Description 03/08/2022 Procedure Pass [facility] [address] [place] [address] Social History Tobacco Use Types Packs/Day Years [...] Diagnoses Not on filedocumented in this encounter Care Teams Data Modeler Relationship Specialty Start Date End Date Isidro Mirza DO mary PCP - General Internal Medicine 03/28/20 11/08/24 Isidro Mirza DO [address] [place] [address] [email or web address] PCP - General Internal Medicine 11/09/24 documented as of this encounter Additional Source Comments The information contained in this document represents components of the legal health record. It is not the complete legal health record.[facility]
--- OUTSIDE RECORDS SUMMARY | 2025-06-15 10:03 | XMS_ITS | Encounter Summary ---
Author Organization [facility] Address [address] [facility] [address] [place] [address] Phone Care Team Providers Care Face Man Name Role Phone Isidro Mirza DO Primary Care Provider [phone] Isidro Mirza DO Primary Care Provider [phone] Encounter Details Date Type Department Care Team (Late st Contact Info) Description 03/08/2022 Procedure Pass [facility] [address] [place] [address] Social History Tobacco Use Types Packs/Day Years [...] on filedocumented in this encounter Care Teams Face Man Relationship Specialty Start Date End Date Isidro Mirza DO mary PCP - General Internal Medicine 03/28/20 11/08/24 Isidro Mirza DO [address] [place] [address] [email or web address] PCP - General Internal Medicine 11/09/24 documented as of this encounter Additional Source Comments The information contained in this document represents components of the legal health record. It is not the complete legal health record.[facility]
--- OUTSIDE RECORDS SUMMARY | 2025-06-15 10:03 | XMS_ITS | Encounter Summary ---
Author Organization [facility] Address [address] [facility] [address] [place] [address] Phone Care Team Providers Care Implementation Consultant Name Role Phone Isidro Mirza Primary Care Provider [phone] Encounter Details Date Type Department Care Team (Late st Contact Info) Description 11/09/2024 Procedure Pass [facility], [address] [address] Social History Tobacco Use Types Packs/Day Years Used Date Smoking Tobacco: Former Cigarettes Q uit: 1973 Smokeless Tobacco: Never Alcohol Use Standard Drinks/Week Comments Yes 0 (1 standard drink = 0.6 oz pure alcohol) several drinks per week, wine or beer Education Answer Date Recorded Are you interested in more education? Not on yoli e 12/28/2022 Are you concerned about learning? Not on file 12/28/2022 No 12/28/2022 No 12/28/2022 Digital Access Answer Date Recorded No 01/28/2023 No 01/28/2023 Reliable internet access at home? Not on file 01/28/2023 Device with a working camera? Not on file Intimate Partner Violence Answer Date R ecorded Are you denied basic needs s uch as food, clothing, or medical care? No 11/09/2024 In the past 12 months have y ou been in a relationship with a person who hurts, threatens, or tries to control you? No 11/09/2024 Are you denied basic needs s uch as food, clothing, or medical care? No 11/09/2024 In the past 12 months have y ou been in a relationship with a person who hurts, threatens, or tries to control you? 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 Wish to be (Past 1 Month) No 11/09/2024 11:50 PM EDT Krishan Salinas RN 2. Non-Specific Active Suicidal Thoughts (Past 1 Month) No 11/09/2024 11:50 PM EDT Krishan Salinas RN 6. Suicidal Behavior (Lifetime) No 11/09/2024 11:50 PM EDT Krishan Salinas RN documented as of this encounter Plan of Treatment Not on file documented as of this encounter Visit Diagnoses Not on filedocumented in this encounter Care Teams Implementation Consultant Relationship Specialty Start Date End Date Isidro Mirza DO [address] [place] [address] [email or web address] PCP - General Internal Medicine 11/09/24 documented as of this encounter Additional Source Comments The information contained in this document represents components of the legal health record. It is not the complete legal health record.[facility]
--- OUTSIDE RECORDS SUMMARY | 2025-06-15 10:03 | XMS_ITS | Encounter Summary ---
Author Organization [facility] Address [address] [facility] [address] [place] [address] Phone Care Team Providers Care Body Wirer Name Role Phone Isidro Mirza Primary Care Provider [phone] Encounter Details Date Type Department Care Team (Late st Contact Info) Description 11/09/2024 Procedure Pass [facility], Ct Scan - [address] [address] Social History Tobacco Use Types Packs/Day Years [...] 11:50 PM EDT Rona Salinas RN * [place] Suicide Severity Rating Scale (Screener/Recent Self-Report) Question [...] on filedocumented in this encounter Care Teams Body Wirer Relationship Specialty Start Date End Date Isidro Mirza DO [address] [place] [address] [email or web address] PCP - General Internal Medicine 11/09/24 documented as of this encounter Additional Source Comments The information contained in this document represents components of the legal health record. It is not the complete legal health record.[facility]
--- OUTSIDE RECORDS SUMMARY | 2025-06-15 10:03 | XMS_ITS | Encounter Summary ---
Author Organization [facility] Address [address] [facility] [address] [place] [address] Phone Care Team Providers Care Consumer Education Specialist Name Role Phone Isidro Mirza Primary Care Provider [phone] Encounter Details Date Type Department Care Team (Late st Contact Info) Description 11/10/2024 Procedure Pass [place] Admitting Dept - Virtual Department [address] [place] [address] Social History Tobacco Use Types Packs/Day Years Used Date Smoking Tobacco: Former Cigarettes Q uit: 1973 Smokeless Tobacco: Never Alcohol Use Standard Drinks/Week Comments Yes 0 (1 standard drink = 0.6 oz pure alcohol) several drinks per week, wine or beer Home Health Assessment: Transportation Answer Date Recorded Lack of Transportation (Medical) No 11/14/2024 Lack of Transportation (Non-Medical) No 11/14/2024 Patient Unable or Declines to Respond No 11/14/2024 Education Answer Date Recorded Are you interested [...] on filedocumented in this encounter Care Teams Consumer Education Specialist Relationship Specialty Start Date End Date Isidro Mirza DO [address] [place] [address] [email or web address] PCP - General Internal Medicine 11/09/24 documented as of this encounter Additional Source Comments The information contained in this document represents components of the legal health record. It is not the complete legal health record.[facility]
--- OUTSIDE RECORDS SUMMARY | 2025-06-15 10:03 | XMS_ITS | Encounter Summary ---
Author Organization [facility] Address [address] [facility] [address] [place] [address] Phone Care Team Providers Care Manufacturing Intern Name Role Phone Isidro Mirza Primary Care Provider [phone] Encounter Details Date Type Department Care Team (Late st Contact Info) Description 11/09/2024 Procedure Pass [facility], Ct Scan - [address] [address] Social History Tobacco Use Types Packs/Day Years [...] 11:50 PM EDT Rona Salinas RN * [place] Suicide Severity Rating Scale (Screener/Recent Self-Report) Question [...] on filedocumented in this encounter Care Teams Manufacturing Intern Relationship Specialty Start Date End Date Isidro Mirza DO [address] [place] [address] [email or web address] PCP - General Internal Medicine 11/09/24 documented as of this encounter Additional Source Comments The information contained in this document represents components of the legal health record. It is not the complete legal health record.[facility]
--- OUTSIDE RECORDS SUMMARY | 2025-06-15 10:03 | XMS_ITS | Encounter Summary ---
Author Organization [facility] Address [address] [facility] [address] [place] [address] Phone Care Team Providers Care Main Galley Scullion Name Role Phone Isidro Mirza DO Primary Care Provider [phone] Isidro Mirza DO Primary Care Provider [phone] Encounter Details Date Type Department Care Team (Late st Contact Info) Description 03/29/2020 Procedure Pass [place] Admitting Dept - Virtual Department [address] [place] [address] Social History Tobacco Use Types Packs/Day Years [...] documented as of this encounter Care Teams Main Galley Scullion Relationship Specialty Start Date End Date Isidro Mirza DO [email or web address] PCP - General Internal Medicine 03/28/20 11/08/24 Isidro Mirza DO [address] [place] [address] [email or web address] PCP - General Internal Medicine 11/09/24 documented as of this encounter Additional Source Comments The information contained in this document represents components of the legal health record. It is not the complete legal health record.[facility]
--- OUTSIDE RECORDS SUMMARY | 2025-06-15 10:03 | XMS_ITS | Encounter Summary ---
Author Organization [facility] Address [address] [facility] [address] [place] [address] Phone Care Team Providers Care Harness Puller Name Role Phone Isidro Mirza Primary Care Provider [phone] Encounter Details Date Type Department Care Team (Late st Contact Info) Description 11/09/2024 Procedure Pass [facility], Ct Scan - [address] [address] Social History Tobacco Use Types Packs/Day Years [...] 11:50 PM EDT Rona Salinas RN * [place] Suicide Severity Rating Scale (Screener/Recent Self-Report) Question [...] on filedocumented in this encounter Care Teams Harness Puller Relationship Specialty Start Date End Date Isidro Mirza DO [address] [place] [address] [email or web address] PCP - General Internal Medicine 11/09/24 documented as of this encounter Additional Source Comments The information contained in this document represents components of the legal health record. It is not the complete legal health record.[facility]
--- OUTSIDE RECORDS SUMMARY | 2025-06-15 10:04 | XMS_ITS | Encounter Summary ---
Author Organization [facility] Address [address] [facility] [address] [place] [address] Phone Care Team Providers Care Drier And Pulverizer Tender Name Role Phone Isidro Mirza DO Primary Care Provider [phone] Isidro Mirza DO Primary Care Provider [phone] Encounter Details Date Type Department Care Team (Late st Contact Info) Description 03/28/2020 Procedure Pass [facility], Ct Scan - [facility] [address] [place] [address] Social History Tobacco Use Types Packs/Day Years [...] documented as of this encounter Functional Status documented as of this encounter Plan of Treatment Not on file documented as of this encounter Visit Diagnoses Not on filedocumented in this encounter Additional Health Concerns Infection Onset Date Last Indicated Resolved Time CoV-Risk Comment:COVID negative 04/0804/08/2020 04/08/2020 04/11/2020 9: 46 AM EDT documented as of this encounter Care Teams Drier And Pulverizer Tender Relationship Specialty Start Date End Date Isidro Mirza DO PCP - General Internal Medicine 03/28/20 11/08/24 Isidro Mirza DO [address] [place] [address] mary PCP - General Internal Medicine 11/09/24 documented as of this encounter Additional Source Comments The information contained in this document represents components of the legal health record. It is not the complete legal health record.[facility]
--- OUTSIDE RECORDS SUMMARY | 2025-06-15 10:04 | XMS_ITS | Encounter Summary ---
Author Organization [facility] Address [address] [facility] [address] [place] [address] Phone Care Team Providers Care Senior Relationship Manager Name Role Phone Isidro Mirza DO Primary Care Provider [phone] Isidro Mirza DO Primary Care Provider [phone] Encounter Details Date Type Department Care Team (Late st Contact Info) Description 01/11/2022 Procedure Pass Non-Invasive Cardiology [address] [place] [address] Social History Tobacco Use Types Packs/Day Years [...] on filedocumented in this encounter Care Teams Senior Relationship Manager Relationship Specialty Start Date End Date Isidro Mirza DO mary PCP - General Internal Medicine 03/28/20 11/08/24 Isidro Mirza DO [address] [place] [address] [email or web address] PCP - General Internal Medicine 11/09/24 documented as of this encounter Additional Source Comments The information contained in this document represents components of the legal health record. It is not the complete legal health record.[facility]
--- OUTSIDE RECORDS SUMMARY | 2025-06-15 10:04 | XMS_ITS | Encounter Summary ---
Author Organization [facility] Address [address] [address] Phone Care Team Providers Care Floor Covering Installer Name Role Phone Isidro Mirza DO Primary Care Provider [phone] Isidro Mirza DO Primary Care Provider [phone] Reason for Referral * Hospital - Outpatient - Closed Specialty Diagnoses / Procedures Referred By Jong barron Referred To Contact Diagnoses Syncope and collapse Procedures MCT (Mobile Cardiac Telemetry) Isidro Mirza DO Phone: tel: fax: [email or web address] Referral ID Status Reason Start Date Expiration Date Visits Re quested Visits Authorized [id number] Closed 01/11/2022 01/11/2023 1 1 Encounter Details Date Type Department Care Team (Late st Contact Info) Description 01/11/2022 Transcribe Orders Virtual Department [address] [place] [address] Isidro Mirza DO [address] [facility] [place] [address] [place] [address] [email or web address] Syncope and collapse (Primary Dx) Social History Tobacco Use Types [...] documented as of this encounter Results * MCT (Mobile Cardiac Telemetry) (02/19/2022 11:45 AM EDT) Anatomical Region Laterality Modality Heart Other Narrative 02/20/2022 11:06 PM EDT This 30-day MCT monitor was ordered for the indication of syncope. The predominant rhythm was normal sinus rhythm. Minimum heart rate 59 bpm Average heart rate 83 bpm Maximum heart rate of 158 bpm There was no documented evidence of atrial fibrillation. There were no documented pauses >2.5 seconds in duration. There were rare PACs and PVCs (<1% burden). There were 95 patient triggered activations without specified symptoms, all of which correlated with sinus rhythm. Conclusions: Normal 30-day MCT monitor. Event Monitor Main Form The type of event monitor used is: continuous telemetry. Start date: 01/18/2022 End date: 02/17/2022 Isidro Mirza DO [facility] ORDERABLES F inal Result documented in this encounter Visit Diagnoses Diagnosis Syncope and collapse- Primary Syncope and collapse documented in this encounter Care Teams Floor Covering Installer Relationship Specialty Start Date End Date Isidro Mirza DO mary PCP - General Internal Medicine 03/28/20 11/08/24 Isidro Mirza DO [address] [place] [address] mary PCP - General Internal Medicine 11/09/24 documented as of this encounter Additional Source Comments The information contained in this document represents components of the legal health record. It is not the complete legal health record.[facility]
--- OUTSIDE RECORDS SUMMARY | 2025-06-15 10:04 | XMS_ITS | Encounter Summary ---
Author Organization [facility] Address [address] [facility] [address] [place] [address] Phone Care Team Providers Care Etl Consultant Name Role Phone Unknown, Unknown Primary Care Provider Isidro Dodge DO Primary Care Provider [phone] Isidro Mirza DO Primary Care Provider [phone] Encounter Details Date Type Department Care Team (Late st Contact Info) Description 12/30/2019 Procedure Pass [facility] Endoscopy Admitting Dept Virtual Department [address] [place] [address] Social History Tobacco Use Types Packs/Day Years [...] documented as of this encounter Care Teams Etl Consultant Relationship Specialty Start Date End Date Unknown, Unknown, PCP - General 04/30/18 03/27/20 Isidro Mirza DO mary PCP - General Internal Medicine 03/28/20 11/08/24 Isidro Mirza DO [address] [place] [address] [email or web address] PCP - General Internal Medicine 11/09/24 documented as of this encounter Additional Source Comments The information contained in this document represents components of the legal health record. It is not the complete legal health record.[facility]
[2025-06-15 13:48] LABS: Hemoglobin A1C 161.7312 umol/L; Total Hemoglobin (HGBA1C) 3175.6094 umol/L
== END 2025-06-15 09:16 | disposition home or self-care (01) ==
LOC: HO.MANLDS 09:15
PROVIDERS: Visit Provider Internal Medicine
DX: E11.9 Type 2 diabetes mellitus without complications (principal)
CPT/HCPCS: 36415; 83036